=== PATIENT | female | born 1955 | race Caucasian/White ===

== ENCOUNTER 2016-05-25 13:49 | Emergency (ER) | payer MEDICARE, MEDICAID ==
[2016-05-25] MEDS ORDERED: Al Hydrox/Mg Hydrox/Simet LIQ* 30 ML UDC PO ONE (15:28)
[2016-05-25] MEDS ORDERED: Lidocaine 2% VISCOUS* 15 ML UDC PO ONE (15:28)
[2016-05-25] MEDS ORDERED: Ondansetron INJ* 2 MG/ML VIAL IV ONE (15:29)
[2016-05-25 15:39] LABS: Hematocrit 42 % (35-47); Hemoglobin 14.1 g/dl (12.0-16.0); Mean Corpuscular HGB Conc 34 g/dl (31-36); Mean Corpuscular Hemoglobin 31 pg (27-31); Mean Corpuscular Volume 91 fL (80-97); Mean Platelet Volume 7 um3 (7.4-10.4); Red Blood Count 4.58 10^6/ul (4.0-5.4); Red Cell Distribution Width 13 % (10.5-15); White Blood Count 10.7 10^3/ul (3.5-10.8)
[2016-05-25 15:56] LABS: Albumin 4.6 g/dL (3.2-5.2); BUN/Creatinine Ratio 13.9 (8-20); EGFR African American 105.6 (>60); EGFR Non-African American 82.1 (>60); Globulin 3.8 g/dL (2-4); Potassium 3.9 mmol/L (3.5-5.0); Total Bilirubin 0.6 mg/dL (0.2-1.0); Total Protein 8.4 g/dL (6.4-8.9)
[2016-05-25 17:51] VITALS: BP 154/95
[2016-05-25] MEDS ORDERED: Acetaminophen TAB* 325 MG ONE (18:31)
[2016-05-25] MEDS ORDERED: Acetaminophen TAB* 325 MG PO ONE (18:34)
--- NOTE | 2016-05-25 20:36 | ED ---
Abdominal Pain/Female - HPI Summary HPI Summary: Patient presents for delayed evaluation of periumbilical abdominal pain and nausea after drinking half a case of beer. She was upset with her son and daughter in law and subsequently drank the beer to cope. This is atypical, but what she felt may help. Denies any SI/HI, systemic symptoms, allev factors attempted. - History of Current Complaint Chief Complaint: EDNauseaVomitDiarrh Stated Complaint: NAUSEA/VOMITTING Time Seen by Provider: 05/25/16 15:12 Hx Obtained From: Patient Onset/Duration: Gradual Onset Timing: Days Pain Intensity: 6 Allergies/Adverse Reactions: Allergies Allergy/AdvReac Type Severity Reaction Status Date / Time Tramadol Allergy Severe Shortness Verified 05/25/16 13:52 of Breath Codeine Allergy Intermediate Rash Verified 05/25/16 13:52 Sulfa Drugs Allergy Mild Rash Verified 05/25/16 13:52 Atorvastatin [From Lipitor] AdvReac Severe Muscle Verified 05/25/16 13:52 weakness PMH/Surg Hx/FS Hx/Imm Hx Endocrine/Hematology History: Reports: Hx Diabetes - II Denies: Hx Thyroid Disease Cardiovascular History: Reports: Hx Hypertension Denies: Hx Pacemaker/ICD Respiratory History: Denies: Hx Asthma, Hx Chronic Obstructive Pulmonary Disease (COPD) GI History: Reports: Hx Hiatal Hernia Denies: Hx Ulcer History: Reports: Hx Renal Disease - HX OF FAILURE? Musculoskeletal History: Denies: Hx Osteoporosis Sensory History: Reports: Hx Contacts or Glasses, Hx Vision Problem Denies: Hx Hearing Aid Opthamlomology History: Reports: Hx Contacts or Glasses, Hx Vision Problem Psychiatric History: Reports: Hx Depression, Other Psychiatric Issues/Disorders - Psychosis, controlled with Geodon Denies: Hx Eating Disorder, Hx Panic Disorder, Hx of Violent Episodes Against Others - Cancer History Hx Chemotherapy: No Hx Radiation Therapy: No - Surgical History Surgery Procedure, Year, and Place: HYSTERECTOMY. Hernia repair. 06/19/14- [facility] HEART LOOP RECORDER -MRI CHARLES UP TO 3T 2500G/CM-FILED IN PT CHART Infectious Disease History: No Infectious Disease History: Reports: Hx Shingles Denies: Hx Clostridium Difficile, Hx Hepatitis, Hx Human Immunodeficiency Virus (HIV), Hx of Known/Suspected MRSA, Hx Tuberculosis, History Other Infectious Disease, Traveled Outside the [place] in Last 30 Days - Family History Known Family History: Positive: Hypertension - Social History Alcohol Use: Rare Alcohol Amount: Drank 10 beers Tuesday. Usually does not drink. Hx Substance Use: No Substance Use Type: Reports: None Hx Tobacco Use: Yes Smoking Status (MU): Former Smoker Type: Cigarettes Amount Used/How Often: 2 cigs day hx - quit 2011 Have You Smoked in the Last Year: No Review of Systems Negative: Fever, Chills Negative: Palpitations, Chest Pain Negative: Shortness Of Breath, Cough Positive: Abdominal Pain, Nausea. Negative: Vomiting, Diarrhea All Other Systems Reviewed And Are Negative: Yes Physical Exam Triage Information Reviewed: Yes Vital Signs On Initial Exam: Initial Vitals Temp Pulse Resp BP Pulse Ox 96.9 F 99 16 155/97 99 05/25/16 13:52 05/25/16 13:52 05/25/16 13:52 05/25/16 13:52 05/25/16 13:52 Vital Signs Reviewed: Yes Appearance: Positive: Well-Appearing, Well-Nourished, Pain Distress Skin: Positive: Warm, Skin Color Reflects Adequate Perfusion, Dry Respiratory/Lung Sounds: Positive: Clear to Auscultation, Breath Sounds Present Cardiovascular: Positive: Normal, RRR, Pulses are Symmetrical in both Upper and Lower Extremities Abdomen Description: Positive: No Organomegaly, Soft, Other: - Mild periumbilical to epigastric ttp.. Negative: CVA Tenderness (R), CVA Tenderness (L) Musculoskeletal: Positive: Normal, Strength/ROM Intact Neurological: Positive: Normal, Sensory/Motor Intact, Alert, Oriented to Person Place, Time, CN Intact II-III, Reflexes Intact, Normal Gait. Negative: Cerebellar Dysfunction Psychiatric: Positive: Other - Tearful Diagnostics - Vital Signs Vital Signs Temp Pulse Resp BP Pulse Ox 05/25/16 17:30 95 154/95 95 05/25/16 17:05 166/104 05/25/16 16:30 91 17 157/99 97 05/25/16 16:00 96 17 160/95 95 05/25/16 15:30 93 20 155/94 95 05/25/16 15:00 94 16 147/104 98 05/25/16 14:59 146/94 05/25/16 14:49 99 F 100 20 147/96 99 05/25/16 13:52 96.9 F 99 16 155/97 99 - Laboratory Lab Results: Lab Results 05/25/16 05/25/16 05/25/16 Range/Units 15:13 15:20 15:20 WBC 10.7 (3.5-10.8) 10^3/ul RBC 4.58 (4.0-5.4) 10^6/ul Hgb 14.1 (12.0-16.0) g/dl Hct 42 (35-47) % MCV 91 (80-97) fL MCH 31 (27-31) pg MCHC 34 (31-36) g/dl RDW 13 (10.5-15) % Plt Count 338 (150-450) 10^3/ul MPV 7 L (7.4-10.4) um3 Sodium 130 L (133-145) mmol/L Potassium 3.9 (3.5-5.0) mmol/L Chloride 94 L (101-111) mmol/L Carbon Dioxide 28 (22-32) mmol/L Anion Gap 8 (2-11) mmol/L BUN 10 (6-24) mg/dL Creatinine 0.72 (0.51-0.95) mg/dL Est GFR ( Amer) 105.6 (>60) Est GFR (Non-Af Amer) 82.1 (>60) BUN/Creatinine Ratio 13.9 (8-20) Glucose 160 H (70-100) mg/dL POC Glucose (mg/dL) 148 H (74-106) mg/dL Calcium 10.0 (8.6-10.3) mg/dL Total Bilirubin 0.60 (0.2-1.0) mg/dL AST 22 (13-39) U/L ALT 23 (7-52) U/L Alkaline Phosphatase 75 (34-104) U/L Total Protein 8.4 (6.4-8.9) g/dL Albumin 4.6 (3.2-5.2) g/dL Globulin 3.8 (2-4) g/dL Albumin/Globulin Ratio 1.2 (1-3) Lipase 31 (11.0-82.0) U/L Result Diagrams: 05/25/16 15:20 05/25/16 15:20 Lab Statement: Any lab studies that have been ordered have been reviewed, and results considered in the medical decision making process. Abdominal Pain Fem Course/Dx - Diagnoses Differential Diagnosis: Positive: Other - Primary concern for alcohol gastritis vs alcoholic pancreatitis. Nontoxic appearing and needing supportive care. She deferred imaging, but would accept mental health evaluation due to poor coping ability. Provider Diagnoses: Alcoholic gastritis Discharge - Discharge Plan Condition: Stable Disposition: OTHER Discharge Disposition Comment: ELOPED FROM EMERGENCY DEPT
== END 2016-05-26 03:16 ==
LOC: ED 13:49
DX: K29.20 Alcoholic gastritis without bleeding (principal); R11.2 Nausea with vomiting, unspecified; R10.84 Generalized abdominal pain; Z87.891 Personal history of nicotine dependence
CPT/HCPCS: 36415; 80053; 83690; 85027; 96374; 99284; A9270-GY; J2405

== ENCOUNTER 2016-08-06 05:45 | Emergency (ER) | payer MEDICARE, OTHER ==
[2016-08-06] MEDS ORDERED: NS 0.9% 1000 ML* 1,000 ML IV ONE (06:18)
[2016-08-06] MEDS ORDERED: Ondansetron INJ* 2 MG/ML VIAL IV ONE (06:18)
[2016-08-06] MEDS ORDERED: Morphine INJ* 4 MG/ML 1 ML SYRINGE IV ONE (06:18)
[2016-08-06 06:34] LABS: Hematocrit 42 % (35-47); Hemoglobin 13.9 g/dl (12.0-16.0); Mean Corpuscular HGB Conc 33 g/dl (31-36); Mean Corpuscular Hemoglobin 31 pg (27-31); Mean Corpuscular Volume 93 fL (80-97); Mean Platelet Volume 8 um3 (7.4-10.4); Red Blood Count 4.53 10^6/ul (4.0-5.4); Red Cell Distribution Width 14 % (10.5-15); White Blood Count 10.9 10^3/ul (3.5-10.8)
[2016-08-06 06:47] LABS: ALT 26 U/L (7-52); Albumin 3.9 g/dL (3.2-5.2); Alkaline Phosphatase 98 U/L (34-104); BUN/Creatinine Ratio 15.7 (8-20); Blood Urea Nitrogen 13 mg/dL (6-24); CO2 Carbon Dioxide 26 mmol/L (22-32); Chloride 97 mmol/L (101-111); EGFR African American 89.6 (>60); EGFR Non-African American 69.7 (>60); Globulin 4.5 g/dL (2-4); Glucose 211 mg/dL (70-100); Sodium 133 mmol/L (133-145); Total Protein 8.4 g/dL (6.4-8.9)
[2016-08-06 06:52] LABS: Troponin I 0.02 ng/mL (<0.04)
--- NOTE | 2016-08-06 06:55 | ED ---
Lamont Lim Michael, scribed for Aaliyah Styles MD on 08/06/16 at 0602 . Complex/Multi-Sys Presentation - HPI Summary HPI Summary: 61 y/o female was BIBA to the ED presenting with nausea and LLQ abd pain that started 5 days ago. The pt reports that the abd has not worsened, but the nausea has worsened. She also c/o coughing for one month, chills, and lightheadedness that has worsened to the point that the pt cannot ambulate normally. The pt denies back pain, vomiting, and diarrhea. - History Of Current Complaint Chief Complaint: EDGeneral Time Seen by Provider: 08/06/16 05:51 Hx Obtained From: Patient, EMS, Medical Records Onset/Duration: Gradual Onset, Lasting Days, Still Present Timing: Constant Severity Currently: Mild Severity Initially: Moderate Location: Pain At: - LLQ Associated Signs And Symptoms: Positive: Cough, Nausea, Abdominal Pain, Other - lightheadedness. chills.. Negative: Vomiting, Diarrhea, Back Pain - Allergies/Home Medications Allergies/Adverse Reactions: Allergies Allergy/AdvReac Type Severity Reaction Status Date / Time Tramadol Allergy Severe Shortness Verified 08/06/16 05:56 of Breath Codeine Allergy Intermediate Rash Verified 08/06/16 05:56 Sulfa Drugs Allergy Mild Rash Verified 08/06/16 05:56 Atorvastatin [From Lipitor] AdvReac Severe Muscle Verified 08/06/16 05:56 weakness PMH/Surg Hx/FS Hx/Imm Hx Endocrine/Hematology History: Reports: Hx Diabetes - II Denies: Hx Thyroid Disease Cardiovascular History: Reports: Hx Hypertension Denies: Hx Pacemaker/ICD Respiratory History: Denies: Hx Asthma, Hx Chronic Obstructive Pulmonary Disease (COPD) GI History: Reports: Hx Hiatal Hernia Denies: Hx Ulcer History: Reports: Hx Renal Disease - HX OF FAILURE? Musculoskeletal History: Denies: Hx Osteoporosis Sensory History: Reports: Hx Contacts or Glasses, Hx Vision Problem Denies: Hx Hearing Aid Opthamlomology History: Reports: Hx Contacts or Glasses, Hx Vision Problem Psychiatric History: Reports: Hx Depression, Other Psychiatric Issues/Disorders - Psychosis, controlled with Geodon Denies: Hx Eating Disorder, Hx Panic Disorder, Hx of Violent Episodes Against Others - Cancer History Hx Chemotherapy: No Hx Radiation Therapy: No - Surgical History Surgery Procedure, Year, and Place: HYSTERECTOMY. Hernia repair. 06/19/14- [facility] REVEAL HEART LOOP RECORDER -MRI CHARLES UP TO 3T 2500G/CM-FILED IN PT CHART Infectious Disease History: No Infectious Disease History: Reports: Hx Shingles Denies: Hx Clostridium Difficile, Hx Hepatitis, Hx Human Immunodeficiency Virus (HIV), Hx of Known/Suspected MRSA, Hx Tuberculosis, History Other Infectious Disease, Traveled Outside the [place] in Last 30 Days - Family History Known Family History: Positive: Hypertension - Social History Occupation: Retired Lives: Alone Alcohol Use: Rare Alcohol Amount: Drank 10 beers Tuesday. Usually does not drink. Hx Substance Use: No Substance Use Type: Reports: None Hx Tobacco Use: Yes Smoking Status (MU): Former Smoker Type: Cigarettes Amount Used/How Often: 2 cigs day hx - quit 2011 Have You Smoked in the Last Year: No Review of Systems Positive: Chills Positive: Cough Positive: Abdominal Pain, Nausea. Negative: Vomiting, Diarrhea Neurological: Other - lightheadedness All Other Systems Reviewed And Are Negative: Yes Physical Exam Triage Information Reviewed: Yes Vital Signs On Initial Exam: Initial Vitals Temp Pulse Resp BP Pulse Ox 97.9 F 79 16 142/82 99 08/06/16 05:45 08/06/16 05:45 08/06/16 05:45 08/06/16 05:45 08/06/16 05:45 Vital Signs Reviewed: Yes Appearance: Positive: No Pain Distress, Ill-Appearing - mild Skin: Positive: Warm, Skin Color Reflects Adequate Perfusion, Dry Eyes: Positive: EOMI, [place] ENT: Positive: Pharynx normal, TMs normal Neck: Positive: Supple, Nontender Respiratory/Lung Sounds: Positive: Clear to Auscultation, Breath Sounds Present. Negative: Rales, Rhonchi, Wheezes Cardiovascular: Positive: RRR, Other - no gallops. Negative: Murmur, Rub Abdomen Description: Positive: Nontender, Soft, Other: - no rebound. Negative: Distended, Guarding Bowel Sounds: Positive: Present Musculoskeletal: Positive: Strength/ROM Intact. Negative: Edema Left, Edema Right Neurological: Positive: Sensory/Motor Intact, Alert, Oriented to Person Place, Time, CN Intact II-III Psychiatric: Positive: Affect/Mood Appropriate Diagnostics - Vital Signs Vital Signs Temp Pulse Resp BP Pulse Ox 08/06/16 05:45 97.9 F 79 16 142/82 99 - Laboratory Lab Results: Lab Results 08/06/16 08/06/16 08/06/16 Range/Units 00:50 00:50 00:50 WBC 10.9 H (3.5-10.8) 10^3/ul RBC 4.53 (4.0-5.4) 10^6/ul Hgb 13.9 (12.0-16.0) g/dl Hct 42 (35-47) % MCV 93 (80-97) fL MCH 31 (27-31) pg MCHC 33 (31-36) g/dl RDW 14 (10.5-15) % Plt Count 410 (150-450) 10^3/ul MPV 8 (7.4-10.4) um3 Neut % (Auto) 70.4 (38-83) % Lymph % (Auto) 20.8 L (25-47) % [place] % (Auto) 6.0 (1-9) % Eos % (Auto) 2.1 (0-6) % Baso % (Auto) 0.7 (0-2) % Absolute Neuts (auto) 7.7 (1.5-7.7) 10^3/ul Absolute Lymphs (auto) 2.3 (1.0-4.8) 10^3/ul Absolute Monos (auto) 0.7 (0-0.8) 10^3/ul Absolute Eos (auto) 0.2 (0-0.6) 10^3/ul Absolute Basos (auto) 0.1 (0-0.2) 10^3/ul Absolute Nucleated RBC 0.01 10^3/ul Nucleated RBC % 0.1 D-Dimer, Quantitative (Less Than 230) ng/mL Sodium 133 (133-145) mmol/L Potassium TNP Chloride 97 L (101-111) mmol/L Carbon Dioxide 26 (22-32) mmol/L Anion Gap TNP BUN 13 (6-24) mg/dL Creatinine 0.83 (0.51-0.95) mg/dL Est GFR ( Amer) 89.6 (>60) Est GFR (Non-Af Amer) 69.7 (>60) BUN/Creatinine Ratio 15.7 (8-20) Glucose 211 H (70-100) mg/dL Lactic Acid 1.6 (0.5-2.0) mmol/L Calcium 10.0 (8.6-10.3) mg/dL Total Bilirubin 0.60 (0.2-1.0) mg/dL AST TNP ALT 26 (7-52) U/L Alkaline Phosphatase 98 (34-104) U/L Troponin I 0.02 (<0.04) ng/mL B-Natriuretic Peptide ( - 100) pg/mL Total Protein 8.4 (6.4-8.9) g/dL Albumin 3.9 (3.2-5.2) g/dL Globulin 4.5 H (2-4) g/dL Albumin/Globulin Ratio 0.9 L (1-3) 08/06/16 08/06/16 Range/Units 00:50 00:50 WBC (3.5-10.8) 10^3/ul RBC (4.0-5.4) 10^6/ul Hgb (12.0-16.0) g/dl Hct (35-47) % MCV (80-97) fL MCH (27-31) pg MCHC (31-36) g/dl RDW (10.5-15) % Plt Count (150-450) 10^3/ul MPV (7.4-10.4) um3 Neut % (Auto) (38-83) % Lymph % (Auto) (25-47) % [place] % (Auto) (1-9) % Eos % (Auto) (0-6) % Baso % (Auto) (0-2) % Absolute Neuts (auto) (1.5-7.7) 10^3/ul Absolute Lymphs (auto) (1.0-4.8) 10^3/ul Absolute Monos (auto) (0-0.8) 10^3/ul Absolute Eos (auto) (0-0.6) 10^3/ul Absolute Basos (auto) (0-0.2) 10^3/ul Absolute Nucleated RBC 10^3/ul Nucleated RBC % D-Dimer, Quantitative < 200 (Less Than 230) ng/mL Sodium (133-145) mmol/L Potassium Chloride (101-111) mmol/L Carbon Dioxide (22-32) mmol/L Anion Gap BUN (6-24) mg/dL Creatinine (0.51-0.95) mg/dL Est GFR ( Amer) (>60) Est GFR (Non-Af Amer) (>60) BUN/Creatinine Ratio (8-20) Glucose (70-100) mg/dL Lactic Acid (0.5-2.0) mmol/L Calcium (8.6-10.3) mg/dL Total Bilirubin (0.2-1.0) mg/dL AST ALT (7-52) U/L Alkaline Phosphatase (34-104) U/L Troponin I (<0.04) ng/mL B-Natriuretic Peptide 27 ( - 100) pg/mL Total Protein (6.4-8.9) g/dL Albumin (3.2-5.2) g/dL Globulin (2-4) g/dL Albumin/Globulin Ratio (1-3) Result Diagrams: 08/06/16 00:50 08/06/16 00:50 Lab Statement: Any lab studies that have been ordered have been reviewed, and results considered in the medical decision making process. Complex Multi-Symp Course/Dx Course Of Treatment: 61 yo female with cough for over a month and abd pain that started on Tuesday with nausea and light headed ness and sob. Her abd is not tender. Initial labs including a ddimer are pending and the case will be discussed with Dr. Pollard this am as she is likely to need imaging - Diagnoses Provider Diagnoses: Cough, Abdominal pain, Near syncope Discharge - Discharge Plan Condition: Guarded Disposition: OTHER Discharge Disposition Comment: disposition to be made by Dr. Pollard The documentation as recorded by the Lamont ram Michael accurately reflects the service I personally performed and the decisions made by me, Aaliyah Styles MD.
[2016-08-06] MEDS ORDERED: PROCHLORPERAZINE INJ 5 MG/ML 2 ML VIAL IV ONE (07:38)
[2016-08-06] MEDS ORDERED: Iodixanol* (CONTRAST) 320 MG/ML 100 ML SDV IV ONE (07:46)
--- NOTE | 2016-08-06 08:35 | RAD ---
INDICATION: Short of breath COMPARISON: May 09, 2014 TECHNIQUE: PA and lateral dual-energy views were obtained. FINDINGS: Bones/Soft Tissues: There are no acute bony findings. Cardiomediastinal: The cardiomediastinal silhouette is normal. Lungs: There are no infiltrates. Pleura: There are no pleural effusions. Other: None IMPRESSION: NO ACTIVE DISEASE.
--- NOTE | 2016-08-06 08:46 | RAD ---
Indication: Hypoxia. Contrast: Administered 76.0 ml of VISIPAQUE 320 mg/ml CTA of the chest was performed without IV contrast administration. Coronal and sagittal reconstructed images were obtained. The pulmonary arterial tree is well opacified. There are no filling defects present to suggest pulmonary embolus. Inferior thyroid lobes are unremarkable. Small pretracheal lymph nodes are noted measuring up to 7 mm. AP window lymph nodes measuring up to 5.5 cm. Right hilar nodes measure up to 7 mm. The heart demonstrates no pericardial effusion. The trachea and major bronchi appear patent. There is some peripheral airspace disease in the right lower lobe which appeared to have a tree-in-bud appearance. This suggests that there may be some obstructive bronchioles. Clinical correlation is suggested. Inflammatory, infectious or neoplastic process is not excluded. Possibility of early alveolitis should BE considered. No alveolar consolidation is noted. The visualized portions of the liver demonstrates lobular contour suspicious for cirrhosis. IMPRESSION: NO EVIDENCE OF PULMONARY EMBOLUS IS NOTED. THERE MAY BE SOME PERIPHERAL DENSITIES IN THE RIGHT LOWER LOBE LATERALLY WHICH HAVE A TREE-IN-BUD APPEARANCE AND THE POSSIBILITY OF A BRONCHIAL OBSTRUCTION SHOULD BE CONSIDERED. THIS COULD BE INFECTIOUS, INFLAMMATORY OR NEOPLASTIC. CLINICAL CORRELATION IS SUGGESTED. LOBULAR CONTOUR OF THE LIVER SUSPICIOUS FOR CIRRHOSIS.
[2016-08-06 09:17] LABS: Urine Bacteria Absent (Absent); Urine Bilirubin Negative (Negative); Urine Glucose 1+(50 mg/dL) (Negative); Urine Nitrite Negative (Negative)
[2016-08-06 09:24] LABS: Alcohol < 10 mg/dL (<10)
[2016-08-06 12:11] VITALS: BP 95/54
== END 2016-08-06 12:10 ==
LOC: ED 05:45
DX: R55 Syncope and collapse (principal); R10.32 Left lower quadrant pain; R05 Cough; R11.0 Nausea; Z87.891 Personal history of nicotine dependence; R68.83 Chills (without fever)
CPT/HCPCS: 36415; 71020; 71275; 80053; 80320; 81003; 81015; 83605; 83880; 84484; 85025; 85379; 87086; 93005; 99284; G0480; J0780; J2270; J2405; Q9967

== ENCOUNTER 2017-01-12 11:43 | Emergency (ER) | payer MEDICARE ==
[2017-01-12] MEDS ORDERED: Metoclopramide IV* 5 MG/ML 2 ML VIAL IV ONE (13:03)
[2017-01-12] MEDS ORDERED: diPHENhydraMINE IV* 50 MG/ML 1 ml VIAL (BENADRYL) IV ONE (13:03)
[2017-01-12] MEDS ORDERED: NS 0.9% 1000 ML* 1,000 ML IV ONE (13:03)
[2017-01-12] MEDS ORDERED: Ketorolac INJ* 30 MG/ML 1 ML VIAL IV ONE (13:03)
--- NOTE | 2017-01-12 13:15 | ED ---
Headache - HPI Summary HPI Summary: 61 female presents to ED with complaints of "migraine for 2 weeks" that has not gone away. Patient described the migraine to be diffuse and sharp. Admits to having blurred vision. Also has been unable to eat and drink due to nausea. Also admits to vomiting x3 episodes. States she feels weak from being unable to eat or drink due to nausea. Has tried taking 1000mg TID of tylenol without relief however stopped taking it due to not having relief from it. States she has not taken her daily medications due to fear of vomiting them up. Take metformin, insulin and cholesterol medication. PMHx significant for Type II DM, high cholesterol, asthma and having pneumonia for 2 months a few months ago. Patient states she never gets headaches or has had one like this in the past. Has not been bite by tick. Denies fevers/chills, neck stiffness/pain, no recent trauma or injury, chest pain or trouble breathing. Denies dizziness and feeling lightheaded. Admits to photosensitivity. Not on anticoagulants. Denies numbness/ tingling. - History Of Current Complaint Chief Complaint: EDHeadache Stated Complaint: MIAGRAINE/2WEEKS N/V Time Seen by Provider: 01/12/17 12:45 Hx Obtained From: Patient Last Known Well Date: 01/01/17 Onset/Duration: Sudden Onset, Started weeks ago, Still Present Initially Headache Was: "Worst Headache Ever", Initial Pain Scale(0-10)= - 10 Currently Pain Is: Moderate Timing: Constant Character: Sharp, Migraine Location of Headache: Diffuse Radiates to: none Aggravating Factor: Bright Lights Allevating Factors: Nothing - Risk Factors SAH Risk Factors: Negative Meningitis Risk Factors: Negative SDH Risk Factors: Negative Temporal Arteritis Risk Factors: Female, , Greater Than 60 Years Old - Allergies/Home Medications Allergies/Adverse Reactions: Allergies Allergy/AdvReac Type Severity Reaction Status Date / Time Tramadol Allergy Severe Shortness Verified 01/12/17 12:49 of Breath Codeine Allergy Intermediate Rash Verified 01/12/17 12:49 Sulfa Drugs Allergy Mild Rash Verified 01/12/17 12:49 Atorvastatin [From Lipitor] AdvReac Severe Muscle Verified 01/12/17 12:49 weakness PMH/Surg Hx/FS Hx/Imm Hx Endocrine/Hematology History: Reports: Hx Diabetes - II Denies: Hx Thyroid Disease Cardiovascular History: Reports: Hx Hypertension, Other Cardiovascular Problems/ Disorders - IDDM II Denies: Hx Pacemaker/ICD Respiratory History: Denies: Hx Asthma, Hx Chronic Obstructive Pulmonary Disease (COPD) GI History: Reports: Hx Hiatal Hernia Denies: Hx Ulcer History: Reports: Hx Renal Disease - HX OF FAILURE? Musculoskeletal History: Denies: Hx Osteoporosis Sensory History: Reports: Hx Contacts or Glasses, Hx Vision Problem Denies: Hx Hearing Aid Opthamlomology History: Reports: Hx Contacts or Glasses, Hx Vision Problem Psychiatric History: Reports: Hx Depression, Other Psychiatric Issues/Disorders - Psychosis, controlled with Geodon Denies: Hx Eating Disorder, Hx Panic Disorder, Hx of Violent Episodes Against Others - Cancer History Hx Chemotherapy: No Hx Radiation Therapy: No - Surgical History Surgery Procedure, Year, and Place: HYSTERECTOMY. Hernia repair. 06/19/14- [facility] LOOP RECORDER -MRI CHARLES UP TO 3T 2500G/CM-FILED IN PT CHART - Immunization History Immunizations Up to Date: Yes Infectious Disease History: No Infectious Disease History: Reports: Hx Shingles Denies: Hx Clostridium Difficile, Hx Hepatitis, Hx Human Immunodeficiency Virus (HIV), Hx of Known/Suspected MRSA, Hx Tuberculosis, History Other Infectious Disease, Traveled Outside the [place] in Last 30 Days - Family History Known Family History: Positive: Hypertension - Social History Alcohol Use: Rare Alcohol Amount: Drank 10 beers Tuesday. Usually does not drink. Hx Substance Use: No Substance Use Type: Reports: None Hx Tobacco Use: Yes Smoking Status (MU): Former Smoker Type: Cigarettes Amount Used/How Often: 2 cigs day hx - quit 2011 Have You Smoked in the Last Year: No Review of Systems Constitutional: Negative Positive: Photophobia, Blurred Vision ENT: Negative Cardiovascular: Negative Respiratory: Negative Positive: Vomiting, Diarrhea - resolved , Nausea Musculoskeletal: Negative Skin: Negative Positive: Headache All Other Systems Reviewed And Are Negative: Yes Physical Exam Triage Information Reviewed: Yes Vital Signs On Initial Exam: Initial Vitals Temp Pulse Resp BP Pulse Ox 96.9 F 85 20 151/83 99 01/12/17 11:55 01/12/17 11:55 01/12/17 11:55 01/12/17 11:55 01/12/17 11:55 115/73 BP improve on second eval Vital Signs Reviewed: Yes Appearance: Positive: Well-Appearing, No Pain Distress, Well-Nourished Skin: Positive: Warm, Skin Color Reflects Adequate Perfusion, Dry. Negative: Cold, Cyanosis @, Pale, Erythema @ Head/Face: Positive: Normal Head/Face Inspection. Negative: Temporal Artery Tenderness, TMJ Tenderness, Scalp Eyes: Positive: EOMI, SHUBHAM, Conjunctiva Clear, Other: - normal visual acuity, refrains from making eye contact. sees appropriate amount of fingers when asked how many holding up. does not appear to have blurred vision/seeing double. normal visual acuity. ENT: Positive: Normal ENT inspection, Hearing grossly normal, Pharynx normal, TMs normal. Negative: Pharyngeal erythema, Nasal congestion, Nasal drainage, Tonsillar exudate, Trismus, Muffled/hoarse voice Dental: Negative: Percussion Tenderness @, Cervical Lymphadenopathy Neck: Positive: Supple, Nontender, No Lymphadenopathy Respiratory/Lung Sounds: Positive: Clear to Auscultation, Breath Sounds Present. Negative: Rales, Rhonchi, Wheezes Cardiovascular: Positive: Normal, RRR, Pulses are Symmetrical in both Upper and Lower Extremities. Negative: Murmur, Rub Abdomen Description: Positive: Nontender, No Organomegaly, Soft. Negative: Bruit, CVA Tenderness (R), CVA Tenderness (L), Distended, Guarding, Peritoneal Signs, Pulsatile Mass Bowel Sounds: Positive: Present Musculoskeletal: Positive: Normal, Strength/ROM Intact. Negative: Pain @ Neurological: Positive: Normal - normal neuro, patient however could only recall 1/3 words during memory testing, Sensory/Motor Intact - sensation intact , Alert, Oriented to Person Place, Time, CN Intact II-III, Reflexes Intact, NV Bundle Intact Distally, Normal Gait, Finger to Nose - normal, Facial Symmetry, Speech Normal, Other - appears to have suffered a previous TBI. Negative: Receptive Aphasia, Expressive Aphasia, Disoriented, Focal Deficit @, Slurred Speech Psychiatric: Positive: Affect/Mood Appropriate - Ahmet Coma Scale Best Eye Response: 4 - Spontaneous Best Motor Response: 6 - Obeys Commands Best Verbal Response: 5 - Oriented Coma Scale Total: 15 Diagnostics - Vital Signs Vital Signs Temp Pulse Resp BP Pulse Ox 01/12/17 12:42 70 99 01/12/17 12:41 115/73 01/12/17 11:55 96.9 F 85 20 151/83 99 - Laboratory Result Diagrams: 01/12/17 14:25 01/12/17 14:25 Lab Statement: Any lab studies that have been ordered have been reviewed, and results considered in the medical decision making process. - CT brain CT Interpretation: No Acute Changes - NO ACUTE INTRACRANIAL FINDINGS CT Interpretation Completed By: Radiologist Re-Evaluation - Re-Evaluation First Eval Re-Evaluation Time: 14:30 Change: Improved - patient had significant relief after medications 3/10 pain. feels a little drowsy from benadryl Second Eval Re-Evaluation Time: 17:00 Change: Improved - feels much better, nausea, headache has significantly improved 0/10. drowsiness from benadryl has siginificantly improved as well. ready to be d/c updated on normal labs and Ct scan. patient agrees and understands plan. Headache Course/Dx - Course Course Of Treatment: CT brain obtained due to complaint of symptoms and length of symptoms. Labs obtained. No cardiorespiratory concern or complaint. No fevers. Normal vitals. Given fluids, antiemetic and pain medication. Had significant relief of all symptoms and asked to be d/c home. Labs unremarkable. no concern or risk factor for any other emergent etiology other than headache versus migraine. normal PE findings and vitals. Follow up with PCP/neuro. Aware of worsening signs and symptoms. ibuprofen for headache and reglan for nausea as needed. - Diagnoses Differential Diagnosis/HQI/PQRI: Migraine, Sinus Headache, Tension Headache, Viral Syndrome Provider Diagnoses: Headache - Physician Notifications Discussed Care Of Patient With: Dr Cheek Discharge - Discharge Plan Condition: Stable Disposition: HOME Prescriptions: Ibuprofen TAB* [Motrin TAB* 600 MG] 600 mg PO Q6H PRN #25 tab PRN Reason: Headache Metoclopramide TAB* [Reglan TAB*] 5 mg PO Q6H PRN #10 tab PRN Reason: Nausea Patient Education Materials: Acute Headache (ED) Referrals: Yoselyn Cintron MD [Primary Care Provider] - Additional Instructions: Take prescribed medication as needed for headache and nausea. Take ibuprofen with food. Drink plenty of fluids, rest and avoid strenuous activities. Please make an appointment with primary care doctor. Please make an appointment with neurologist if symptoms return or persist. IF new symptoms develop or symptoms worsen please seek medical attention immediately, as discussed.
--- NOTE | 2017-01-12 13:45 | RAD ---
INDICATION: Headaches COMPARISON: CT brain September 28, 2014 TECHNIQUE: Noncontrast axial source images were acquired from the skull base to the vertex. FINDINGS: Ventricles/sulci: The ventricles and cisterns are normal in size and configuration for age. Brain parenchyma: There is no focal parenchymal finding, evidence of intracranial mass, or intracranial mass effect. Intracranial hemorrhage:None. Extra-axial spaces: There are no abnormal extra axial fluid collections or evidence of extra-axial mass. Calvarium: There is no calvarial fracture or other calvarial abnormality. Scalp: There is no evidence of scalp or extracalvarial soft tissue abnormality. Paranasal sinuses/mastoid: The paranasal sinuses and mastoid air cells are clear. Other: None. IMPRESSION: NO ACUTE INTRACRANIAL FINDINGS
[2017-01-12 14:33] LABS: Hematocrit 40 % (35-47); Hemoglobin 13.3 g/dl (12.0-16.0); Mean Corpuscular HGB Conc 33 g/dl (31-36); Mean Corpuscular Hemoglobin 32 pg (27-31); Mean Corpuscular Volume 95 fL (80-97); Mean Platelet Volume 7 um3 (7.4-10.4); Red Blood Count 4.21 10^6/ul (4.0-5.4); Red Cell Distribution Width 14 % (10.5-15); White Blood Count 8.7 10^3/ul (3.5-10.8)
[2017-01-12 14:52] LABS: Albumin 4.2 g/dL (3.2-5.2); BUN/Creatinine Ratio 19.4 (8-20); Calcium 10.1 mg/dL (8.6-10.3); EGFR African American 105.6 (>60); EGFR Non-African American 82.1 (>60); Globulin 3.7 g/dL (2-4); Potassium 4.8 mmol/L (3.5-5.0); Total Bilirubin 0.4 mg/dL (0.2-1.0); Total Protein 7.9 g/dL (6.4-8.9)
[2017-01-12 15:37] LABS: Erythrocyte Sed Rate 27 mm/Hr (0-30)
[2017-01-12 16:03] LABS: Urine Bilirubin Negative (Negative); Urine Glucose Negative (Negative); Urine Nitrite Negative (Negative)
[2017-01-12 17:29] VITALS: BP 119/73
== END 2017-01-12 17:30 | disposition home or self-care (01) ==
LOC: ED 11:43
DX: R51 Headache (principal); Z87.891 Personal history of nicotine dependence; E11.9 Type 2 diabetes mellitus without complications; Z88.5 Allergy status to narcotic agent; Z88.2 Allergy status to sulfonamides; I10 Essential (primary) hypertension
CPT/HCPCS: 36415; 70450; 80053; 80329; 81003; 83605; 85025; 85652; 96360; 96374; 96375; 99284; G0480; J1200; J1885; J2765

== ENCOUNTER 2017-01-24 10:18 | Inpatient (IN) | payer MEDICARE ==
[2017-01-24 11:13] LABS: Hematocrit 41 % (35-47); Mean Corpuscular HGB Conc 34 g/dl (31-36); Mean Corpuscular Hemoglobin 32 pg (27-31); Mean Corpuscular Volume 94 fL (80-97); Mean Platelet Volume 7 um3 (7.4-10.4); Red Blood Count 4.41 10^6/ul (4.0-5.4); Red Cell Distribution Width 14 % (10.5-15); White Blood Count 9.1 10^3/ul (3.5-10.8)
[2017-01-24 11:24] LABS: ALT 51 U/L (7-52); AST 51 U/L (13-39); Albumin 4.3 g/dL (3.2-5.2); Alkaline Phosphatase 86 U/L (34-104); Anion Gap 7 mmol/L (2-11); BUN/Creatinine Ratio 10.5 (8-20); Blood Urea Nitrogen 8 mg/dL (6-24); CO2 Carbon Dioxide 28 mmol/L (22-32); Calcium 9.9 mg/dL (8.6-10.3); Chloride 103 mmol/L (101-111); EGFR African American 99.2 (>60); EGFR Non-African American 77.1 (>60); Globulin 3.8 g/dL (2-4); Glucose 77 mg/dL (70-100); Potassium 4.3 mmol/L (3.5-5.0); Sodium 138 mmol/L (133-145); Total Protein 8.1 g/dL (6.4-8.9)
[2017-01-24 11:49] LABS: Acetaminophen < 15 mcg/mL; Alcohol < 10 mg/dL (<10); Salicylate < 2.50 mg/dL (<30)
[2017-01-24 12:02] LABS: TSH (Thyroid Stimulating Horm) 2.58 mcIU/mL (0.34-5.60)
[2017-01-24] MEDS ORDERED: Ondansetron INJ* 2 MG/ML VIAL IV PRN (12:24)
[2017-01-24] MEDS ORDERED: Acetaminophen TAB* 325 MG PO PRN (12:24)
[2017-01-24] MEDS ORDERED: Dextrose 50% Syringe 50 ML* 25 GM/50 ML SYRINGE IV PUSH PRN (12:24)
[2017-01-24] MEDS ORDERED: Albuterol 2.5 MG/3 ML NEB.SOL* (0.083%) INH PRN (12:38)
[2017-01-24] MEDS ORDERED: D5W 1/2 NS 1000 ML BAG* 1,000 ML IV SCH (13:00)
[2017-01-24] MEDS: Heparin VIAL(*) 5000 UNITS/ML VIAL (FIVE THOUSAND) SUBCUT SCH ×2 (15:26→22:03)
--- NOTE | 2017-01-24 15:35 | HP ---
CC: Dr. Yoselyn Cintron * HISTORY AND PHYSICAL: DATE OF ADMISSION: 01/24/17 PRIMARY CARE PROVIDER: Dr. Yoselyn Cintron. ATTENDING PHYSICIAN WHILE IN THE HOSPITAL: Dr. Michael Esquivel * (report dictated by Shashi Sheets NP). CHIEF COMPLAINT: Overdose. HISTORY OF PRESENT ILLNESS: Ms. Alba is a 61-year-old female patient, she has a history of PTSD, hyperlipidemia, hypertension, anxiety, depression, diabetes, cholelithiasis, migraines, and asthma, who came in to our ED today stating that Tuesday at 1 o'clock in the morning, she took 600 units of her Lantus, as she was in attempt to take her life. She says over the last several months, she has been having a strained relationship with her son related to money, related to the son's , her [id number], and also estrangement with her friends that live in her building. She was feeling awfully depressed, feeling not willing to want to live. She took this Lantus on Tuesday about 24 hours ago in hopes to take her life, but then thereafter, she started checking her sugars every hour. She noticed there were in the 30s. She was taking honey , sugar water, eating, trying to keep her sugars up. She called the ER triage nurse here today, who recommended that she come in to the ER to be evaluated because of her sugars still persistently being low in the 30s and 60s throughout the night last night. She came in to the ED, her initial sugar was noted to be 62. It did respond to p.o. intake and we were asked to evaluate for admission because of the prolonged effects of Lantus and hypoglycemia. She denies having any headache now, she denies any chest pain, denies any shortness of breath. She denies having any abdominal pain. She denies having any nausea or vomiting and she says that her last sugar was noted to be at home in the 30s. She was evaluated in the ED and we were asked to evaluate for admission. PAST MEDICAL HISTORY: Significant for: 1. Anxiety. 2. Depression. 3. Diabetes. 4. PTSD. 5. Hypertension. 6. Hyperlipidemia. 7. Cholelithiasis. 8. Asthma. 9. Migraines. PAST SURGICAL HISTORY: She has had a loop recorder placed but this is no longer functioning, and she has a history of hernia repair. MEDICATIONS: The home meds according to the list that we were able to obtain include: 1. Effexor 225 mg daily. 2. Lantus 6 units subcu q.a.m. 3. Tylenol Extra Strength 1000 mg p.o. every 8 hours as needed. 4. Geodon 160 mg daily with meals. 5. Pravachol 40 mg daily. 6. Metformin 1000 mg p.o. b.i.d. ALLERGIES TO MEDICATIONS: Include TRAMADOL, CODEINE, SULFA, ATORVASTATIN. FAMILY HISTORY: Mother had end-stage renal disease. Father had prostate cancer. SOCIAL HISTORY: She is a former smoker. She smoked for about 9 years about a pack a day. She quit several years ago. She rarely drinks alcohol. Surrogate decision maker is her son, Vincent. REVIEW OF SYSTEMS: There is no documented fever. She denied having any significant weight change. There was no double vision. There was no ear discharge. She denied having any rhinorrhea. No sore throat. No thyroid enlargement. She denied having any chest pain. There was no orthopnea. There was no nocturnal dyspnea. There was no abdominal pain. There was no nausea, no vomiting. No dysuria, no frequency. No seizure, no loss of consciousness. No pruritus and no skin ulcerations. Review of 14 systems completed, all others negative. PHYSICAL EXAMINATION GENERAL: At this time, Ms. Alba is a 61-year-old female patient, she is sitting in the ER stretcher. She does not appear to be in any acute distress. VITAL SIGNS: Blood pressure 159/90 with a pulse of 85, respirations 18, O2 sat 97%, temperature 98.3. HEENT: Head atraumatic, normocephalic. Eyes: EOMs are intact. Sclerae anicteric and not pale. Throat: Oral mucosa appears to be moist. No oropharyngeal erythema. NECK: Supple. LUNGS: Clear to auscultation. No wheezes, rales, or rhonchi. HEART: Sounds S1, S2. Regular rate and rhythm. No murmurs, rubs, or gallops. ABDOMEN: Soft, flat, nontender. Bowel sounds present. EXTREMITIES: Pulses 2+ throughout. She is able to move all 4 extremities with 5 /5 strength. NEUROLOGIC: The patient is awake, she is alert, she is oriented x3. Tongue midline. Rug Washer equal. No gross focal deficits. SKIN: Intact. LABORATORY DATA: WBC of 9.1, RBC of 4.41, hemoglobin 14.0, hematocrit of 41, platelet count of 335. Sodium was 138; potassium of 4.3; chloride of 103; bicarb 28; BUN 8; creatinine 0.76; glucose 77, last glucose was 130 via fingerstick; calcium was 9.9. Total bili 0.3, AST 51, ALT 51, alk phos 86. Albumin 4.3. TSH of 2.58. Salicylates were negative. Tylenol was negative and alcohol was negative. Toxicology is negative. Old medical records reviewed. ASSESSMENT AND PLAN: Ms. Alba is a 61-year-old female patient coming into the ER today with complaints of overdose on Lantus. She took 600 units at 1 o' clock in the morning on Tuesday. We were asked to evaluate for admission. She will be admitted under observation status for: 1. Suicidal ideation with potential overdose. She denies being suicidal currently; however, I do think that one-to-one is needed until Psych evaluates the patient. In terms of her hypoglycemia and insulin overdose, the plan will be fingersticks every hour, p.r.n. D50, and I am going to put her on consistent carb diet. If her sugars do continue to trend in the 100s and 200s, I will start her on lispro scale and then tomorrow possibly start her on metformin and her long-acting insulin at that point. 2. Anxiety and depression. We will continue her meds as prescribed, again with psychiatric consult pending. 3. Posttraumatic stress disorder. Continue with meds as prescribed. 4. Hypertension. Blood pressure is in 140s here. She is currently no longer on medications for this. We will monitor. We may consider starting her on JONNY , but this could be deferred to the primary. 5. Hyperlipidemia. Continue her Pravachol. 6. Asthma. Continue meds as prescribed. 7. History of migraines. Tylenol has been ordered. 8. DVT prophylaxis. She is on heparin subcu. 9. Code status. She is full code. 10. Fluids, electrolytes, and nutrition. She can have a consistent carb diet. TIME SPENT: On admission was 60 minutes, greater than half the time was spent face- to-face with the patient obtaining my history and physical, other half the time spent going over the plan of care with the patient and implementing plan of care. I did discuss the plan of care with my attending, Dr. Esquivel; he is in agreement. SHASHI SHEETS NP [id number]/CPS #: [id number] ROXANNA
[2017-01-24] MEDS: CMCS Pravastatin (NF) 20 MG TAB PO SCH (21:24)
[2017-01-24 22:46] LABS: Urine Bilirubin Negative (Negative); Urine Glucose Negative (Negative); Urine Nitrite Negative (Negative)
[2017-01-24 22:59] LABS: Benzodiazepine Urine Screen None Detected (None Detect)
[2017-01-24] MEDS: diPHENhydraMINE IV* 50 MG/ML 1 ml VIAL (BENADRYL) IV PRN (23:19)
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
[2017-01-25] MEDS: Heparin VIAL(*) 5000 UNITS/ML VIAL (FIVE THOUSAND) SUBCUT SCH ×3 (06:10→22:35)
[2017-01-25 06:57] LABS: Hematocrit 40 % (35-47); Hemoglobin 13.4 g/dl (12.0-16.0); Mean Corpuscular HGB Conc 34 g/dl (31-36); Mean Corpuscular Hemoglobin 31 pg (27-31); Mean Corpuscular Volume 94 fL (80-97); Mean Platelet Volume 7 um3 (7.4-10.4); Red Blood Count 4.26 10^6/ul (4.0-5.4); Red Cell Distribution Width 13 % (10.5-15); White Blood Count 7.5 10^3/ul (3.5-10.8)
[2017-01-25 07:10] LABS: BUN/Creatinine Ratio 12.5 (8-20); Calcium 10.2 mg/dL (8.6-10.3); EGFR African American 105.6 (>60); EGFR Non-African American 82.1 (>60); Potassium 4.4 mmol/L (3.5-5.0)
[2017-01-25] MEDS: Ziprasidone CAP* 80 MG PO SCH (09:41)
[2017-01-25] MEDS: Venlafaxine EXT RELEASE CAP* 75 MG PO SCH (09:41)
[2017-01-25] MEDS ORDERED: Dextrose 50% Syringe 50 ML* 25 GM/50 ML SYRINGE IV PUSH PRN (12:02)
[2017-01-25] MEDS: Insulin LISPRO* 1 UNITS UNIT SUBCUT SCH ×3 (13:02→22:12)
--- NOTE | 2017-01-25 13:57 | PN ---
Subjective Date of Service: 01/25/17 Interval History: HOSPITALIST PROGRESS NOTE Patient seen and examined at bedside. She offers no complaints at this time, appetite is returning, denies N/V. Family History: Unchanged from Admission Social History: Unchanged from Admission Past Medical History: Unchanged from Admission Objective Active Medications: Acetaminophen (Tylenol Tab*) 650 mg PO Q4H PRN PRN Reason: FEVER/PAIN Albuterol (Ventolin 2.5 Mg/3 Ml Neb.Amina*) 2.5 mg INH Q2H PRN PRN Reason: SOB/WHEEZING Dextrose (D50w Syringe 50 Ml*) 25 gm IV PUSH .FOR FS < 60 - SS PRN PRN Reason: FS < 60 Diphenhydramine HCl (Benadryl Iv*) 25 mg IV BEDTIME PRN PRN Reason: INSOMNIA Last Admin: 01/24/17 23:19 Dose: 25 mg Heparin Sodium (Porcine) (Heparin Vial(*)) 5,000 units SUBCUT Q8HR [place] Last Admin: 01/25/17 06:10 Dose: 5,000 units Insulin Human Lispro (Humalog*) 0 units SUBCUT ACHS [place] PRN Reason: Protocol Last Admin: 01/25/17 13:02 Dose: Not Given Ondansetron HCl (Zofran Inj*) 4 mg IV Q6H PRN PRN Reason: NAUSEA Last Admin: 01/25/17 08:47 Dose: 4 mg Pravastatin Sodium (Pravachol (Nf)) 40 mg PO BEDTIME [place] PRN Reason: Protocol Last Admin: 01/24/17 21:24 Dose: 40 mg Venlafaxine HCl (Effexor Xr Cap*) 225 mg PO QAM [place] PRN Reason: Protocol Last Admin: 01/25/17 09:41 Dose: 225 mg Ziprasidone (Geodon Cap*) 160 mg PO DAILY WITH MEAL [place] Last Admin: 01/25/17 09:41 Dose: 160 mg Vital Signs 01/25/17 11:56 Temperature 97.6 F Pulse Rate 106 Respiratory 18 Rate Blood Pressure 145/90 (mmHg) O2 Sat by Pulse 98 Oximetry Oxygen Devices in Use Now: None Appearance: Pleasant obese lady lying in bed in NAD. Eyes: No Scleral Icterus Ears/Nose/Mouth/Throat: Mucous Membranes Moist Neck: Trachea Midline Respiratory: Symmetrical Chest Expansion and Respiratory Effort, Clear to Auscultation Cardiovascular: NL Sounds; No Murmurs; No JVD, RRR Neurological: Alert and Oriented x 3, NL Muscle Strength and Tone Lines/Tubes/Other Access: Clean, Dry and Intact Peripheral IV Nutrition: Taking PO's Result Diagrams: 01/25/17 06:50 01/25/17 06:49 Assess/Plan/Problems-Billing Assessment: Mrs. Alba is a 61yo F with PMH of type 2 DM, obesity, anxiety, depression, HTN, HLD, asthma, migraines, who presented to ED after Lantus overdose with suicide ideation. - Patient Problems (1) Insulin overdose Comment: - Patient took 600 units of Lantus insulin with suicidal ideation, but this was > 24h ago. - Glucose has remained stable - will check FS ACHS and cover with Lispro SS. Depending on her PO intake, will resume Lantus. - Psych input appreciated - Dr. Prescott feels patient is not at any imminent risk to herself and her suicidality has resolved. Recommended follow up with her Psychiatrist as outpatient. (2) Anxiety Comment: - Continue Effexor and Geodon. (3) DVT prophylaxis Comment: - SQ heparin. (4) Full code status Status and Disposition: Anticipate d/c in AM if PO intake is good and glucose is controlled.
[2017-01-25] MEDS: CMCS Pravastatin (NF) 20 MG TAB PO SCH (22:35)
[2017-01-25] MEDS: diPHENhydraMINE IV* 50 MG/ML 1 ml VIAL (BENADRYL) IV PRN (22:41)
[2017-01-26] MEDS: Heparin VIAL(*) 5000 UNITS/ML VIAL (FIVE THOUSAND) SUBCUT SCH (05:36)
[2017-01-26] MEDS ORDERED: metFORMIN* 1,000 MG TAB PO SCH (08:00)
[2017-01-26] MEDS: Insulin LISPRO* 1 UNITS UNIT SUBCUT SCH ×2 (08:48→12:32)
[2017-01-26] MEDS: Venlafaxine EXT RELEASE CAP* 75 MG PO SCH (10:17)
[2017-01-26] MEDS: Ziprasidone CAP* 80 MG PO SCH (10:18)
[2017-01-26 13:32] VITALS: BP 131/76
--- NOTE | 2017-01-26 18:01 | ED ---
Chilo Lim Benjamin, scribed for Moy Cheek MD on 01/24/17 at 1121 . Substance Abuse/Use - HPI Summary HPI Summary: 61yo diabetic female who is supposed to take 60 units of lantus at bed time states taking 600 unites last Tuesday morning after having a bad day. Pt states that her blood sugar has been in 30s and pt has been shaking since then. Pt has been eating honey and water trying to keep her blood sugar level up. - History Of Current Complaint Chief Complaint: EDOverdose Stated Complaint: DIABETIC ISSUES Time Seen by Provider: 01/24/17 10:32 Hx Obtained From: Patient ?: No Ingestion History: Type/Name Of Drug - lantus, Amount Ingested - 600 units, Approximate Time Of Ingestion - tuesday Overdose Characteristics: Oral Timing Of Abuse: Binge Use Severity Initially: Moderate Severity Currently: Moderate Character: Lethargic, Other - shaking Aggravating Factor(s): Recent Stress Alleviating Factor(s): Nothing Associated Signs And Symptoms: Other: - shaking - Allergies/Home Medications Allergies/Adverse Reactions: Allergies Allergy/AdvReac Type Severity Reaction Status Date / Time Tramadol Allergy Severe Shortness Verified 01/12/17 12:49 of Breath Codeine Allergy Intermediate Rash Verified 01/12/17 12:49 Sulfa Drugs Allergy Mild Rash Verified 01/12/17 12:49 Atorvastatin [From Lipitor] AdvReac Severe Muscle Verified 01/12/17 12:49 weakness PMH/Surg Hx/FS Hx/Imm Hx Endocrine/Hematology History: Reports: Hx Diabetes - II Denies: Hx Thyroid Disease Cardiovascular History: Reports: Hx Hypertension, Other Cardiovascular Problems/ Disorders - IDDM II Denies: Hx Pacemaker/ICD Respiratory History: Denies: Hx Asthma, Hx Chronic Obstructive Pulmonary Disease (COPD) GI History: Reports: Hx Hiatal Hernia Denies: Hx Ulcer History: Reports: Hx Renal Disease - HX OF FAILURE? Musculoskeletal History: Denies: Hx Osteoporosis Sensory History: Reports: Hx Contacts or Glasses, Hx Vision Problem Denies: Hx Hearing Aid Opthamlomology History: Reports: Hx Contacts or Glasses, Hx Vision Problem Psychiatric History: Reports: Hx Depression, Other Psychiatric Issues/Disorders - Psychosis, controlled with Geodon Denies: Hx Eating Disorder, Hx Panic Disorder, Hx of Violent Episodes Against Others - Cancer History Hx Chemotherapy: No Hx Radiation Therapy: No - Surgical History Surgery Procedure, Year, and Place: HYSTERECTOMY. Hernia repair. 06/19/14- [facility] HEART LOOP RECORDER -MRI [facility] UP TO 3T 2500G/CM-FILED IN PT CHART Infectious Disease History: Yes Infectious Disease History: Reports: Hx Shingles Denies: Hx Clostridium Difficile, Hx Hepatitis, Hx Human Immunodeficiency Virus (HIV), Hx of Known/Suspected MRSA, Hx Tuberculosis, History Other Infectious Disease, Traveled Outside the [place] in Last 30 Days - Family History Known Family History: Positive: Hypertension - Social History Alcohol Use: Rare Alcohol Amount: Drank 10 beers Tuesday. Usually does not drink. Hx Substance Use: No Substance Use Type: Reports: None Hx Tobacco Use: Yes Smoking Status (MU): Former Smoker Type: Cigarettes Amount Used/How Often: 2 cigs day hx - quit 2011 Have You Smoked in the Last Year: No Review of Systems Positive: Other - tremors Eyes: Negative ENT: Negative Cardiovascular: Negative Respiratory: Negative Gastrointestinal: Negative Genitourinary: Negative Musculoskeletal: Negative Skin: Negative Positive: Weakness Psychological: Normal All Other Systems Reviewed And Are Negative: Yes Physical Exam Triage Information Reviewed: Yes Vital Signs On Initial Exam: Initial Vitals Temp Pulse Resp BP Pulse Ox 98.3 F 97 18 175/99 100 01/24/17 10:21 01/24/17 10:21 01/24/17 10:21 01/24/17 10:21 01/24/17 10:21 Vital Signs Reviewed: Yes Appearance: Positive: Well-Appearing, No Pain Distress, Well-Nourished Skin: Positive: Warm, Skin Color Reflects Adequate Perfusion, Dry Head/Face: Positive: Normal Head/Face Inspection Eyes: Positive: Normal, EOMI, [place], Conjunctiva Clear ENT: Positive: Normal ENT inspection, Hearing grossly normal Neck: Positive: Supple, Nontender Respiratory/Lung Sounds: Positive: Clear to Auscultation, Breath Sounds Present Cardiovascular: Positive: RRR, Pulses are Symmetrical in both Upper and Lower Extremities Abdomen Description: Positive: Nontender, Soft Bowel Sounds: Positive: Present Musculoskeletal: Positive: Strength/ROM Intact Neurological: Positive: Sensory/Motor Intact, Alert, Oriented to Person Place, Time Psychiatric: Positive: Other - labile mood - [place] Coma Scale Coma Scale Total: 15 Diagnostics - Vital Signs Vital Signs Temp Pulse Resp BP Pulse Ox 01/24/17 10:40 85 13 98 01/24/17 10:21 98.3 F 97 18 175/99 100 - Laboratory Lab Results: Lab Results 01/24/17 01/24/17 Range/Units 10:31 10:48 WBC 9.1 (3.5-10.8) 10^3/ul RBC 4.41 (4.0-5.4) 10^6/ul Hgb 14.0 (12.0-16.0) g/dl Hct 41 (35-47) % MCV 94 (80-97) fL MCH 32 H (27-31) pg MCHC 34 (31-36) g/dl RDW 14 (10.5-15) % Plt Count 335 (150-450) 10^3/ul MPV 7 L (7.4-10.4) um3 Neut % (Auto) 77.3 (38-83) % Lymph % (Auto) 15.6 L (25-47) % [place] % (Auto) 5.6 (1-9) % Eos % (Auto) 1.0 (0-6) % Baso % (Auto) 0.5 (0-2) % Absolute Neuts (auto) 7.0 (1.5-7.7) 10^3/ul Absolute Lymphs (auto) 1.4 (1.0-4.8) 10^3/ul Absolute Monos (auto) 0.5 (0-0.8) 10^3/ul Absolute Eos (auto) 0.1 (0-0.6) 10^3/ul Absolute Basos (auto) 0 (0-0.2) 10^3/ul Absolute Nucleated RBC 0 10^3/ul Nucleated RBC % 0.1 POC Glucose (mg/dL) 78 (70-100) mg/dL Result Diagrams: 01/25/17 06:50 01/25/17 06:49 Lab Statement: Any lab studies that have been ordered have been reviewed, and results considered in the medical decision making process. Course/Dx - Course Course Of Treatment: Ms. Gutierrez blood sugar began to fall almost immediately here even though it has been over 30 hours since her OD. She will be admitted to the hospitalist service until she is medically clear for a MHE. - Diagnoses Provider Diagnoses: Overdose of antidiabetic agent Discharge - Discharge Plan Condition: Fair Disposition: HOME The documentation as recorded by the scribe Woo,Arcadio accurately reflects the service I personally performed and the decisions made by me, Moy Cheek MD.
--- NOTE | 2017-01-27 04:30 | DS ---
CC: Dr. Cintron; Dr. Humphrey DISCHARGE SUMMARY: DATE OF ADMISSION: 01/24/17 DATE OF DISCHARGE: 01/26/17 PRIMARY CARE PROVIDER: Dr. Cintron PSYCHIATRIST: Dr. Humphrey DISCHARGE DIAGNOSIS: Intentional suicide attempt with Lantus overdose. SECONDARY DIAGNOSES: 1. Anxiety. 2. Depression. 3. Type 2 diabetes. 4. Post-traumatic stress disorder. 5. Hypertension. 6. Hyperlipidemia. 7. Cholelithiasis. 8. Asthma. 9. Migraines. MEDICATION LIST: 1. Acetaminophen 1000 mg p.o. q.8 hours p.r.n. pain. 2. Metformin 1000 mg p.o. b.i.d. 3. Pravastatin 40 mg p.o. at bedtime. 4. Effexor 225 mg p.o. in the morning. 5. Geodon 160 mg p.o. daily with a meal. HOSPITAL COURSE: Ms. Alba is a 61-year-old lady with a past medical history as stated above who presented to the emergency room on January 24 after injecting 600 units of Lantus in a suicide attempt. The patient described multiple stressors in her personal life, including a strained relationship with her son and daughter- in-law and also estrangement from her friends. She was feeling depressed, did not want to live anymore, and she took the 600 units of Lantus 24 hours prior to admission, but after that she regretted it and started to check her sugars every hour. She was hypoglycemic with glucose in the 30s and she self-treated at home with honey, sugar water, juice, and other sugary drinks. The patient decided to come to the emergency room as her sugars were still between 40s and 60s, so she was admitted for further evaluation. While in the hospital, her glucose fluctuated between 61 and 167. The patient was seen in consultation by Psychiatry (Dr. Griffin) and his impression was that the patient was immediately regretful of her suicide attempt and has taken great lengths over the past day and a half to keep her blood glucoses in the normal range. She voluntarily sought medical treatment and came to the hospital. He did not think that the patient was at any imminent risk for herself, and he did not think she required one-to-one observation. Her suicidality had resolved. She had no prior history of suicide. She was immediately remorseful and sought treatment, and had a reasonable plan for psychiatric followup. He did not think admission to the [facility] was indicated at this point. The patient had no further episodes of hypoglycemia. She tolerated an oral diet and her metformin was resumed. I do not think she requires Lantus at this point. The patient states that her diabetes was usually well controlled, but 6 months ago she had an A1c of 12 and that is when Lantus was started and the last A1c checked with Dr. Cintron was 9 and they already had conversations about cutting down her Lantus dose. She was advised to continue to check her fingersticks twice a day; and, if her glucose goes above 200, she was advised to start Lantus 10 units subcutaneously daily. She already has a follow up scheduled with Dr. Cintron on February 01. She also has an appointment with her psychologist, Dr. Garcia, on January 28 and with her psychiatrist, Dr. Humphrey, on February 02. The patient is medically stable for discharge at this time. PHYSICAL EXAMINATION: Vital Signs: Temperature is 97.8, heart rate 84, respiratory rate 16, oxygen saturation 98% on room air, blood pressure 131/76. General: The patient is a pleasant lady, sitting up in bed, in no acute distress. CVS: Normal S1, S2. Regular rate and rhythm. Chest: Breath sounds present bilaterally with no added sounds. Abdomen: Obese, soft. Bowel sounds present. Neuro: She is alert and oriented x3. Able to move all 4 extremities. DIET: Consistent carb diet. ACTIVITY: As tolerated. DISPOSITION: To home. STATUS WHILE IN THE HOSPITAL: Inpatient. Please keep in mind that this is a summarized version of this patient's hospital stay. If you need more information, please feel free to call me at [phone] or please obtain the full medical records. TIME SPENT: Approximately 45 minutes were spent to complete the discharge. [id number]/[facility] #: [id number] ROXANNA
== END 2017-01-26 14:20 | disposition home or self-care (01) | DRG 918 ==
LOC: ED 10:18 → MED 11:45 → OBSVTOIN 01-25 12:06
PROVIDERS: ADMIT Hospitalist; ATTEND Internal Medicine
DX: T38.3X2A Poisoning by insulin and oral hypoglycemic [antidiabetic] drugs, intentional self-harm, initial encounter (principal); F33.2 Major depressive disorder, recurrent severe without psychotic features; E11.649 Type 2 diabetes mellitus with hypoglycemia without coma; F41.9 Anxiety disorder, unspecified; F43.10 Post-traumatic stress disorder, unspecified; I10 Essential (primary) hypertension; E78.5 Hyperlipidemia, unspecified; K80.20 Calculus of gallbladder without cholecystitis without obstruction; J45.909 Unspecified asthma, uncomplicated; R40.2412 Glasgow coma scale score 13-15, at arrival to emergency department; E66.9 Obesity, unspecified; F43.21 Adjustment disorder with depressed mood; G43.909 Migraine, unspecified, not intractable, without status migrainosus; Z79.84 Long term (current) use of oral hypoglycemic drugs; Z88.5 Allergy status to narcotic agent; Z88.6 Allergy status to analgesic agent; Y92.009 Unspecified place in unspecified non-institutional (private) residence as the place of occurrence of the external cause; Z88.8 Allergy status to other drugs, medicaments and biological substances; Z88.2 Allergy status to sulfonamides; Z80.42 Family history of malignant neoplasm of prostate; Z84.1 Family history of disorders of kidney and ureter; Z87.891 Personal history of nicotine dependence; Z90.710 Acquired absence of both cervix and uterus; Z82.49 Family history of ischemic heart disease and other diseases of the circulatory system; Z68.32 Body mass index [BMI] 32.0-32.9, adult
CPT/HCPCS: 36415; 80048; 80053; 80307; 80320; 80329; 81003; 84443; 85025; 85610; A9270-GY; G0378; G0480; J1200; J1644; J2405

== ENCOUNTER 2017-03-28 12:18 | Emergency (ER) | payer MEDICARE ==
[2017-03-28] MEDS ORDERED: NS 0.9% 1000 ML* 2,000 ML IV ONE (13:15)
[2017-03-28] MEDS ORDERED: Promethazine TAB* 25 MG PO ONE (13:16)
[2017-03-28] MEDS ORDERED: Promethazine INJ(RESTRICTED)* 25 MG/ML 1 ML VIAL IV ONE (13:31)
[2017-03-28 13:41] LABS: Hematocrit 42 % (35-47); Mean Corpuscular HGB Conc 33 g/dl (31-36); Mean Corpuscular Hemoglobin 32 pg (27-31); Mean Corpuscular Volume 95 fL (80-97); Mean Platelet Volume 7 um3 (7.4-10.4); Red Blood Count 4.43 10^6/ul (4.0-5.4); Red Cell Distribution Width 13 % (10.5-15); White Blood Count 9.9 10^3/ul (3.5-10.8)
[2017-03-28] MEDS ORDERED: Metoclopramide IV* 5 MG/ML 2 ML VIAL IV ONE (13:54)
[2017-03-28 13:56] LABS: Albumin 4.5 g/dL (3.2-5.2); BUN/Creatinine Ratio 23.9 (8-20); C Reactive Protein 13.32 mg/L (< 5.00); EGFR African American 83.7 (>60); EGFR Non-African American 65.1 (>60); Globulin 3.9 g/dL (2-4); Magnesium 1.9 mg/dL (1.9-2.7); Potassium 4.6 mmol/L (3.5-5.0); Total Bilirubin 0.6 mg/dL (0.2-1.0); Total Protein 8.4 g/dL (6.4-8.9)
[2017-03-28 15:31] LABS: Urine Bacteria Absent (Absent); Urine Bilirubin Negative (Negative); Urine Glucose Negative (Negative); Urine Nitrite Negative (Negative)
[2017-03-28 17:17] VITALS: BP 124/63
--- NOTE | 2017-03-28 18:03 | ED ---
Lan Lim Angela, scribed for Moy Cheek MD on 03/28/17 at 1322 . GI/ HPI - HPI Summary HPI Summary: This pt is a 61 y/o female presenting to [facility] c/o nausea and vomiting x5 days. Pt reports she was seen 5 days ago at [facility] and was prescribed phenergan. She states she was trying to take it at home but is unable to keep anything down. She reports she tried yogurt last night, but had diarrhea and vomiting. Pt went to Family Medicine today and was told to come to the ED today. She states zoloft nor compazine work for her. - History of Current Complaint Chief Complaint: EDNauseaVomitDiarrh Time Seen by Provider: 03/28/17 13:15 Stated Complaint: GENERAL ILLNESS Hx Obtained From: Patient Onset/Duration: Started Days Ago, Still Present Timing: Lasting Days Pain Intensity: 0 Associated Signs and Symptoms: Positive: Nausea, Vomiting, Diarrhea Aggravating Factor(s): Food - Additional Pertinent History Primary Care Physician: [id number] - Allergy/Home Medications Allergies/Adverse Reactions: Allergies Allergy/AdvReac Type Severity Reaction Status Date / Time Tramadol Allergy Severe Shortness Verified 03/23/17 15:59 of Breath Codeine Allergy Intermediate Rash Verified 03/23/17 15:59 Sulfa Drugs Allergy Mild Rash Verified 03/23/17 15:59 Atorvastatin [From Lipitor] AdvReac Severe Muscle Verified 03/23/17 15:59 weakness PMH/Surg Hx/FS Hx/Imm Hx Endocrine/Hematology History: Reports: Hx Diabetes - II - METFORMIN Denies: Hx Thyroid Disease Cardiovascular History: Reports: Hx Hypercholesterolemia, Other Cardiovascular Problems/Disorders - IDDM II Denies: Hx Hypertension, Hx Pacemaker/ICD Respiratory History: Reports: Hx Asthma, Hx Pneumonia, Hx Sleep Apnea Denies: Hx Chronic Obstructive Pulmonary Disease (COPD) GI History: Reports: Hx Gall Bladder Disease - gall stones, Other GI Disorders - abdominal and umbilical hernias Denies: Hx Hiatal Hernia, Hx Ulcer History: Reports: Hx Acute Renal Failure, Hx Renal Disease - HX OF FAILURE - THAT RESOLVED Musculoskeletal History: Reports: Hx Arthritis - knees bilateral Denies: Hx Osteoporosis Sensory History: Reports: Hx Cataracts - removed 2013, Hx Contacts or Glasses, Hx Vision Problem Denies: Hx Hearing Aid Opthamlomology History: Reports: Hx Cataracts - removed 2013, Hx Contacts or Glasses, Hx Vision Problem Neurological History: Reports: Hx Headaches, 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 Psychiatric History: Reports: Hx Anxiety, Hx Depression, Other Psychiatric Issues/Disorders - Psychosis, controlled with Geodon Denies: Hx Eating Disorder, Hx Panic Disorder, Hx of Violent Episodes Against Others - Cancer History Hx Chemotherapy: No Hx Radiation Therapy: No - Surgical History Surgery Procedure, Year, and Place: HYSTERECTOMY ; HERNIA REPAIR ; 06/19/14- [facility] [employer] REVEAL HEART LOOP RECORDER - CURRENTLY NOT ACTIVE ; Hx Anesthesia Reactions: No - Immunization History Date of Influenza Vaccine: 12/2016 Infectious Disease History: No Infectious Disease History: Reports: Hx Shingles Denies: Hx Clostridium Difficile, Hx Hepatitis, Hx Human Immunodeficiency Virus (HIV), Hx of Known/Suspected MRSA, Hx Tuberculosis, History Other Infectious Disease, Traveled Outside the [place] in Last 30 Days - Family History Known Family History: Positive: Hypertension - Social History Alcohol Use: Occasionally Alcohol Amount: Drank 10 beers Tuesday. Usually does not drink. Hx Substance Use: No Substance Use Type: Reports: None Hx Tobacco Use: Yes Smoking Status (MU): Former Smoker Type: Cigarettes Amount Used/How Often: 2 cigs day hx - quit 2011 Have You Smoked in the Last Year: No Review of Systems Negative: Fever, Chills Positive: Vomiting, Diarrhea, Nausea Musculoskeletal: Negative Skin: Negative Neurological: Negative All Other Systems Reviewed And Are Negative: Yes Physical Exam - Summary Physical Exam Summary: Appearance: The patient is well-nourished in no acute distress and in no acute pain. Skin: The skin is warm and dry and skin color reflects adequate perfusion. HEENT: The head is normocephalic and atraumatic. The pupils are equal and reactive. The conjunctivae are clear and without drainage. Nares are patent and without drainage. Mouth reveals dry mucous membranes and the throat is without erythema and exudate. The external ears are intact. The ear canals are patent and without drainage. The tympanic membranes are intact. Neck: the neck is supple with full range of motion and non-tender. There are no carotid bruits. There is no neck vein distension. Respiratory: Chest is non-tender. Lungs are clear to auscultation and breath sounds are symmetrical and equal. Cardiovascular: Heart is regular rate and rhythm. There is no murmur or rub auscultated. There is no peripheral edema and pulses are symmetrical and equal. Abdomen: The abdomen is soft and non-tender. There are normal bowel sounds heard in all four quadrants and there is no organomegaly palpated. Musculoskeletal: There is no back tenderness noted. Extremities are non-tender with full range of motion. There is good capillary refill. There is no peripheral edema or calf tenderness elicited. Neurological: Patient is alert and oriented to person, place and time. The patient has symmetrical motor strength in all four extremities. Cranial nerves are grossly intact. Deep tendon reflexes are symmetrical and equal in all four extremities. Psychiatric: The patient has an appropriate affect and does not exhibit any anxiety or depression. Triage Information Reviewed: Yes Vital Signs On Initial Exam: Initial Vitals Temp Pulse Resp BP Pulse Ox 96.9 F 74 16 131/74 96 03/28/17 12:25 03/28/17 12:25 03/28/17 12:25 03/28/17 12:25 03/28/17 12:25 Vital Signs Reviewed: Yes - [place] Coma Scale Coma Scale Total: 15 Diagnostics - Vital Signs Vital Signs Temp Pulse Resp BP Pulse Ox 03/28/17 12:26 75 96 03/28/17 12:25 96.9 F 74 16 131/74 96 - Laboratory Lab Results: Lab Results 03/28/17 03/28/17 03/28/17 Range/Units 13:31 13:31 13:31 WBC 9.9 (3.5-10.8) 10^3/ul RBC 4.43 (4.0-5.4) 10^6/ul Hgb 14.0 (12.0-16.0) g/dl Hct 42 (35-47) % MCV 95 (80-97) fL MCH 32 H (27-31) pg MCHC 33 (31-36) g/dl RDW 13 (10.5-15) % Plt Count 340 (150-450) 10^3/ul MPV 7 L (7.4-10.4) um3 Neut % (Auto) 64.8 (38-83) % Lymph % (Auto) 27.4 (25-47) % Leake % (Auto) 4.7 (1-9) % Eos % (Auto) 2.1 (0-6) % Baso % (Auto) 1.0 (0-2) % Absolute Neuts (auto) 6.4 (1.5-7.7) 10^3/ul Absolute Lymphs (auto) 2.7 (1.0-4.8) 10^3/ul Absolute Monos (auto) 0.5 (0-0.8) 10^3/ul Absolute Eos (auto) 0.2 (0-0.6) 10^3/ul Absolute Basos (auto) 0.1 (0-0.2) 10^3/ul Absolute Nucleated RBC 0.01 10^3/ul Nucleated RBC % 0.1 Sodium 137 (133-145) mmol/L Potassium 4.6 (3.5-5.0) mmol/L Chloride 100 L (101-111) mmol/L Carbon Dioxide 30 (22-32) mmol/L Anion Gap 7 (2-11) mmol/L BUN 21 (6-24) mg/dL Creatinine 0.88 (0.51-0.95) mg/dL Est GFR ( Amer) 83.7 (>60) Est GFR (Non-Af Amer) 65.1 (>60) BUN/Creatinine Ratio 23.9 H (8-20) Glucose 151 H (70-100) mg/dL Lactic Acid 1.4 (0.5-2.0) mmol/L Calcium 10.0 (8.6-10.3) mg/dL Magnesium 1.9 (1.9-2.7) mg/dL Total Bilirubin 0.60 (0.2-1.0) mg/dL AST 29 (13-39) U/L ALT 38 (7-52) U/L Alkaline Phosphatase 98 (34-104) U/L C-Reactive Protein 13.32 H (< 5.00) mg/L Total Protein 8.4 (6.4-8.9) g/dL Albumin 4.5 (3.2-5.2) g/dL Globulin 3.9 (2-4) g/dL Albumin/Globulin Ratio 1.2 (1-3) Lipase 25 (11.0-82.0) U/L Urine Color Urine Appearance Urine pH (5-9) Ur Specific [place] (1.010-1.030) Urine Protein (Negative) Urine Ketones (Negative) Urine Blood (Negative) Urine Nitrate (Negative) Urine Bilirubin (Negative) Urine Urobilinogen (Negative) Ur Leukocyte Esterase (Negative) Urine WBC (Auto) (Absent) Urine RBC (Auto) (Absent) Ur Squamous Epith Cells (Absent) Urine Bacteria (Absent) Urine Glucose (Negative) 03/28/17 Range/Units 15:20 WBC (3.5-10.8) 10^3/ul RBC (4.0-5.4) 10^6/ul Hgb (12.0-16.0) g/dl Hct (35-47) % MCV (80-97) fL MCH (27-31) pg MCHC (31-36) g/dl RDW (10.5-15) % Plt Count (150-450) 10^3/ul MPV (7.4-10.4) um3 Neut % (Auto) (38-83) % Lymph % (Auto) (25-47) % Leake % (Auto) (1-9) % Eos % (Auto) (0-6) % Baso % (Auto) (0-2) % Absolute Neuts (auto) (1.5-7.7) 10^3/ul Absolute Lymphs (auto) (1.0-4.8) 10^3/ul Absolute Monos (auto) (0-0.8) 10^3/ul Absolute Eos (auto) (0-0.6) 10^3/ul Absolute Basos (auto) (0-0.2) 10^3/ul Absolute Nucleated RBC 10^3/ul Nucleated RBC % Sodium (133-145) mmol/L Potassium (3.5-5.0) mmol/L Chloride (101-111) mmol/L Carbon Dioxide (22-32) mmol/L Anion Gap (2-11) mmol/L BUN (6-24) mg/dL Creatinine (0.51-0.95) mg/dL Est GFR ( Amer) (>60) Est GFR (Non-Af Amer) (>60) BUN/Creatinine Ratio (8-20) Glucose (70-100) mg/dL Lactic Acid (0.5-2.0) mmol/L Calcium (8.6-10.3) mg/dL Magnesium (1.9-2.7) mg/dL Total Bilirubin (0.2-1.0) mg/dL AST (13-39) U/L ALT (7-52) U/L Alkaline Phosphatase (34-104) U/L C-Reactive Protein (< 5.00) mg/L Total Protein (6.4-8.9) g/dL Albumin (3.2-5.2) g/dL Globulin (2-4) g/dL Albumin/Globulin Ratio (1-3) Lipase (11.0-82.0) U/L Urine Color Yellow Urine Appearance Cloudy Urine pH 5.0 (5-9) Ur Specific [place] 1.013 (1.010-1.030) Urine Protein Negative (Negative) Urine Ketones Negative (Negative) Urine Blood Negative (Negative) Urine Nitrate Negative (Negative) Urine Bilirubin Negative (Negative) Urine Urobilinogen Negative (Negative) Ur Leukocyte Esterase 1+ H (Negative) Urine WBC (Auto) 2+(11-20/hpf) H (Absent) Urine RBC (Auto) Absent (Absent) Ur Squamous Epith Cells Present H (Absent) Urine Bacteria Absent (Absent) Urine Glucose Negative (Negative) Result Diagrams: 03/28/17 13:31 03/28/17 13:31 Lab Statement: Any lab studies that have been ordered have been reviewed, and results considered in the medical decision making process. Re-Evaluation - Re-Evaluation First Eval Re-Evaluation Time: 16:57 Comment: I reviewed the lab results with the pt. GIGU Course/Dx - Course Course Of Treatment: Ms. Alba presented worried that she was getting dehydrated because she has been unable to keep anything down secondary to nausea. Her labs were OK here and she felt a lot better after compazine and rehydration. - Diagnoses Provider Diagnoses: Dehydration Discharge - Discharge Plan Condition: Stable Disposition: HOME Patient Education Materials: Dehydration (ED) Referrals: Yoselyn Cintron MD [Medical Doctor] - Additional Instructions: Please follow up with your primary care provider. RETURN TO THE ED FOR ANY WORSENING SYMPTOMS. The documentation as recorded by the Lan ram Angela accurately reflects the service I personally performed and the decisions made by me, Moy Cheek MD.
== END 2017-03-28 17:18 | disposition home or self-care (01) ==
LOC: ED 12:18
DX: E86.0 Dehydration (principal); E78.00 Pure hypercholesterolemia, unspecified; J44.9 Chronic obstructive pulmonary disease, unspecified; F41.9 Anxiety disorder, unspecified; F32.9 Major depressive disorder, single episode, unspecified; Z87.891 Personal history of nicotine dependence; Z88.5 Allergy status to narcotic agent; Z88.7 Allergy status to serum and vaccine; E11.9 Type 2 diabetes mellitus without complications; Z79.84 Long term (current) use of oral hypoglycemic drugs
CPT/HCPCS: 36415; 80053; 81003; 81015; 83605; 83690; 83735; 85025; 86140; 87086; 96360; 96374; 96375; 99283; J2550; J2765

== ENCOUNTER 2017-06-27 02:31 | Emergency (ER) | payer MEDICARE ==
[2017-06-27] MEDS ORDERED: NS 0.9% 1000 ML* 1,000 ML IV ONE (03:30)
[2017-06-27] MEDS ORDERED: LORazepam INJ* 2 MG/ML 1 ML VIAL IV PUSH ONE (03:32)
[2017-06-27] MEDS ORDERED: cloNIDine TAB* 0.1 MG PO ONE (03:33)
[2017-06-27 04:07] LABS: ABS Basophils 0.1 10^3/ul (0-0.2); ABS Eosinophils 0 10^3/ul (0-0.6); ABS Lymphocytes 1.4 10^3/ul (1.0-4.8); ABS Monocytes 0.5 10^3/ul (0-0.8); ABS Nucleated RBC 0 10^3/ul; Eosinophil % 0.2 % (0-6); Hematocrit 41 % (35-47); Hemoglobin 13.9 g/dl (12.0-16.0); Lymphocyte % 10.6 % (25-47); Mean Corpuscular HGB Conc 34 g/dl (31-36); Mean Corpuscular Hemoglobin 31 pg (27-31); Mean Corpuscular Volume 93 fL (80-97); Mean Platelet Volume 8 um3 (7.4-10.4); Nucleated Red Blood Cells % 0; Platelet Count 396 10^3/ul (150-450); Red Blood Count 4.43 10^6/ul (4.0-5.4); Red Cell Distribution Width 13 % (10.5-15)
[2017-06-27 04:16] LABS: EGFR Non-African American 69.4 (>60)
[2017-06-27] MEDS ORDERED: Insulin REGULAR(*) 1 UNITS UNIT IV PUSH ONE (04:41)
[2017-06-27 06:06] VITALS: BP 129/79
--- NOTE | 2017-06-27 06:35 | ED ---
Linda Lim Julia, scribed for Liana Ca MD on 06/27/17 at 0324 . Psychiatric Complaint - HPI Summary HPI Summary: This patient is a 62 year old F BIBA to [facility] with a chief complaint of withdrawal from Klonopin. She states she has been taking one dose of 2mg, daily for 30 years, but has not taken it in the past month. Patient reports tremors, cramping, nausea, insomnia, and diaphoresis. The patient rates pain 10/ 10 in severity. Patient reports hx of PTSD. Patient denies SI and HI. - History Of Current Complaint Chief Complaint: EDGeneral Time Seen by Provider: 06/27/17 03:18 Hx Obtained From: Patient Onset/Duration: Gradual Onset, Lasting Weeks Timing: Constant Aggravating Factor(s): Medication Non-compliance Associated Signs And Symptoms: Positive: Sleep Disturbance - tremors, cramping, nausea, and diaphoresis Related History: Positive For: Prior Psychiatric Issues Has Suicidal: Denies: Thoughts Has Homicidal: Denies: Thoughts - Allergies/Home Medications Allergies/Adverse Reactions: Allergies Allergy/AdvReac Type Severity Reaction Status Date / Time MS Tramadol [Tramadol] Allergy Severe Shortness Verified 03/23/17 15:59 of Breath MS Codeine [Codeine] Allergy Intermediate Rash Verified 03/23/17 15:59 MS Sulfa Drugs [Sulfa Drugs] Allergy Mild Rash Verified 03/23/17 15:59 MS Atorvastatin AdvReac Severe Muscle Verified 03/23/17 15:59 [From Lipitor] weakness PMH/Surg Hx/FS Hx/Imm Hx Endocrine/Hematology History: Reports: Hx Diabetes - II - METFORMIN Denies: Hx Thyroid Disease Cardiovascular History: Reports: Hx Hypercholesterolemia, Other Cardiovascular Problems/Disorders - IDDM II Denies: Hx Hypertension, Hx Pacemaker/ICD Respiratory History: Reports: Hx Asthma, Hx Pneumonia, Hx Sleep Apnea Denies: Hx Chronic Obstructive Pulmonary Disease (COPD) GI History: Reports: Hx Gall Bladder Disease - gall stones, Other GI Disorders - abdominal and umbilical hernias Denies: Hx Hiatal Hernia, Hx Ulcer History: Reports: Hx Acute Renal Failure, Hx Renal Disease - HX OF FAILURE - THAT RESOLVED Musculoskeletal History: Reports: Hx Arthritis - knees bilateral Denies: Hx Osteoporosis Sensory History: Reports: Hx Cataracts - removed 2013, Hx Contacts or Glasses, Hx Vision Problem Denies: Hx Hearing Aid Opthamlomology History: Reports: Hx Cataracts - removed 2013, Hx Contacts or Glasses, Hx Vision Problem Neurological History: Reports: Hx Headaches, 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 Psychiatric History: Reports: Hx Anxiety, Hx Depression, Hx Post Traumatic Stress Disorder, Other Psychiatric Issues/Disorders - Psychosis, controlled with Geodon Denies: Hx Eating Disorder, Hx Panic Disorder, Hx of Violent Episodes Against Others - Cancer History Hx Chemotherapy: No Hx Radiation Therapy: No - Surgical History Surgery Procedure, Year, and Place: HYSTERECTOMY ; HERNIA REPAIR ; 06/19/14- [employer] [facility] LOOP RECORDER - CURRENTLY NOT ACTIVE ; Hx Anesthesia Reactions: No - Immunization History Date of Influenza Vaccine: 12/2016 Infectious Disease History: Yes Infectious Disease History: Reports: Hx Shingles Denies: Hx Clostridium Difficile, Hx Hepatitis, Hx Human Immunodeficiency Virus (HIV), Hx of Known/Suspected MRSA, Hx Tuberculosis, History Other Infectious Disease, Traveled Outside the [place] in Last 30 Days - Family History Known Family History: Positive: Hypertension - Social History Alcohol Use: Occasionally Hx Substance Use: No Substance Use Type: Reports: None Hx Tobacco Use: Yes Smoking Status (MU): Former Smoker Type: Cigarettes Amount Used/How Often: 2 cigs day hx - quit 2011 Have You Smoked in the Last Year: No Review of Systems Positive: Skin Diaphoresis, Other - insomnia Positive: Myalgia - "cramping" Neurological: Other - tremors All Other Systems Reviewed And Are Negative: Yes Physical Exam - Summary Physical Exam Summary: VITAL SIGNS: Reviewed. GENERAL: Patient is a well-developed and nourished female who is lying comfortable in the stretcher. Patient is not in any acute respiratory distress. HEAD AND FACE: No signs of trauma. No ecchymosis, hematomas or skull depressions. No sinus tenderness. EYES: PERRLA, EOMI x 2, No injected conjunctiva, no nystagmus. EARS: Hearing grossly intact. Ear canals and tympanic membranes are within normal limits. MOUTH: Oropharynx within normal limits. NECK: Supple, trachea is midline, no adenopathy, no JVD, no carotid bruit, no c- spine tenderness, neck with full ROM. CHEST: Symmetric, no tenderness at palpation SKIN: Dry and warm LUNGS: Clear to auscultation bilaterally. No wheezing or crackles. CVS: Regular rate and rhythm, S1 and S2 present, no murmurs or gallops appreciated. ABDOMEN: Soft, non-tender. No signs of distention. No rebound no guarding, and no masses palpated. Bowel sounds are normal. EXTREMITIES: FROM in all major joints, no edema, no cyanosis or clubbing. NEURO: Alert and oriented x 3. No acute neurological deficits. Speech is normal and follows commands. PSYCHOLOGICAL: Anxious and impulsive Triage Information Reviewed: Yes Vital Signs On Initial Exam: Initial Vitals Temp Pulse Resp BP Pulse Ox 95.1 F 92 14 156/82 95 06/27/17 02:33 06/27/17 02:33 06/27/17 02:33 06/27/17 02:33 06/27/17 02:33 Vital Signs Reviewed: Yes Diagnostics - Vital Signs Vital Signs Temp Pulse Resp BP Pulse Ox 06/27/17 02:33 95.1 F 92 14 156/82 95 - Laboratory Result Diagrams: 06/27/17 03:50 06/27/17 03:50 Lab Statement: Any lab studies that have been ordered have been reviewed, and results considered in the medical decision making process. Re-Evaluation - Re-Evaluation 1 Comment: Results discussed with patient. Patient will be discharged. Course/Dx - Course Course Of Treatment: Patient presents c/o "withdrawal from Klonopin. She states she has been taking one dose of 2mg, daily for 30 years, but has not taken it in the past month. Patient's symptoms are most likely due to anxiety, as she has not taken Klonopin in 30 days and is past the point of withdrawal. Patient was hypertensive and hyperglycemic while in the ED. Patient is given Ativan, Clonidine, IV Fluids, and 8 units of insulin. Patient was offered to be seen by a mental health evaluation, but she declined. She states she would like to go home and has an appointment tomorrow with her pyschiatrist. Patient denies SI and HI. - Differential Dx/Clinical Impression Provider Diagnosis: Hyperglycemia, Anxiety Discharge - Discharge Plan Condition: Stable Disposition: HOME Patient Education Materials: Anxiety (ED), Diabetic Hyperglycemia (ED) Referrals: Abiodun Sood MD [Medical Doctor] - If Needed Additional Instructions: Follow up with your psychiatrist tomorrow as planned RETURN TO THE EMERGENCY DEPARTMENT FOR CHANGING OR WORSENING SYMPTOMS. The documentation as recorded by the Linda ram Julia accurately reflects the service I personally performed and the decisions made by me, Liana Ca MD.
== END 2017-06-27 06:44 | disposition home or self-care (01) ==
LOC: ED 02:31
DX: R73.9 Hyperglycemia, unspecified (principal); F41.9 Anxiety disorder, unspecified; G47.9 Sleep disorder, unspecified; Z87.891 Personal history of nicotine dependence
CPT/HCPCS: 36415; 80053; 80320; 80329; 82550; 84443; 85025; 99284; A9270-GY; G0480; J2060

== ENCOUNTER 2017-07-26 08:55 | Emergency (ER) | payer MEDICARE ==
[2017-07-26] MEDS ORDERED: Furosemide TAB* 40 MG PO ONE (10:09)
--- NOTE | 2017-07-26 10:21 | RAD ---
HISTORY: Right foot swelling COMPARISONS: May 03, 2017 TECHNIQUE: Multiple transverse and longitudinal ultrasound images were obtained of the right lower extremity from the level of the common femoral vein inferiorly through to the infrapopliteal veins using grayscale, color Doppler, and spectral Doppler imaging with and without compression and with augmentation. Comparison images were obtained of the contralateral common femoral vein. FINDINGS: VEINS: The venous system of the right lower extremity is compressible throughout its course, with normal flow on color Doppler imaging and normal response to augmentation on spectral Doppler imaging. SOFT TISSUES: Again noted is a large soft tissue collection of the medial calf corresponding to the fluid collection noted on the previous ultrasound examination. This measures 11.9 x 0.9 x 3 cm in size, decreased from 16 cm in greatest dimension on the previous examination. OTHER FINDINGS: None. IMPRESSION: NO RIGHT LOWER EXTREMITY DEEP VEIN THROMBOSIS. PERSISTENT BUT DECREASING RIGHT CALF FLUID COLLECTION SUGGESTIVE OF HEMATOMA
[2017-07-26 11:55] VITALS: BP 151/99
--- NOTE | 2017-07-26 12:14 | ED ---
Linda Lim Julia, scribed for Lv Vasquez MD on 07/26/17 at 0908 . Lower Extremity - HPI Summary HPI Summary: This patient is a 62 year old F presenting to [facility] with a chief complaint of erythema and edema of the right great toe for the past couple weeks that has worsened the past few days with swelling up to her knee. Pts symptoms originated with pain edema and erythema of the right great toe, however pain and erythema is resolved currently. She has been on a seven day course of Keflex. She just stopped taking Indomethacin this morning as her pain is currently resolved. Pt was sent to the ED by her software test manager Dr. Duron, who requested an US to rule out DVT prior to arrival. Pt has a history of DM and neuropathy. Her blood glucose was 150 this morning. - History of Current Complaint Chief Complaint: EDExtremityLower Stated Complaint: RASH RT LEG Time Seen by Provider: 07/26/17 08:56 Hx Obtained From: Patient Onset/Duration: Worse Since - past few days Severity Initially: Mild Severity Currently: Moderate Pain Intensity: 0 Pain Scale Used: 0-10 Numeric Timing: Constant Location: Other - distal of right knee Associated Signs And Symptoms: Positive: Swelling Able to Bear Weight: Yes - Allergies/Home Medications Allergies/Adverse Reactions: Allergies Allergy/AdvReac Type Severity Reaction Status Date / Time MS Tramadol [Tramadol] Allergy Severe Shortness Verified 03/23/17 15:59 of Breath MS Codeine [Codeine] Allergy Intermediate Rash Verified 03/23/17 15:59 MS Sulfa Drugs [Sulfa Drugs] Allergy Mild Rash Verified 03/23/17 15:59 MS Atorvastatin AdvReac Severe Muscle Verified 03/23/17 15:59 [From Lipitor] weakness Home Medications: Home Medications Insulin GLARGINE(*) [Lantus(*)] 30 units SUBCUT DAILY 07/26/17 [History Confirmed 07/26/17] PMH/Surg Hx/FS Hx/Imm Hx Endocrine/Hematology History: Reports: Hx Diabetes - II - METFORMIN Denies: Hx Thyroid Disease Cardiovascular History: Reports: Hx Hypercholesterolemia, Other Cardiovascular Problems/Disorders - IDDM II Denies: Hx Hypertension, Hx Pacemaker/ICD Respiratory History: Reports: Hx Asthma, Hx Pneumonia, Hx Sleep Apnea Denies: Hx Chronic Obstructive Pulmonary Disease (COPD) GI History: Reports: Hx Gall Bladder Disease - gall stones, Other GI Disorders - abdominal and umbilical hernias Denies: Hx Hiatal Hernia, Hx Ulcer History: Reports: Hx Acute Renal Failure, Hx Renal Disease - HX OF FAILURE - THAT RESOLVED Musculoskeletal History: Reports: Hx Arthritis - knees bilateral Denies: Hx Osteoporosis Sensory History: Reports: Hx Cataracts - removed 2013, Hx Contacts or Glasses, Hx Vision Problem Denies: Hx Hearing Aid Opthamlomology History: Reports: Hx Cataracts - removed 2013, Hx Contacts or Glasses, Hx Vision Problem Neurological History: Reports: Hx Headaches, 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 Psychiatric History: Reports: Hx Anxiety, Hx Depression, Hx Post Traumatic Stress Disorder, Other Psychiatric Issues/Disorders - Psychosis, controlled with Geodon Denies: Hx Eating Disorder, Hx Panic Disorder, Hx of Violent Episodes Against Others - Cancer History Hx Chemotherapy: No Hx Radiation Therapy: No - Surgical History Surgery Procedure, Year, and Place: HYSTERECTOMY ; HERNIA REPAIR ; 06/19/14- [place] REVEAL HEART LOOP RECORDER - CURRENTLY NOT ACTIVE ; Hx Anesthesia Reactions: No - Immunization History Date of Influenza Vaccine: 12/2016 Infectious Disease History: Yes Infectious Disease History: Reports: Hx Shingles Denies: Hx Clostridium Difficile, Hx Hepatitis, Hx Human Immunodeficiency Virus (HIV), Hx of Known/Suspected MRSA, Hx Tuberculosis, History Other Infectious Disease, Traveled Outside the [place] in Last 30 Days - Family History Known Family History: Positive: Hypertension - Social History Alcohol Use: Occasionally Hx Substance Use: No Substance Use Type: Reports: None Hx Tobacco Use: Yes Smoking Status (MU): Former Smoker Type: Cigarettes Amount Used/How Often: 2 cigs day hx - quit 2011 Have You Smoked in the Last Year: No Review of Systems Negative: Fever Positive: Edema. Negative: Myalgia Skin: Negative - erythema All Other Systems Reviewed And Are Negative: Yes Physical Exam - Summary Physical Exam Summary: Appearance: Well appearing, no pain distress Skin: warm, dry, reflects adequate perfusion, moist mucous membranes Head/face: normal Eyes: EOMI, [place] ENT: normal Neck: supple, non-tender Respiratory: CTA, breath sounds present Cardiovascular: RRR, pulses symmetrical, good pedal pulses Abdomen: non-tender, soft Bowel Sounds: present Musculoskeletal: strength/ROM intact, 1+ edema of the RLE Neuro: normal, sensory motor intact, A&Ox3 Triage Information Reviewed: Yes Vital Signs On Initial Exam: Initial Vitals Temp Pulse Resp BP Pulse Ox 97.9 F 92 16 171/81 98 07/26/17 08:56 07/26/17 08:56 07/26/17 08:56 07/26/17 08:56 07/26/17 08:56 Vital Signs Reviewed: Yes Diagnostics - Vital Signs Vital Signs Temp Pulse Resp BP Pulse Ox 07/26/17 08:56 97.9 F 92 16 171/81 98 - Laboratory Lab Statement: Any lab studies that have been ordered have been reviewed, and results considered in the medical decision making process. - Additional Comments Diagnostic Additional Comments: A Venous US of the RLE reveals, as per radiologist, NO RIGHT LOWER EXTREMITY DEEP VEIN THROMBOSIS. PERSISTENT BUT DECREASING RIGHT CALF FLUID COLLECTION SUGGESTIVE OF HEMATOMA. ED Physician has reviewed this report Re-Evaluation - Re-Evaluation 1 Re-Evaluation Time: 09:50 Comment: Pt is informed of results. Pt will be discharged. Lower Extremity Course/Dx - Course Course Of Treatment: Pt with no DVT but there is some evidence for hematoma. Toe is improving on abx, will add 5 more days to course. F/U with podiatry. CHEKO stocking applied. - Diagnoses Differential Diagnosis/HQI/PQRI: Positive: Cellulitis, Contusion, DVT Provider Diagnoses: Hematoma of right lower extremity, Cellulitis of toe of right foot Discharge - Sign-Out/Discharge Documenting (check all that apply): Discharge - Discharge Plan Condition: Good Disposition: HOME Prescriptions: Cephalexin CAP* [Keflex CAP*] 500 mg PO TID #15 cap Patient Education Materials: Cellulitis (ED), Leg Edema (ED) Referrals: Christiano Rosa MD [Primary Care Provider] - Additional Instructions: avoid salt in diet. Continue Keflex. JONNY wrap for swelling. Follow up with your software test manager. Return with fever, worse or other concerns. - Billing Disposition and Condition Condition: GOOD Disposition: HOME The documentation as recorded by the Linda ram Julia accurately reflects the service I personally performed and the decisions made by me, Lv Vasquez MD.
== END 2017-07-26 11:54 | disposition home or self-care (01) ==
LOC: ED 08:55
DX: S80.11XA Contusion of right lower leg, initial encounter (principal); L03.115 Cellulitis of right lower limb; R60.9 Edema, unspecified; X58.XXXA Exposure to other specified factors, initial encounter; Y92.9 Unspecified place or not applicable; Z87.891 Personal history of nicotine dependence
CPT/HCPCS: 99282

== ENCOUNTER 2017-08-31 09:45 | Inpatient (IN) | payer MEDICARE ==
--- NOTE | 2017-08-31 10:54 | RAD ---
HISTORY: Neurological deficit COMPARISONS: August 06, 2016 VIEWS: 4: Frontal dual-energy and lateral views of the chest. FINDINGS: CARDIOMEDIASTINAL SILHOUETTE: The cardiomediastinal silhouette is normal. CALIN: The calin are normal. PLEURA: The costophrenic angles are sharp. No pleural abnormalities are noted. LUNG PARENCHYMA: The lungs are clear. ABDOMEN: The upper abdomen is clear. There is no subphrenic gas. BONES AND SOFT TISSUES: No bone or soft tissue abnormalities are noted. OTHER: None. IMPRESSION: NO ACTIVE CARDIOPULMONARY DISEASE.
[2017-08-31 11:17] LABS: Hematocrit 39 % (35-47); Mean Corpuscular HGB Conc 33 g/dl (31-36); Mean Corpuscular Hemoglobin 31 pg (27-31); Mean Corpuscular Volume 94 fL (80-97); Mean Platelet Volume 7.1 um3 (7.4-10.4); Platelet Count 373 10^3/ul (150-450); Red Blood Count 4.16 10^6/ul (4.0-5.4); Red Cell Distribution Width 14 % (10.5-15); White Blood Count 24.3 10^3/ul (3.5-10.8)
--- NOTE | 2017-08-31 11:17 | RAD ---
HISTORY: Neurological deficit COMPARISONS: February 16, 2017 TECHNIQUE: Multiple contiguous axial CT scans were obtained of the head without intravenous contrast. FINDINGS: HEMORRHAGE/INFARCT: There is no hemorrhage or acute infarct. MASSES/SHIFT: There is no mass or shift. EXTRA-AXIAL SPACES: There are no extra-axial fluid collections. SULCI AND VENTRICLES: The sulci and ventricles are normal in size and position for the patient's stated age. CEREBRUM: There are no focal parenchymal abnormalities. BRAINSTEM: There are no focal parenchymal abnormalities. CEREBELLUM: There are no focal parenchymal abnormalities. VESSELS: There is calcification of the cavernous segments of the internal carotid arteries bilaterally. PARANASAL SINUSES: The paranasal sinuses are clear. ORBITS: The orbits are unremarkable. BONES AND SOFT TISSUE: No bone or soft tissue abnormalities are noted. OTHER: None IMPRESSION: NO ACUTE INTRACRANIAL PATHOLOGY.
--- NOTE | 2017-08-31 11:20 | RAD ---
HISTORY: Neck pain, right arm limited movement, numbness COMPARISONS: None TECHNIQUE: Multiple contiguous axial CT scans were obtained of the cervical spine without intravenous contrast, with coronal and sagittal multiplanar reformations. FINDINGS: BRAIN: The visualized brain is unremarkable CENTRAL CANAL: Evaluation of the central canal is limited on CT technique; however, there is no obvious canalicular mass or epidural hemorrhage. ALIGNMENT: There is straightening of the cervical lordosis. VERTEBRAL BODIES: There is anterolateral marginal osteophyte formation most mass at C4-C5, 6 C5-C6, and C6-C7. JOINTS: There is intervertebral facet osteoarthritis. MUSCULATURE: Unremarkable INTERVERTEBRAL DISCS: There is diffuse loss of intervertebral disc height. AXIAL IMAGES: C2-C3: There is facet osteoarthritic. There is no osseous neural foraminal narrowing or central canal stenosis. C3-C4: There is bilateral uncovertebral and facet osteoporosis. There is mild left neural foraminal narrowing. There is no osseous central canal stenosis. C4-C5: There is a broad-based disc osteophyte complex with bilateral uncovertebral hypertrophy. There is mild bilateral neural foraminal narrowing. There is mild narrowing of the central canal. C5-C6: There is a broad-based disc osteophyte complex with a central posterior osteophyte versus calcified disc protrusion. There is bilateral uncovertebral hypertrophy. There is moderate bilateral neural foraminal narrowing. There is moderate to severe narrowing of the central canal. C6-C7: There is bilateral uncovertebral hypertrophy. There is mild left neural foraminal narrowing. There is mild narrowing of the central canal. C7-T1: There is no osseous neural foraminal narrowing or central canal stenosis. SOFT TISSUES: The visualized soft tissues of the neck are unremarkable. The prevertebral fat stripe is preserved. OTHER: None. IMPRESSION: 1. DEGENERATIVE DISC DISEASE AND OSTEOARTHRITIS. 2. THERE IS MODERATE TO SEVERE NARROWING OF THE CENTRAL CANAL AT C5-C6 WITH MILD NARROWING AT C4-C5 AND C6-C7. 3. THERE IS MULTILEVEL NEURAL FORAMINAL NARROWING DESCRIBED ABOVE.
[2017-08-31 11:28] LABS: INR 0.98 (0.77-1.02)
[2017-08-31 11:33] LABS: EGFR Non-African American 18.8 (>60)
[2017-08-31 12:43] LABS: ABS Basophils 0.2 10^3/ul (0-0.2); ABS Eosinophils 0 10^3/ul (0-0.6); ABS Lymphocytes 2.3 10^3/ul (1.0-4.8); ABS Monocytes 0.8 10^3/ul (0-0.8); ABS Neutrophils 20.9 10^3/ul (1.5-7.7); ABS Nucleated RBC 0 10^3/ul; Eosinophil % 0.2 % (0-6); Lymphocyte % 9.5 % (25-47); Nucleated Red Blood Cells % 0.1
[2017-08-31] MEDS ORDERED: Vancomycin(*) 1,000 MG in NS 0.9% 250 ML* 250 ML IVPB ONE (12:44)
[2017-08-31] MEDS ORDERED: NS 0.9% 1000 ML* 1,000 ML IV ONE (12:44)
[2017-08-31] MEDS ORDERED: Acetaminophen TAB* 325 MG PO PRN (13:24)
[2017-08-31] MEDS ORDERED: Dextrose 50% Syringe 50 ML* 25 GM/50 ML SYRINGE IV PUSH PRN (13:25)
[2017-08-31 13:30] LABS: Urine Appearance Cloudy; Urine Blood 3+ (Negative); Urine Color Yellow; Urine Ketones Negative (Negative); Urine Protein Negative (Negative); Urine Specific Gravity 1.007 (1.010-1.030); Urine Urobilinogen Negative (Negative)
--- NOTE | 2017-08-31 13:41 | ED ---
Linda Lim Julia, scribed for James Starks MD on 08/31/17 at 1023 . Neurological HPI - HPI Summary HPI Summary: This is a 62 year old F BIBA to [facility] with a chief complaint of RUE numbness and weakness beginning two days ago. She additionally reports neck pain beginning yesterday. She denies headache and blurry vision. She denies headache and blurry vision. - History of Current Complaint Chief Complaint: EDNeurologicalDeficit Stated Complaint: RT ARM WEAKNIESS Time Seen by Provider: 08/31/17 10:12 Hx Obtained From: Patient Onset/Duration: Sudden Onset, Started days ago Timing: Constant Neurological Deficit Location: RUE Pain Intensity: 0 Character: Numbness/Tingling Aggravating: Nothing Alleviating: Nothing Associated Signs and Symptoms: Positive: Nothing - Additional Pertinent History Primary Care Physician: BE - Allergy/Home Medications Allergies/Adverse Reactions: Allergies Allergy/AdvReac Type Severity Reaction Status Date / Time atorvastatin Allergy Severe See Comment Verified 08/31/17 10:15 tramadol Allergy Severe Shortness Verified 08/31/17 10:15 of Breath codeine Allergy Intermediate Rash Verified 08/31/17 10:15 Sulfa (Sulfonamide Allergy Mild Rash Verified 08/31/17 10:15 Antibiotics) Home Medications: Home Medications Dapagliflozin Propanediol [Farxiga] 5 mg PO DAILY 08/31/17 [History Confirmed ] Venlafaxine ER (NF) [Effexor ER (NF)] 225 mg PO DAILY 08/31/17 [History Confirmed 08/31/17] PMH/Surg Hx/FS Hx/Imm Hx Endocrine/Hematology History: Reports: Hx Diabetes - II - METFORMIN Denies: Hx Thyroid Disease Cardiovascular History: Reports: Hx Hypercholesterolemia, Other Cardiovascular Problems/Disorders - IDDM II Denies: Hx Hypertension, Hx Pacemaker/ICD Respiratory History: Reports: Hx Asthma, Hx Pneumonia, Hx Sleep Apnea Denies: Hx Chronic Obstructive Pulmonary Disease (COPD) GI History: Reports: Hx Gall Bladder Disease - gall stones, Other GI Disorders - abdominal and umbilical hernias Denies: Hx Hiatal Hernia, Hx Ulcer History: Reports: Hx Acute Renal Failure, Hx Renal Disease - HX OF FAILURE - THAT RESOLVED Musculoskeletal History: Reports: Hx Arthritis - knees bilateral Denies: Hx Osteoporosis Sensory History: Reports: Hx Cataracts - removed 2013, Hx Contacts or Glasses, Hx Vision Problem Denies: Hx Hearing Aid Opthamlomology History: Reports: Hx Cataracts - removed 2013, Hx Contacts or Glasses, Hx Vision Problem Neurological History: Reports: Hx Headaches, 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 Psychiatric History: Reports: Hx Anxiety, Hx Depression, Hx Post Traumatic Stress Disorder, Other Psychiatric Issues/Disorders - Psychosis, controlled with Geodon Denies: Hx Eating Disorder, Hx Panic Disorder, Hx of Violent Episodes Against Others - Cancer History Hx Chemotherapy: No Hx Radiation Therapy: No - Surgical History Surgery Procedure, Year, and Place: HYSTERECTOMY ; HERNIA REPAIR ; 06/19/14- [place] REVEAL HEART LOOP RECORDER - CURRENTLY NOT ACTIVE ; Hx Anesthesia Reactions: No - Immunization History Date of Influenza Vaccine: 12/2016 Infectious Disease History: No Infectious Disease History: Reports: Hx Shingles Denies: Hx Clostridium Difficile, Hx Hepatitis, Hx Human Immunodeficiency Virus (HIV), Hx of Known/Suspected MRSA, Hx Tuberculosis, History Other Infectious Disease, Traveled Outside the [place] in Last 30 Days - Family History Known Family History: Positive: Hypertension - Social History Alcohol Use: Occasionally Alcohol Amount: 1-2 beers occassionally last drink 3 mo. ago Hx Substance Use: No Substance Use Type: Reports: None Hx Tobacco Use: Yes Smoking Status (MU): Former Smoker Type: Cigarettes Amount Used/How Often: 2 cigs day hx - quit 2011 Have You Smoked in the Last Year: No Review of Systems Negative: Blurred Vision Positive: Myalgia - neck pain Positive: Numbness - RUE. Negative: Headache All Other Systems Reviewed And Are Negative: Yes Physical Exam - Summary Physical Exam Summary: VITAL SIGNS: Reviewed. GENERAL: Patient is a well-developed and nourished female who is lying comfortable in the stretcher. Patient is not in any acute respiratory distress. HEAD AND FACE: No signs of trauma. No ecchymosis, hematomas or skull depressions. No sinus tenderness. EYES: PERRLA, EOMI x 2, No injected conjunctiva, no nystagmus. EARS: Hearing grossly intact. Ear canals and tympanic membranes are within normal limits. MOUTH: Oropharynx within normal limits. NECK: Supple, trachea is midline, no adenopathy, no JVD, no carotid bruit, no c- spine tenderness, neck with full ROM. CHEST: Symmetric, no tenderness at palpation LUNGS: Clear to auscultation bilaterally. No wheezing or crackles. CVS: Regular rate and rhythm, S1 and S2 present, no murmurs or gallops appreciated. ABDOMEN: Soft, non-tender. No signs of distention. No rebound no guarding, and no masses palpated. Bowel sounds are normal. EXTREMITIES: FROM in all major joints, no edema, no cyanosis or clubbing. NEURO: Alert and oriented x 3. Speech is normal and follows commands. RUE weakness with normal sensation SKIN: Dry and warm Triage Information Reviewed: Yes Vital Signs On Initial Exam: Initial Vitals Temp Pulse Resp BP Pulse Ox 97.7 F 96 19 131/87 94 08/31/17 09:47 08/31/17 09:47 08/31/17 09:47 08/31/17 09:47 08/31/17 09:47 Vital Signs Reviewed: Yes Diagnostics - Vital Signs Vital Signs Temp Pulse Resp BP Pulse Ox 08/31/17 09:47 97.7 F 96 19 131/87 94 - Laboratory Lab Results: Lab Results 08/31/17 08/31/17 08/31/17 Range/Units 11:05 11:05 11:05 WBC 24.3 H (3.5-10.8) 10^3/ul RBC 4.16 (4.0-5.4) 10^6/ul Hgb 13.0 (12.0-16.0) g/dl Hct 39 (35-47) % MCV 94 (80-97) fL MCH 31 (27-31) pg MCHC 33 (31-36) g/dl RDW 14 (10.5-15) % Plt Count 373 (150-450) 10^3/ul MPV 7.1 L (7.4-10.4) um3 Neut % (Auto) 86.1 H (38-83) % Lymph % (Auto) 9.5 L (25-47) % Bent % (Auto) 3.4 (0-7) % Eos % (Auto) 0.2 (0-6) % Baso % (Auto) 0.8 (0-2) % Absolute Neuts (auto) 20.9 H (1.5-7.7) 10^3/ul Absolute Lymphs (auto) 2.3 (1.0-4.8) 10^3/ul Absolute Monos (auto) 0.8 (0-0.8) 10^3/ul Absolute Eos (auto) 0 (0-0.6) 10^3/ul Absolute Basos (auto) 0.2 (0-0.2) 10^3/ul Absolute Nucleated RBC 0 10^3/ul Nucleated RBC % 0.1 INR (Anticoag Therapy) 0.98 (0.77-1.02) APTT 28.2 (26.0-36.3) seconds Sodium 130 L (139-145) mmol/L Potassium 4.2 (3.5-5.0) mmol/L Chloride 96 L (101-111) mmol/L Carbon Dioxide 23 (22-32) mmol/L Anion Gap 11 (2-11) mmol/L BUN 41 H (6-24) mg/dL Creatinine 2.58 H (0.51-0.95) mg/dL Est GFR ( Amer) 24.1 (>60) Est GFR (Non-Af Amer) 18.8 (>60) BUN/Creatinine Ratio 15.9 (8-20) Glucose 201 H (70-100) mg/dL Lactic Acid (0.5-2.0) mmol/L Calcium 9.7 (8.6-10.3) mg/dL Total Bilirubin 0.60 (0.2-1.0) mg/dL AST 182 H (13-39) U/L ALT 62 H (7-52) U/L Alkaline Phosphatase 107 H (34-104) U/L Troponin I 0.02 (<0.04) ng/mL Total Protein 7.9 (6.4-8.9) g/dL Albumin 4.0 (3.2-5.2) g/dL Globulin 3.9 (2-4) g/dL Albumin/Globulin Ratio 1.0 (1-3) Triglycerides 173 mg/dL Cholesterol 158 mg/dL LDL Cholesterol 84 mg/dL HDL Cholesterol 39.8 mg/dL / Range/Units 11:05 WBC (3.5-10.8) 10^3/ul RBC (4.0-5.4) 10^6/ul Hgb (12.0-16.0) g/dl Hct (35-47) % MCV (80-97) fL MCH (27-31) pg MCHC (31-36) g/dl RDW (10.5-15) % Plt Count (150-450) 10^3/ul MPV (7.4-10.4) um3 Neut % (Auto) (38-83) % Lymph % (Auto) (25-47) % Bent % (Auto) (0-7) % Eos % (Auto) (0-6) % Baso % (Auto) (0-2) % Absolute Neuts (auto) (1.5-7.7) 10^3/ul Absolute Lymphs (auto) (1.0-4.8) 10^3/ul Absolute Monos (auto) (0-0.8) 10^3/ul Absolute Eos (auto) (0-0.6) 10^3/ul Absolute Basos (auto) (0-0.2) 10^3/ul Absolute Nucleated RBC 10^3/ul Nucleated RBC % INR (Anticoag Therapy) (0.77-1.02) APTT (26.0-36.3) seconds Sodium (139-145) mmol/L Potassium (3.5-5.0) mmol/L Chloride (101-111) mmol/L Carbon Dioxide (22-32) mmol/L Anion Gap (2-11) mmol/L BUN (6-24) mg/dL Creatinine (0.51-0.95) mg/dL Est GFR ( Amer) (>60) Est GFR (Non-Af Amer) (>60) BUN/Creatinine Ratio (8-20) Glucose (70-100) mg/dL Lactic Acid 2.4 H* (0.5-2.0) mmol/L Calcium (8.6-10.3) mg/dL Total Bilirubin (0.2-1.0) mg/dL AST (13-39) U/L ALT (7-52) U/L Alkaline Phosphatase (34-104) U/L Troponin I (<0.04) ng/mL Total Protein (6.4-8.9) g/dL Albumin (3.2-5.2) g/dL Globulin (2-4) g/dL Albumin/Globulin Ratio (1-3) Triglycerides mg/dL Cholesterol mg/dL LDL Cholesterol mg/dL HDL Cholesterol mg/dL Result Diagrams: 08/31/17 11:05 08/31/17 11:05 Lab Statement: Any lab studies that have been ordered have been reviewed, and results considered in the medical decision making process. - Radiology CXR Radiology Interpretation Completed By: Radiologist - NO ACTIVE CARDIOPULMONARY DISEASE. Dr. Starks has reviewed this report. - CT Brain CT CT Interpretation Completed By: Radiologist - NO ACUTE INTRACRANIAL PATHOLOGY. Dr. Starks has reviewed this report C-Spine CT CT Interpretation Completed By: Radiologist - 1. DEGENERATIVE DISC DISEASE AND OSTEOARTHRITIS. 2. THERE IS MODERATE TO SEVERE NARROWING OF THE CENTRAL CANAL AT C5-C6 WITH MILD NARROWING AT C4-C5 AND C6-C7. 3. THERE IS MULTILEVEL NEURAL FORAMINAL NARROWING DESCRIBED ABOVE. Dr. Starks has reviewed this report. - EKG 1140 Cardiac Rate: NL EKG Rhythm: Sinus Rhythm - at 96 BPM EKG Interpretation: no ST elevation, diffuse T abnormalities NIH Scale - NIH Scale Level of Consciousness: Alert/Keenly Responsive Ask Patient the Month and His/Her Age: Both Correct Ask Pt to Open/Close Eyes and Sap Payroll Consultant/Release Non-Paretic Hand: Both Correctly Best Gaze (Only Horizontal Eye Movement): Normal Visual Field Testing: No Visual Loss Facial Paresis-Pt to Smile & Close Eyes or Grimace Symmetry: Normal/Symmetrical Motor Function - Right Arm: Drifts LT 10 seconds Motor Function - Left Arm: No Drift-Holds 10 Seconds Motor Function - Right Leg: No Drift-Holds 10 Seconds Motor Function - Left Leg: No Drift-Holds 10 Seconds Limb Ataxia-Must be out of Proportion to Weakness Present: Absent Sensory (Use Pinprick to Test Arms/Legs/Trunk/Face): Normal Best Language (Describe Picture, Name Items): No Aphasia Dysarthria (Read Several Words): Normal Extinction and Inattention: No Abnormality Total Score: 1 Re-Evaluation - Re-Evaluation 12:00 Re-Evaluation Time: 12:00 Change: Improved Comment: RUE weakness no longer present. Course/Dx - Course Assessment/Plan: This patient is a 62-year-old female presents to the emergency department with a chief complaint of having a right upper extremity weakness since Tuesday. She reports the use she develop neck pain and today the weakness in the right upper extremity does not improve therefore, She came to the emergency room. for further assessment. Initially the patient was placed in a tip length checker, IV access was obtained and the patient was sent to the to the radiology department for a head CT immediately. Head CT impression: No acute intracranial pathology. C-spine CT impression: Degenerative disc disease and also arthritis. There is moderate to severe narrowing of the central canal at C5 and C6 with mild narrowing at C4 and C5 and C6 and C7. Chest x-ray impression: No active cardiopulmonary disease. Blood test result shows a wbcs of 24.3, sodium 136. BUN 41 and creatinine is 2.58, glucose is 201 and lactic acid is 2.4. The patient also has increased LFTs. At this time I discussed my findings, test results with Dr. Pinzon from neurology and she will come and consult for this patient. Dr. Pinzon came and examined the patient. She thinks that the patient may be having an infection in the C-spine versus an abscess before he she recommended an MRI of the C-spine. I will start the patient on vancomycin just to protect her since the patient has increased WBCs increase lactic acid even though the patient is afebrile and she is not tachycardic. And she doesnt have any headache, she doesnt have any fever, she does not have any cough, abdominal pain, nausea vomiting diarrhea nor dysuria or urinary frequency. I discussed the case physical exam and findings with Dr. Wills who is the hospitalist and she recommends not to give antibiotics at this point since we dont have a good source of the infection. She also accepted the patient for admission. Dr. Wills with follow-up the MRI results. - Differential Dx Differential Diagnoses Neuro: Positive: Cerebrovascular Accident, Transient Ischemic Attack, Vasovagal Reaction, Other - C spine abscess, discitis, C-spine infection - Diagnoses Provider Diagnoses: Upper limb weakness, Leukocytosis, Acute renal failure - Physician Notifications Discussed Care Of Patient With: Malia Pinzon - neurology Time Discussed With Above Provider: 11:55 Instructed by Provider To: Will See In ED Discharge - Sign-Out/Discharge Documenting (check all that apply): Discharge/Admit/Transfer - Discharge Plan Condition: Stable Disposition: ADMITTED TO [facility] Referrals: Christiano Rosa MD [Primary Care Provider] - - Billing Disposition and Condition Condition: STABLE Disposition: [facility] [place] Consult Consult: At 12:51, Dr Wills, hospitalist, agrees to admit this patient. Dr. Wills requests to not give antibiotics. The documentation as recorded by the Linda ram Julia accurately reflects the service I personally performed and the decisions made by , James Starks MD.
[2017-08-31] MEDS ORDERED: Vancomycin per Pharmacy* NOTE FOLLOW UP PRN (14:44)
[2017-08-31] MEDS ORDERED: Vancomycin(*) 1,500 MG in NS 0.9% 250 ML* 250 ML IVPB ONE (15:00)
--- NOTE | 2017-08-31 15:37 | RAD ---
HISTORY: Neck pain, right upper extremity weakness, increased white blood cell count COMPARISONS: CT dated August 31, 2014 TECHNIQUE: The following sequences were obtained of the cervical spine: Sagittal T1- and T2-weighted images, sagittal STIR images, axial T2 and gradient echo images. FINDINGS: BRAIN AND SPINAL CORD: There is focal elevated cord signal opposite C5. There are no epidural fluid collections. ALIGNMENT: There is straightening of the normal cervical lordosis. The alignment is otherwise normal. VERTEBRAL BODIES: There is excellent marginal osteophyte formation at C4-C5, C5-C6 and C6-C7 JOINTS: There is uncovertebral and facet osteoarthritis. MUSCULATURE: Unremarkable INTERVERTEBRAL DISCS: There is diffuse loss of intervertebral disc height and T2 signal throughout the spine. AXIAL IMAGES: C2-C3: There is bilateral facet hypertrophy. There is mild left neural foraminal narrowing. There is no significant central canal stenosis. C3-C4: There is left greater on the right uncovertebral facet hypertrophy. There is moderate left neural foraminal narrowing. There is no significant central canal stenosis. C4-C5: There is a broad-based disc osteophyte complex that is eccentric to the left. There is bilateral uncovertebral and facet hypertrophy. There is moderate right and severe left neural foraminal narrowing. There is moderate narrowing of the central canal. C5-C6: There is a broad-based disc osteophyte, with bilateral uncovertebral and facet hypertrophy. There is a superimposed central disc protrusion versus posterior osteophyte measuring 0.3 cm in depth. There is severe left and moderate right neural foraminal narrowing. There is moderate narrowing of the central canal. C6-C7: There is a broad-based disc osteophyte complex. There is no significant neural foraminal narrowing or central canal stenosis. C7-T1: There is no disc herniation, spinal stenosis, or neuroforaminal narrowing. SOFT TISSUES: The visualized soft tissues of the neck are unremarkable. OTHER: None. IMPRESSION: 1. DEGENERATIVE DISC DISEASE AND OSTEOARTHRITIS. 2. THERE IS MODERATE NARROWING OF CENTRAL CANAL AT C4-C5 AND C5-C6. 3. THERE IS A CENTRAL DISC PROTRUSION VERSUS POSTERIOR OSTEOPHYTE AT C5-C6. 4. THERE IS MULTILEVEL NEURAL FORAMINAL NARROWING DESCRIBED ABOVE. 5. 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 6. THERE ARE NO EPIDURAL FLUID COLLECTIONS.
[2017-08-31] MEDS: NS 0.9% 1000 ML* 1,000 ML IV SCH (16:02)
[2017-08-31] MEDS: cefTRIAXone(*) 1 GM in NS 0.9% 50 ML* 50 ML IVPB SCH (16:02)
--- NOTE | 2017-08-31 16:42 | PN ---
Progress Note - Progress Note Date of Service: 08/31/17 Note: Spoke with Dr. Pinzon who recommended lumbar puncture. Spoke with Dr. Almeida from anesthesia who will be able to do the LP tonight. Labs for LP will be ordered by Dr. Pinzon.
[2017-08-31] MEDS: clonazePAM TAB(*) 1 MG PO SCH (17:17)
[2017-08-31] MEDS: Insulin LISPRO* 1 UNITS UNIT SUBCUT SCH (17:18)
--- NOTE | 2017-08-31 19:58 | RAD ---
Indication: Urinary tract infection. Hematuria. Comparison: March 20, 2016 CT. Technique: Ultrasound kidneys and urinary bladder. Report: 11.7 x 4.7 x 6.1 cm RIGHT kidney. 11.4 x 5.9 x 4.9 cm LEFT kidney. Normal bilateral renal cortical echogenicity. No conspicuous renal stones, hydronephrosis, or focal renal lesions. Grossly symmetric renal vascularity. Negative for perinephric fluid. 390 mL estimated prevoid urinary bladder volume. 2.7 mm lateral wall thickness. No focal bladder lesions evident. Symmetric ureteral jets documented. Post void residual volume estimated at 130 mL. IMPRESSION: 1. Normal bilateral renal ultrasound. Negative for hydronephrosis. 2. The urinary bladder is remarkable for significant post void residual volume estimated at 130 mL without additional abnormality.
--- NOTE | 2017-08-31 20:14 | HP ---
CC: Dr. Christiano Rosa * HISTORY AND PHYSICAL: DATE OF ADMISSION: 08/31/17 PRIMARY CARE PROVIDER: Dr. Christiano Rosa. ATTENDING PHYSICIAN: Dr. Randee Wills * (dictated by Melany Guevara NP) CHIEF COMPLAINT: Right upper extremity numbness and tingling and neck pain. HISTORY OF PRESENT ILLNESS: Ms. Alba is a 62-year-old female with past medical history significant for anxiety, depression, diabetes mellitus, PTSD, hypertension, hyperlipidemia, asthma, cholelithiasis, and headaches, who states that she had been in her usual state of health when she fell asleep on her couch at approximately 7 p.m. on Tuesday, waking up at noon yesterday (Tuesday). The patient states that when she woke up, she noticed she was incontinent of stool, but she was unable to get up until approximately 3 p.m. yesterday at which time she had herself cleaned up. She noted that she was unable to use her right arm at all. She states she has not been eating or drinking or taking her medications due to the inability to use her right arm. Last time she ate was Tuesday morning. The patient states since Tuesday morning, she has had 1 glass of water. She denies any fevers, chills, chest pain. She has shortness of breath at baseline due to her asthma. This has not increased above her baseline. She denies any nausea or vomiting. She had an episode of diarrhea that she was incontinent of overnight Tuesday. She denies any urinary symptoms such as urgency, dysuria, or urinary frequency. She also reports waking up yesterday with neck stiffness. The patient decided to come to the emergency room due to her right upper extremity weakness. While in the emergency room, she was noted to have posterior neck tenderness. She had a chest x-ray, no active disease. A head CT with no intracranial pathology. A C-spine CT showing degenerative disk disease and osteoarthritis with moderate-to- severe central canal narrowing at C5-6 and mild narrowing at C4-5 and C6-7. She had labs that were remarkable for leukocytosis with a WBC of 24.3. She was also noted to have acute renal failure with BUN of 41 and creatinine of 2.58; her baseline appears to be around 0.80. She was also found to have lactic acidosis with a lactic acid of 2.4. Had elevated AST and ALT. The patient was seen in consultation by Dr. Pinzon due to her weakness. It was felt that her symptoms did not represent a stroke, but more likely something going on with her neck. It was recommended she have an MRI to eval for possible abscess. She is unable to have contrast in the setting of acute renal failure. The patient had no signs of infection and hospitalists were asked to evaluate the patient for admission. PAST MEDICAL HISTORY: 1. Anxiety, depression. 2. Diabetes mellitus. 3. PTSD. 4. Hypertension. 5. Hyperlipidemia. 6. Asthma. 7. Cholelithiasis. 8. Migraines. PAST SURGICAL HISTORY: 1. Status post hysterectomy. 2. Status post hernia repair. HOME MEDICATIONS: Include: 1. Metformin 1000 mg oral twice daily. 2. Clonazepam 2 mg oral every evening. 3. Geodon 160 mg oral daily. 4. Effexor 225 mg oral daily. 5. Pravastatin 40 mg oral daily at bedtime. 6. Lantus 32 units subcutaneous daily. 7. Farxiga 5 mg oral daily. 8. Atrovent 1 to 2 puffs inhalation 3 times daily as needed for shortness of breath or wheeze. ALLERGIES: ATORVASTATIN, TRAMADOL, CODEINE, SULFA. FAMILY HISTORY: The patient's mother had a history of heart disease and end- stage renal disease, passing around age 85 from end-stage renal disease. She denies any family history of diabetes. Her father passed from prostate cancer. SOCIAL HISTORY: The patient quit smoking in 2011. She occasionally drinks alcohol. Denies recreational drug use. Her son, Justino Rangel, will be her surrogate decision maker in the event she is unable to make decisions for herself. REVIEW OF SYSTEMS: I performed an 11-point review of systems. All the pertinent positives and negatives are mentioned in the history of present illness. Remaining review of systems is negative. PHYSICAL EXAMINATION GENERAL APPEARANCE: The patient is alert, pleasant, appears to be in no acute distress. VITAL SIGNS: Temperature 97.7, heart rate 96, respiratory rate 19, O2 sat 94% on room air, blood pressure 131/87. HEENT: Normocephalic, atraumatic. Pupils are equal and reactive to light. Extraocular movements are intact. NECK: The patient is able to do chin to nose, turn her head to the left and to bit back, she has limited range of motion towards the right. She has tenderness to her posterior neck. No nuchal rigidity. RESPIRATORY: There is no accessory muscle use. The lungs are clear to auscultation bilaterally. CARDIOVASCULAR: Regular rate and rhythm, S1 and S2 present. There are no murmurs, rubs, or gallops heard. ABDOMEN: Soft, nontender, nondistended. Bowel sounds present x4. EXTREMITIES: There is no lower extremity edema. DP/PT pulses are 2+ and symmetric. MUSCULOSKELETAL: There is no clubbing or cyanosis noted. The patient exhibits good strength in her left extremities and her right lower extremity. She has weakness in her right upper extremity. NEUROLOGIC: The patient is alert and oriented x4. She has a good hand grasp on the left. She is unable to grasp on the right or open her fingers on the right. She has good biceps strength on the right. She is able to perform ankle from heel to knee bilaterally without difficulty. She is able to lift both legs off the bed. She does have mild right foot weakness secondary to an old injury. PSYCHOLOGICAL: The patient is calm and cooperative. SKIN: There are no rashes or abnormalities seen. DIAGNOSTIC STUDIES/LAB DATA: Sodium 130, potassium 4.2, chloride 96, CO2 23, BUN 41, creatinine 2.58, glucose 201. White blood cell count 24.3, hemoglobin 13.0, hematocrit 39, platelet count 373. Lactic acid 2.4. Urinalysis pending at this time. EKG shows sinus rhythm at a rate of 96. There are no acute signs of ischemia. This EKG is similar to previous from 02/16/17. Chest x-ray from today. Radiologist's impression: No active cardiopulmonary disease. Brain CT from today. Radiologist's impression: No intracranial pathology. Cervical spine CT from today. Radiologist's impression: Degenerative disk disease and osteoarthritis. There is [id number] narrowing of the central canal at C5-6 with mild narrowing at C4-5 and C6-C7. There is multilevel neural foraminal narrowing as described above. IMPRESSION: Ms. Alba is a 62-year-old female with past medical history significant for anxiety, depression, diabetes mellitus, posttraumatic stress disorder, hypertension, hyperlipidemia, asthma, cholelithiasis, and migraines, who presents to the emergency room with complaints of right upper extremity weakness and neck discomfort. She will be admitted as an observation for right upper extremity weakness and acute renal failure. ASSESSMENT/PLAN: 1. Right upper extremity weakness. Unclear etiology at this time, suspect this is related to her neck. The patient has been seen by Neurology in the emergency room who felt that this did not represent a stroke as she does not have lower extremity weakness or facial drooping. Recommendation is to get an MRI of her neck to eval for diskitis or an abscess. The patient will have neuro checks to ensure that her weakness does not progress. The patient is nontoxic appearing. I do not feel that she has meningitis, as she has no nuchal rigidity, fever or headache. I am going to hold off on lumbar puncture at this time. Based on the MRI results, we will consider consulting neurosurgery. 2. Acute renal failure. I suspect this is secondary to dehydration. We will give the patient IV hydration. Recheck her labs in the morning. Also, check urine for infection and FENa. 3. Lactic acidosis. I suspect this is secondary to dehydration. We will give the patient IV hydration. We will recheck lactic acid. The patient currently has no signs of infection other then an elevated WBC. 4. Leukocytosis. We will hold off on antibiotics since we cannot identify the source of her possible infection. Again, her urinalysis is pending at this time. If she does in fact have a urinary tract infection, we will start her on antibiotics accordingly. 5. Transaminitis. Suspect this is secondary to dehydration, we will give her IV hydration overnight and recheck labs in the morning. 6. Anxiety and depression. The patient will be continued on her home Geodon, Effexor, and clonazepam. 7. Hyperlipidemia. The patient will be continued on her home pravastatin. 8. Diabetes mellitus. She will be continued on her home Lantus. She will have glucose checks a.c. and h.s. with lispro sliding scale coverage. 9. Hypertension. The patient is not currently on any medications. We will continue to follow her blood pressures. 10. Fluids, electrolytes, and nutrition. The patient will be on a heart- healthy diet after she has her MRI. 11. Code status. Full code. 12. DVT prophylaxis. She is at high risk and will have subcu heparin. 13. Disposition. Observation for right upper extremity weakness and acute renal failure. TIME SPENT: Time for this admission was approximately 60 minutes, greater than half of that was spent with the patient discussing medications, past medical history, the events leading up to her arrival today, performing a physical examination. The case has been reviewed with the attending, Dr. Wills, who agrees with the plan of care. Reviewed by MIRNA BA 09/01/17 1005 [id number]/[facility] #: [id number] ROXANNA
--- NOTE | 2017-08-31 21:52 | CONS ---
NEUROLOGY CONSULTATION REPORT: DATE OF CONSULT: 08/31/17 REQUESTING PHYSICIAN: Dr. Starks. REASON FOR CONSULT: Right upper extremity weakness. HISTORY OF PRESENT ILLNESS: Ally Alba is a 62-year-old woman with a history of diabetes, anxiety/depression as well as a reported history of hypertension, though not currently treated, who presented to the emergency department this morning with subacute right arm weakness. Patient reports that she was in her usual state of health on 08/29/17 when she fell asleep on her sofa on her back around 7 p.m. on 08/29/17 and did not wake up until noon on . She reports being in her clothes and that this is highly unusual for her. When she woke up on Tuesday, she realized she had been incontinent of stool which again is highly unusual for her. She also noted that she was not able to use her right arm, but was preoccupied with cleaning herself up from her stool incontinence and so did not seek help at that time. She did the best that she could to clean herself up without being able to use her right arm. She was not able to take her medications yesterday because she is right handed and so she was not able to open the bottles. This includes her insulin. She contacted a friend around midnight last night who advised that she contact her primary care physician first thing this morning and when she did so, they advised that she present to the emergency department for further evaluation. On my evaluation, the patient reports some numbness and tingling in her right arm as well. She reports global weakness from her deltoid down to her fingers. The fingers had been tingling earlier, but are not doing so at the time of my evaluation. She indicates all fingers are involved. She denies any weakness or numbness in her face or her leg. Her balance has been okay. There are no vision changes. No speech changes. In terms of infectious symptoms, she denies any fever or chills. Denies cough, nausea, vomiting, diarrhea, urinary frequency or dysuria. She notes that she ate only one packet of oatmeal all day yesterday and has not really had anything to drink in the last 24 to 48 hours. She reports stiffness in her neck on the right side, but denies any deneen pain. She denies any shoulder pain or pain in the arms. She denies any neck trauma or recent chiropractic manipulation. She has never had neurologic symptoms like this in the past and denies any history of stroke. She has no headache currently, but recalls a period of time where she had daily headaches for several weeks and she estimates this was 3 years ago. A Neurology consultation was requested because of the right arm weakness. PAST MEDICAL HISTORY: Diabetes, hyperlipidemia, anxiety/depression, past history of hypertension for which the patient was previously on lisinopril, but she no longer takes this, asthma, sleep apnea, history of renal disease in the past, diabetic retinopathy, arthritis, cataracts, diabetic neuropathy, posttraumatic disorder. PAST SURGICAL HISTORY: Hysterectomy, hernia repair, [employer] loop recorder placed in 2014, reportedly not currently active. FAMILY HISTORY: Hypertension. SOCIAL HISTORY: She lives alone in an apartment. She is a former smoker. She was a trauma nurse. REVIEW OF SYSTEMS: All 14 systems review was completed and pertinent positives are listed in the HPI. Otherwise, negative. PHYSICAL EXAM: Vital Signs: Temperature 97.7, blood pressure 131/87, heart rate 96, oxygen saturation 94% on room air. On general exam, she is a pleasant woman, in no acute distress. She is nontoxic appearing. Her heart is tachycardic, but there are no obvious murmurs. There are no carotid bruits. Her lungs are clear to auscultation bilaterally. There are no obvious skin rashes or other concerning lesions. There is no lower extremity edema. Her neck range of motion was limited in lateral flexion to the right as well as limited in lateral rotation to the right and to the left secondary to stiffness, but most notable in lateral flexion to the right. There is no deneen meningismus. On neurologic exam, she is fully awake, alert and oriented. Her speech is fluent without dysarthria or aphasia. On cranial nerve testing, pupils are equal, round and reactive from 3 to 2 mm bilaterally. Versions are full without nystagmus. Fitzgerald are full. Facial sensation and musculature are full and symmetric including to pinprick. Hearing is intact to voice. The palate elevates symmetrically and tongue is midline. On motor examination, she has normal bulk in the upper and lower extremities. Strength is full in her left upper extremity as well as the bilateral lower extremities. She has antigravity strength in the right upper extremity, but has some inconsistent effort on confrontational testing which makes it difficult to completely assess the degree of weakness. She gives essentially no resistance in forward shoulder flexion, right elbow extension and flexion, hand cable swager and finger extension. On sensory testing, she endorses inability to distinguish sharp/ dull in a nondermatomal distribution in the right upper extremity encompassing the upper arm as well as the dorsal aspect of the lower forearm, dorsal aspect of the hand as well as the ventral aspect of the forearm. She can detect sharp sensation in the fingertips and in the palm on the right. She is also able to detect sharp sensation in the axillary distribution on the right arm. She has stocking distribution, diminished pinprick sensation in the lower extremities as well bilaterally. Reflexes were 2+ in the left upper extremity, 2+ at the knees, absent at the ankles, 1+ in the right biceps and brachioradialis, 0 in the right triceps. Toes were downgoing bilaterally. Oozqsv-[id number] on the left was without ataxia and she could not complete this secondary to weakness on the right. Bbsp-vj-fvxo was without ataxia bilaterally. I did not ambulate her. DIAGNOSTIC STUDIES/LAB DATA: Her laboratory data is notable for a white blood cell count of 24.3 with 86.1% neutrophils and 20.9 absolute neutrophils, hematocrit 39, hemoglobin 13, platelet count of 373. Her chemistry panel shows a sodium of 130, chloride of 96, BUN of 41, creatinine of 2.58 with a creatinine measured on 06/27/17 of 0.83. Glucose of 201, lactate of 2.4. AST 182, ALT 62, alkaline phosphatase 107. Her calcium and protein levels are normal. Coagulation studies are unremarkable. I reviewed her noncontrasted brain CT, which shows no evidence of any acute process. She also had a cervical spine CT, which was personally reviewed and shows moderate- to-severe narrowing of the central canal at the C5-6 level with a broad based disk osteophyte complex with a central posterior osteophyte versus calcified disk protrusion. At the C6-7 level, there is mild neuroforaminal narrowing on the left and mild narrowing of the central canal. The soft tissues of the neck were unremarkable. Elsewhere, there were some arthritic changes, which can be found in the report. IMPRESSION: Ally Alba is a 62-year-old woman with a history of diabetes and anxiety and depression who presents with the onset of relatively global weakness isolated to her right arm as well as sensory changes in the right arm. There is no involvement of her face or her leg or other neurologic symptoms. There is no pain in the arm to suggest [place]. She has neck stiffness with reduced range of motion and her blood work is concerning for an infectious process. She also has evidence of acute renal failure likely related to her dehydrated status since she has had essentially no p.o. intake over the last 36 hours or so. I discussed with Dr. Starks that I think she needs further imaging of her neck at this point to evaluate for any infectious process such as an abscess. We will obtain MRI scan of the neck without contrast given her current renal function. This is less likely to be a stroke given involvement solely of her arm as well as her other associated lab values. We should also add a sedimentation rate as well as a CRP and obtain urinalysis on her though she does not endorse any symptoms of urinary tract infection. Thank you for this consultation. I will follow the patient along with you. [id number]/[facility] #: [id number] ROXANNA
[2017-08-31] MEDS: CMCS Pravastatin (NF) 20 MG TAB PO SCH (21:59)
[2017-08-31] MEDS ORDERED: Heparin VIAL(*) 5000 UNITS/ML VIAL (FIVE THOUSAND) SUBCUT SCH (22:00)
[2017-08-31] MEDS: Ziprasidone CAP* 80 MG PO SCH (22:41)
[2017-09-01] MEDS ORDERED: Senna TAB PO PRN (04:12)
[2017-09-01] MEDS: NS 0.9% 1000 ML* 1,000 ML IV SCH ×2 (05:03→20:20)
[2017-09-01] MEDS ORDERED: Vancomycin Random Level* NOTE FOLLOW UP ONE (06:00)
[2017-09-01 06:41] LABS: ABS Basophils 0.1 10^3/ul (0-0.2); ABS Eosinophils 0.2 10^3/ul (0-0.6); ABS Lymphocytes 1.3 10^3/ul (1.0-4.8); ABS Monocytes 0.5 10^3/ul (0-0.8); ABS Neutrophils 10.8 10^3/ul (1.5-7.7); ABS Nucleated RBC 0 10^3/ul; Eosinophil % 1.9 % (0-6); Hematocrit 33 % (35-47); Hemoglobin 11.2 g/dl (12.0-16.0); Lymphocyte % 10.1 % (25-47); Mean Corpuscular HGB Conc 35 g/dl (31-36); Mean Corpuscular Hemoglobin 32 pg (27-31); Mean Corpuscular Volume 93 fL (80-97); Mean Platelet Volume 7.1 um3 (7.4-10.4); Nucleated Red Blood Cells % 0.1; Platelet Count 264 10^3/ul (150-450); Red Blood Count 3.51 10^6/ul (4.0-5.4); Red Cell Distribution Width 14 % (10.5-15)
[2017-09-01 06:56] LABS: EGFR Non-African American 30.2 (>60)
[2017-09-01] MEDS: Tiotropium CAP.INH* CAP.INH/18 MCG (USE ORDER SET !) INH SCH (08:07)
--- NOTE | 2017-09-01 08:10 | CONS ---
CONSULTATION REPORT: DATE OF CONSULT: 08/31/17 HISTORY OF PRESENT ILLNESS: Patient is a very pleasant 62-year-old female with history of diabetes, anxiety, depression, history of hypertension, who reportedly presented to the emergency room with neck pain and right upper extremity weakness. I was requested to see the patient by Dr. Pinzon regarding MRI finding consistent with multi-level cervical stenosis, as well as cord compression with myelomalacia. Patient reports that few days ago she slept early in her couch and woke up late in the morning, having stool incontinence. She also had neck pain radiating to the right upper extremity with loss of use of the right upper extremity and loss of sensation. She reports that this has gradually improved spontaneously, now she can lift her right upper extremity and extend her fingers, which she was not able to do yesterday. Patient reports that she has no weakness, numbness, or tingling of the other extremities, except for decreased strength and decreased sensation in the right upper extremity. Patient denies any history of trauma. Denies any vision or speech problems. Denies any difficulty with swallowing, nausea, or vomiting. Patient is , lives alone, and has 2 grown-up sons. PAST MEDICAL HISTORY: Diabetes, hyperlipidemia, anxiety, depression, history of hypertension, asthma, sleep apnea, renal disease, diabetic retinopathy, arthritis, cataracts, diabetic neuropathy, posttraumatic disorder. PAST SURGICAL HISTORY: Hysterectomy, hernia repair, loop recorder. FAMILY HISTORY: Hypertension. SOCIAL HISTORY: Tobacco: Negative. Alcohol: Occasionally. Recreational drug use: Negative. PHYSICAL EXAM: The patient is not in acute distress. She has no tenderness to palpation of the cervical, thoracic, or lumbar spine. Decreased range of motion of the LS spine. She is awake, alert, and oriented x3. Her pupils are equal and reactive. Cranial nerves II through XII are grossly intact. Motor 4/ 5 to 5/5 in all extremities, except the right upper extremity reduced at 3- 4-/ 5. Sensory is grossly intact to light touch, except decreased in bilateral feet due to history of diabetic neuropathy. Deep tendon reflexes +1 bilaterally in the lower extremities, +1 in the left upper extremity, trace in the right upper extremity. No clonus. No Babinski. Beverly's negative. Straight leg test negative. Patient has no pain to rotation of the hips. DIAGNOSTIC STUDIES/LAB DATA: Patient had CT scan of the brain that did not reveal any abnormal findings. She had CT scan of her cervical spine that revealed degenerative disk disease with, what seems to be, a calcified disk herniation at C5-6. She also had MRI of her cervical spine that revealed multi-level stenosis between C3 and C6, with cord compression and myelomalacia, especially at the level of C5-6. ASSESSMENT: Patient is a very pleasant 62-year-old female with multiple medical history, with onset of neck pain radiating to the right upper extremity with weakness and loss of sensation. PLAN: Patient at this point is clinically improving. Based on her MRI, I think that at some point she will need posterior cervical decompression and fusion between C3 and C6 once all her present issues have resolved and she has proper diagnosis. We may consider MRI of the brain as well as MRI of the cervical spine with contrast in the interim. She is currently undergoing further evaluation as she presented with a WBC of 24,000. We will be happy to reevaluate the patient once the Medicine and Neurology workup is finished. The patient may be given a [place] J collar for comfort. I discussed risks and benefits of the procedure, as well as possible complications of the procedure. Complications include, but not limited to, bleeding, infection, risk of injury to adjacent structure, coma, paralysis, , need for additional procedure, anesthesia risks, stroke, blindness, cancer, instability, hardware failure. Thank you for allowing us to participate in the care of this patient. Please do not hesitate to contact our office in case you have any further questions or concerns regarding the care of this patient. [id number]/CPS #: [id number] MTDD
[2017-09-01] MEDS ORDERED: Spiriva Inhaler DEVICE* 1 EACH DEVICE INH ONE (09:00)
[2017-09-01] MEDS ORDERED: Vancomycin(*) 750 MG in NS 0.9% 250 ML* 250 ML IVPB SCH (09:30)
[2017-09-01] MEDS: Insulin LISPRO* 1 UNITS UNIT SUBCUT SCH ×3 (09:34→21:39)
[2017-09-01] MEDS: Insulin GLARGINE(*) 1 UNITS UNIT SUBCUT SCH (09:35)
[2017-09-01] MEDS: Venlafaxine EXT RELEASE CAP* 75 MG PO SCH (09:36)
[2017-09-01] MEDS: Docusate CAP* 100 MG PO SCH ×2 (09:36→20:24)
--- NOTE | 2017-09-01 15:33 | RAD ---
HISTORY: Right arm weakness COMPARISONS: CT dated August 31, 2017 TECHNIQUE: The following sequences were obtained of the head: Sagittal T1-weighted images, axial T2-weighted images, axial FLAIR images, axial susceptibility weighted images, axial T1-weighted images. Additionally, axial diffusion-weighted images were obtained with calculated apparent diffusion coefficients. FINDINGS: HEMORRHAGE/INFARCT: There is a small focus of elevated diffusion signal within the left posterior frontal richter radiata without restricted diffusion on the ADC map suggestive of pseudonormalization. Elsewhere, there is no hemorrhage or acute infarct. MASSES/SHIFT: There is no mass or shift. EXTRA-AXIAL SPACES/MENINGES: There are no extra-axial fluid collections. SULCI AND VENTRICLES: The sulci and ventricles are normal in size and position for the patient's stated age. CEREBRUM: There are few scattered small foci of elevated T2/STIR signal in the periventricular and subcortical white matter. BRAINSTEM: There are no focal parenchymal abnormalities. CEREBELLUM: There are no focal parenchymal abnormalities. The cerebellar tonsils are normal in size and position. SELLA: The sella is normal. PINEAL: The pineal region is clear. CP ANGLE/TEMPORAL BONES: The labyrinthine structures are grossly normal. VESSELS: Normal flow-voids are noted within the visualized vertebral vasculature. DIFFUSION ABNORMALITIES: As noted above, there is a punctate focus of elevated diffusion signal on axial image 19 measuring 0.2 cm in size within the left posterior frontal periventricular richter radiata. There is no restricted diffusion on the ADC map. PARANASAL SINUSES/MASTOIDS: The paranasal sinuses are clear. There is a small right mastoid effusion. ORBITS: The orbits are unremarkable. BONES AND SOFT TISSUE: No bone or soft tissue abnormalities are noted. OTHER: None IMPRESSION: THERE IS A PUNCTATE FOCUS OF ELEVATED DIFFUSION SIGNAL WITHIN THE LEFT POSTERIOR FRONTAL RICHTER RADIATA WITH NORMAL ADC VALUES SUGGESTIVE OF PSEUDONORMALIZATION IN THE SETTING OF SUBACUTE TO CHRONIC NONHEMORRHAGIC INFARCT.
[2017-09-01] MEDS: cefTRIAXone(*) 1 GM in NS 0.9% 50 ML* 50 ML IVPB SCH (15:40)
[2017-09-01] MEDS ORDERED: Insulin LISPRO* 1 UNITS UNIT SUBCUT SCH (16:19)
--- NOTE | 2017-09-01 16:33 | PN ---
Subjective Date of Service: 09/01/17 Interval History: Patient was seen and examined earlier today. Reports feeling better. RUE still numb, but weakness has improved with time. She is able to hold a spoon and eat her cereal for the first time in almost a week. Her labs were reviewed, LP was cancelled since there was very low suspicion for meningitis. Seen by Dr. Pinzon who ordered a brain MRI. Results showed possible subacute to chronic non- hemorrhagic infarct. Despite findings, patient symptoms continue to improve as day progress. Has been ambulatory OOB with no other symptoms. Family History: Unchanged from Admission Social History: Unchanged from Admission Past Medical History: Unchanged from Admission Objective Active Medications: Acetaminophen (Tylenol Tab*) 650 mg PO Q4H PRN PRN Reason: FEVER/PAIN Aspirin (Aspirin Ec Tab*) 81 mg PO DAILY [facility] Clonazepam (Klonopin Tab(*)) 2 mg PO QPM [facility] Last Admin: 08/31/17 17:17 Dose: 2 mg Dextrose (D50w Syringe 50 Ml*) 12.5 gm IV PUSH .FOR FS < 60 - SS PRN PRN Reason: FS < 60 Docusate Sodium (Colace Cap*) 100 mg PO BID [facility] Last Admin: 09/01/17 09:36 Dose: 100 mg Sodium Chloride (Ns 0.9% 1000 Ml*) 1,000 mls @ 125 mls/hr IV PER RATE [facility] Last Admin: 09/01/17 05:03 Dose: 125 mls/hr Ceftriaxone Sodium 1 gm/ (Sodium Chloride) 50 mls @ 200 mls/hr IVPB Q24H [facility] Last Admin: 09/01/17 15:40 Dose: 200 mls/hr Vancomycin HCl 750 mg/ Sodium (Chloride) 250 mls @ 166.667 mls/hr IVPB Q12H [facility] Last Admin: 09/01/17 10:12 Dose: 166.667 mls/hr Insulin Glargine (Lantus(*)) 30 units SUBCUT DAILY [facility] Last Admin: 09/01/17 09:35 Dose: 30 units Insulin Human Lispro (Humalog*) 0 - 10 units SUBCUT AC [place] PRN Reason: Protocol Pharmacy Consult (Vancomycin Per Pharmacy*) 1 note FOLLOW UP . PRN PRN Reason: PER PROTOCOL Pharmacy Profile Note (Vancomycin Trough Check) 1 note FOLLOW UP ONCE ONE Stop: 09/03/17 09:01 Pravastatin Sodium (Pravachol (Nf)) 40 mg PO BEDTIME [place] PRN Reason: Protocol Last Admin: 08/31/17 21:59 Dose: 40 mg Senna (Senokot Tab*) 2 tab PO BEDTIME PRN PRN Reason: CONSTIPATION Tiotropium [place] (Spiriva Cap.Inh*) 1 cap INH DAILY [facility] Last Admin: 09/01/17 08:07 Dose: 1 cap Venlafaxine HCl (Effexor Xr Cap*) 225 mg PO DAILY [facility] Last Admin: 09/01/17 09:36 Dose: 225 mg Ziprasidone (Geodon Cap*) 160 mg PO QPM [facility] Last Admin: 08/31/17 22:41 Dose: 160 mg Vital Signs - 8 hr 09/01/17 11:12 Temperature 98.0 F Pulse Rate 83 Respiratory 20 Rate Blood Pressure 121/63 (mmHg) O2 Sat by Pulse 99 Oximetry Oxygen Devices in Use Now: None Appearance: Appears comfortable and in NAD Eyes: No Scleral Icterus, PERRLA Ears/Nose/Mouth/Throat: Clear Oropharnyx, Mucous Membranes Moist Neck: NL Appearance and Movements; NL JVP, Trachea Midline Respiratory: Symmetrical Chest Expansion and Respiratory Effort, Clear to Auscultation Cardiovascular: NL Sounds; No Murmurs; No JVD, RRR Abdominal: NL Sounds; No Tenderness; No Distention Extremities: No Edema, - - RUE with mild limitation to flex forearm. Sensation impaired to dorsal aspect of forearm. Pulses intact. Skin: No Rash or Ulcers Neurological: Alert and Oriented x 3 Nutrition: Taking PO's Result Diagrams: 09/01/17 06:31 09/01/17 06:31 Additional Lab and Data: Lab Results 08/31/17 08/31/17 08/31/17 Range/Units 11:05 11:05 11:05 WBC 24.3 H (3.5-10.8) 10^3/ul RBC 4.16 (4.0-5.4) 10^6/ul Hgb 13.0 (12.0-16.0) g/dl Hct 39 (35-47) % MCV 94 (80-97) fL MCH 31 (27-31) pg MCHC 33 (31-36) g/dl RDW 14 (10.5-15) % Plt Count 373 (150-450) 10^3/ul MPV 7.1 L (7.4-10.4) um3 Neut % (Auto) 86.1 H (38-83) % Lymph % (Auto) 9.5 L (25-47) % Carver % (Auto) 3.4 (0-7) % Eos % (Auto) 0.2 (0-6) % Baso % (Auto) 0.8 (0-2) % Absolute Neuts (auto) 20.9 H (1.5-7.7) 10^3/ul Absolute Lymphs (auto) 2.3 (1.0-4.8) 10^3/ul Absolute Monos (auto) 0.8 (0-0.8) 10^3/ul Absolute Eos (auto) 0 (0-0.6) 10^3/ul Absolute Basos (auto) 0.2 (0-0.2) 10^3/ul Absolute Nucleated RBC 0 10^3/ul Nucleated RBC % 0.1 INR (Anticoag Therapy) 0.98 (0.77-1.02) APTT 28.2 (26.0-36.3) seconds Sodium 130 L (139-145) mmol/L Potassium 4.2 (3.5-5.0) mmol/L Chloride 96 L (101-111) mmol/L Carbon Dioxide 23 (22-32) mmol/L Anion Gap 11 (2-11) mmol/L BUN 41 H (6-24) mg/dL Creatinine 2.58 H (0.51-0.95) mg/dL Est GFR ( Amer) 24.1 (>60) Est GFR (Non-Af Amer) 18.8 (>60) BUN/Creatinine Ratio 15.9 (8-20) Glucose 201 H (70-100) mg/dL Lactic Acid (0.5-2.0) mmol/L Calcium 9.7 (8.6-10.3) mg/dL Total Bilirubin 0.60 (0.2-1.0) mg/dL AST 182 H (13-39) U/L ALT 62 H (7-52) U/L Alkaline Phosphatase 107 H (34-104) U/L Troponin I 0.02 (<0.04) ng/mL Total Protein 7.9 (6.4-8.9) g/dL Albumin 4.0 (3.2-5.2) g/dL Globulin 3.9 (2-4) g/dL Albumin/Globulin Ratio 1.0 (1-3) Triglycerides 173 mg/dL Cholesterol 158 mg/dL LDL Cholesterol 84 mg/dL HDL Cholesterol 39.8 mg/dL 08/31/17 Range/Units 11:05 WBC (3.5-10.8) 10^3/ul RBC (4.0-5.4) 10^6/ul Hgb (12.0-16.0) g/dl Hct (35-47) % MCV (80-97) fL MCH (27-31) pg MCHC (31-36) g/dl RDW (10.5-15) % Plt Count (150-450) 10^3/ul MPV (7.4-10.4) um3 Neut % (Auto) (38-83) % Lymph % (Auto) (25-47) % Carver % (Auto) (0-7) % Eos % (Auto) (0-6) % Baso % (Auto) (0-2) % Absolute Neuts (auto) (1.5-7.7) 10^3/ul Absolute Lymphs (auto) (1.0-4.8) 10^3/ul Absolute Monos (auto) (0-0.8) 10^3/ul Absolute Eos (auto) (0-0.6) 10^3/ul Absolute Basos (auto) (0-0.2) 10^3/ul Absolute Nucleated RBC 10^3/ul Nucleated RBC % INR (Anticoag Therapy) (0.77-1.02) APTT (26.0-36.3) seconds Sodium (139-145) mmol/L Potassium (3.5-5.0) mmol/L Chloride (101-111) mmol/L Carbon Dioxide (22-32) mmol/L Anion Gap (2-11) mmol/L BUN (6-24) mg/dL Creatinine (0.51-0.95) mg/dL Est GFR ( Amer) (>60) Est GFR (Non-Af Amer) (>60) BUN/Creatinine Ratio (8-20) Glucose (70-100) mg/dL Lactic Acid 2.4 H* (0.5-2.0) mmol/L Calcium (8.6-10.3) mg/dL Total Bilirubin (0.2-1.0) mg/dL AST (13-39) U/L ALT (7-52) U/L Alkaline Phosphatase (34-104) U/L Troponin I (<0.04) ng/mL Total Protein (6.4-8.9) g/dL Albumin (3.2-5.2) g/dL Globulin (2-4) g/dL Albumin/Globulin Ratio (1-3) Triglycerides mg/dL Cholesterol mg/dL LDL Cholesterol mg/dL HDL Cholesterol mg/dL Microbiology and Other Data: Microbiology 08/31/17 15:46 Aerobic Blood Culture - Preliminary Blood Venous No Growth Day 1 Anaerobic Blood Culture - Preliminary No Growth Day 1 08/31/17 14:04 Aerobic Blood Culture - Preliminary Blood Venous No Growth Day 1 Anaerobic Blood Culture - Preliminary No Growth Day 1 Diagnostic Imaging: Patient Name: SERGO GONZALES I Medical Record#: [id number] Ordering Physician: James Starks MD Acct.#: [id number] : 1955 Age: 62 Sex: F Location: [address] [place] [address] - MEDICAL Exam Date: 08/31/17 1242 ADM Status: ADM Gareth Order Information: MRI CERVICAL SPINE WO Accession Number: [id number] CPT: 77666 HISTORY: Neck pain, right upper extremity weakness, increased white blood cell count COMPARISONS: CT dated August 31, 2014 IMPRESSION: 1. DEGENERATIVE DISC DISEASE AND OSTEOARTHRITIS. 2. THERE IS MODERATE NARROWING OF CENTRAL CANAL AT C4-C5 AND C5-C6. 3. THERE IS A CENTRAL DISC PROTRUSION VERSUS POSTERIOR OSTEOPHYTE AT C5-C6. 4. THERE IS MULTILEVEL NEURAL FORAMINAL NARROWING DESCRIBED ABOVE. 5. 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 6. THERE ARE NO EPIDURAL FLUID COLLECTIONS. _ <Electronically signed by Alvin Wilson MD in OV> 08/31/17 1533 Dictated By: Alvin Wilson MD Dictated Date/Time: 08/31/171532 Patient Name: SERGO GONZALES I Medical Record#: [id number] Ordering Physician: Malia Pinzon MD Acct.#: [id number] : 1955 Age: 62 Sex: F Location: [address] [place] [address] MEDICAL Exam Date: 09/01/171436 ADM Status: ADM Gareth Order Information: MRI BRAIN W/O Accession Number: [id number] CPT: 58964 HISTORY: Right arm weakness COMPARISONS: CT dated August 31, 2017 IMPRESSION: THERE IS A PUNCTATE FOCUS OF ELEVATED DIFFUSION SIGNAL WITHIN THE LEFT POSTERIOR FRONTAL BENDER RADIATA WITH NORMAL ADC VALUES SUGGESTIVE OF PSEUDONORMALIZATION IN THE SETTING OF SUBACUTE TO CHRONIC NONHEMORRHAGIC INFARCT. <Electronically signed by Alvin Wilson MD in OV> 09/01/171529 Dictated By: Alvin Wilson MD Dictated Date/Time: 09/01/17 153 Transcribed Date/Time: 09/01/[address] scan head: HISTORY: Neurological deficit COMPARISONS: February 16, 2017 IMPRESSION: NO ACUTE INTRACRANIAL PATHOLOGY. <Electronically signed by Alvin Wilson MD in OV> 08/31/17 1114 Dictated By: Alvin Wilson MD Dictated Date/Time: 08/31/17 111 Transcribed Date/Time: 08/31/17 111 Copy to: Patient Name: SERGO GONZALES I Medical Record#: [id number] Ordering Physician: James Starks MD Acct.#: [id number] : 1955 Age: 62 Sex: F Location: EMERGENCY DEPARTMENT Exam Date: 08/31/17 1030 ADM Status: REG ER Order Information: CT SPINE CERVICAL W/O Accession Number: [id number] CPT: 11930 HISTORY: Neck pain, right arm limited movement, numbness IMPRESSION: 1. DEGENERATIVE DISC DISEASE AND OSTEOARTHRITIS. 2. THERE IS MODERATE TO SEVERE NARROWING OF THE CENTRAL CANAL AT C5-C6 WITH MILD NARROWING AT C4-C5 AND C6-C7. 3. THERE IS MULTILEVEL NEURAL FORAMINAL NARROWING DESCRIBED ABOVE. EKG Data: EKG INTERPRETATION ECG Report Patient Name SERGO GONZALES I Birthdate 1955 Sex F Order Number [id number] Date of ECG 08/31/2017 11:40:35 Interpretation Sinus rhythm.normal P axis, V-rate 60- 99 Prolonged OR interval.OR >215, V-rate 91-120 Borderline low voltage, extremity leads.all extremity leads <0.6mV Borderline prolonged QT interval.QTc >485mS - ABNORMAL ECG - ECG NEEDS E-SIGNING Assess/Plan/Problems-Billing Assessment: A 62 y/o female with multiple medical problems, including HTN, HLD, insulin- dependent DM, PTSD, anxiety and asthma, who presented to the ED with complaints of right upper extremity weakness, numbness and neck discomfort, admitted for observation and to rule out possible stroke. - Patient Problems (1) Weakness of right upper extremity Current Visit: Yes Status: Acute Priority: High Comment: - Initially thought to be secondary to cervical myelopathy, but MRI done this afternoon suggested possible subacute or chronic non-hemorrhagic infarct. - Dr. Pinzon consulted, appreciate neuro assistance. - Recommendation for patient: transfer to telemetry, ASA 81mg daily, bilateral carotid dupplex in AM, transthoracic echo in AM. - At this point, patient is out of therapeutic window for tPA - Continue neuro checks q4 hrs - Clinically, patient's symptoms have improved overnight. (2) Cervical myelopathy Current Visit: Yes Status: Acute Comment: - Dr. Olvera consulted - Mariella peña advised prn for comfort - Possible elective posterior C-spine decompression and fusion once stable, could be done as outpatient as well (3) HTN (hypertension) Current Visit: No Status: Acute Comment: - stable (4) Acute renal failure Current Visit: Yes Status: Acute Comment: - Likely in the setting of dehydration - Creatinine improved with IVF hydration - Continue to check labs daily (5) Lactic acidosis Current Visit: Yes Status: Acute Comment: - Again, likely secondary to dehdration - Normalized with adequate IVF hydration (6) Leukocytosis Current Visit: Yes Status: Acute Comment: - Unclear etiology - No associated fever, tachycardia, or other signs or symptoms suggesting sepsis - Resolving with Vanco and Ceftriaxone given last night - No nuchal rigidity - LP intially ordered, then cancelled secondary to findings of cervical myelopathy (7) Diabetes mellitus Current Visit: Yes Status: Chronic Comment: - Continue Lantus and Humolog per sliding scale (8) Anxiety Current Visit: Yes Status: Chronic Comment: - Continue home Effexor and Geodon and Clonazepam. (9) DVT prophylaxis Current Visit: No Status: Acute Comment: - SQ heparin. (10) Full code status Current Visit: No Status: Acute Status and Disposition: Inpatient. Anticipate discharge once medically stable
[2017-09-01] MEDS: Aspirin EC TAB* 81 MG TAB.EC PO SCH (17:30)
[2017-09-01] MEDS: Ziprasidone CAP* 80 MG PO SCH (17:30)
[2017-09-01] MEDS: clonazePAM TAB(*) 1 MG PO SCH (17:30)
[2017-09-01] MEDS: CMCS Pravastatin (NF) 20 MG TAB PO SCH (20:21)
--- NOTE | 2017-09-01 23:17 | PN ---
Progress Note - Progress Note Date of Service: 09/01/17 SOAP: Subjective: []Patient seen earlier today. 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 Patient will need surgical intervention for a posterior cervical decompression and fusion. Discussed with patient. Given the results of MRI of brain, suggestive subacute infarct, we will discuss with primary team and neurology regarding timing of intervention. Fabio Thomas MD
[2017-09-02 05:33] LABS: ABS Basophils 0 10^3/ul (0-0.2); ABS Eosinophils 0.4 10^3/ul (0-0.6); ABS Lymphocytes 0.6 10^3/ul (1.0-4.8); ABS Monocytes 0.5 10^3/ul (0-0.8); ABS Neutrophils 6.4 10^3/ul (1.5-7.7); ABS Nucleated RBC 0 10^3/ul; Eosinophil % 5.6 % (0-6); Hematocrit 31 % (35-47); Hemoglobin 10.4 g/dl (12.0-16.0); Lymphocyte % 7.2 % (25-47); Mean Corpuscular HGB Conc 34 g/dl (31-36); Mean Corpuscular Hemoglobin 32 pg (27-31); Mean Corpuscular Volume 94 fL (80-97); Nucleated Red Blood Cells % 0; Platelet Count 245 10^3/ul (150-450); Red Blood Count 3.29 10^6/ul (4.0-5.4); Red Cell Distribution Width 14 % (10.5-15)
[2017-09-02 06:03] LABS: EGFR Non-African American 39.6 (>60)
[2017-09-02] MEDS: Insulin LISPRO* 1 UNITS UNIT SUBCUT SCH ×4 (07:40→21:37)
--- NOTE | 2017-09-02 07:52 | RAD ---
HISTORY: Right arm weakness, drowsy COMPARISONS: August 31, 2017 TECHNIQUE: Multiple contiguous axial CT scans were obtained of the head without intravenous contrast. FINDINGS: HEMORRHAGE/INFARCT: There is no hemorrhage or acute infarct. MASSES/SHIFT: There is no mass or shift. EXTRA-AXIAL SPACES: There are no extra-axial fluid collections. SULCI AND VENTRICLES: The sulci and ventricles are normal in size and position for the patient's stated age. CEREBRUM: There are no focal parenchymal abnormalities. BRAINSTEM: There are no focal parenchymal abnormalities. CEREBELLUM: There are no focal parenchymal abnormalities. VESSELS: There is calcification of the cavernous segments of the internal carotid arteries bilaterally. PARANASAL SINUSES: The paranasal sinuses are clear. ORBITS: The orbits are unremarkable. BONES AND SOFT TISSUE: No bone or soft tissue abnormalities are noted. OTHER: None IMPRESSION: NO ACUTE INTRACRANIAL PATHOLOGY.
[2017-09-02] MEDS: Tiotropium CAP.INH* CAP.INH/18 MCG (USE ORDER SET !) INH SCH (08:20)
[2017-09-02] MEDS: NS 0.9% 1000 ML* 1,000 ML IV SCH ×2 (09:08→18:28)
[2017-09-02] MEDS: Docusate CAP* 100 MG PO SCH ×2 (10:29→21:37)
[2017-09-02] MEDS: Venlafaxine EXT RELEASE CAP* 75 MG PO SCH (10:29)
[2017-09-02] MEDS: Aspirin EC TAB* 81 MG TAB.EC PO SCH (10:29)
[2017-09-02] MEDS: Insulin GLARGINE(*) 1 UNITS UNIT SUBCUT SCH (10:32)
--- NOTE | 2017-09-02 10:45 | RAD ---
INDICATION: Right-sided numbness and weakness COMPARISON: None TECHNIQUE: Transverse and longitudinal scans of the carotid and vertebral arteries were performed with allison scale, color Doppler, and spectral Doppler imaging. Stenosis criteria is based on flow velocities that correlate with visual internal carotid artery diameter (NASCET criteria). This is considered mildly limited due to high bifurcation on the left. FINDINGS: Right carotid: There is moderate calcific plaque involving the bifurcation. There is no spectral broadening. The peak systolic velocity of the internal carotid artery is 85 cm/s and the peak diastolic velocity 25 cm/s. The ICA/CCA ratio is calculated at 0.9. This corresponds to a less than 50% diameter stenosis. Left carotid: There is mild to moderate plaque involving the bifurcation. There is no spectral broadening. The peak systolic velocity of the internal carotid artery is 101 cm/s and the peak diastolic velocity 36 cm/s. The ICA/CCA ratio is calculated at 0.9. This corresponds to a less than 50% diameter stenosis. Right vertebral: Right vertebral waveforms are normal and the flow is antegrade. Left vertebral: Left vertebral waveforms are normal and the flow is antegrade. IMPRESSION: NO EVIDENCE OF A HEMODYNAMICALLY STENOSIS. LESS THAN 50% DIAMETER STENOSES BILATERALLY CPT II Codes: 3100F RS
--- NOTE | 2017-09-02 10:59 | ECHO ---
Patient: SERGO GONZALES Rec#: [id number] : 1955 Date: 09/02/2017 Age: 62y Height: 157 cm / 61.8 in Weight: 77 kg / 169.7 lbs Sex: F BSA: 1.8 Room#: [facility] Admit Date#: 08/31/2017 Type: Inpatient Referring: Sharon Davidson Reading: Amilcar Garcia MD Geomorphologist: Johnna Coon RN RDCS CC: Christiano Rosa MD Transthoracic Echocardiogram Indication: CVA BP: 113/62 HR: 71 Rhythm: NSR Findings History: HTN, HLD, DM, YONIS, renal disease, former smoker Technical Comments: The study quality is fair. The study is technically limited due to patient body habitus. The study is technically limited due to the patient's smoking history. Completed at 0915. Left Ventricle: The left ventricular chamber size is normal. Mild concentric left ventricular hypertrophy is observed. Global left ventricular wall motion and contractility are within normal limits. There is normal left ventricular systolic function. The estimated ejection fraction is 55-60%. The assessment of diastolic function is non-diagnostic. Left Atrium: The left atrial chamber size is normal. Right Ventricle: The right ventricle wall thickness is mildly increased. The right ventricular cavity size is normal. The right ventricular global systolic function is normal. Right Atrium: The right atrial cavity size is normal. The interatrial septum appears lipomatous. A patent foramen ovale is not demonstrated by color Doppler. Aortic Valve: The aortic valve is trileaflet. The aortic valve leaflets are mildly thickened. There is aortic annular calcification. There is no evidence of aortic regurgitation. There is no evidence of aortic stenosis. Mitral Valve: Mild mitral annular calcification present. The mitral valve leaflets are mildly thickened. There is mild mitral regurgitation. There is no evidence of mitral stenosis. Tricuspid Valve: The tricuspid valve leaflets are normal. There is trace tricuspid regurgitation. Unable to estimate the right ventricular systolic pressure. There is no tricuspid stenosis. Pulmonic Valve: The pulmonic valve structure is not well visualized. There is no evidence of pulmonic regurgitation. There is no pulmonic stenosis. Pericardium: There is no significant pericardial effusion. A pericardial fat pad is visualized. Aorta: There is mild dilatation of the ascending aorta. There is no dilatation of the aortic arch. There is no dilation of the aortic root. Pulmonary Artery: The main pulmonary artery is not well visualized. Venous: The inferior vena cava appears normal in size. There is an approximate 50% respiratory change in the inferior vena cava dimension. Summary: There are changes noted when compared to the previous study done on 02/17/2017, dilated ascending aorta is new. Conclusions The left ventricular chamber size is normal. Mild concentric left ventricular hypertrophy is observed. The estimated ejection fraction is 55-60%. The assessment of diastolic function is non-diagnostic. A patent foramen ovale is not demonstrated by color Doppler. There is mild mitral regurgitation. There is trace tricuspid regurgitation. Unable to estimate the right ventricular systolic pressure. There is mild dilatation of the ascending aorta. Measurements Name Value Normal Range RVDdMajor (2D) 2.8 cm (2.2 - 4.4) RVAW (2D) 0.7 cm (0.2 - 0.5) RAd ISD 4CH 4.9 cm (3.4 - 4.9) RA (A4C)W 3.8 cm (2.9 - 4.6) IVSd (2D) 1.2 cm (0.6 - 1) LVPWd (2D) 1.1 cm (0.6 - 1) LVIDd (2D) 4.5 cm (3.6 - 5.4) LVIDs (2D) 3.1 cm - LV FS (2D) 31 % (25 - 45) Aortic Annulus 2.2 cm (1.4 - 2.6) Ao root diameter (2D) 3.4 cm (2.1 - 3.5) Ascending Ao 3.5 cm (2.1 - 3.4) Aortic arch 2.2 cm (1.8 - 3.4) LA dimension (AP) 2D 3.1 cm (2.3 - 3.8) LAd ISD 4CH 5.3 cm (2.9 - 5.3) LA ISD 4CH W 3.9 cm (2.5 - 4.5) Name Value Normal Range LA ESV SP 4CH (A/L) 53 ml - LA ESV SP 2CH (A/L) 50 ml - LA ESV BP (A/L) 54 ml - LA ESV BP (A/L) index 30.3 ml/m2 - LA ESV SP 4CH (MOD) 48 ml - LA ESV SP 2CH (MOD) 48 ml - Name Value Normal Range MV E-wave Vmax 0.91 m/sec - MV deceleration time 232 msec - MV A-wave Vmax 1.1 m/sec - MV E:A ratio 0.86 ratio - LV septal e' Vmax 0.09 m/sec - LV lateral e' Vmax 0.09 m/sec - LV E:e' septal ratio 10.1 ratio - LV E:e' lateral ratio 10.1 ratio - Name Value Normal Range AV Vmax 1.4 m/sec - AV VTI 30.2 cm - AV peak gradient 7.8 mmHg - AV mean gradient 4.3 mmHg - LVOT Vmax 0.94 m/sec - LVOT VTI 22.1 cm - LVOT peak gradient 3.5 mmHg - LVOT mean gradient 1.9 mmHg - CHIKIS Vmax 0.83 m/sec - Name Value Normal Range IVC diameter 1.8 cm - Name Value Normal Range PV Vmax 1.1 m/sec -
--- NOTE | 2017-09-02 11:34 | PN ---
Subjective Date of Service: 09/02/17 Interval History: Events noted from last night. Apparently patient became drowsy last night, had a head CT showing no acute process. She thinks it could be her Klonopin causing it, has been on it for years, but never had similar symptoms. Feels her normal self today. Denies any headaches, weakness, numbness, dizziness, chest pain or SOB. Clonazepam stopped since last night. Reports improvement of right arm weakness and numbness. She is able to left objects and use her arm to the best she has done in days. Had her TTE and carotid Doppler this AM. She has no complaints today. Family History: Unchanged from Admission Social History: Unchanged from Admission Past Medical History: Unchanged from Admission Objective Active Medications: Acetaminophen (Tylenol Tab*) 650 mg PO Q4H PRN PRN Reason: FEVER/PAIN Aspirin (Aspirin Ec Tab*) 81 mg PO DAILY [facility] Last Admin: 09/02/17 10:29 Dose: 81 mg Dextrose (D50w Syringe 50 Ml*) 12.5 gm IV PUSH .FOR FS < 60 - SS PRN PRN Reason: FS < 60 Docusate Sodium (Colace Cap*) 100 mg PO BID [facility] Last Admin: 09/02/17 10:29 Dose: 100 mg Sodium Chloride (Ns 0.9% 1000 Ml*) 1,000 mls @ 125 mls/hr IV PER RATE [facility] Last Admin: 09/02/17 09:08 Dose: 125 mls/hr Ceftriaxone Sodium 1 gm/ (Sodium Chloride) 50 mls @ 200 mls/hr IVPB Q24H [facility] Last Admin: 09/01/17 15:40 Dose: 200 mls/hr Insulin Glargine (Lantus(*)) 30 units SUBCUT DAILY [facility] Last Admin: 09/02/17 10:32 Dose: 30 units Insulin Human Lispro (Humalog*) 0 - 10 units SUBCUT ACHS [facility] PRN Reason: Protocol Last Admin: 09/02/17 07:40 Dose: Not Given Pravastatin Sodium (Pravachol (Nf)) 40 mg PO BEDTIME [place] PRN Reason: Protocol Last Admin: 09/01/17 20:21 Dose: 40 mg Senna (Senokot Tab*) 2 tab PO BEDTIME PRN PRN Reason: CONSTIPATION Tiotropium [place] (Spiriva Cap.Inh*) 1 cap INH DAILY [facility] Last Admin: 09/02/17 08:20 Dose: 1 cap Venlafaxine HCl (Effexor Xr Cap*) 225 mg PO DAILY [facility] Last Admin: 09/02/17 10:29 Dose: 225 mg Ziprasidone (Geodon Cap*) 160 mg PO QPM [facility] Last Admin: 09/01/17 17:30 Dose: 160 mg Vital Signs - 8 hr 09/02/17 08:23 Temperature 97.8 F Pulse Rate 73 Respiratory 20 Rate Blood Pressure 119/59 (mmHg) O2 Sat by Pulse 100 Oximetry Oxygen Devices in Use Now: None Appearance: Appears a little anxious at times, speech is fast, but comfortable and in NAD Eyes: No Scleral Icterus, PERRLA Ears/Nose/Mouth/Throat: Clear Oropharnyx, Mucous Membranes Moist Neck: - - Exam limited due to [place] J collar in place Respiratory: Symmetrical Chest Expansion and Respiratory Effort, Clear to Auscultation Cardiovascular: NL Sounds; No Murmurs; No JVD, RRR Abdominal: NL Sounds; No Tenderness; No Distention Extremities: No Edema, No Clubbing, Cyanosis Skin: No Rash or Ulcers Neurological: Alert and Oriented x 3, - - RUE with improving internal sales engineer strength and overall mobility. Sensation intact to light touch. Nutrition: Taking PO's Result Diagrams: 09/02/17 05:20 09/02/17 05:20 Additional Lab and Data: Lab Results 08/31/17 08/31/17 08/31/17 Range/Units 11:05 11:05 11:05 WBC 24.3 H (3.5-10.8) 10^3/ul RBC 4.16 (4.0-5.4) 10^6/ul Hgb 13.0 (12.0-16.0) g/dl Hct 39 (35-47) % MCV 94 (80-97) fL MCH 31 (27-31) pg MCHC 33 (31-36) g/dl RDW 14 (10.5-15) % Plt Count 373 (150-450) 10^3/ul MPV 7.1 L (7.4-10.4) um3 Neut % (Auto) 86.1 H (38-83) % Lymph % (Auto) 9.5 L (25-47) % [place] % (Auto) 3.4 (0-7) % Eos % (Auto) 0.2 (0-6) % Baso % (Auto) 0.8 (0-2) % Absolute Neuts (auto) 20.9 H (1.5-7.7) 10^3/ul Absolute Lymphs (auto) 2.3 (1.0-4.8) 10^3/ul Absolute Monos (auto) 0.8 (0-0.8) 10^3/ul Absolute Eos (auto) 0 (0-0.6) 10^3/ul Absolute Basos (auto) 0.2 (0-0.2) 10^3/ul Absolute Nucleated RBC 0 10^3/ul Nucleated RBC % 0.1 INR (Anticoag Therapy) 0.98 (0.77-1.02) APTT 28.2 (26.0-36.3) seconds Sodium 130 L (139-145) mmol/L Potassium 4.2 (3.5-5.0) mmol/L Chloride 96 L (101-111) mmol/L Carbon Dioxide 23 (22-32) mmol/L Anion Gap 11 (2-11) mmol/L BUN 41 H (6-24) mg/dL Creatinine 2.58 H (0.51-0.95) mg/dL Est GFR ( Amer) 24.1 (>60) Est GFR (Non-Af Amer) 18.8 (>60) BUN/Creatinine Ratio 15.9 (8-20) Glucose 201 H (70-100) mg/dL Lactic Acid (0.5-2.0) mmol/L Calcium 9.7 (8.6-10.3) mg/dL Total Bilirubin 0.60 (0.2-1.0) mg/dL AST 182 H (13-39) U/L ALT 62 H (7-52) U/L Alkaline Phosphatase 107 H (34-104) U/L Troponin I 0.02 (<0.04) ng/mL Total Protein 7.9 (6.4-8.9) g/dL Albumin 4.0 (3.2-5.2) g/dL Globulin 3.9 (2-4) g/dL Albumin/Globulin Ratio 1.0 (1-3) Triglycerides 173 mg/dL Cholesterol 158 mg/dL LDL Cholesterol 84 mg/dL HDL Cholesterol 39.8 mg/dL 08/31/17 Range/Units 11:05 WBC (3.5-10.8) 10^3/ul RBC (4.0-5.4) 10^6/ul Hgb (12.0-16.0) g/dl Hct (35-47) % MCV (80-97) fL MCH (27-31) pg MCHC (31-36) g/dl RDW (10.5-15) % Plt Count (150-450) 10^3/ul MPV (7.4-10.4) um3 Neut % (Auto) (38-83) % Lymph % (Auto) (25-47) % [place] % (Auto) (0-7) % Eos % (Auto) (0-6) % Baso % (Auto) (0-2) % Absolute Neuts (auto) (1.5-7.7) 10^3/ul Absolute Lymphs (auto) (1.0-4.8) 10^3/ul Absolute Monos (auto) (0-0.8) 10^3/ul Absolute Eos (auto) (0-0.6) 10^3/ul Absolute Basos (auto) (0-0.2) 10^3/ul Absolute Nucleated RBC 10^3/ul Nucleated RBC % INR (Anticoag Therapy) (0.77-1.02) APTT (26.0-36.3) seconds Sodium (139-145) mmol/L Potassium (3.5-5.0) mmol/L Chloride (101-111) mmol/L Carbon Dioxide (22-32) mmol/L Anion Gap (2-11) mmol/L BUN (6-24) mg/dL Creatinine (0.51-0.95) mg/dL Est GFR ( Amer) (>60) Est GFR (Non-Af Amer) (>60) BUN/Creatinine Ratio (8-20) Glucose (70-100) mg/dL Lactic Acid 2.4 H* (0.5-2.0) mmol/L Calcium (8.6-10.3) mg/dL Total Bilirubin (0.2-1.0) mg/dL AST (13-39) U/L ALT (7-52) U/L Alkaline Phosphatase (34-104) U/L Troponin I (<0.04) ng/mL Total Protein (6.4-8.9) g/dL Albumin (3.2-5.2) g/dL Globulin (2-4) g/dL Albumin/Globulin Ratio (1-3) Triglycerides mg/dL Cholesterol mg/dL LDL Cholesterol mg/dL HDL Cholesterol mg/dL Microbiology and Other Data: Microbiology 08/31/17 15:46 Aerobic Blood Culture - Preliminary Blood Venous No Growth Day 1 Anaerobic Blood Culture - Preliminary No Growth Day 1 08/31/17 14:04 Aerobic Blood Culture - Preliminary Blood Venous No Growth Day 1 Anaerobic Blood Culture - Preliminary No Growth Day 1 Diagnostic Imaging: Patient Name: SERGO GONZALES I Medical Record#: [id number] Ordering Physician: Shashi Sheets DIRECTOR PROJECT MANAGEMENT Acct.#: [id number] : 1955 Age: 62 Sex: F Location: [address] [place] [address] MEDICAL/TELEMETRY Exam Date: 09/01/172216 ADM Status: ADM Gareth Order Information: CT BRAIN WO Accession Number: [id number] CPT: 28586 HISTORY: Right arm weakness, drowsy COMPARISONS: August 31, 2017 IMPRESSION: NO ACUTE INTRACRANIAL PATHOLOGY. <Electronically signed by Alvin Wilson MD in OV> 09/02/1749 Dictated By: Alvin Wilson MD Dictated Date/Time: 09/02/17748 Transcribed Date/Time: 09/02/1748 Copy to: EKG Data: . Assess/Plan/Problems-Billing Assessment: A 62 y/o female with multiple medical problems, including HTN, HLD, insulin- dependent DM, PTSD, anxiety and asthma, who presented to the ED with complaints of right upper extremity weakness, numbness and neck discomfort, admitted for observation and to rule out possible stroke. - Patient Problems (1) Weakness of right upper extremity Current Visit: Yes Status: Acute Priority: High Comment: - Initially thought to be secondary to cervical myelopathy, but MRI done this afternoon suggested possible subacute or chronic non-hemorrhagic infarct. - Dr. Pinzon consulted, appreciate neuro assistance. - Recommendation for patient: transfer to telemetry, ASA 81mg daily, bilateral carotid dupplex in AM, transthoracic echo in AM. - At this point, patient is out of therapeutic window for tPA - Continue neuro checks q4 hrs - TTE and carotid doppler reviewed, no acute findings or significant stenosis - Patient continues to improve clinically with better RUE movement and decreased numbness - Await more input from neurology (2) Cervical myelopathy Current Visit: Yes Status: Acute Comment: - Dr. Olvera consulted - Mariella Thayer collar advised prn for comfort - Possible elective posterior C-spine decompression and fusion once stable, could be done as outpatient as well (3) HTN (hypertension) Current Visit: No Status: Acute Comment: - stable (4) Acute renal failure Current Visit: Yes Status: Acute Comment: - Likely in the setting of dehydration - Creatinine improved with IVF hydration - Continue to check labs daily (5) Lactic acidosis Current Visit: Yes Status: Acute Comment: - Again, likely secondary to dehdration - Normalized with adequate IVF hydration (6) Leukocytosis Current Visit: Yes Status: Acute Comment: - Unclear etiology - No associated fever, tachycardia, or other signs or symptoms suggesting sepsis - Resolving with Vanco and Ceftriaxone given last night - No nuchal rigidity - LP intially ordered, then cancelled secondary to findings of cervical myelopathy (7) Diabetes mellitus Current Visit: Yes Status: Chronic Comment: - Continue Lantus and Humolog per sliding scale (8) Anxiety Current Visit: Yes Status: Chronic Comment: - Continue home Effexor and Geodon - Clonazepam on hold after an episode of altered mental status and drowsiness last evening - Will use Ativan on prn basis for increased anxiety (9) DVT prophylaxis Current Visit: No Status: Acute Comment: - SQ heparin. (10) Full code status Current Visit: No Status: Acute Status and Disposition: Inpatient. Anticipate discharge once medically stable
--- NOTE | 2017-09-02 13:58 | PN ---
NEUROLOGY PROGRESS NOTE: DATE OF FOLLOWUP: 09/01/17 LOCATION: The patient is in 415. HISTORY: Overnight, the patient reports that she has had improved sensation and function in her right arm, though it is not quite back to baseline. She is able to use utensils with that arm again and on my returning back to the room to speak with the patient again, I noticed that she was holding a bucket full of water with both hands and was manipulating a small can of shave cream with the right hand. Dr. Thomas saw her yesterday and felt that she could potentially benefit from a cervical decompression and fusion once her acute medical issues are sorted out. MEDICATIONS: 1. Tylenol 650 q. 4 p.r.n. 2. Ceftriaxone 1 g daily. 3. Clonazepam 2 mg q. p.m. 4. Colace. 5. Lantus 30 units daily. 6. Humalog sliding scale. 7. Vancomycin per protocol. 8. Pravachol 40 mg at bedtime. 9. Senna as needed. 10. Normal saline at 125 mL/hour. 11. Spiriva 1 capsule daily. 12. Effexor 225 mg daily. 13. Geodon 160 mg q. p.m. PHYSICAL EXAM: Vital Signs: Temperature 98 degrees, blood pressure 121/63, heart rate 83, oxygen saturation 99% on room air. On general exam, she is a pleasant woman in no acute distress. She was sitting upright in her bed. She is fully awake, alert, and oriented. Her speech is full without dysarthria or aphasia. Her versions are full without nystagmus. [place] are full to confrontation. Facial sensation and musculature is full and symmetric. Hearing is intact to voice. Palate elevates symmetrically and the tongue is midline. Shoulder shrug is symmetric. On motor examination, she has no pronator drift. There is mild drift of the right arm but without pronation. Her right arm is about a grade 4 in the right deltoid and right biceps today, 4 + in the right triceps. 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 However, on observation of daily activities, she seems to have better strength than this. Her sensory exam today is improved where she is able to sense the pinprick in her dorsal upper arm as well as lower forearm. In the ventral forearm, she still indicates there is some diminished sensation to pinprick and today the fingertips also have decreased sensation to pinprick. Reflexes are 2+ in the brachioradialis bilaterally, 2+ biceps, and today both triceps are difficult to elicit. Knees are 2+ bilaterally. Absent ankle jerks with downgoing toes. Sensory exam is also notable for diminished pinprick sensation in a stocking fashion to just above the knees bilaterally. Fstoof-ca-iwkm is without ataxia. REVIEW OF SYSTEMS: She reports having noticed blood on the tissue after urinating several times today. DATA: Her CBC shows an improved white count up to 13 today from 24.3 yesterday , still with a predominance of neutrophils. Her sed rate was 57 yesterday. Lactate has improved to 1.8. Sodium is 136 today, chloride is normal. BUN is 36 and creatinine 1.71, improved from 2.58 yesterday. GFR is 30.2. Her liver functions are improved with AST of 129, ALT of 53, alkaline phosphatase now normal at 86. Her CRP yesterday was elevated to 184.47. Her urine culture thus far has grown out Enterobacter cloacae. MRI of the C-spine was personally reviewed yesterday and I discussed this with Dr. Wilson today. It showed a probable compressive myelopathy with myelomalacia of the cervical spine at the C5-6 level. Elevated cord signal opposite of C5, suggestive of myelomalacia in the setting of a compressive myelopathy. No epidural fluid collections were noted. 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 This occurred after she had slept on her couch for approximately 15 hours. She denies being in any unusual positions such as with her neck flexed forward. She had unexplained stool incontinence as well, but today says that she had been experiencing diarrhea and took several doses of Imodium prior to falling asleep. There was concern yesterday for possible infectious process given her elevated inflammatory markers as well as markedly elevated white blood cell count, but some of this may have been related to dehydration and possibly the presence of a UTI. Her MRI has been suggestive of a compressive myelopathy and it is a little bit difficult to explain why she would have sudden and global weakness of her right arm related to this more chronic issue, but Dr. Thomas has evaluated her and felt that she could benefit from a decompressive surgery. I think it is unlikely that this is a stroke given that all of her symptoms are isolated to her right arm and she had associated neck stiffness, but for completeness sake, we will check MRI scan of the brain without contrast to evaluate for any presence of stroke. Hopefully, her renal function will be improved tomorrow so that we can obtain MRI scan of the cervical spine with contrast to make sure we are not missing anything infectious or inflammatory as we would not expect the chronic compressive myelomalacia to enhance. [id number]/[facility] #: [id number] ROXANNA
[2017-09-02] MEDS: cefTRIAXone(*) 1 GM in NS 0.9% 50 ML* 50 ML IVPB SCH (15:36)
[2017-09-02] MEDS: Ziprasidone CAP* 80 MG PO SCH (17:23)
[2017-09-02] MEDS ORDERED: clonazePAM TAB(*) 1 MG PO SCH ×2 (21:00→21:29)
[2017-09-02] MEDS ORDERED: Ziprasidone CAP* 80 MG PO SCH (21:29)
[2017-09-02] MEDS: CMCS Pravastatin (NF) 20 MG TAB PO SCH (21:37)
[2017-09-03] MEDS: NS 0.9% 1000 ML* 1,000 ML IV SCH (02:38)
[2017-09-03] MEDS: Tiotropium CAP.INH* CAP.INH/18 MCG (USE ORDER SET !) INH SCH (07:45)
[2017-09-03] MEDS: Docusate CAP* 100 MG PO SCH (08:17)
[2017-09-03] MEDS: Aspirin EC TAB* 81 MG TAB.EC PO SCH (08:17)
[2017-09-03] MEDS: Insulin LISPRO* 1 UNITS UNIT SUBCUT SCH ×2 (08:17→12:03)
[2017-09-03] MEDS: Venlafaxine EXT RELEASE CAP* 75 MG PO SCH (08:17)
[2017-09-03] MEDS: Insulin GLARGINE(*) 1 UNITS UNIT SUBCUT SCH (08:20)
[2017-09-03] MEDS ORDERED: Vancomycin Trough Check NOTE FOLLOW UP ONE (09:00)
--- NOTE | 2017-09-03 10:23 | PN ---
Subjective Date of Service: 09/03/17 Interval History: Ms. Alba reports her RUE weakness has greatly improved overnight stating "its amazing how much it has improved", she continues to have some weakness in her RUE and is not completely back to baseline. She denies any other weakness, numbness, tingling, CARDOZO, vision or speech changes. She denies any pain. No fever/ chills. Reports good appetite. Large formed BM this am. She reports she has been urinating " a few times a day". She feels that she could go home and be successful and would like to do outpatient PT. Family History: Unchanged from Admission Social History: Unchanged from Admission Past Medical History: Unchanged from Admission Objective Active Medications: Acetaminophen (Tylenol Tab*) 650 mg PO Q4H PRN PRN Reason: FEVER/PAIN Aspirin (Aspirin Ec Tab*) 81 mg PO DAILY [facility] Last Admin: 09/03/17 08:17 Dose: 81 mg Clonazepam (Klonopin Tab(*)) 1 mg PO BEDTIME [facility] Dextrose (D50w Syringe 50 Ml*) 12.5 gm IV PUSH .FOR FS < 60 - SS PRN PRN Reason: FS < 60 Docusate Sodium (Colace Cap*) 100 mg PO BID [facility] Last Admin: 09/03/17 08:17 Dose: 100 mg Sodium Chloride (Ns 0.9% 1000 Ml*) 1,000 mls @ 125 mls/hr IV PER RATE [facility] Last Admin: 09/03/17 02:38 Dose: 125 mls/hr Ceftriaxone Sodium 1 gm/ (Sodium Chloride) 50 mls @ 200 mls/hr IVPB Q24H [facility] Last Admin: 09/02/17 15:36 Dose: 200 mls/hr Insulin Glargine (Lantus(*)) 30 units SUBCUT DAILY [facility] Last Admin: 09/03/17 08:20 Dose: 30 units Insulin Human Lispro (Humalog*) 0 - 10 units SUBCUT ACHS [facility] PRN Reason: Protocol Last Admin: 09/03/17 08:17 Dose: 3 units Pravastatin Sodium (Pravachol (Nf)) 40 mg PO BEDTIME [place] PRN Reason: Protocol Last Admin: 09/02/17 21:37 Dose: 40 mg Senna (Senokot Tab*) 2 tab PO BEDTIME PRN PRN Reason: CONSTIPATION Tiotropium Nord[place] (Spiriva Cap.Inh*) 1 cap INH DAILY [facility] Last Admin: 09/03/17 07:45 Dose: 1 cap Venlafaxine HCl (Effexor Xr Cap*) 225 mg PO DAILY [facility] Last Admin: 09/03/17 08:17 Dose: 225 mg Ziprasidone (Geodon Cap*) 160 mg PO QPM [facility] Vital Signs - 8 hr 09/03/17 09/03/17 09/03/17 03:46 07:25 08:00 Temperature 97.1 F 98.2 F Pulse Rate 85 80 Respiratory 16 20 18 Rate Blood Pressure 136/81 131/71 (mmHg) O2 Sat by Pulse 99 99 Oximetry Oxygen Devices in Use Now: None Appearance: 62 yo female sitting up in bed in a [place] J collar in NAD, A+O x3 Eyes: No Scleral Icterus, PERRLA Ears/Nose/Mouth/Throat: NL Teeth, Lips, Gums, Mucous Membranes Moist Neck: - - [place] J collar in place Respiratory: Symmetrical Chest Expansion and Respiratory Effort, Clear to Auscultation Cardiovascular: NL Sounds; No Murmurs; No JVD, RRR, No Edema Abdominal: NL Sounds; No Tenderness; No Distention Extremities: No Edema, No Clubbing, Cyanosis Skin: No Rash or Ulcers, No Nodules or Sclerosis Neurological: Alert and Oriented x 3, NL Sensation, NL Gait, - - RUE strength is 3/5, other extremities 5/5. Lines/Tubes/Other Access: Clean, Dry and Intact Peripheral IV Nutrition: Taking PO's Result Diagrams: 09/02/17 05:20 09/02/17 05:20 Additional Lab and Data: Lab Results Microbiology and Other Data: Microbiology 08/31/17 15:46 Aerobic Blood Culture - Preliminary Blood Venous No Growth Day 1 Anaerobic Blood Culture - Preliminary No Growth Day 1 08/31/17 14:04 Aerobic Blood Culture - Preliminary Blood Venous No Growth Day 1 Anaerobic Blood Culture - Preliminary No Growth Day 1 EKG Data: . Assess/Plan/Problems-Billing Assessment: A 62 y/o female with multiple medical problems, including HTN, HLD, insulin- dependent DM, PTSD, anxiety and asthma, who presented to the ED with complaints of right upper extremity weakness, numbness and neck discomfort, admitted for observation and to rule out possible stroke. - Patient Problems (1) CVA (cerebral vascular accident) Comment: - MRI 09/02 suggested possible subacute or chronic non-hemorrhagic infarct. - Dr. Pinzon consulted, appreciate neuro assistance. stable from neurology standpoint for discharge - continue telemetry - no noted afib on monitor. - ASA 81mg daily, statin - TTE and carotid doppler reviewed, no acute findings or significant stenosis - Patient continues to improve clinically with RUE movement/weakness (2) Cervical myelopathy Comment: - Dr. Olvera consulted - [place] J collar advised prn for comfort - Possible elective posterior C-spine decompression and fusion once stable, he recommended f/u in 3 months. (3) Acute renal failure Comment: - Creatinine improving, continues to be higher than baseline, initial FENA Intrinsic - renal u/s normal. Plan to recheck creatinine now, and send urine to recalculate FENA. She reports she recnetly started a SGLT2 diabetes medication ( Farxiga) which could cause ATN. Will discuss with PCP prior to discharge - Monitor I&Os - unclear what urine output has been (4) Transaminitis Comment: - unclear etiology, trending down. Plan to recheck now. -She reports she recently started a SGLT2 diabetes medication (Farxiga), there is no report of elevated LFTS per [employer]. She also take Geodon which has <1% of increasing LFTs. Will discuss with PCP prior to discharge. (5) UTI (urinary tract infection) Comment: - growing enterobacter colony count 75-100K. - Continue Ceftriaxone. (6) Lactic acidosis Comment: - likely secondary to dehdration - Normalized with adequate IVF hydration (7) Leukocytosis Comment: - Possible UTI? Now resolved - No associated fever, tachycardia, or other signs or symptoms suggesting sepsis (8) HTN (hypertension) Comment: - stable (9) Diabetes mellitus Comment: - Stable. - Continue Lantus and Humolog per sliding scale - HgbA1C much improved since last year. (10) Full code status (11) DVT prophylaxis Comment: - SQ heparin. Status and Disposition: Inpatient. Possible discharge today or tomorrow depending on result of labs for evaluation of ARF and Transaminitis.
--- NOTE | 2017-09-03 11:16 | PN ---
Progress Note - Progress Note Date of Service: 09/03/17 SOAP: Subjective: [] No events ON, RUE strength, sensation continues to improve. Objective: []VSS AAOx3 SHUBHAM, Salome 4-5/5, except RUE 4-/5, Rt lead technologist in cytogenetics 3-4-/5 Sensory grossly intact to light touch Assessment: []62 yof Cervical spondylotic myelopathy, CVA Plan: [] Patient will need surgical intervention for a posterior cervical decompression and fusion. Given the results of MRI of brain, suggestive of subacute infarct surgical intervention will be postponed. Discussed with Dr Pinzon. Will wait approximately 3 months prior to posterior cervical surgery. Patient may follow up in my office in 3 months. Can maintain MJ collar for comfort. Discussed with patient who is agreeable with the plan. Thank you for allowing me to participate in the care of this patient. Will be always available as needed. Fabio Thomas MD
[2017-09-03 11:42] VITALS: BP 151/86
--- NOTE | 2017-09-03 15:07 | PN ---
PROGRESS NOTE: DATE OF FOLLOWUP: 09/02/17 HISTORY: The patient's MRI scan yesterday showed a tiny focus of subacute restricted diffusion in the left frontal white matter. As such, she was transferred to the telemetry unit and stroke workup was ordered including transthoracic echocardiogram and carotid Dopplers. Apparently, she was given her Klonopin 2 mg earlier than she normally takes it yesterday at around 05:30 p.m. and then became very difficult to arouse out of sleep to the point where a brain CT was ordered for her. This was unremarkable and nursing note around 3 a.m. notes that she was back to her baseline, awake, laughing and joking with the staff. The patient indicates she normally takes this medication around 7 p.m. and uses it for rumination of her thoughts. MEDICATIONS: 1. Aspirin 81 mg daily, started yesterday after the MRI scan. 2. Ceftriaxone 1 g daily. 3. Colace 100 mg b.i.d. 4. Lantus 30 units daily. 5. Humalog sliding scale. 6. Pravachol 40 mg at bedtime. 7. Senna 2 tablets at bedtime as needed. 8. Spiriva. 9. Effexor 225 mg daily. 10. Geodon 160 mg q.p.m. PHYSICAL EXAMINATION: Vital Signs: Temperature 99, blood pressure 126/67, heart rate 77, oxygen saturation 100% on room air. On focused neurologic exam today, the patient is fully awake, alert, and oriented. Speech is fluent without dysarthria or aphasia. She gazes around the room in all directions spontaneously. Her right upper extremity strength is much improved today with grade 5 deltoid and biceps, grade 4 triceps, but she still has hand weakness, so her launch steward is now about 3+. The remainder of her neurologic exam is unchanged. LABORATORY DATA: Her cholesterol study showed triglycerides of 173, total cholesterol 158, LDL 84, HDL 39.8. As mentioned, her brain MRI showed a subacute area of infarction, which is very small in the left posterior frontal richter radiata. In addition, there are a few scattered foci of elevated T2/ FLAIR signal in the periventricular and subcortical white matter. Carotid Doppler study showed no hemodynamically significant stenosis. Transthoracic echocardiogram showed LVH that was mild, and EF of 55% to 60% and no PFO. There is also mild dilation of the ascending aorta, which is new compared to February of 2017. Her telemetry has shown no abnormalities. IMPRESSION: Ally Alba is a 62-year-old woman with a history of diabetes and hyperlipidemia, who came in with isolated right arm weakness as well as neck stiffness and initially had elevated inflammatory markers as well as elevated white count. She has now been found to have a very small subacute infarct in her left frontal richter radiata, which is likely the etiology for her arm weakness. This has been improving each day. She should have physical therapy evaluation. 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 Dr. Thomas was consulted as it was initially thought that her arm symptoms could be related to this neck issue, but now I think it is better understood that this was actually a very focal stroke. Her stroke workup thus far has been unremarkable. She has been started on aspirin 81 mg daily and should continue this. She should continue her statin. Her blood pressures are at goal. Her diabetes needs continued attention. We will update a hemoglobin A1c as the last one we have on record is from October of last year when it was 11.8%. In terms of her Klonopin, she has been on this chronically and so we should probably not discontinue it abruptly, but clearly she is taking too much and tonight perhaps could be given 1 mg rather than 2. [id number]/[facility] #: [id number] [facility]ISCH HOSPITALDiana
--- NOTE | 2017-09-03 21:38 | DS ---
DISCHARGE SUMMARY: DATE OF ADMISSION: 08/31/17 DATE OF DISCHARGE: 09/03/17 ATTENDING PHYSICIAN: Christiano Rosa MD * (report dictated by Myranda Nunez NP). PRIMARY CARE PROVIDER: Christiano Rosa MD DISCHARGE DIAGNOSES: 1. Right lower extremity weakness thought to be secondary to cerebrovascular accident. 2. Cerebrovascular accident, left posterior frontal richter with residual right upper extremity weakness. 3. Cervical stenosis. 4. Transaminitis. 5. Acute kidney failure thought to be intrinsic in nature. 6. Type 2 diabetes, insulin dependent. 7. Urinary tract infection. SECONDARY DIAGNOSES: 1. Depression. 2. Anxiety. 3. Posttraumatic stress disorder. 4. Hypertension. 5. Hyperlipidemia. 6. Asthma. 7. History of cholelithiasis. 8. Migraines. DISCHARGE MEDICATIONS: 1. Metformin 1000 mg p.o. b.i.d. 2. Clozapine 2 mg p.o. q.a.m. 3. Geodon 160 mg p.o. daily. 4. Effexor 225 mg p.o. daily. 5. Pravastatin 40 mg p.o. daily. 6. Atrovent 1 to 2 puffs INH q.8 hours p.r.n. 7. Lantus 32 units subcu daily. 8. Ciprofloxacin 250 mg p.o. q.12 hours x3 days. 9. Aspirin 81 mg p.o. daily. HISTORY OF PRESENT ILLNESS AND HOSPITAL COURSE: Please see history and physical by Melany Le NP, for full admission details but in summary, this is a 62-year-old female with past medical history as stated above , who the day prior to arriving to the emergency department, she awoke that morning and had been incontinent of stool and had right upper arm weakness that was significant, in which she was unable to use her right arm at all. She reports the next day she called her primary care provider's office, spoke to the nurse over the phone who recommended she come to the emergency department for further evaluation for concern for CVA. Initially, on evaluation in the emergency department, she was noted to have post cervical neck tenderness, leukocytosis of 24.3, and there was concern for diskitis or an abscess and she was started on vancomycin and ceftriaxone. It was not felt that she had meningitis and she had no nuchal rigidity, fever or headache. She did not undergo a lumbar puncture. In regards to her right upper arm weakness, she was seen by Neurology in the emergency department, who did not feel that this represented a stroke, and the patient underwent an MRI of the brain, which did show "focus of elevated diffusion signal within the left posterior frontal richter radiata with normal ADC values suggestive of pseudonormalization in the setting of subacute to chronic nonhemorrhagic infarct." She also underwent a cervical spine MRI, which did show moderate narrowing of the central canal at C4 -C5 and C5-C6 with the central disk protrusion versus posterior at C5-C6. She was seen in consultation by neurologist, Dr. Pinzon. She underwent a stroke workup with carotid Doppler study and transthoracic echocardiogram, which were both unremarkable. She was monitored on telemetry where she was not noted to have any arrhythmias or atrial fibrillation/atrial flutter. The patient's lipid profile was within normal limits except it is noted that her triglycerides are mildly elevated at 173. She will be continued on her statin and aspirin 81 mg p.o. daily. She is to follow up with Neurology in approximately 1 month. In regards to her cerebral stenosis, she was seen in consultation by neurosurgeon, Dr. Thomas, who recommends the patient should undergo surgery ; however, she will need to recover from her subacute ischemic stroke and he would like to see her in the office in 3 months. He has ordered for her to have a [place] J Collar p.r.n. for comfort. On further workup, the patient was noted to have an Enterobacter urinary tract infection with a colony count of 75,000 to 100,000, which was sensitive to ceftriaxone, which she received 3 days of. It is possible that her initial leukocytosis on admission and her elevated CRP of 184 were secondary to her urinary tract infection. As well, she presented to the emergency department with a creatinine of 2.58, which her last creatinine was on 06/27/17, which was normal at 0.83. This initially thought it was secondary to dehydration. The patient was given fluids overnight and it did improve to 1.71 and now down to 1.31. Upon calculating the FENa, it does show that her renal dysfunction is intrinsic. As well, she presented with a mild transaminitis. In discussing with the patient, she was recently started on a new diabetic medication Farxiga. It is unclear if this is the cause of her transaminitis and acute renal failure, but it is possible and this medication will be discontinued on discharge. Discussed this with her PCP, Dr. Rosa, who states he recently prescribed the patient Starlix due to her insurance not covering the Farxiga; however, the patient reports that she did not start the Starlix and was finishing out her prescription of the Farxiga. At this point, discussed with the patient to hold both of these medications and we will follow up with her labs as an outpatient. It is possible that she could start the Starlix with close monitoring; however, her liver enzymes and creatinine should return to normal prior to starting this medication. The patient has done well throughout her hospitalization. She has remained hemodynamically stable. She has had no fevers throughout the hospitalization. In regards to her right upper extremity weakness, this has greatly improved since her admission. She now has almost full function back of her right upper extremity; however, it is noted still to be weaker than the left. She has been prescribed outpatient physical therapy and occupational therapy. DISCHARGE PLAN: 1. The patient is to follow up at [facility] on 09/06/17 at 2:30 p.m. She has been ordered blood work prior to her appointment for a CBC, CMP, and CRP. She is then to follow up with Dr. Rosa, her PCP, on 10/06/17 at 2:10 p.m. 2. The patient was instructed to call Dr. Pinzon, neurologist's office, to be seen within 1 month. 3. The patient was instructed to call Dr. Thomas, neurosurgeon, for a followup appointment in 3 months to discuss surgical options. TIME SPENT: Approximately 60 minutes were spent on this discharge. MYRANDA NUNEZ NP [id number]/[facility] #: [id number] [place]OX[place]
== END 2017-09-03 15:41 | disposition home or self-care (01) | DRG 65 ==
LOC: ED 09:45 → MED 13:22 → OBSVTOIN 09-01 15:45 → MEDTELE 09-01 17:15
PROVIDERS: ADMIT Internal Medicine; ATTEND Internal Medicine
DX: I63.9 Cerebral infarction, unspecified (principal); N39.0 Urinary tract infection, site not specified; G95.20 Unspecified cord compression; M47.12 Other spondylosis with myelopathy, cervical region; N17.9 Acute kidney failure, unspecified; E87.2 Acidosis; G81.91 Hemiplegia, unspecified affecting right dominant side; M48.02 Spinal stenosis, cervical region; F32.9 Major depressive disorder, single episode, unspecified; F41.9 Anxiety disorder, unspecified; I10 Essential (primary) hypertension; E78.5 Hyperlipidemia, unspecified; J45.909 Unspecified asthma, uncomplicated; G47.30 Sleep apnea, unspecified; G43.909 Migraine, unspecified, not intractable, without status migrainosus; M17.0 Bilateral primary osteoarthritis of knee; I77.819 Aortic ectasia, unspecified site; E11.40 Type 2 diabetes mellitus with diabetic neuropathy, unspecified; E11.319 Type 2 diabetes mellitus with unspecified diabetic retinopathy without macular edema; B95.2 Enterococcus as the cause of diseases classified elsewhere; R15.9 Full incontinence of feces; R29.701 NIHSS score 1; R74.0 Nonspecific elevation of levels of transaminase and lactic acid dehydrogenase [LDH]; R00.0 Tachycardia, unspecified; Z90.710 Acquired absence of both cervix and uterus; Z79.4 Long term (current) use of insulin; Z79.82 Long term (current) use of aspirin; Z84.1 Family history of disorders of kidney and ureter; Z84.2 Family history of other diseases of the genitourinary system; Z88.5 Allergy status to narcotic agent; Z88.2 Allergy status to sulfonamides; Z88.8 Allergy status to other drugs, medicaments and biological substances; Z87.01 Personal history of pneumonia (recurrent); Z98.42 Cataract extraction status, left eye; Z98.41 Cataract extraction status, right eye; Z72.89 Other problems related to lifestyle; Z87.891 Personal history of nicotine dependence; Z86.19 Personal history of other infectious and parasitic diseases
CPT/HCPCS: 36415; 70450; 70551; 71046; 72125; 72141; 76770; 80048; 80053; 80061; 80202; 81003; 81015; 82570; 83036; 83605; 84300; 84484; 85025; 85610; 85652; 85730; 86140; 87040; 87077; 87086; 87186; 93005; 93306; 93880; 94640; 99284; A9270-GY; G8978-GP-CI; G8979-GP-CI; J0696; J3370

== ENCOUNTER 2017-09-13 09:47 | Inpatient (IN) | payer MEDICARE ==
[2017-09-13 10:51] LABS: ABS Basophils 0.1 10^3/ul (0-0.2); ABS Eosinophils 0.2 10^3/ul (0-0.6); ABS Lymphocytes 1.6 10^3/ul (1.0-4.8); ABS Monocytes 0.5 10^3/ul (0-0.8); ABS Neutrophils 5.2 10^3/ul (1.5-7.7); ABS Nucleated RBC 0 10^3/ul; Eosinophil % 2.6 % (0-6); Hematocrit 36 % (35-47); Hemoglobin 12.1 g/dl (12.0-16.0); Lymphocyte % 21.3 % (25-47); Mean Corpuscular HGB Conc 34 g/dl (31-36); Mean Corpuscular Hemoglobin 32 pg (27-31); Mean Corpuscular Volume 94 fL (80-97); Mean Platelet Volume 6.9 um3 (7.4-10.4); Nucleated Red Blood Cells % 0.1; Platelet Count 384 10^3/ul (150-450); Red Blood Count 3.82 10^6/ul (4.0-5.4); Red Cell Distribution Width 13 % (10.5-15); White Blood Count 7.6 10^3/ul (3.5-10.8)
[2017-09-13 10:52] LABS: Urine Appearance Clear; Urine Blood Negative (Negative); Urine Color Yellow; Urine Ketones Negative (Negative); Urine Protein Negative (Negative); Urine Specific Gravity 1.016 (1.010-1.030); Urine Urobilinogen Negative (Negative)
[2017-09-13 11:13] LABS: EGFR Non-African American 60.1 (>60)
--- NOTE | 2017-09-13 11:27 | RAD ---
Indication: Syncope. Asthma. Comparison: August 31, 2017 Technique: Upright AP and lateral chest views. Report: Elevated lung volumes. LEFT epicardial fat pad and mild LEFT basilar pleural parenchymal scarring unchanged from a CT from August 06, 2016. No focal pulmonary lesion, compelling alveolar consolidation, pleural effusion, pneumothorax. Cardiac event monitor noted. The heart, pulmonary vasculature, and mediastinal contours are unremarkable. IMPRESSION: Elevated lung volumes suggest potential obstructive lung disease. No acute cardiopulmonary process evident.
--- NOTE | 2017-09-13 11:32 | RAD ---
INDICATION: Syncopal episode last night. Post syncopal blurred vision. Comparison: September 01, 2017 Technique: Noncontrast CT vertex of skull through foramen magnum. Report: Unremarkable cerebral sulci, ventricles, and basal cisterns. Negative for allison matter white matter obscuration, intra or extra-axial hemorrhage, or mass effect. Very mild density in the periventricular and subcortical white matter while non-specific is most likely due to chronic microangiopathy. Unremarkable orbital contents. Atherosclerotic calcification at the bilateral intracranial internal carotid arteries. Indolent thickening of the inner table of the frontal bone. No suspicious calvarial or skull base lesion or fracture. Negative for scalp hematoma. IMPRESSION: No CT evidence for traumatic brain injury or acute intracranial process.
[2017-09-13] MEDS ORDERED: Zolpidem TAB* 5 MG PO PRN (13:05)
[2017-09-13] MEDS ORDERED: Acetaminophen TAB* 325 MG PO PRN (13:05)
[2017-09-13] MEDS ORDERED: Magnesium Hydroxide LIQ* 30 ML UDC PO PRN (13:05)
[2017-09-13] MEDS ORDERED: Al Hydrox/Mg Hydrox/Simet LIQ* 30 ML UDC PO PRN (13:05)
[2017-09-13] MEDS ORDERED: Albuterol 2.5 MG/3 ML NEB.SOL* (0.083%) INH PRN (13:05)
[2017-09-13] MEDS ORDERED: Ondansetron 40 MG VIAL* 2 MG/ML 20 ML VIAL IV PRN (13:05)
[2017-09-13] MEDS ORDERED: Dextrose 50% Syringe 50 ML* 25 GM/50 ML SYRINGE IV PUSH PRN (13:15)
--- NOTE | 2017-09-13 13:49 | ED ---
Lan Lim Angela, scribed for James Starks MD on 09/13/17 at 1033 . Syncope/Near Syncope - HPI Summary HPI Summary: This pt is a 62 y/o female presenting to [facility] c/o a syncopal episode last night. Pt reports she was sitting down on her couch when she "blacked out" sitting up. She states she had strange sensation over her head and syncopized. The amount of time of syncopal episode is unknown. When she woke up from the syncope she had blurry vision. Denies neck pain, chest pain, SOB. Pt reports she has not slept in 4 days because she has insomnia. Pt was admitted on 08/31/17 for right arm weakness. On 09/03/17 pt had a subacute non-hemorrhagic infarct. - History Of Current Complaint Chief Complaint: EDGeneral Time Seen by Provider: 09/13/17 10:18 Hx Obtained From: Patient Onset/Duration: Sudden Onset, Resolved Context: Unwitnessed, Loss Of Consciousness Activity At Onset: At Rest Associated Head Trauma: No Aggravating Factor(s): Nothing Alleviating Factor(s): Spontaneous Resolution Associated Signs And Symptoms: Other - POS: blurry vision, - Allergies/Home Medications Allergies/Adverse Reactions: Allergies Allergy/AdvReac Type Severity Reaction Status Date / Time atorvastatin Allergy Severe See Comment Verified 09/13/17 10:00 tramadol Allergy Severe Shortness Verified 09/13/17 10:00 of Breath codeine Allergy Intermediate Rash Verified 09/13/17 10:00 Sulfa (Sulfonamide Allergy Mild Rash Verified 09/13/17 10:00 Antibiotics) PMH/Surg Hx/FS Hx/Imm Hx Endocrine/Hematology History: Reports: Hx Diabetes - II - METFORMIN Denies: Hx Thyroid Disease Cardiovascular History: Reports: Hx Hypercholesterolemia, Other Cardiovascular Problems/Disorders - IDDM II Denies: Hx Hypertension, Hx Pacemaker/ICD Respiratory History: Reports: Hx Asthma, Hx Pneumonia, Hx Sleep Apnea Denies: Hx Chronic Obstructive Pulmonary Disease (COPD) GI History: Reports: Hx Gall Bladder Disease - gall stones, Other GI Disorders - abdominal and umbilical hernias Denies: Hx Hiatal Hernia, Hx Ulcer History: Reports: Hx Acute Renal Failure, Hx Renal Disease - HX OF FAILURE - THAT RESOLVED Musculoskeletal History: Reports: Hx Arthritis - knees bilateral Denies: Hx Osteoporosis Sensory History: Reports: Hx Cataracts - removed 2013, Hx Contacts or Glasses, Hx Vision Problem Denies: Hx Hearing Aid Opthamlomology History: Reports: Hx Cataracts - removed 2013, Hx Contacts or Glasses, Hx Vision Problem Neurological History: Reports: Hx Headaches, 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 Psychiatric History: Reports: Hx Anxiety, Hx Depression, Hx Post Traumatic Stress Disorder, Other Psychiatric Issues/Disorders - Psychosis, controlled with Geodon Denies: Hx Eating Disorder, Hx Panic Disorder, Hx of Violent Episodes Against Others - Cancer History Hx Chemotherapy: No Hx Radiation Therapy: No - Surgical History Surgery Procedure, Year, and Place: HYSTERECTOMY ; HERNIA REPAIR ; 06/19/14- [facility] REVEAL HEART LOOP RECORDER - CURRENTLY NOT ACTIVE ; bilateral cataracts Hx Anesthesia Reactions: No - Immunization History Date of Influenza Vaccine: 12/2016 Infectious Disease History: No Infectious Disease History: Reports: Hx Shingles Denies: Hx Clostridium Difficile, Hx Hepatitis, Hx Human Immunodeficiency Virus (HIV), Hx of Known/Suspected MRSA, Hx Tuberculosis, History Other Infectious Disease, Traveled Outside the [place] in Last 30 Days - Family History Known Family History: Positive: Hypertension - Social History Alcohol Use: Rare Alcohol Amount: 1-2 beers occassionally last drink 3 mo. ago Hx Substance Use: No Substance Use Type: Reports: None Hx Tobacco Use: Yes Smoking Status (MU): Former Smoker Type: Cigarettes Amount Used/How Often: 2 cigs day hx - quit 2011 Have You Smoked in the Last Year: No Review of Systems Negative: Fever Positive: Blurred Vision Negative: Chest Pain Negative: Shortness Of Breath Negative: Abdominal Pain, Vomiting, Nausea Genitourinary: Negative Negative: Other - neck pain Positive: Syncope All Other Systems Reviewed And Are Negative: Yes Physical Exam - Summary Physical Exam Summary: VITAL SIGNS: Reviewed. GENERAL: Patient is a well-developed and nourished female who is lying comfortable in the stretcher. Patient is not in any acute respiratory distress. HEAD AND FACE: No signs of trauma. No ecchymosis, hematomas or skull depressions. No sinus tenderness. EYES: PERRLA, EOMI x 2, No injected conjunctiva, no nystagmus. No photophobia. EARS: Hearing grossly intact. Ear canals and tympanic membranes are within normal limits. MOUTH: Oropharynx within normal limits. NECK: Supple, trachea is midline, no adenopathy, no JVD, no carotid bruit, no c- spine tenderness, neck with full ROM. No meningeal signs, no Kernig's or brudzinskis signs. Pt has Martin J collar in place. CHEST: Symmetric, no tenderness at palpation LUNGS: Clear to auscultation bilaterally. No wheezing or crackles. CVS: Regular rate and rhythm, S1 and S2 present, no murmurs or gallops appreciated. ABDOMEN: Soft, non-tender. No signs of distention. No rebound no guarding, and no masses palpated. Bowel sounds are normal. EXTREMITIES: FROM in all major joints, no edema, no cyanosis or clubbing. NEURO: Alert and oriented x 3. No acute neurological deficits. Speech is normal and follows commands. SKIN: Dry and warm GCS: 15 Triage Information Reviewed: Yes Vital Signs On Initial Exam: Initial Vitals Temp Pulse Resp BP Pulse Ox 97.0 F 75 16 148/97 98 09/13/17 09:51 09/13/17 09:51 09/13/17 09:51 09/13/17 09:51 09/13/17 09:51 Vital Signs Reviewed: Yes Diagnostics - Vital Signs Vital Signs Temp Pulse Resp BP Pulse Ox 09/13/17 10:23 78 22 149/98 97 09/13/17 10:05 78 17 97 09/13/17 09:51 97.0 F 75 16 148/97 98 - Laboratory Lab Results: Lab Results 09/13/17 09/13/17 09/13/17 Range/Units 10:35 10:36 10:36 WBC 7.6 (3.5-10.8) 10^3/ul RBC 3.82 L (4.0-5.4) 10^6/ul Hgb 12.1 (12.0-16.0) g/dl Hct 36 (35-47) % MCV 94 (80-97) fL MCH 32 H (27-31) pg MCHC 34 (31-36) g/dl RDW 13 (10.5-15) % Plt Count 384 (150-450) 10^3/ul MPV 6.9 L (7.4-10.4) um3 Neut % (Auto) 68.7 (38-83) % Lymph % (Auto) 21.3 L (25-47) % [place] % (Auto) 6.4 (0-7) % Eos % (Auto) 2.6 (0-6) % Baso % (Auto) 1.0 (0-2) % Absolute Neuts (auto) 5.2 (1.5-7.7) 10^3/ul Absolute Lymphs (auto) 1.6 (1.0-4.8) 10^3/ul Absolute Monos (auto) 0.5 (0-0.8) 10^3/ul Absolute Eos (auto) 0.2 (0-0.6) 10^3/ul Absolute Basos (auto) 0.1 (0-0.2) 10^3/ul Absolute Nucleated RBC 0 10^3/ul Nucleated RBC % 0.1 APTT (26.0-36.3) seconds Sodium 138 L (139-145) mmol/L Potassium 4.7 (3.5-5.0) mmol/L Chloride 102 (101-111) mmol/L Carbon Dioxide 29 (22-32) mmol/L Anion Gap 7 (2-11) mmol/L BUN 12 (6-24) mg/dL Creatinine 0.94 (0.51-0.95) mg/dL Est GFR ( Amer) 77.3 (>60) Est GFR (Non-Af Amer) 60.1 (>60) BUN/Creatinine Ratio 12.8 (8-20) Glucose 194 H (70-100) mg/dL Lactic Acid (0.5-2.0) mmol/L Calcium 9.7 (8.6-10.3) mg/dL Magnesium 1.7 L (1.9-2.7) mg/dL Total Bilirubin 0.40 (0.2-1.0) mg/dL AST 29 (13-39) U/L ALT 29 (7-52) U/L Alkaline Phosphatase 99 (34-104) U/L Ammonia (16-53) mcmol/L Troponin I 0.00 (<0.04) ng/mL B-Natriuretic Peptide ( - 100) pg/mL Total Protein 8.2 (6.4-8.9) g/dL Albumin 3.9 (3.2-5.2) g/dL Globulin 4.3 H (2-4) g/dL Albumin/Globulin Ratio 0.9 L (1-3) TSH 3.33 (0.34-5.60) mcIU/mL Urine Color Yellow Urine Appearance Clear Urine pH 5.0 (5-9) Ur Specific [place] 1.016 (1.010-1.030) Urine Protein Negative (Negative) Urine Ketones Negative (Negative) Urine Blood Negative (Negative) Urine Nitrate Negative (Negative) Urine Bilirubin Negative (Negative) Urine Urobilinogen Negative (Negative) Ur Leukocyte Esterase Negative (Negative) Urine Glucose 1+(50 mg/dl) A (Negative) Serum Alcohol < 10 (<10) mg/dL 09/13/17 09/13/17 09/13/17 Range/Units 10:36 10:36 10:36 WBC (3.5-10.8) 10^3/ul RBC (4.0-5.4) 10^6/ul Hgb (12.0-16.0) g/dl Hct (35-47) % MCV (80-97) fL MCH (27-31) pg MCHC (31-36) g/dl RDW (10.5-15) % Plt Count (150-450) 10^3/ul MPV (7.4-10.4) um3 Neut % (Auto) (38-83) % Lymph % (Auto) (25-47) % [place] % (Auto) (0-7) % Eos % (Auto) (0-6) % Baso % (Auto) (0-2) % Absolute Neuts (auto) (1.5-7.7) 10^3/ul Absolute Lymphs (auto) (1.0-4.8) 10^3/ul Absolute Monos (auto) (0-0.8) 10^3/ul Absolute Eos (auto) (0-0.6) 10^3/ul Absolute Basos (auto) (0-0.2) 10^3/ul Absolute Nucleated RBC 10^3/ul Nucleated RBC % APTT 33.7 (26.0-36.3) seconds Sodium (139-145) mmol/L Potassium (3.5-5.0) mmol/L Chloride (101-111) mmol/L Carbon Dioxide (22-32) mmol/L Anion Gap (2-11) mmol/L BUN (6-24) mg/dL Creatinine (0.51-0.95) mg/dL Est GFR ( Amer) (>60) Est GFR (Non-Af Amer) (>60) BUN/Creatinine Ratio (8-20) Glucose (70-100) mg/dL Lactic Acid 1.2 (0.5-2.0) mmol/L Calcium (8.6-10.3) mg/dL Magnesium (1.9-2.7) mg/dL Total Bilirubin (0.2-1.0) mg/dL AST (13-39) U/L ALT (7-52) U/L Alkaline Phosphatase (34-104) U/L Ammonia 32 (16-53) mcmol/L Troponin I (<0.04) ng/mL B-Natriuretic Peptide 13 ( - 100) pg/mL Total Protein (6.4-8.9) g/dL Albumin (3.2-5.2) g/dL Globulin (2-4) g/dL Albumin/Globulin Ratio (1-3) TSH (0.34-5.60) mcIU/mL Urine Color Urine Appearance Urine pH (5-9) Ur Specific [place] (1.010-1.030) Urine Protein (Negative) Urine Ketones (Negative) Urine Blood (Negative) Urine Nitrate (Negative) Urine Bilirubin (Negative) Urine Urobilinogen (Negative) Ur Leukocyte Esterase (Negative) Urine Glucose (Negative) Serum Alcohol (<10) mg/dL Result Diagrams: 09/13/17 10:36 09/13/17 10:36 Lab Statement: Any lab studies that have been ordered have been reviewed, and results considered in the medical decision making process. - Radiology Chest XR Xray Interpretation: No Acute Changes - IMPRESSION: Elevated lung volumes suggest potential obstructive lung disease. No acute cardiopulmonary process evident. Dr. Starks has reviewed this radiology report. Radiology Interpretation Completed By: Radiologist - CT Brain CT CT Interpretation: No Acute Changes - IMPRESSION: No CT evidence for traumatic brain injury or acute intracranial process. Dr. Starks has reviewed this radiology report. CT Interpretation Completed By: Radiologist - EKG 10:50 Cardiac Rate: NL - at 73 bpm EKG Rhythm: Sinus Rhythm EKG Interpretation: Poor quality EKG. No ST elevations. Course/Dx Assessment/Plan: This patient is a 62-year-old female who presents to the emergency room with a chief complaint of having a syncopal episode. Patient past medical history significant for anxiety, hypertension, renal failure, diabetes mellitus, CVA, UTIs. Blood test results without any significant abnormality except for hypomagnesemia for which the patient was given penicillin by mouth. Urinalysis is negative for UTI. Head CT impression: No CT evidence for traumatic brain injury or acute intracranial process. Chest x- ray impression: Elevated low-volume suggest potential obstructive lung disease. No acute cardiopulmonary process. In the ED course the patient was given IV fluids, the patient continued to be hemodynamically stable. Because of the syncopal episode and discussed the case with Dr. Wills from hospitalist services who accepted the patient for admission. - Diagnoses Differential Diagnosis/HQI/PQRI: Positive: Cerebral Vascular Accident, Transient Ischemic Attack, Vasovagal Episode Provider Diagnoses: Syncope - Physician Notifications Discussed Care of Patient With: Randee Wills Time Discussed With Above Provider: 12:18 Instructed by Provider To: Other - I discussed pt care with Dr. Wills, hospitalist, who has accepted the pt for admission. Discharge - Sign-Out/Discharge Documenting (check all that apply): Discharge/Admit/Transfer - Admit - Discharge Plan Condition: Stable Disposition: ADMITTED TO [facility] Referrals: Christiano Rosa MD [Primary Care Provider] - - Billing Disposition and Condition Condition: STABLE Disposition: Admitted to [facility] The documentation as recorded by the Lan ram Angela accurately reflects the service I personally performed and the decisions made by , James Starks MD.
[2017-09-13] MEDS ORDERED: Ipratropium HFA INHALER(NF) (ALTERNATIVE = NEBS) INH SCH (14:00)
[2017-09-13] MEDS ORDERED: Spiriva Inhaler DEVICE* 1 EACH DEVICE INH ONE (14:00)
[2017-09-13] MEDS: Tiotropium CAP.INH* CAP.INH/18 MCG (USE ORDER SET !) INH SCH (14:25)
[2017-09-13] MEDS: NS 0.9% 1000 ML* 1,000 ML IV SCH (14:32)
[2017-09-13] MEDS: Heparin VIAL(*) 5000 UNITS/ML VIAL (FIVE THOUSAND) SUBCUT SCH ×2 (14:32→21:28)
--- NOTE | 2017-09-13 16:08 | HP ---
AMENDED REPORT NOW INCLUDES COSIGNER DESIGNATION - ESIGNED BEFORE ADJUSTMENTS CC: Dr. Rosa * ADMISSION HISTORY AND PHYSICAL: DATE OF ADMISSION: 09/13/17 PATIENT OF: Randee Wills MD.* (DICTATED BY SHAI NETTLES) PRIMARY CARE PHYSICIAN: Christiano Rosa MD. CHIEF COMPLAINT: Syncope. HISTORY OF PRESENT ILLNESS: Ms. Alba is a pleasant 62-year-old female who is well known to us from prior admission just about 2 weeks ago. She was admitted through the emergency room in late August after she had some right upper extremity numbness and tingling as well as neck pain. She had an extensive workup back then that revealed evidence of C-spine narrowing, as well as MRI of the brain that was consistent with subacute infarct. The patient has done relatively well since her discharge. She has regained full function of her right upper extremity and denied any further complaints of weakness or numbness. She has been wearing her Collier J Collar most of the time and is scheduled to see Dr. Thomas in the end of November to discuss possible surgical intervention. She reports not feeling very well in the past few days. She has been stressed out about different things in her life including home health nursing visits. She feels like her needs has not been met by the nursing staff. She has also been stressed out about her health and has not been able to sleep for the past 4 nights or so. She notes that last night she felt a little dizzy when she changed position from lying down to sitting on the couch, and then after that, she reports passing out for a period of time and unsure if it was minutes or seconds; however, she regained her consciousness and denied any headache or chest pain during this episode. She was able to get up and walk; however, she continued to have insomnia and did not sleep at all last night worrying about any possible recurrent strokes. She presented to the emergency room today. She is very exhausted, as she say, very anxious and stressed out about her health condition. She had a head CT that revealed no evidence of intracranial hemorrhage. It is also to be noted that patient had a significant history of anxiety, depression , and posttraumatic stress disorder. She denied any chest pain or shortness of breath today. She had laboratory workup today that revealed a normal white count of 7000, normal hemoglobin and hematocrit with values of 12.1 and 36 respectively. Her chemistry panel was essentially within normal limits with the exception of slightly low magnesium of 1.7 and a glucose of 194. She also reports poor p.o. intake for the past few days due to her high level of stress as well as her insomnia. She denied any other associated symptoms. Given her recent history of ischemic stroke as well as her possible syncopal episode at home last night, we were asked to see the patient for further evaluation and to discuss possible admission. PAST MEDICAL HISTORY: As mentioned above, significant for: 1. Anxiety and depression. 2. Diabetes mellitus, insulin dependent. 3. Posttraumatic stress disorder. 4. Hypertension. 5. Hyperlipidemia. 6. Asthma. 7. Cholelithiasis. 8. Migraine headaches. 9. Recent subacute ischemic infarct with minor neurologic deficit that eventually resolved back on 08/31/17. 10. C-spine narrowing with occasional symptomatic myalgia. PAST SURGICAL HISTORY: 1. She is status post hysterectomy. 2. She also had a hernia repair in the past. CURRENT MEDICATIONS: Her medications at home include: 1. Aspirin 81 mg p.o. daily. 2. Klonopin 2 mg p.o. q.p.m. 3. Lantus insulin 30 units subcu q.p.m. 4. Atrovent inhaler 1 puff MDI q.6 hours as needed for shortness of breath. 5. Metformin 1000 mg p.o. b.i.d. 6. Pravastatin 40 mg p.o. q.h.s. 7. Effexor 225 mg p.o. daily. 8. Geodon 160 mg p.o. daily. ALLERGIES: Multiple allergies including ATORVASTATIN, TRAMADOL, CODEINE, and SULFA ANTIBIOTICS. FAMILY HISTORY: The patient's mother with history of heart disease and end- stage kidney disease. She also has a family history of diabetes and father has a history of prostate cancer. SOCIAL HISTORY: The patient lives alone. She is a former smoker who quit back in 2011. She occasionally drinks alcohol. She denies illicit drug use. Her son, Justino Rangel, is her surrogate decision maker and she would like to be a full code. REVIEW OF SYSTEMS: A 14-point review of systems was performed and all the pertinent positives and negatives are included in the history of present illness and the remainder of the review of systems is essentially negative. PHYSICAL EXAMINATION GENERAL: She is a pleasant, anxious, upper middle age female, appears a little upset; however, in no acute distress or discomfort. VITAL SIGNS: Revealed blood pressure of 144/86, pulse of 77, respirations of 18 , temperature of 97.0, and O2 sat of 98% on room air. HEENT: Head is normocephalic, atraumatic. Sclerae anicteric, PERRLA. EOMs intact. Oropharynx is pink and moist with no exudate. NECK: Supple. Exam is limited due to her known history of C-spine narrowing. There is no thyromegaly noted and trachea was midline. LUNGS: Clear to auscultation bilaterally. HEART: Regular rate and rhythm. Normal S1 and S2 without rubs, murmurs, or gallops. BACK: Normal curvature, no CVA tenderness. BREASTS: Deferred at this time. ABDOMEN: Soft, nontender, and nondistended. There are no hernias, masses, or hepatosplenomegaly. EXTREMITIES: Without cyanosis, clubbing, or edema. RECTAL: Deferred at this time. NEUROLOGIC: Grossly intact. She is awake, alert, and oriented x3. Tongue is midline. Hand electronics supervisor is equal bilaterally. Sensation is intact. There is no motor neurologic deficit noted. LABORATORY WORKUP: CBC done today with white count of 7000, hemoglobin 12, hematocrit 36, and platelets of 348. Her chemical panel is essentially within normal limits with the exception of elevated glucose of 194 and slight hypomagnesemia with a value of 1.7. Her urinalysis was normal, and serum alcohol was less than 10. ACCESSORY DIAGNOSTIC DATA: Chest x-ray with no acute findings noted. There is elevated lung volume consistent with chronic obstructive lung disease. Her EKG showed no significant ST changes. Her brain CT showed no evidence of intracranial hemorrhage. IMPRESSION: A 62-year-old female with a known history of anxiety, depression, and posttraumatic stress disorder, who was admitted to the hospital a couple of weeks ago with neurological symptoms and found to have subacute ischemic stroke as well as C-spine narrowing, for which she is scheduled electively for possible C-spin fusion, who presented to the emergency room today after she sustained a possible syncopal episode at home last night. ASSESSMENT AND PLAN: 1. Syncope. The patient had no neurologic deficits upon presentation. She has experienced actually quite an improvement of her right upper extremity weakness and numbness that she presented with 2 weeks ago. At this point, it is unclear if she actually had a truly syncopal episode versus orthostatic hypotension. She has not had much to eat or drink in 4 days due to her high level of stress at home. Orthostatic blood pressure was measured with the patient dropping more than 20 mmHg systolic blood pressure upon standing with pulse increasing by 20. I think there is a big element of dehydration involved, for which we will continue to give her gentle hydration with normal saline as well as encourage p.o. intake. I also suspect a good deal of anxiety , depression, and psychiatric background are responsible for her symptoms; however, given her recent stroke, we will admit her for observation to the telemetry unit, get neurologic checks every 2 hours, possibly repeat her brain MRI at some point but I will hold off on that for the time being until I discuss it with Dr. Wills. Again, the patient appears to be stable and shows absolutely no signs of any neurological deficit at this point. 2. Hypertension. The patient has been on Effexor and her blood pressure has been fluctuating between high reads and normal reads and we will maintain her on her home medication for the time being and keep monitoring. 3. Hyperlipidemia. We will continue the patient on her home pravastatin. 4. Anxiety and depression. We will continue her home Geodon, Effexor, and clonazepam. I also suspect her insomnia to be related to a high level of stress. I will offer Ambien to be used as needed for insomnia at night. 5. History of subacute ischemic stroke, appears to be stable. Her symptoms of right upper extremity weakness and numbness, for which she presented 2 weeks ago have eventually resolved. Repeat MRI of the brain is a thought; however, we will not commit to it for the time being given no neurological deficit on presentation today. 6. Diabetes mellitus. We will continue the patient on her home Lantus as well as coverage with Lispro per sliding scale. 7. Poor p.o. intake. We will replenish the patient's fluid and electrolytes as needed. I will also keep her on heart healthy diet with no caffeine during her admission. 8. DVT prophylaxis: The patient is a high risk and will be covered with subcu heparin. 9. Code status: She is a full code. 10. Disposition: Observation for a possible syncopal episode at home, at the telemetry unit with neurologic check. TIME SPENT: I have spent approximately 60 minutes admitting this patient with greater than 50% of this time spent taking history, performing physical exam and discussing plans of care with the patient. I have discussed the case and the plan of care with Dr. Wills who agreed to the above mentioned plans. SHAI NETTLES [id number]/[facility] #: [id number] ROXANNA
[2017-09-13] MEDS: clonazePAM TAB(*) 1 MG PO SCH (17:08)
[2017-09-13] MEDS: Insulin LISPRO* 1 UNITS UNIT SUBCUT SCH ×2 (17:08→21:28)
[2017-09-13] MEDS: CMCS Pravastatin (NF) 20 MG TAB PO SCH (21:28)
[2017-09-14] MEDS: NS 0.9% 1000 ML* 1,000 ML IV SCH ×3 (02:10→18:27)
[2017-09-14] MEDS: Heparin VIAL(*) 5000 UNITS/ML VIAL (FIVE THOUSAND) SUBCUT SCH ×3 (05:26→20:20)
[2017-09-14 05:46] LABS: ABS Basophils 0.1 10^3/ul (0-0.2); ABS Eosinophils 0.4 10^3/ul (0-0.6); ABS Lymphocytes 2.7 10^3/ul (1.0-4.8); ABS Monocytes 0.4 10^3/ul (0-0.8); ABS Neutrophils 3.7 10^3/ul (1.5-7.7); ABS Nucleated RBC 0 10^3/ul; Eosinophil % 5.8 % (0-6); Hematocrit 33 % (35-47); Hemoglobin 11.2 g/dl (12.0-16.0); Lymphocyte % 36.8 % (25-47); Mean Corpuscular HGB Conc 34 g/dl (31-36); Mean Corpuscular Hemoglobin 32 pg (27-31); Mean Corpuscular Volume 94 fL (80-97); Nucleated Red Blood Cells % 0; Platelet Count 360 10^3/ul (150-450); Red Blood Count 3.55 10^6/ul (4.0-5.4); Red Cell Distribution Width 13 % (10.5-15); White Blood Count 7.4 10^3/ul (3.5-10.8)
[2017-09-14 06:03] LABS: EGFR Non-African American 64.1 (>60)
[2017-09-14] MEDS: Ziprasidone CAP* 80 MG PO SCH (08:02)
[2017-09-14] MEDS: Venlafaxine EXT RELEASE CAP* 75 MG PO SCH (08:02)
[2017-09-14] MEDS: Aspirin 81 mg CHEW TAB* 81 MG TAB.CHEW PO SCH (08:02)
[2017-09-14] MEDS: Insulin LISPRO* 1 UNITS UNIT SUBCUT SCH ×4 (08:03→20:20)
[2017-09-14] MEDS: Insulin GLARGINE(*) 1 UNITS UNIT SUBCUT SCH (08:03)
[2017-09-14] MEDS: Tiotropium CAP.INH* CAP.INH/18 MCG (USE ORDER SET !) INH SCH (10:48)
[2017-09-14] MEDS ORDERED: Magnesium Sulfate IV* 3 GM in NS 0.9% 100 ML* 100 ML IVPB ONE (11:53)
[2017-09-14] MEDS: clonazePAM TAB(*) 1 MG PO SCH ×2 (17:09→20:20)
--- NOTE | 2017-09-14 18:09 | PN ---
Subjective Date of Service: 09/14/17 Interval History: Patient reports she slept all day and now feels "much much better". She is very bright and friendly during exam. She states she is not sure why she couldnt sleep for 4 days but states"I must have had something on my mind'. Currently she reports she feels fatigued still and has generalized weakness. She complains that the Visiting Nurse "didnt know what she was doing". She feels that she may benefit from subacute rehab. Objective Active Medications: Acetaminophen (Tylenol Tab*) 650 mg PO Q4H PRN PRN Reason: FEVER/PAIN Last Admin: 09/14/17 02:10 Dose: 650 mg Al Hydrox/Mg Hydrox/Simethicone (Maalox Plus*) 30 ml PO Q6H PRN PRN Reason: INDIGESTION Albuterol (Ventolin 2.5 Mg/3 Ml Neb.Amina*) 2.5 mg INH RT.[id number] AWAKE PRN PRN Reason: sob/wheezing Aspirin (Aspirin 81 Mg Chew Tab*) 81 mg PO DAILY [facility] Last Admin: 09/14/17 08:02 Dose: 81 mg Clonazepam (Klonopin Tab(*)) 2 mg PO QPM [facility] Last Admin: 09/13/17 17:08 Dose: 2 mg Dextrose (D50w Syringe 50 Ml*) 12.5 gm IV PUSH .FOR FS < 60 - SS PRN PRN Reason: FS < 60 Heparin Sodium (Porcine) (Heparin Vial(*)) 5,000 units SUBCUT Q8HR [facility] Last Admin: 09/14/17 13:14 Dose: 5,000 units Sodium Chloride (Ns 0.9% 1000 Ml*) 1,000 mls @ 100 mls/hr IV PER RATE [facility] Last Admin: 09/14/17 12:30 Dose: 100 mls/hr Insulin Glargine (Lantus(*)) 30 units SUBCUT DAILY [facility] Last Admin: 09/14/17 08:03 Dose: 30 units Insulin Human Lispro (Humalog*) 0 units SUBCUT ACHS [facility] PRN Reason: Protocol Last Admin: 09/14/17 17:09 Dose: 3 units Magnesium Hydroxide (Milk Of Magnesia Liq*) 30 ml PO Q4H PRN PRN Reason: CONSTIPATION Ondansetron HCl (Zofran 40 Mg Vial*) 4 mg IV Q4H PRN PRN Reason: NAUSEA/VOMITING Last Admin: 09/14/17 03:48 Dose: 4 mg Pravastatin Sodium (Pravachol (Nf)) 40 mg PO BEDTIME [place] PRN Reason: Protocol Last Admin: 09/13/17 21:28 Dose: 40 mg Tiotropium [place] (Spiriva Cap.Inh*) 1 cap INH DAILY [place] Last Admin: 09/14/17 10:48 Dose: 1 cap Venlafaxine HCl (Effexor Xr Cap*) 225 mg PO DAILY [place] Last Admin: 09/14/17 08:02 Dose: 225 mg Ziprasidone (Geodon Cap*) 160 mg PO DAILY WITH MEAL [place] Last Admin: 09/14/17 08:02 Dose: 160 mg Oxygen Devices in Use Now: None Appearance: 62 yo female sitting up in bed in NAD. A+O x3 Neck: - - [place] J collar in place Respiratory: Symmetrical Chest Expansion and Respiratory Effort, Clear to Auscultation Cardiovascular: NL Sounds; No Murmurs; No JVD, RRR, No Edema Abdominal: NL Sounds; No Tenderness; No Distention Extremities: No Edema, No Clubbing, Cyanosis Skin: No Rash or Ulcers, No Nodules or Sclerosis Neurological: Alert and Oriented x 3, NL Sensation, NL Muscle Strength and Tone Lines/Tubes/Other Access: Clean, Dry and Intact Peripheral IV Nutrition: Taking PO's Result Diagrams: 09/14/17 05:21 09/14/17 05:20 Additional Lab and Data: Lab Results 09/13/17 09/13/17 09/13/17 Range/Units 10:35 10:36 10:36 WBC 7.6 (3.5-10.8) 10^3/ul RBC 3.82 L (4.0-5.4) 10^6/ul Hgb 12.1 (12.0-16.0) g/dl Hct 36 (35-47) % MCV 94 (80-97) fL MCH 32 H (27-31) pg MCHC 34 (31-36) g/dl RDW 13 (10.5-15) % Plt Count 384 (150-450) 10^3/ul MPV 6.9 L (7.4-10.4) um3 Neut % (Auto) 68.7 (38-83) % Lymph % (Auto) 21.3 L (25-47) % [place] % (Auto) 6.4 (0-7) % Eos % (Auto) 2.6 (0-6) % Baso % (Auto) 1.0 (0-2) % Absolute Neuts (auto) 5.2 (1.5-7.7) 10^3/ul Absolute Lymphs (auto) 1.6 (1.0-4.8) 10^3/ul Absolute Monos (auto) 0.5 (0-0.8) 10^3/ul Absolute Eos (auto) 0.2 (0-0.6) 10^3/ul Absolute Basos (auto) 0.1 (0-0.2) 10^3/ul Absolute Nucleated RBC 0 10^3/ul Nucleated RBC % 0.1 APTT (26.0-36.3) seconds Sodium 138 L (139-145) mmol/L Potassium 4.7 (3.5-5.0) mmol/L Chloride 102 (101-111) mmol/L Carbon Dioxide 29 (22-32) mmol/L Anion Gap 7 (2-11) mmol/L BUN 12 (6-24) mg/dL Creatinine 0.94 (0.51-0.95) mg/dL Est GFR ( Amer) 77.3 (>60) Est GFR (Non-Af Amer) 60.1 (>60) BUN/Creatinine Ratio 12.8 (8-20) Glucose 194 H (70-100) mg/dL Lactic Acid (0.5-2.0) mmol/L Calcium 9.7 (8.6-10.3) mg/dL Magnesium 1.7 L (1.9-2.7) mg/dL Total Bilirubin 0.40 (0.2-1.0) mg/dL AST 29 (13-39) U/L ALT 29 (7-52) U/L Alkaline Phosphatase 99 (34-104) U/L Ammonia (16-53) mcmol/L Troponin I 0.00 (<0.04) ng/mL B-Natriuretic Peptide ( - 100) pg/mL Total Protein 8.2 (6.4-8.9) g/dL Albumin 3.9 (3.2-5.2) g/dL Globulin 4.3 H (2-4) g/dL Albumin/Globulin Ratio 0.9 L (1-3) TSH 3.33 (0.34-5.60) mcIU/mL Urine Color Yellow Urine Appearance Clear Urine pH 5.0 (5-9) Ur Specific [place] 1.016 (1.010-1.030) Urine Protein Negative (Negative) Urine Ketones Negative (Negative) Urine Blood Negative (Negative) Urine Nitrate Negative (Negative) Urine Bilirubin Negative (Negative) Urine Urobilinogen Negative (Negative) Ur Leukocyte Esterase Negative (Negative) Urine Glucose 1+(50 mg/dl) A (Negative) Serum Alcohol < 10 (<10) mg/dL 09/13/17 09/13/17 09/13/17 Range/Units 10:36 10:36 10:36 WBC (3.5-10.8) 10^3/ul RBC (4.0-5.4) 10^6/ul Hgb (12.0-16.0) g/dl Hct (35-47) % MCV (80-97) fL MCH (27-31) pg MCHC (31-36) g/dl RDW (10.5-15) % Plt Count (150-450) 10^3/ul MPV (7.4-10.4) um3 Neut % (Auto) (38-83) % Lymph % (Auto) (25-47) % [place] % (Auto) (0-7) % Eos % (Auto) (0-6) % Baso % (Auto) (0-2) % Absolute Neuts (auto) (1.5-7.7) 10^3/ul Absolute Lymphs (auto) (1.0-4.8) 10^3/ul Absolute Monos (auto) (0-0.8) 10^3/ul Absolute Eos (auto) (0-0.6) 10^3/ul Absolute Basos (auto) (0-0.2) 10^3/ul Absolute Nucleated RBC 10^3/ul Nucleated RBC % APTT 33.7 (26.0-36.3) seconds Sodium (139-145) mmol/L Potassium (3.5-5.0) mmol/L Chloride (101-111) mmol/L Carbon Dioxide (22-32) mmol/L Anion Gap (2-11) mmol/L BUN (6-24) mg/dL Creatinine (0.51-0.95) mg/dL Est GFR ( Amer) (>60) Est GFR (Non-Af Amer) (>60) BUN/Creatinine Ratio (8-20) Glucose (70-100) mg/dL Lactic Acid 1.2 (0.5-2.0) mmol/L Calcium (8.6-10.3) mg/dL Magnesium (1.9-2.7) mg/dL Total Bilirubin (0.2-1.0) mg/dL AST (13-39) U/L ALT (7-52) U/L Alkaline Phosphatase (34-104) U/L Ammonia 32 (16-53) mcmol/L Troponin I (<0.04) ng/mL B-Natriuretic Peptide 13 ( - 100) pg/mL Total Protein (6.4-8.9) g/dL Albumin (3.2-5.2) g/dL Globulin (2-4) g/dL Albumin/Globulin Ratio (1-3) TSH (0.34-5.60) mcIU/mL Urine Color Urine Appearance Urine pH (5-9) Ur Specific Geraldine (1.010-1.030) Urine Protein (Negative) Urine Ketones (Negative) Urine Blood (Negative) Urine Nitrate (Negative) Urine Bilirubin (Negative) Urine Urobilinogen (Negative) Ur Leukocyte Esterase (Negative) Urine Glucose (Negative) Serum Alcohol (<10) mg/dL Assess/Plan/Problems-Billing Assessment: - Patient Problems (1) Syncope Comment: - suspect secondary to hypovolemia/dehydration - per pt she didnt eat/drink very much for 4 days. Orthostatics positive. Suspect this was anxiety driven. Now feeling much better but has continued weakness. Continue gentle IVFs - No neuro deficits noted, do not think this is a new CVA and am concerned for psychosis. Will ask Psych to see her tomorrow. (2) Anxiety Status: Chronic Comment: - Hx of anxiety, PTSD and major depression disorder - hx of suicide attempt - Continue home Effexor, Geodon, Clonazepam (3) Diabetes mellitus Comment: - Stable. - Continue Lantus and Humolog per sliding scale - HgbA1C much improved since last year. (4) Recent cerebrovascular accident (CVA) Comment: - Right sided residual symptoms have improved - continue ASA, Statin (5) HTN (hypertension) Comment: - stable (6) DVT prophylaxis Comment: - SQ heparin. (7) Full code status Status and Disposition: inpatient. Possible need for subacute rehab
[2017-09-14] MEDS: CMCS Pravastatin (NF) 20 MG TAB PO SCH (20:20)
[2017-09-15] MEDS: NS 0.9% 1000 ML* 1,000 ML IV SCH (03:24)
[2017-09-15] MEDS: Heparin VIAL(*) 5000 UNITS/ML VIAL (FIVE THOUSAND) SUBCUT SCH ×2 (05:19→12:36)
[2017-09-15] MEDS: Insulin GLARGINE(*) 1 UNITS UNIT SUBCUT SCH (08:58)
[2017-09-15] MEDS: Insulin LISPRO* 1 UNITS UNIT SUBCUT SCH ×2 (08:58→12:37)
[2017-09-15] MEDS: Ziprasidone CAP* 80 MG PO SCH (08:59)
[2017-09-15] MEDS: Venlafaxine EXT RELEASE CAP* 75 MG PO SCH (08:59)
[2017-09-15] MEDS: Aspirin 81 mg CHEW TAB* 81 MG TAB.CHEW PO SCH (08:59)
[2017-09-15 11:52] VITALS: BP 129/73
[2017-09-15] MEDS: Tiotropium CAP.INH* CAP.INH/18 MCG (USE ORDER SET !) INH SCH (12:37)
--- NOTE | 2017-09-16 09:59 | DS ---
CC: Dr. Fab Humphrey DISCHARGE SUMMARY: DATE OF ADMISSION: 09/13/17 DATE OF DISCHARGE: 09/15/17 PRIMARY PROVIDER: Myranda Nunez NP ATTENDING PHYSICIAN: Dr. Wills (report dictated by Myranda Nunez NP) PRIMARY CARE PROVIDER: Christiano Rosa MD PSYCHIATRIST: Fab Humphrey MD DISCHARGE DIAGNOSIS: Syncope, thought to be secondary to vasovagal episode secondary to dehydration. SECONDARY DIAGNOSES: 1. Anxiety and depression. 2. Insulin-dependent type 2 diabetes. 3. Posttraumatic stress disorder. 4. Hypertension. 5. Hyperlipidemia. 6. Asthma. 7. Cholelithiasis. 8. History of migraine headaches. 9. History of suicidal attempt. 10. Recent hospitalization for subacute ischemic infarct on 08/31/17. 11. Recent diagnosis of C-spine narrowing with occasional symptomatic myalgia, currently being follo wed by the neurosurgeon, Dr. Thomas and is currently in a [place] J collar. Plan for possible surg jose f in the end of summer. HISTORY OF PRESENT ILLNESS AND HOSPITAL COURSE: Please see history and physical by SHAI Sykes, for full admission details, but in summary this is a 62-year- old female who is known to us from prior admission approximately 2 weeks ago when she developed some right upper extremity weakness, nu mbness, and tingling as well as neck pain and underwent an extensive workup, which revealed a C-spine narrowing as well as MRI of the brain, which was consistent with subacute infarct. Her right upper weakness, numbness, and tingling resolved on hospitalization. She was seen by Dr. Thomas, neuros urgeon, and started wearing a [place] J collar and with a plan to follow up at the end of the summer fo r possible surgical intervention. In regards to why she presented to the emergency department today, she had a syncopal episode at home reporting she felt a little dizzy when changing positions from ly ing down to sitting on the couch and had had an episode where she blacked out. She came to the emerge ncy department for further evaluation. She reported that she had insomnia, for 3 to 4 nights unable to sleep. She is not sure if she had a night where she had insomnia, which caused anxiety or vice ve rsa and had anxiety, which caused the insomnia. She reports in the past she has been on medication f or insomnia, but has been taken off that. When she was admitted, she was given one time dose of Ambi en and the patient did finally sleep for many hours awaking reporting she felt "much better." The pa roselyn also reported she was mistrusting of her home physical therapist and home visiting nurse and di d not like them being in her house, which made her feel very anxious. She denies any hallucinations, suicidal ideations, or psychosis. In the emergency department, she had positive orthostatic vital signs. She was given IV fluid resusc itation and the patient is back to her baseline. She was evaluated by physical therapy who does not think she needs subacute rehab at this time and is doing well independently; however, they do recomme nd outpatient physical therapy for post stroke residual symptoms, which at this point are very mild w ith some right upper extremity mild weakness. The patient did not have any neurological deficits on her exam on admission and did not think this wa s a secondary CVA. She did have a brain CT on admission, which showed "no evidence for traumatic bra in injury or acute intracranial process." The patient has been ambulating in her room with a steady gait. She reports that she feels back to h er baseline. I did discuss with the patient at length about her insomnia, trying to figure out this is due to anxiety versus true insomnia, which possibly caused her to feel more anxious. She is uncle ar at this time, but does report last night she was able to sleep without any sleeping agents and wou ld like to be discharged home today. She reports in the past she was on insomnia medications, but wo uld like to follow up with Dr. Rosa regarding this. As well, we discussed following up with her psyc hiatrist, which she states she sees Dr. Sanon Member approximately every 5 months and I recommended she follow up with him within the next week or two if possible. She appears to be appropriate throu ghout her hospitalization. She does not appear to have any psychosis. She is appropriate and stable for discharge to home. I do think that it was very stressful for her to have visiting nurse service and physical therapy in her home, which made her very uncomfortable and will do better with outpatie nt physical therapy, which the patient also agrees and is looking forward to. It was discussed with the patient if she has any further concerning symptoms to return to emergency d epartment. The patient had no suspicion for infectious process with unremarkable labs. Chest x-ray showed no ca rdiopulmonary process. DISCHARGE MEDICATIONS: 1. Metformin 1000 mg p.o. b.i.d. 2. Klonopin 2 mg p.o. q.p.m. 3. Geodon 160 mg p.o. daily with meal. 4. Effexor 225 mg p.o. daily. 5. Pravastatin 40 mg p.o. at bedtime. 6. Atrovent HFA inhaler 1 puff INH q.6 hours p.r.n. 7. Lantus 30 units subcu daily. 8. Aspirin 81 mg p.o. daily. DISCHARGE PLAN: 1. The patient is stable for discharge to home with followup with Dr. Rosa within 1 week. 2. Follow up with Dr. Humphrey, mental health provider within 1 to 2 weeks. 3. Outpatient physical therapy for residual CVA symptoms of mild right upper extremity weakness. The patient is stable for discharge to home. TIME SPENT: Approximately 60 minutes was spent on this discharge. MYRANDA NUNEZ, HAYDE [id number]/CPS #: [id number]
== END 2017-09-15 13:51 | disposition home or self-care (01) | DRG 641 ==
LOC: ED 09:47 → MEDTELE 12:27 → OBSVTOIN 09-14 16:12
PROVIDERS: ADMIT Internal Medicine; ATTEND Internal Medicine
DX: E86.0 Dehydration (principal); I69.351 Hemiplegia and hemiparesis following cerebral infarction affecting right dominant side; R55 Syncope and collapse; E86.1 Hypovolemia; E11.9 Type 2 diabetes mellitus without complications; F43.10 Post-traumatic stress disorder, unspecified; I10 Essential (primary) hypertension; J44.9 Chronic obstructive pulmonary disease, unspecified; E78.5 Hyperlipidemia, unspecified; G43.909 Migraine, unspecified, not intractable, without status migrainosus; M48.02 Spinal stenosis, cervical region; G47.00 Insomnia, unspecified; F41.8 Other specified anxiety disorders; Z79.4 Long term (current) use of insulin; Z79.84 Long term (current) use of oral hypoglycemic drugs; Z79.82 Long term (current) use of aspirin; Z79.899 Other long term (current) drug therapy; Z88.5 Allergy status to narcotic agent; Z88.2 Allergy status to sulfonamides; Z88.8 Allergy status to other drugs, medicaments and biological substances; Z82.49 Family history of ischemic heart disease and other diseases of the circulatory system; Z84.1 Family history of disorders of kidney and ureter; Z83.3 Family history of diabetes mellitus; Z80.42 Family history of malignant neoplasm of prostate; Z87.891 Personal history of nicotine dependence
CPT/HCPCS: 36415; 70450; 71046; 80048; 80053; 80320; 81003; 82140; 83605; 83735; 83880; 84443; 84484; 85025; 85730; 93005; 94640; 99284; A9270-GY; G0378; G0480; G8978-GP-CL; G8979-GP-CI; G8987-GO-CL; G8988-GO-CI; J1644; J3475

== ENCOUNTER 2017-10-19 15:00 | Emergency (ER) | payer MEDICARE ==
[2017-10-19] MEDS ORDERED: NS 0.9% 1000 ML* 1,000 ML IV ONE (15:28)
--- NOTE | 2017-10-19 15:32 | ED ---
Abdominal Pain/Female - HPI Summary HPI Summary: This pt is a 62 y/o female presenting to [facility] via EMS c/o abd pain, nausea and vomiting for the last 3 days. Pt reports nausea and vomiting began first suddenly 3 days ago. Pt describes her abd pain is located in the mid abdomen area. She additionally reports decreased PO intake, headache. Denies diarrhea, urinary symptoms. Pt reports she has had these symptoms in the past but has not seen GI specialists. She used to take promethazine in the past, last time was 1 month ago. Pt states zofran and reglan don't work for her. She has seen her PCP (Dr. Rosa) who wants her "abdomen checked out" and states he might have mentioned something about gastroparesis. She states EMS did not give her any medications [employer]. PMHx significant for CVA, diabetes, total hysterectomy, umbilical hernia repair. Denies hx of pancreatitis or bowel obstructions. She takes metformin and insulin for diabetes. - History of Current Complaint Chief Complaint: EDAbdPain Stated Complaint: GENERAL ILLNESS Time Seen by Provider: 10/19/17 15:28 Hx Obtained From: Patient Onset/Duration: Lasting Days, Still Present Timing: Days Severity Currently: Moderate Pain Intensity: 5 Pain Scale Used: 0-10 Numeric Location: Other - mid abdomen Radiates: No Aggravating Factor(s): Nothing Alleviating Factor(s): Nothing Associated Signs and Symptoms: Positive: Nausea, Vomiting, Other: - headache, decreased PO intake. Negative: Fever, Diarrhea Allergies/Adverse Reactions: Allergies Allergy/AdvReac Type Severity Reaction Status Date / Time atorvastatin Allergy Severe See Comment Verified 09/13/17 10:00 tramadol Allergy Severe Shortness Verified 09/13/17 10:00 of Breath codeine Allergy Intermediate Rash Verified 09/13/17 10:00 Sulfa (Sulfonamide Allergy Mild Rash Verified 09/13/17 10:00 Antibiotics) Home Medications: Home Medications Pravastatin (NF) [Pravachol (NF)] 20 mg PO BEDTIME 10/19/17 [History Confirmed 10/19/17] Venlafaxine EXT RELEASE CAP* [Effexor Xr CAP*] 225 mg PO DAILY 10/19/17 [ History Confirmed 10/19/17] Ziprasidone CAP* [Geodon CAP*] 160 mg PO QPM 10/19/17 [History Confirmed ] clonazePAM TAB(*) [KlonoPIN TAB(*)] 2 mg PO QPM 10/19/17 [History Confirmed 02/26] metFORMIN* [Glucophage 500 MG TAB *] 1,000 mg PO BID 10/19/17 [History Confirmed 10/19/17] PMH/Surg Hx/FS Hx/Imm Hx Endocrine/Hematology History: Reports: Hx Diabetes - NIDDM Denies: Hx Thyroid Disease Cardiovascular History: Reports: Hx Hypercholesterolemia, Hx Hypertension, Other Cardiovascular Problems/Disorders - IDDM II Denies: Hx Pacemaker/ICD Respiratory History: Reports: Hx Asthma, Hx Pneumonia, Hx Sleep Apnea Denies: Hx Chronic Obstructive Pulmonary Disease (COPD) GI History: Reports: Hx Gall Bladder Disease - gall stones, Other GI Disorders - abdominal and umbilical hernias Denies: Hx Hiatal Hernia, Hx Ulcer History: Reports: Hx Acute Renal Failure, Hx Renal Disease - HX OF FAILURE - THAT RESOLVED Musculoskeletal History: Reports: Hx Arthritis - knees bilateral Denies: Hx Osteoporosis Sensory History: Reports: Hx Cataracts - removed 2013, Hx Contacts or Glasses, Hx Vision Problem Denies: Hx Hearing Aid Opthamlomology History: Reports: Hx Cataracts - removed 2013, Hx Contacts or Glasses, Hx Vision Problem Neurological History: Reports: Hx Headaches, 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 Psychiatric History: Reports: Hx Anxiety, Hx Depression, Hx Post Traumatic Stress Disorder, Other Psychiatric Issues/Disorders - Psychosis, controlled with Geodon Denies: Hx Eating Disorder, Hx Panic Disorder, Hx of Violent Episodes Against Others - Cancer History Hx Chemotherapy: No Hx Radiation Therapy: No - Surgical History Surgery Procedure, Year, and Place: HYSTERECTOMY ; HERNIA REPAIR ; 06/19/14- Storwize REVEAL HEART LOOP RECORDER - CURRENTLY NOT ACTIVE ; bilateral cataracts Hx Anesthesia Reactions: No - Immunization History Date of Influenza Vaccine: 12/2016 Infectious Disease History: No Infectious Disease History: Reports: Hx Shingles Denies: Hx Clostridium Difficile, Hx Hepatitis, Hx Human Immunodeficiency Virus (HIV), Hx of Known/Suspected MRSA, Hx Tuberculosis, History Other Infectious Disease, Traveled Outside the [place] in Last 30 Days - Family History Known Family History: Positive: Hypertension - Social History Alcohol Use: Rare Alcohol Amount: 1-2 beers occassionally last drink 3 mo. ago Hx Substance Use: No Substance Use Type: Reports: None Hx Tobacco Use: Yes Smoking Status (MU): Former Smoker Type: Cigarettes Amount Used/How Often: 2 cigs day hx - quit 2011 Have You Smoked in the Last Year: No Review of Systems Constitutional: Other - decreased PO intake Negative: Fever, Chills ENT: Negative Cardiovascular: Negative Positive: Abdominal Pain, Vomiting, Nausea. Negative: Diarrhea Positive: Headache All Other Systems Reviewed And Are Negative: Yes Physical Exam - Summary Physical Exam Summary: Appearance: Well appearing, no pain distress Skin: warm, dry, reflects adequate perfusion Head/face: normal Eyes: EOMI, [place] ENT: normal Neck: supple, non-tender Respiratory: CTA, breath sounds present Cardiovascular: RRR, pulses symmetrical Abdomen: non-tender, soft Bowel: present Musculoskeletal: normal, strength/ROM intact Neuro: normal, sensory motor intact, A&Ox3 Psych: flat detached affect Triage Information Reviewed: Yes Vital Signs On Initial Exam: Initial Vitals Temp Pulse Resp BP Pulse Ox 97.1 F 67 21 136/78 97 10/19/17 15:27 10/19/17 15:27 10/19/17 15:27 10/19/17 15:27 10/19/17 15:27 Vital Signs Reviewed: Yes Diagnostics - Vital Signs Vital Signs Temp Pulse Resp BP Pulse Ox 10/19/17 15:27 97.1 F 67 21 136/78 97 - Laboratory Result Diagrams: 10/19/17 16:02 10/19/17 16:02 Lab Statement: Any lab studies that have been ordered have been reviewed, and results considered in the medical decision making process. - EKG 16:23 Cardiac Rate: NL - at 67 bpm EKG Rhythm: Sinus Rhythm ST Segment: Normal EKG Interpretation: First degree AV block. Normal axis. Re-Evaluation - Re-Evaluation First Eval Re-Evaluation Time: 16:42 Change: Improved Comment: Pt feels better but is sedated. Second Eval Re-Evaluation Time: 17:21 Change: Improved Comment: Pt will be discharged home. Abdominal Pain Fem Course/Dx - Course Course Of Treatment: Patient with history of cyclic vomiting/diabetic gastroparesis who presents with similar symptoms today. She states her oral medications no longer work. She also states that most IV medications do not work for her. She was given IV hydration, IV Haldol and Benadryl with resolution of all symptoms. She felt much better and was able to be discharged home. There is no gross electrolyte abnormality. She had no significant tenderness. - Diagnoses Differential Diagnosis: Positive: Other - Gastroparesis, cyclic vomiting, bowel obstruction, dehydration Provider Diagnoses: Diabetic gastroparesis, Cyclical vomiting Discharge - Sign-Out/Discharge Documenting (check all that apply): Patient Departure - Discharge - Discharge Plan Condition: Improved Disposition: HOME Patient Education Materials: Diabetic Gastroparesis (DC) Referrals: Nemesio Hathaway MD [Medical Doctor] - Christiano Rosa MD [Primary Care Provider] - Additional Instructions: [place] diet. Drink plenty of fluids. Avoid foods that exacerbate this condition. Return if worse, new symptoms or other concerns. Call first thing in the morning to follow-up with her family doctor and also the GI provider number given above. It may take some time to get in with GI. - Billing Disposition and Condition Condition: IMPROVED Disposition: Home
[2017-10-19] MEDS ORDERED: diPHENhydraMINE IV* 50 MG/ML 1 ml VIAL (BENADRYL) IV ONE (15:35)
[2017-10-19] MEDS ORDERED: Haloperidol INJ IV/IM* 5 MG/ML AMP IV SLOW PU ONE (15:35)
[2017-10-19 16:09] LABS: ABS Basophils 0.1 10^3/ul (0-0.2); ABS Eosinophils 0.1 10^3/ul (0-0.6); ABS Lymphocytes 2.1 10^3/ul (1.0-4.8); ABS Monocytes 0.5 10^3/ul (0-0.8); ABS Neutrophils 8.3 10^3/ul (1.5-7.7); ABS Nucleated RBC 0 10^3/ul; Eosinophil % 1.1 % (0-6); Hematocrit 34 % (35-47); Hemoglobin 11.4 g/dl (12.0-16.0); Lymphocyte % 18.6 % (25-47); Mean Corpuscular HGB Conc 34 g/dl (31-36); Mean Corpuscular Hemoglobin 32 pg (27-31); Mean Corpuscular Volume 94 fL (80-97); Mean Platelet Volume 7.2 um3 (7.4-10.4); Nucleated Red Blood Cells % 0; Platelet Count 375 10^3/ul (150-450); Red Blood Count 3.61 10^6/ul (4.00-5.40); Red Cell Distribution Width 14 % (10.5-15); White Blood Count 11.1 10^3/ul (3.5-10.8)
[2017-10-19 16:17] LABS: INR 0.98 (0.77-1.02)
[2017-10-19 16:31] LABS: EGFR Non-African American 68.5 (>60)
[2017-10-19 18:05] LABS: Urine Appearance Cloudy; Urine Blood Negative (Negative); Urine Color Yellow; Urine Ketones Negative (Negative); Urine Protein Negative (Negative); Urine Red Blood Cell Absent (Absent); Urine Specific Gravity 1.003 (1.010-1.030); Urine Urobilinogen Negative (Negative); Urine White Blood Cell 3+(>20/hpf) (Absent)
[2017-10-19 18:22] VITALS: BP 124/80
== END 2017-10-19 18:21 | disposition home or self-care (01) ==
LOC: ED 15:00
DX: E11.43 Type 2 diabetes mellitus with diabetic autonomic (poly)neuropathy (principal); K31.84 Gastroparesis; G43.A0 Cyclical vomiting, in migraine, not intractable; I44.0 Atrioventricular block, first degree; I10 Essential (primary) hypertension; F29 Unspecified psychosis not due to a substance or known physiological condition; Z79.899 Other long term (current) drug therapy; Z87.891 Personal history of nicotine dependence; Z79.4 Long term (current) use of insulin; Z79.84 Long term (current) use of oral hypoglycemic drugs; Z86.73 Personal history of transient ischemic attack (TIA), and cerebral infarction without residual deficits; Z90.710 Acquired absence of both cervix and uterus; Z88.8 Allergy status to other drugs, medicaments and biological substances; Z88.5 Allergy status to narcotic agent; Z88.2 Allergy status to sulfonamides
CPT/HCPCS: 36415; 80053; 81003; 81015; 82550; 83605; 83690; 84484; 85025; 85610; 86140; 87086; 93005; 96361; 96374; 96375; 99283; J1200; J1630

== ENCOUNTER 2017-11-21 09:18 | Emergency (ER) | payer MEDICARE ==
[2017-11-21] MEDS ORDERED: diPHENhydraMINE IV* 50 MG in NS 0.9% 50 ML* 50 ML IVPB ONE (10:35)
[2017-11-21] MEDS ORDERED: NS 0.9% 1000 ML* 1,000 ML IV ONE ×2 (10:35→12:25)
[2017-11-21] MEDS ORDERED: Metoclopramide IV* 5 MG/ML 2 ML VIAL IV ONE (10:35)
--- NOTE | 2017-11-21 10:35 | ED ---
Abdominal Pain/Female - HPI Summary HPI Summary: This is scribe Madi Brock documenting for attending James Starks MD, . This patient is a 62 year old F with a PMHx of cholecystitis presenting to [facility] with a chief complaint of abdominal pain. Patient reports nausea, dehydration, insomnia, and decreased frequency in urination. She was scheduled to have a cholecystectomy on 11/17/2017, but it was delayed because she had a stroke. Clarence Morales MD is her PCP. I, Dr. Starks, personally performed the services described in this documentation as scribed in my presence, and it is both accurate and complete. - History of Current Complaint Chief Complaint: EDAbdPain Stated Complaint: DEHYDRATION,GENERAL ILLNESS Time Seen by Provider: 11/21/17 10:18 Hx Obtained From: Patient Onset/Duration: Sudden Onset, Lasting Days Timing: Constant Pain Intensity: 0 Aggravating Factor(s): Nothing Alleviating Factor(s): Nothing Associated Signs and Symptoms: Positive: Urinary Symptoms - Decreased frequency in urination, Nausea, Other: - Dehydration, insomnia Allergies/Adverse Reactions: Allergies Allergy/AdvReac Type Severity Reaction Status Date / Time atorvastatin Allergy Severe See Comment Verified 11/21/17 09:27 tramadol Allergy Severe Shortness Verified 11/21/17 09:27 of Breath codeine Allergy Intermediate Rash Verified 11/21/17 09:27 Sulfa (Sulfonamide Allergy Mild Rash Verified 11/21/17 09:27 Antibiotics) Home Medications: Home Medications Aspirin EC TAB* [Ecotrin EC Low Dose 81 MG*] 81 mg PO DAILY 11/21/17 [History Confirmed 11/21/17] Ziprasidone CAP* [Geodon CAP*] 160 mg PO QPM 11/21/17 [History Confirmed ] PMH/Surg Hx/FS Hx/Imm Hx Endocrine/Hematology History: Reports: Hx Diabetes Denies: Hx Thyroid Disease Cardiovascular History: Reports: Hx Hypercholesterolemia, Hx Hypertension, Other Cardiovascular Problems/Disorders - hypercholesterolemia Denies: Hx Pacemaker/ICD Respiratory History: Reports: Hx Asthma, Hx Pneumonia, Hx Sleep Apnea - doesn't use her CPAP, Other Respiratory Problems/Disorders - reports pneumonia x5 in 9 years - has seen dr combs Denies: Hx Chronic Obstructive Pulmonary Disease (COPD) GI History: Reports: Hx Gall Bladder Disease - gall stones, Other GI Disorders - current gallbladder issue Denies: Hx Hiatal Hernia, Hx Ulcer History: Reports: Hx Acute Renal Failure, Hx Renal Disease - HX OF FAILURE - THAT RESOLVED, Other Problems/Disorders - hx UTI's Musculoskeletal History: Reports: Hx Arthritis - bilateral knees, Other Musculoskeletal History - reports spinal stenosis - followed by dr timmons Denies: Hx Osteoporosis Sensory History: Reports: Hx Cataracts - bilateral, Hx Contacts or Glasses - glasses, Hx Vision Problem Denies: Hx Hearing Aid Opthamlomology History: Reports: Hx Cataracts - bilateral, Hx Contacts or Glasses - glasses, Hx Vision Problem Neurological History: Reports: Hx Headaches - none in 3 yrs, 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, Other Neuro Impairments/Disorders - reports hx psychosis Psychiatric History: Reports: Hx Anxiety, Hx Depression, Hx Post Traumatic Stress Disorder, Other Psychiatric Issues/Disorders - Psychosis, controlled with Geodon Denies: Hx Eating Disorder, Hx Panic Disorder, Hx of Violent Episodes Against Others - Cancer History Hx Chemotherapy: No Hx Radiation Therapy: No - Surgical History Surgery Procedure, Year, and Place[place] 06/19/14-[employer] REVEAL HEART LOOP RECORDER - CURRENTLY NOT ACTIVE. [place] with [place]OL[place] [facility] [place] Anesthesia Reactions: No - Immunization History Date of Influenza Vaccine: 12/2016 Infectious Disease History: No Infectious Disease History: Reports: Hx Shingles Denies: Hx Clostridium Difficile, Hx Hepatitis, Hx Human Immunodeficiency Virus (HIV), Hx of Known/Suspected MRSA, Hx Tuberculosis, History Other Infectious Disease, Traveled Outside the [place] in Last 30 Days - Family History Known Family History: Positive: Hypertension - Social History Occupation: Disabled Alcohol Use: Rare Alcohol Amount: 1-2 beers occassionally last drink 3 mo. ago Hx Substance Use: No Substance Use Type: Reports: None Hx Tobacco Use: Yes Smoking Status (MU): Former Smoker Type: Cigarettes Amount Used/How Often: reports had 3 cigs per day for 5 years Have You Smoked in the Last Year: No Review of Systems Positive: Other - Dehydration, insomnia Positive: Abdominal Pain, Nausea Positive: frequency - Decreased frequency All Other Systems Reviewed And Are Negative: Yes Physical Exam - Summary Physical Exam Summary: VITAL SIGNS: Reviewed. GENERAL: Patient is a well-developed and nourished female who is lying comfortable in the stretcher. Patient is not in any acute respiratory distress. HEAD AND FACE: Normocephalic and atraumatic. EYES: PERRLA, EOMI x 2, No injected conjunctiva. EARS: Hearing grossly intact. Ear canals and tympanic membranes are WNL. MOUTH: Oropharynx within normal limits. Mouth is dry. NECK: Supple, trachea is midline, no adenopathy, no JVD. CHEST: Symmetric, no tenderness at palpation LUNGS: Clear to auscultation bilaterally. No wheezing or crackles. CVS: RRR, S1 and S2 present, no murmurs or gallops appreciated. ABDOMEN: RUQ and epigastric tenderness. No signs of distention. Positive bowel sounds. No rebound no guarding, and no masses palpated. No abdominal bruit or pulsations. EXTREMITIES: FROM in all major joints, no edema, no cyanosis or clubbing. NEURO: Alert and oriented x 3. No acute neurological deficits. Speech is normal. SKIN: Dry and warm Triage Information Reviewed: Yes Vital Signs On Initial Exam: Initial Vitals Temp Pulse Resp BP Pulse Ox 96.9 F 90 18 136/85 98 11/21/17 09:23 11/21/17 09:23 11/21/17 09:23 11/21/17 09:23 11/21/17 09:23 Vital Signs Reviewed: Yes Diagnostics - Vital Signs Vital Signs Temp Pulse Resp BP Pulse Ox 11/21/17 09:23 96.9 F 90 18 136/85 98 - Laboratory Result Diagrams: 11/21/17 10:29 11/21/17 10:29 Lab Statement: Any lab studies that have been ordered have been reviewed, and results considered in the medical decision making process. - Ultrasound No standard instances Ultrasound Interpretation Completed By: Radiologist - Abdomen US taken at 11:52 reveal: CHOLELITHIASIS WITH THICKENED GALLBLADDER WALL AND MILDLY PROMINENT COMMON DUCT. THE FINDINGS SUGGEST ACUTE CHOLECYSTITIS. ED Physician has reviewed this report. - EKG No standard instances Cardiac Rate: NL - 80 BPM EKG Rhythm: Sinus Rhythm EKG Interpretation: Taken at 10:45. No STEMI. No ST elevations. Q waves in aVF. Re-Evaluation - Re-Evaluation 1 Re-Evaluation Time: 12:18 Comment: Informed patient of bloodwork results. She is comfortable with going home today and seeing Dr. Morales on 11/23/2017. Abdominal Pain Fem Course/Dx - Course Course Of Treatment: This patient is a 62-year-old female who presents to the emergency room with a chief complaint of having nausea, vomiting, and epigastric and right upper quadrant pain. The patient reports that she has history Cholecystitis however she has not been able to have surgery since the stroke recently. Therefore, they had to postpone the surgery. Blood test results without any significant abnormality except for White Blood Count of 11.7 , sodium level of 134, glucose of 209, CRP of 8.03. Right upper quadrant ultrasound impression: In the ED course the patient was placed in a dictating machine transcriber, IV access was obtained, patient was given fluids, Benadryl and Reglan for the nausea and vomiting. She usually responds better to Benadryl and Haldol however she was agreeable to to Reglan and Benadryl. The patient seems to be stable and feeling better. After medications the patient is feeling better. The nausea has improved. Caity Phillips NP working with Dr. Morales recommended for the patient to be discharged home on follow-up their office on Tuesday. The patient is agreeable with the plan therefore the patient was discharged home with follow-up with Dr. Morales. I discussed all the findings and test results with the patient. Patient was instructed to return to the emergency room immediately if any of the symptoms return or worsens. Plan of care was discussed with the patient and understands and agrees. All questions were answered at patient satisfaction. There were no further complaints or concerns. - Diagnoses Differential Diagnosis: Positive: Constipation, Gall Bladder Disease, Urinary Tract Infection Provider Diagnoses: Cholelithiasis, Abdominal pain - Provider Notifications Discussed Care Of Patient With: Cortney Phillips - Surgery Time Discussed With Above Provider: 12:13 Instructed by Provider To: Other - Discharge patient home and have her follow up with Dr. Morales on 11/23/2017. Discharge - Sign-Out/Discharge Documenting (check all that apply): Patient Departure - D/C - Discharge Plan Condition: Stable Disposition: HOME Patient Education Materials: Cholecystitis (ED), Abdominal Pain (ED) Referrals: Christiano Rosa MD [Primary Care Provider] - 3 Days Clarence Morales MD [Medical Doctor] - (Follow up with Dr. Morales on Tuesday, .) Additional Instructions: FOLLOW UP WITH DR. MORALES ON Tuesday11/23/2017. FOLLOW UP WITH YOUR PRIMARY CARE PROVIDER WITHIN ONE WEEK FOR HIGH BLOOD PRESSURE NOTED TODAY. RETURN TO tHE ED FOR ANY WORSENING OR NEW SYMPTOMS.
[2017-11-21 10:50] LABS: ABS Basophils 0.1 10^3/ul (0-0.2); ABS Eosinophils 0.1 10^3/ul (0-0.6); ABS Lymphocytes 1.6 10^3/ul (1.0-4.8); ABS Monocytes 0.5 10^3/ul (0-0.8); ABS Neutrophils 9.4 10^3/ul (1.5-7.7); ABS Nucleated RBC 0 10^3/ul; Hematocrit 39 % (35-47); Hemoglobin 13.2 g/dl (12.0-16.0); Lymphocyte % 13.7 % (25-47); Mean Corpuscular HGB Conc 34 g/dl (31-36); Mean Corpuscular Hemoglobin 31 pg (27-31); Mean Corpuscular Volume 93 fL (80-97); Mean Platelet Volume 7.3 um3 (7.4-10.4); Nucleated Red Blood Cells % 0; Platelet Count 393 10^3/ul (150-450); Red Blood Count 4.22 10^6/ul (4.00-5.40); Red Cell Distribution Width 13 % (10.5-15); White Blood Count 11.7 10^3/ul (3.5-10.8)
[2017-11-21 11:02] LABS: EGFR Non-African American 73.5 (>60)
--- NOTE | 2017-11-21 11:55 | RAD ---
INDICATION: Right upper quadrant pain COMPARISON: Gallbladder sonogram October 26, 2017 TECHNIQUE: Longitudinal and transverse scans of the right upper quadrant were obtained. Doppler interrogation of the hepatic and portal venous system was performed. FINDINGS: Liver: The liver is normal in size. There is mild increased echogenicity with coarsening of echotexture suggesting mild hepatic parenchymal disease. There are no focal masses. The liver measures 17.6 cm in cephalocaudal dimension. Vessels: There is normal hepatic and portal venous flow. Bile ducts: There is no evidence of intrahepatic ductal dilatation. The common duct is mildly prominent measuring 0.9 cm. Gallbladder: There are multiple gallstones. Gallbladder wall appears thickened measuring 0.4 cm. Pancreas: The visualized pancreas appears normal Right kidney: The right kidney is normal in size and echogenicity. There are no masses or calculi. There is no evidence of hydronephrosis. The right kidney measures 12.0 x 4.5 x 5.4 cm. IVC and aorta: The aorta and superior vena cava appear normal. Fluid: There is no ascites. Other: None. IMPRESSION: CHOLELITHIASIS WITH THICKENED GALLBLADDER WALL AND MILDLY PROMINENT COMMON DUCT. THE FINDINGS SUGGEST ACUTE CHOLECYSTITIS.
[2017-11-21] MEDS ORDERED: NS 0.9% 500 ML* 500 ML IV ONE (12:28)
[2017-11-21 13:17] VITALS: BP 155/92
--- NOTE | 2017-11-21 14:37 | CONS ---
CC: Dr. Grover; Dr. Christiano Rosa; Dr. Simeon Turcios SURGICAL CONSULTATION NOTE: DATE OF CONSULT: This patient is seen at [facility] in the emergency department on Tuesday , 11/21/17. ATTENDING PHYSICIAN: Ashish Reilly MD CHIEF COMPLAINT: Nausea. HISTORY OF PRESENT ILLNESS: The patient is a 62-year-old female with symptomatic cholelithiasis, kno wn to Dr. Grover. She was scheduled for a laparoscopic cholecystectomy on 11/17/17. She suffered a subacute ischemic stroke on 08/31/17, and has been followed by Dr. Turcios. At the time of her preop erative history and physical examination, SHAI Conroy from our office spoke to Dr. Turcios who rec ommended postponing the elective laparoscopic cholecystectomy until the patient had a full 3-month re covery from her stroke. The patient came to the emergency room this morning complaining of persisten t nausea since last . She stated that she was unable to eat or drink fluids sufficiently. S he denied any abdominal pain. She denied any tea-colored urine and states that her last bowel moveme nt was on last and it was of normal color and formed. Her white blood cell count was slight ly elevated at 11.7 and there was no left shift; total bilirubin 0.5, alk phos 91, AST 21, ALT 25, an d lipase 36. Her GGT was elevated at 109. She was afebrile. I examined her abdomen. She had activ e bowel sounds. Her abdomen is obese and soft and she had very mild epigastric and right upper quadr ant tenderness with deep palpation and a negative Durant sign. Gallbladder ultrasound was repeated, which revealed cholelithiasis with thickened gallbladder wall of 0.4 mm and mildly prominent common d uct. She was afebrile at 97.2 and her vital signs were stable. I called Dr. Turcios to discuss the fact that she had returned to the emergency room with persistent nausea and he stated that if the milena geon felt that this was no longer an elective surgery, we could proceed with a laparoscopic cholecyst ectomy, but that if it is still elective, he would recommend waiting until the end of November for the full 3-month recovery. I discussed the findings with both the patient and Dr. Starks. The patient wi shes to wait for the full 3-month recovery. She was given 2 L of normal saline in the emergency room and she felt that she was able to go home. We did schedule a followup visit with Dr. Grover in our office on 11/23/17, at 10 a.m. The patient knows to return to the emergency room with any new concerns or to call our office for advise. TIME SPENT: 60 minutes with 50% in [id number] history taking and patient counseling and discharge planning. AGNES EL, HAYDE [id number]/CPS #: [id number]
== END 2017-11-21 13:16 | disposition home or self-care (01) ==
LOC: ED 09:18
DX: K80.20 Calculus of gallbladder without cholecystitis without obstruction (principal); Z87.891 Personal history of nicotine dependence; Z86.73 Personal history of transient ischemic attack (TIA), and cerebral infarction without residual deficits; Z88.5 Allergy status to narcotic agent; Z88.2 Allergy status to sulfonamides; Z88.8 Allergy status to other drugs, medicaments and biological substances
CPT/HCPCS: 36415; 76705; 80053; 82550; 82977; 83690; 84484; 85025; 86140; 93005; 96361; 96374; 96375; 99282; J1200; J2765

== ENCOUNTER 2018-01-03 09:43 | Emergency (ER) | payer MEDICARE ==
--- NOTE | 2018-01-03 10:19 | ED ---
Complex/Multi-Sys Presentation - HPI Summary HPI Summary: A 62 y/o F presents to ED for MHE referred from her PCP's office onset AREA OPERATIONS DIRECTOR. Pt states she has not been eating for two weeks. Associated sx: lightheadedness, syncopal episode without LOC. Denies fever. Aggravating factors: walking. Pt recently received news from Dr. Duron, podiatry, that she would need her L great toe amputated due to infection. She states she is supposed to get an MRI but has not scheduled it yet. She is on Doxy. Sees Dr. Rosa, PCP, contacted their office AREA OPERATIONS DIRECTOR. At bedside, she states "she can't take it anymore" but also denies making SI statements to Dr. Rosa's nurse earlier in the day. She states her SOB is per baseline, PMHx: asthma. Pert PMHx: depression, SI with attempts. - History Of Current Complaint Chief Complaint: EDGeneral Time Seen by Provider: 01/03/18 10:02 Hx Obtained From: Patient, Other: - Dr. Rosa's nurseLeni Onset/Duration: Still Present Timing: Constant Aggravating Factor(s): Walking has aggravated her dizziness. The bad news re: L foot great toe amputation has aggravated her depression. Associated Signs And Symptoms: Positive: Other - pos: lightheadedness, near syncope without LOC last night,. Negative: Fever - Allergies/Home Medications Allergies/Adverse Reactions: Allergies Allergy/AdvReac Type Severity Reaction Status Date / Time atorvastatin Allergy Severe See Comment Verified 01/03/18 11:05 tramadol Allergy Severe Shortness Verified 01/03/18 11:05 of Breath codeine Allergy Intermediate Rash Verified 01/03/18 11:05 Sulfa (Sulfonamide Allergy Mild Rash Verified 01/03/18 11:05 Antibiotics) Home Medications: Home Medications DOXYcycline CAP(*) [DOXYcycline 100MG CAP(*)] 100 mg PO BID 01/03/18 [History Confirmed 01/03/18] PMH/Surg Hx/FS Hx/Imm Hx Previously Healthy: No Endocrine/Hematology History: Reports: Hx Diabetes Denies: Hx Thyroid Disease Cardiovascular History: Reports: Hx Hypercholesterolemia, Hx Hypertension, Other Cardiovascular Problems/Disorders - hypercholesterolemia Denies: Hx Pacemaker/ICD Respiratory History: Reports: Hx Asthma, Hx Pneumonia, Hx Sleep Apnea - doesn't use her CPAP, Other Respiratory Problems/Disorders - reports pneumonia x5 in 9 years - has seen dr combs Denies: Hx Chronic Obstructive Pulmonary Disease (COPD) GI History: Reports: Hx Gall Bladder Disease - gall stones, Other GI Disorders - current gallbladder issue Denies: Hx Hiatal Hernia, Hx Ulcer History: Reports: Hx Acute Renal Failure, Hx Renal Disease - HX OF FAILURE - THAT RESOLVED, Other Problems/Disorders - hx UTI's Musculoskeletal History: Reports: Hx Arthritis - bilateral knees, Other Musculoskeletal History - reports spinal stenosis - followed by dr timmons Denies: Hx Osteoporosis Sensory History: Reports: Hx Cataracts - bilateral, Hx Contacts or Glasses - glasses, Hx Vision Problem Denies: Hx Hearing Aid Opthamlomology History: Reports: Hx Cataracts - bilateral, Hx Contacts or Glasses - glasses, Hx Vision Problem Neurological History: Reports: Hx Headaches - none in 3 yrs, 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, Other Neuro Impairments/Disorders - reports hx psychosis Psychiatric History: Reports: Hx Anxiety, Hx Depression, Hx Post Traumatic Stress Disorder, Other Psychiatric Issues/Disorders - Psychosis, controlled with Geodon Denies: Hx Eating Disorder, Hx Panic Disorder, Hx of Violent Episodes Against Others - Cancer History Hx Chemotherapy: No Hx Radiation Therapy: No - Surgical History Surgery Procedure, Year, and Place[email or web address] REVEAL HEART LOOP RECORDER - CURRENTLY NOT ACTIVE. bilateral cataract extraction with IOL's [address] [facility] [place] Hx Anesthesia Reactions: No - Immunization History Date of Influenza Vaccine: 12/2016 Infectious Disease History: No Infectious Disease History: Reports: Hx Shingles Denies: Hx Clostridium Difficile, Hx Hepatitis, Hx Human Immunodeficiency Virus (HIV), Hx of Known/Suspected MRSA, Hx Tuberculosis, History Other Infectious Disease, Traveled Outside the [place] in Last 30 Days - Family History Known Family History: Positive: Hypertension - Social History Occupation: Disabled Lives: Alone Alcohol Use: Rare Alcohol Amount: 1-2 beers occassionally last drink 3 mo. ago Hx Substance Use: No Substance Use Type: Reports: None Hx Tobacco Use: Yes Smoking Status (MU): Former Smoker Type: Cigarettes Amount Used/How Often: reports had 3 cigs per day for 5 years Have You Smoked in the Last Year: No Review of Systems Negative: Fever, Chills Negative: Erythema Negative: Sore Throat Negative: Chest Pain Negative: Shortness Of Breath, Cough Negative: Abdominal Pain, Vomiting, Nausea Negative: dysuria, hematuria Positive: Other - pos: L great toe pain. Negative: Myalgia, Edema Negative: Rash Neurological: Other - pos: lightheadedness; neg: dizziness Positive: Depressed - and not eating All Other Systems Reviewed And Are Negative: Yes Physical Exam - Summary Physical Exam Summary: Limited exam because pt will no longer allow me to participate in her care. General: Well appearing Cardiovascular: Skin is well perfused Pulmonary: No respiratory distress, no tachypnea Abdomen: Non-distended Skin: Warm, pink, dry Neuro: A&Ox3 Triage Information Reviewed: Yes Vital Signs On Initial Exam: Initial Vitals Temp Pulse Resp BP Pulse Ox 97.5 F 70 16 161/89 98 01/03/18 09:46 01/03/18 09:46 01/03/18 09:46 01/03/18 09:46 01/03/18 09:46 Vital Signs Reviewed: Yes Diagnostics - Vital Signs Vital Signs Temp Pulse Resp BP Pulse Ox 01/03/18 09:46 97.5 F 70 16 161/89 98 - Laboratory Result Diagrams: 01/03/18 10:14 01/03/18 10:14 Lab Statement: Any lab studies that have been ordered have been reviewed, and results considered in the medical decision making process. - Radiology CXR Xray Interpretation: No Acute Changes - IMPRESSION: No acute cardiopulmonary dz. ED provider has reviewed this report. Radiology Interpretation Completed By: Radiologist - EKG 1236 Cardiac Rate: NL - 80bpm EKG Rhythm: Sinus Rhythm Re-Evaluation - Re-Evaluation 1 Re-Evaluation Time: 11:40 Change: Worse Comment: Pt is yelling and pacing in ED, calling Dr. Latrice harrington, yelling profanities, demanding to leave, stating she has no SI. Complex Multi-Symp Course/Dx Course Of Treatment: Pt is a 62 y/o F presents to ED for MHE referred from her PCP's office. She has not been eating for two weeks. Pt recently received news from Dr. Duron, podiatry, that she would need her L great toe amputated due to infection. At bedside, she states "she can't take it anymore" but also denies making SI statements to Dr. Rosa's nurse earlier in the day. Pert PMHx: depression, SI with attempts. EMS chart reviewed from yesterday: No LOC from fall. Feeling weak from not eating. Only drinking juice for past few days. Her blood sugar 87. Requested lift assist only. She did not want to go to hospital. She stated she had food available to her in her home. Pt is medically cleared for MHE at 1144. Pt will be signed out to SHAI Gusman as pt refuses to allow me to care for her. - Diagnoses Provider Diagnoses: Suicidal ideation - Physician Notifications Discussed Care Of Patient With: Christiano Rosa Time Discussed With Above Provider: 12:05 Instructed by Provider To: Other - Spoke with Dr. Rosa's nurse, Leni, regarding pt: Leni spoke with pt earlier today. Pt c/o L toe pain, she had a syncopal episode last night and refused transport from EMS. Pt made a statement to her, if I dont make it to my psych appt this afternoon, I will probably commit suicide. Leni stated pt needed her foot and mental heatlh evaluated, pt replied I dont want to go to hospital and get a psych work up, I dont want to be admitted to psych. Discharge - Sign-Out/Discharge Documenting (check all that apply): Sign-Out Patient Signing out patient TO: Onel Pulido - work-up and dispo - Discharge Plan Condition: Good Disposition: HOME Patient Education Materials: Weakness (ED), Fatigue (ED) Referrals: Christiano Rosa MD [Primary Care Provider] - Additional Instructions: Follow up with your PCP and mica inspector as scheduled Increase fluids Eat small, frequent meals Return to ER if symptoms change or worsen - Attestation Statements Document Initiated by Scribe: Yes Documenting Scribe: Melchor Wadsworth Provider For Whom Scribe is Documenting (Include Credential): Dr. Vaughn Pollard MD Scribe Attestation: I, Melchor Wadsworth, scribed for Dr. Vaughn Pollard MD on 01/03/18 at 1746.
[2018-01-03 10:46] LABS: ABS Basophils 0.1 10^3/ul (0-0.2); ABS Eosinophils 0.2 10^3/ul (0-0.6); ABS Lymphocytes 2.5 10^3/ul (1.0-4.8); ABS Monocytes 0.5 10^3/ul (0-0.8); ABS Neutrophils 6.7 10^3/ul (1.5-7.7); ABS Nucleated RBC 0 10^3/ul; Eosinophil % 2.2 % (0-6); Hematocrit 31 % (35-47); Hemoglobin 10.6 g/dl (12.0-16.0); Lymphocyte % 25.3 % (25-47); Mean Corpuscular HGB Conc 34 g/dl (31-36); Mean Corpuscular Hemoglobin 31 pg (27-31); Mean Corpuscular Volume 92 fL (80-97); Mean Platelet Volume 7.3 um3 (7.4-10.4); Nucleated Red Blood Cells % 0; Platelet Count 409 10^3/ul (150-450); Red Blood Count 3.36 10^6/ul (4.00-5.40); Red Cell Distribution Width 13 % (10.5-15)
[2018-01-03 10:47] LABS: EGFR Non-African American 57.3 (>60)
[2018-01-03] MEDS ORDERED: LORazepam TAB(*) 1 MG PO ONE (11:42)
[2018-01-03] MEDS ORDERED: Bacitracin OINTMENT* 0.5% 0.5 oz TUBE ONE (15:17)
--- NOTE | 2018-01-03 15:44 | RAD ---
Indication: Weakness. 2 views the chest including dual energy PA view demonstrates no mediastinal shift. Heart is of normal size and configuration. Lung monteiro appear clear. No changes noted since September 13, 2017. IMPRESSION: No active cardiopulmonary disease is noted.
[2018-01-03 15:59] VITALS: BP 0/0
[2018-01-03 16:05] LABS: Urine Appearance Clear; Urine Blood Negative (Negative); Urine Color Colorless; Urine Ketones Negative (Negative); Urine Protein Negative (Negative); Urine Urobilinogen Negative (Negative)
--- NOTE | 2018-01-03 17:41 | ED ---
Complex/Multi-Sys Presentation - HPI Summary HPI Summary: Pt. initially examined by Dr. Paulino. Pt. reportedly was referred to the ER today by PCP office for numerous complaints. Pt. with hx of DM. She has been having an ongoing infection to her left great toe for several weeks. Pt. currently on doxycycline. She follows with podiatry. Pt. states she is being scheduled for an outpt. MRI to evaluate for osteomyelitis. Pt. states her broiler chef or cook plans to amputate toe. Pt. also c/o ongoing weakness, abd. pain and decreased PO intake. Pt. states that over the last few weeks dvery time she eats she gets abd. pain. She states she has not been eating and it is making her feel dizzy and lightheaded. Pt. apparently called her PCP office today and made a suicidal comment about needing her toe amputated. In the ER she denies SI or HI. Symptoms are moderate in severity. - History Of Current Complaint Chief Complaint: EDMentalHealth Time Seen by Provider: 01/03/18 10:02 Hx Obtained From: Patient, Other: - Dr. Rosa's nurse, Leni Timing: Constant Aggravating Factor(s): Walking has aggravated her dizziness. The bad news re: L foot great toe amputation has aggravated her depression. Associated Signs And Symptoms: Positive: Other - pos: lightheadedness, near syncope without LOC last night,. Negative: Fever - Allergies/Home Medications Allergies/Adverse Reactions: Allergies Allergy/AdvReac Type Severity Reaction Status Date / Time atorvastatin Allergy Severe See Comment Verified 01/03/18 11:05 tramadol Allergy Severe Shortness Verified 01/03/18 11:05 of Breath codeine Allergy Intermediate Rash Verified 01/03/18 11:05 Sulfa (Sulfonamide Allergy Mild Rash Verified 01/03/18 11:05 Antibiotics) Home Medications: Home Medications DOXYcycline CAP(*) [DOXYcycline 100MG CAP(*)] 100 mg PO BID 01/03/18 [History Confirmed 01/03/18] PMH/Surg Hx/FS Hx/Imm Hx Previously Healthy: Yes Endocrine/Hematology History: Reports: Hx Diabetes Denies: Hx Thyroid Disease Cardiovascular History: Reports: Hx Hypercholesterolemia, Hx Hypertension, Other Cardiovascular Problems/Disorders - hypercholesterolemia Denies: Hx Pacemaker/ICD Respiratory History: Reports: Hx Asthma, Hx Pneumonia, Hx Sleep Apnea - doesn't use her CPAP, Other Respiratory Problems/Disorders - reports pneumonia x5 in 9 years - has seen dr combs Denies: Hx Chronic Obstructive Pulmonary Disease (COPD) GI History: Reports: Hx Gall Bladder Disease - gall stones, Other GI Disorders - current gallbladder issue Denies: Hx Hiatal Hernia, Hx Ulcer History: Reports: Hx Acute Renal Failure, Hx Renal Disease - HX OF FAILURE - THAT RESOLVED, Other Problems/Disorders - hx UTI's Musculoskeletal History: Reports: Hx Arthritis - bilateral knees, Other Musculoskeletal History - reports spinal stenosis - followed by dr timmons Denies: Hx Osteoporosis Sensory History: Reports: Hx Cataracts - bilateral, Hx Contacts or Glasses - glasses, Hx Vision Problem Denies: Hx Hearing Aid Opthamlomology History: Reports: Hx Cataracts - bilateral, Hx Contacts or Glasses - glasses, Hx Vision Problem Neurological History: Reports: Hx Headaches - none in 3 yrs, 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, Other Neuro Impairments/Disorders - reports hx psychosis Psychiatric History: Reports: Hx Anxiety, Hx Depression, Hx Post Traumatic Stress Disorder, Other Psychiatric Issues/Disorders - Psychosis, controlled with [place] Denies: Hx Eating Disorder, Hx Panic Disorder, Hx of Violent Episodes Against Others - Cancer History Hx Chemotherapy: No Hx Radiation Therapy: No - Surgical History Surgery Procedure, Year, and Place[place]-[employer] REVEAL HEART LOOP RECORDER - CURRENTLY NOT ACTIVE. bilateral cataract extraction with IOL's 2013 - Hx Anesthesia Reactions: No - Immunization History Date of Influenza Vaccine: 12/2016 Infectious Disease History: No Infectious Disease History: Reports: Hx Shingles Denies: Hx Clostridium Difficile, Hx Hepatitis, Hx Human Immunodeficiency Virus (HIV), Hx of Known/Suspected MRSA, Hx Tuberculosis, History Other Infectious Disease, Traveled Outside the [place] in Last 30 Days - Family History Known Family History: Positive: Hypertension - Social History Occupation: Disabled Lives: Alone Alcohol Use: Rare Alcohol Amount: 1-2 beers occassionally last drink 3 mo. ago Hx Substance Use: No Substance Use Type: Reports: None Hx Tobacco Use: Yes Smoking Status (MU): Former Smoker Type: Cigarettes Amount Used/How Often: reports had 3 cigs per day for 5 years Have You Smoked in the Last Year: No Review of Systems Negative: Fever, Chills Negative: Erythema Negative: Sore Throat Negative: Chest Pain Negative: Shortness Of Breath, Cough Negative: Abdominal Pain, Vomiting, Nausea Negative: dysuria, hematuria Positive: Other - pos: L great toe pain. Negative: Myalgia, Edema Negative: Rash Neurological: Other - pos: lightheadedness; neg: dizziness Positive: Depressed - and not eating All Other Systems Reviewed And Are Negative: Yes Physical Exam - Summary Physical Exam Summary: Limited exam because pt will no longer allow me to participate in her care. General: Well appearing Cardiovascular: Skin is well perfused Pulmonary: No respiratory distress, no tachypnea Abdomen: Non-distended Skin: Warm, pink, dry Neuro: A&Ox3 Triage Information Reviewed: Yes Vital Signs On Initial Exam: Initial Vitals Temp Pulse Resp BP Pulse Ox 97.5 F 70 16 161/89 98 01/03/18 09:46 01/03/18 09:46 01/03/18 09:46 01/03/18 09:46 01/03/18 09:46 Vital Signs Reviewed: Yes Head/Face: Positive: Normal Head/Face Inspection Eyes: Positive: Normal, EOMI Neck: Positive: Supple Respiratory/Lung Sounds: Positive: Clear to Auscultation, Breath Sounds Present Cardiovascular: Positive: Normal, RRR Abdomen Description: Positive: Nontender, Soft Musculoskeletal: Positive: Other - Moderate diffuse edema to left lower extremity. Good palpable pedal pulse. Mild erythema and edema localized to left great toe. Neurological: Positive: Normal, CN Intact II-III Psychiatric: Positive: Affect/Mood Appropriate Diagnostics - Vital Signs Vital Signs Temp Pulse Resp BP Pulse Ox 01/03/18 15:58 0 F 0 0 0/0 0 01/03/18 15:36 80 18 118/79 98 01/03/18 11:15 82 16 98 01/03/18 09:46 97.5 F 70 16 161/89 98 - Laboratory Lab Results: Lab Results 01/03/18 01/03/18 01/03/18 Range/Units 10:14 10:14 15:19 WBC 10.0 (3.5-10.8) 10^3/ul RBC 3.36 L (4.00-5.40) 10^6/ul Hgb 10.6 L (12.0-16.0) g/dl Hct 31 L (35-47) % MCV 92 (80-97) fL MCH 31 (27-31) pg MCHC 34 (31-36) g/dl RDW 13 (10.5-15) % Plt Count 409 (150-450) 10^3/ul MPV 7.3 L (7.4-10.4) um3 Neut % (Auto) 66.8 (38-83) % Lymph % (Auto) 25.3 (25-47) % [place] % (Auto) 4.9 (0-7) % Eos % (Auto) 2.2 (0-6) % Baso % (Auto) 0.8 (0-2) % Absolute Neuts (auto) 6.7 (1.5-7.7) 10^3/ul Absolute Lymphs (auto) 2.5 (1.0-4.8) 10^3/ul Absolute Monos (auto) 0.5 (0-0.8) 10^3/ul Absolute Eos (auto) 0.2 (0-0.6) 10^3/ul Absolute Basos (auto) 0.1 (0-0.2) 10^3/ul Absolute Nucleated RBC 0 10^3/ul Nucleated RBC % 0 Sodium 132 L (135-145) mmol/L Potassium 5.2 H (3.5-5.0) mmol/L Chloride 97 L (101-111) mmol/L Carbon Dioxide 29 (22-32) mmol/L Anion Gap 6 (2-11) mmol/L BUN 18 (6-24) mg/dL Creatinine 0.98 H (0.51-0.95) mg/dL Est GFR ( Amer) 69.4 (>60) Est GFR (Non-Af Amer) 57.3 (>60) BUN/Creatinine Ratio 18.4 (8-20) Glucose 113 H (70-100) mg/dL Calcium 9.7 (8.6-10.3) mg/dL Total Bilirubin 0.30 (0.2-1.0) mg/dL AST 22 (13-39) U/L ALT 17 (7-52) U/L Alkaline Phosphatase 90 (34-104) U/L Troponin I 0.00 (<0.04) ng/mL C-Reactive Protein 9.72 H (<8.01) mg/L Total Protein 7.9 (6.4-8.9) g/dL Albumin 4.0 (3.2-5.2) g/dL Globulin 3.9 (2-4) g/dL Albumin/Globulin Ratio 1.0 (1-3) TSH 4.99 (0.34-5.60) mcIU/mL Urine Color Colorless Urine Appearance Clear Urine pH 6 (5-9) Ur Specific [place] 1.010 (1.010-1.030) Urine Protein Negative (Negative) Urine Ketones Negative (Negative) Urine Blood Negative (Negative) Urine Nitrate Negative (Negative) Urine Bilirubin Negative (Negative) Urine Urobilinogen Negative (Negative) Ur Leukocyte Esterase Negative (Negative) Urine Glucose Negative (Negative) Salicylates < 2.50 (<30) mg/dL Urine Opiates Screen (None Detect) Acetaminophen < 15 mcg/mL Ur Barbiturates Screen (None Detect) Ur Phencyclidine Scrn (None Detect) Ur Amphetamines Screen (None Detect) U Benzodiazepines Scrn (None Detect) Urine Cocaine Screen (None Detect) U Cannabinoids Screen (None Detect) Serum Alcohol < 10 (<10) mg/dL 01/03/18 Range/Units 15:19 WBC (3.5-10.8) 10^3/ul RBC (4.00-5.40) 10^6/ul Hgb (12.0-16.0) g/dl Hct (35-47) % MCV (80-97) fL MCH (27-31) pg MCHC (31-36) g/dl RDW (10.5-15) % Plt Count (150-450) 10^3/ul MPV (7.4-10.4) um3 Neut % (Auto) (38-83) % Lymph % (Auto) (25-47) % [place] % (Auto) (0-7) % Eos % (Auto) (0-6) % Baso % (Auto) (0-2) % Absolute Neuts (auto) (1.5-7.7) 10^3/ul Absolute Lymphs (auto) (1.0-4.8) 10^3/ul Absolute Monos (auto) (0-0.8) 10^3/ul Absolute Eos (auto) (0-0.6) 10^3/ul Absolute Basos (auto) (0-0.2) 10^3/ul Absolute Nucleated RBC 10^3/ul Nucleated RBC % Sodium (135-145) mmol/L Potassium (3.5-5.0) mmol/L Chloride (101-111) mmol/L Carbon Dioxide (22-32) mmol/L Anion Gap (2-11) mmol/L BUN (6-24) mg/dL Creatinine (0.51-0.95) mg/dL Est GFR ( Amer) (>60) Est GFR (Non-Af Amer) (>60) BUN/Creatinine Ratio (8-20) Glucose (70-100) mg/dL Calcium (8.6-10.3) mg/dL Total Bilirubin (0.2-1.0) mg/dL AST (13-39) U/L ALT (7-52) U/L Alkaline Phosphatase (34-104) U/L Troponin I (<0.04) ng/mL C-Reactive Protein (<8.01) mg/L Total Protein (6.4-8.9) g/dL Albumin (3.2-5.2) g/dL Globulin (2-4) g/dL Albumin/Globulin Ratio (1-3) TSH (0.34-5.60) mcIU/mL Urine Color Urine Appearance Urine pH (5-9) Ur Specific [place] (1.010-1.030) Urine Protein (Negative) Urine Ketones (Negative) Urine Blood (Negative) Urine Nitrate (Negative) Urine Bilirubin (Negative) Urine Urobilinogen (Negative) Ur Leukocyte Esterase (Negative) Urine Glucose (Negative) Salicylates (<30) mg/dL Urine Opiates Screen None detected (None Detect) Acetaminophen mcg/mL Ur Barbiturates Screen None detected (None Detect) Ur Phencyclidine Scrn None detected (None Detect) Ur Amphetamines Screen None detected (None Detect) U Benzodiazepines Scrn None detected (None Detect) Urine Cocaine Screen None detected (None Detect) U Cannabinoids Screen None detected (None Detect) Serum Alcohol (<10) mg/dL Result Diagrams: 01/03/18 10:14 01/03/18 10:14 Lab Statement: Any lab studies that have been ordered have been reviewed, and results considered in the medical decision making process. - Radiology CXR Xray Interpretation: No Acute Changes - IMPRESSION: No acute cardiopulmonary dz. ED provider has reviewed this report. Radiology Interpretation Completed By: Radiologist - EKG 1236 Cardiac Rate: NL - 80bpm EKG Rhythm: Sinus Rhythm Re-Evaluation - Re-Evaluation 1 Re-Evaluation Time: 11:40 Change: Worse Comment: Pt is yelling and pacing in ED, calling Dr. Latrice harrington, yelling profanities, demanding to leave, stating she has no SI. Complex Multi-Symp Course/Dx Course Of Treatment: "Pt is a 62 y/o F presents to ED for MHE referred from her PCP's office. She has not been eating for two weeks. Pt recently received news from Dr. Duron, podiatry, that she would need her L great toe amputated due to infection. At bedside, she states "she can't take it anymore" but also denies making SI statements to Dr. Rosa's nurse earlier in the day. Pert PMHx: depression, SI with attempts. EMS chart reviewed from yesterday: No LOC from fall. Feeling weak from not eating. Only drinking juice for past few days. Her blood sugar 87. Requested lift assist only. She did not want to go to hospital. She stated she had food available to her in her home. Pt is medically cleared for MHE at 1144.". Pt. initially being by Dr. Pollard in the ER. Pt. became upset with Dr. Pollard when she was ordered a psychiatric evaluation based on statements made earlier today. Pt. refused to see Dr. Pollard any further. Pt. cleared by psych. I was requested to see pt. She is afebrile with stable vital signs. She has no reproducible abd. pain on exam. Basic labs ordered. CBC shows mild anemia 10.8. CMP shows mildly high K of 5.2, na 132, cl 97, cr .98, crp 9.7. CXR negative for acute findings. UA negative for infection. Pt. mainly c/o weakness and dizziness because she is not eating. Pt. was able to eat and drink in the ER. Pt. also concerned she needs stat MRI of foot to look for bone infection. Case discussed with Dr. Pollard who does not feel MRI of foot is neccessary today since pt. is afebrile with normal wbc and minimally elevate crp and feels she can f.u as an outpt. as it is already being schedule. Pt. is very upset MRI is not being performed today. She refuses any further medical tx and is demanding to be dc home. She will f.u with PCP and podiatry as scheduled. To return to ER if sxs change or worsen. - Diagnoses Provider Diagnoses: Weakness, Fatigue - Physician Notifications Time Discussed With Above Provider: 12:05 Instructed by Provider To: Other - Spoke with Dr. Rosa's nurse, Leni, regarding pt: Leni spoke with pt earlier today. Pt c/o L toe pain, she had a syncopal episode last night and refused transport from EMS. Pt made a statement to her, if I dont make it to my psych appt this afternoon, I will probably commit suicide. Leni stated pt needed her foot and mental heatlh evaluated, pt replied I dont want to go to hospital and get a psych work up, I dont want to be admitted to psych. Discharge - Sign-Out/Discharge Documenting (check all that apply): Patient Departure - Discharge Plan Condition: Good Disposition: HOME Patient Education Materials: Weakness (ED), Fatigue (ED) Referrals: Christiano Rosa MD [Primary Care Provider] - Additional Instructions: Follow up with your PCP and broiler chef or cook as scheduled Increase fluids Eat small, frequent meals Return to ER if symptoms change or worsen - Billing Disposition and Condition Condition: GOOD Disposition: Home
== END 2018-01-03 15:58 | disposition home or self-care (01) ==
LOC: ED 09:43
DX: R53.1 Weakness (principal); R53.83 Other fatigue; F32.9 Major depressive disorder, single episode, unspecified; R45.851 Suicidal ideations; Z91.5 Personal history of self-harm; M79.675 Pain in left toe(s); D64.9 Anemia, unspecified; R42 Dizziness and giddiness; Z87.891 Personal history of nicotine dependence; Z88.5 Allergy status to narcotic agent; Z88.2 Allergy status to sulfonamides
CPT/HCPCS: 36415; 71046; 80053; 80307; 80320; 80329; 81003; 84443; 84484; 85025; 86140; 93005; 99284; A9270-GY; G0480

== ENCOUNTER 2018-01-11 07:10 | Inpatient (IN) | payer MEDICARE ==
[2018-01-11] MEDS ORDERED: NS 0.9% 1000 ML*IV.FLUID IV ONE (07:59)
[2018-01-11] MEDS ORDERED: Vancomycin(*) 1,000 MG in NS 0.9% 250 ML* 250 ML IVPB ONE ×2 (08:01→12:00)
--- NOTE | 2018-01-11 08:05 | ED ---
Sepsis HPI - HPI Summary HPI Summary: Patient is a 62 y/o female who presents to the ED c/o slurred speech s/p fall. She states she fell at 22:00 last night but was unable to reach a phone to call for help until 2:30 this morning. EMS arrived on the scene and helped her off the floor. She now c/o slurred speech and fatigue. Patient was also scheduled for an MRI of her left ankle at 7:00 this morning to rule out osteomyelitis, and was brought to the ED by a nurse for evaluation. She is currently on doxycycline for this, and she has an open wound on her left toe. Patient had a LE US and DVT was ruled out. PMHx DM, HTN, HLD, EtOH abuse. - History of Current Complaint Chief Complaint: EDGeneral Time Seen by Provider: 01/11/18 07:25 Stated Complaint: DIZZINESS Hx Obtained From: Patient Onset/Duration: Started Hours Ago - Last night at 22:00, Still Present Timing: Constant Current Severity: None Pain Intensity: 0 Pain Scale Used: 0-10 Numeric Character: Lethargic, slurred speech Aggravating Symptom(s): Unknown Alleviating Factor(s): Unknown Associated Signs & Symptoms: Negative - Additional Pertinent History Primary Care Physician: [id number] - Allergy/Home Medications Allergies/Adverse Reactions: Allergies Allergy/AdvReac Type Severity Reaction Status Date / Time atorvastatin Allergy Severe See Comment Verified 01/11/18 10:39 tramadol Allergy Severe Shortness Verified 01/11/18 10:39 of Breath codeine Allergy Intermediate Rash Verified 01/11/18 10:39 Sulfa (Sulfonamide Allergy Mild Rash Verified 01/11/18 10:39 Antibiotics) PMH/Surg Hx/FS Hx/Imm Hx Endocrine/Hematology History: Reports: Hx Diabetes Denies: Hx Thyroid Disease Cardiovascular History: Reports: Hx Hypercholesterolemia, Hx Hypertension - HYPOTENSION, Other Cardiovascular Problems/Disorders - hypercholesterolemia Denies: Hx Pacemaker/ICD Respiratory History: Reports: Hx Asthma, Hx Pneumonia, Hx Sleep Apnea - doesn't use her CPAP, Other Respiratory Problems/Disorders - reports pneumonia x5 in 9 years - has seen dr combs Denies: Hx Chronic Obstructive Pulmonary Disease (COPD) GI History: Reports: Hx Gall Bladder Disease - gall stones, Other GI Disorders - current gallbladder issue Denies: Hx Hiatal Hernia, Hx Ulcer History: Reports: Hx Acute Renal Failure, Hx Renal Disease - HX OF FAILURE - THAT RESOLVED, Other Problems/Disorders - hx UTI's Musculoskeletal History: Reports: Hx Arthritis - bilateral knees, Other Musculoskeletal History - reports spinal stenosis - followed by dr timmons Denies: Hx Osteoporosis Sensory History: Reports: Hx Cataracts - bilateral, Hx Contacts or Glasses - glasses, Hx Vision Problem Denies: Hx Hearing Aid Opthamlomology History: Reports: Hx Cataracts - bilateral, Hx Contacts or Glasses - glasses, Hx Vision Problem Neurological History: Reports: Hx Headaches - none in 3 yrs, 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, Other Neuro Impairments/Disorders - reports hx psychosis Psychiatric History: Reports: Hx Anxiety, Hx Depression, Hx Panic Disorder - ANXIETY UNDER CONTROL, Hx Post Traumatic Stress Disorder, Hx Schizophrenia, Hx Substance Abuse - EtOH, Other Psychiatric Issues/Disorders - Psychosis, controlled with [place] Denies: Hx Eating Disorder, Hx of Violent Episodes Against Others - Cancer History Hx Chemotherapy: No Hx Radiation Therapy: No - Surgical History Surgery Procedure, Year, and Place[place]-[employer] REVEAL HEART LOOP RECORDER - CURRENTLY NOT ACTIVE. bilateral cataract extraction with IOL's 2013 - [facility] [place]. GALLBLADDER Hx Anesthesia Reactions: No - Immunization History Date of Influenza Vaccine: 12/2016 Infectious Disease History: No Infectious Disease History: Reports: Hx Shingles Denies: Hx Clostridium Difficile, Hx Hepatitis, Hx Human Immunodeficiency Virus (HIV), Hx of Known/Suspected MRSA, Hx Tuberculosis, History Other Infectious Disease, Traveled Outside the [place] in Last 30 Days - Family History Known Family History: Positive: Hypertension - Social History Alcohol Use: Rare Alcohol Amount: 1-2 beers occassionally last drink 3 mo. ago Hx Substance Use: No Substance Use Type: Reports: None Hx Tobacco Use: Yes Smoking Status (MU): Former Smoker Type: Cigarettes Amount Used/How Often: reports had 3 cigs per day for 5 years Have You Smoked in the Last Year: No Review of Systems Positive: Fatigue Positive: Slurred Speech All Other Systems Reviewed And Are Negative: Yes Physical Exam - Summary Physical Exam Summary: VITAL SIGNS: Reviewed. GENERAL: Patient is a well-developed and nourished FEMALE who is lying comfortable in the stretcher. Patient is not in any acute respiratory distress. HEAD AND FACE: No signs of trauma. No ecchymosis, hematomas or skull depressions. No sinus tenderness. EYES: PERRLA, EOMI x 2, No injected conjunctiva, no nystagmus. EARS: Hearing grossly intact. Ear canals and tympanic membranes are within normal limits. MOUTH: Oral mucosa dry. NECK: Supple, trachea is midline, no adenopathy, no JVD, no carotid bruit, no c- spine tenderness, neck with full ROM. CHEST: Symmetric, no tenderness at palpation LUNGS: Clear to auscultation bilaterally. No wheezing or crackles. CVS: Regular rate and rhythm, S1 and S2 present, no murmurs or gallops appreciated. ABDOMEN: Soft, non-tender. No signs of distention. No rebound no guarding, and no masses palpated. Bowel sounds are normal. EXTREMITIES: FROM in all major joints, no edema, no cyanosis or clubbing. Left toe is erythematous and has a small wound. NEURO: Lethargic and somnolent. Alert and oriented x 3. No acute neurological deficits. Speech is normal and follows commands. Answered questions appropriately. SKIN: Dry and warm GCS: 15 Triage Information Reviewed: Yes Vital Signs On Initial Exam: Initial Vitals Temp Pulse Resp BP Pulse Ox 97.4 F 80 16 97/70 97 01/11/18 07:13 01/11/18 07:13 01/11/18 07:13 01/11/18 07:13 01/11/18 07:13 Vital Signs Reviewed: Yes Diagnostics - Vital Signs Vital Signs Temp Pulse Resp BP Pulse Ox 01/11/18 07:29 75 13 113/73 98 01/11/18 07:26 13 01/11/18 07:13 97.4 F 80 16 97/70 97 - Laboratory Result Diagrams: 01/12/18 06:33 01/12/18 06:33 Lab Statement: Any lab studies that have been ordered have been reviewed, and results considered in the medical decision making process. - Radiology CXR Xray Interpretation: No Acute Changes - NO EVIDENCE FOR ACTIVE CARDIOPULMONARY DISEASE. ED physician reviewed radiology report. Radiology Interpretation Completed By: Radiologist - CT Brain CT CT Interpretation: No Acute Changes - There is trace dependent mastoid air cell effusion on the right unchanged since the September 13, [address] in this otherwise nonacute examination. ED physician reviewed radiology report. CT Interpretation Completed By: Radiologist - EKG 8:04 Cardiac Rate: NL - 72 bpm EKG Rhythm: Sinus Rhythm EKG Interpretation: No ST elevations, diffuse T wave abnormalities Course/Dx - Course Assessment/Plan: Patient is a 62 y/o female who presents to the ED c/o slurred speech s/p fall. She states she fell at 22:00 last night but was unable to reach a phone to call for help until 2:30 this morning. EMS arrived on the scene and helped her off the floor. She now c/o slurred speech and fatigue. Patient was also scheduled for an MRI of her left ankle at 7:00 this morning to rule out osteomyelitis, and was brought to the ED by a nurse for evaluation. She is currently on doxycycline for this, and she has an open wound on her left toe. Patient had a LE US and DVT was ruled out. PMHx DM, HTN, HLD, EtOH abuse. Blood work without any significant abnormality except for sodium 133, anion gap of 12, BUN of 45, creatinine 1.15, lactic acid is 2.4, and CRP of 10.3. Influenza A and B is negative. Head CT impression: There is trace dependent right mastoid air cells unchanged from previous. Chest x-ray impression: No evidence for active cardiopulmonary disease. The patient missed the MRI of the left ankle this morning because she couldn't get up from the floor when she fell last night. I called MRI and they will try to do it sometime today. However because of the lethargy and the low blood pressure I believe that the patient may be becoming septic therefore she was given vancomycin, IV fluids. The patient is more stable. At this point I discussed the case with Dr. Deshpande from the hospitalist services who accepted the patient for admission. - Differential Dx/Clinical Impression Differential Diagnosis/HQI/PQRI: CVA, Hypoglycemia, Medication Reaction, Sepsis , Seizure, TIA Provider Diagnosis: Weakness, Lethargy, Cellulitis - Provider Notifications Discussed Care Of Patient With: Mahendra Deshpande Time Discussed With Above Provider: 09:25 Instructed by Provider To: Admit As Inpatient Discharge - Sign-Out/Discharge Documenting (check all that apply): Patient Departure - Admit - Discharge Plan Condition: Stable Disposition: ADMITTED TO [facility] - Billing Disposition and Condition Condition: STABLE Disposition: Admitted to [facility] - Attestation Statements Document Initiated by Scribe: Yes Documenting Scribe: Mercy Peters Provider For Whom Scribe is Documenting (Include Credential): James Starks MD Scribe Attestation: I, Mercy Peters, scribed for James Starks MD on 01/12/18 at 0938. Scribe Documentation Reviewed: Yes Provider Attestation: The documentation as recorded by the [email or web address] accurately reflects the service I personally performed and the decisions made by me, James Starks MD
[2018-01-11] MEDS ORDERED: NS 0.9% 250 ML* 0 ML ONE (08:24)
[2018-01-11 08:33] LABS: ABS Basophils 0.1 10^3/ul (0-0.2); ABS Eosinophils 0.1 10^3/ul (0-0.6); ABS Lymphocytes 2.4 10^3/ul (1.0-4.8); ABS Monocytes 0.4 10^3/ul (0-0.8); ABS Neutrophils 5.7 10^3/ul (1.5-7.7); ABS Nucleated RBC 0 10^3/ul; Eosinophil % 1.5 % (0-6); Hematocrit 36 % (35-47); Hemoglobin 11.9 g/dl (12.0-16.0); Lymphocyte % 27.8 % (25-47); Mean Corpuscular HGB Conc 33 g/dl (31-36); Mean Corpuscular Hemoglobin 31 pg (27-31); Mean Corpuscular Volume 94 fL (80-97); Mean Platelet Volume 7.7 um3 (7.4-10.4); Nucleated Red Blood Cells % 0.1; Platelet Count 311 10^3/ul (150-450); Red Blood Count 3.82 10^6/ul (4.00-5.40); Red Cell Distribution Width 13 % (10.5-15); White Blood Count 8.6 10^3/ul (3.5-10.8)
--- NOTE | 2018-01-11 08:37 | RAD ---
INDICATION: Dizziness after a recent fall COMPARISON: Most recent comparison CT of the brain is dated September 13, 2017 TECHNIQUE: Contiguous axial sections of the brain were obtained from the skull base to the vertex without contrast. FINDINGS: The ventricles, cisterns and sulci are within normal limits. The allison-white matter differentiation is adequately maintained and there is no sulcal effacement. No significant focal abnormality or mass effect is present. There is no evidence for intracranial hemorrhage. No significant focal osseous abnormality is present. Incidentally noted is hyperostosis frontalis interna. The visualized portion of the paranasal sinuses appear clear. There is trace fluid in the dependent right mastoid air cells unchanged from the previous CT of the brain. IMPRESSION: There is trace dependent mastoid air cell effusion on the right unchanged since the September 13, [address] in this otherwise nonacute examination.
[2018-01-11 08:46] LABS: INR 0.96 (0.77-1.02)
[2018-01-11 08:51] LABS: EGFR Non-African American 47.7 (>60)
--- NOTE | 2018-01-11 09:07 | RAD ---
INDICATION: Lethargy. COMPARISON: Comparison is made with a prior study from January 03, 2018. TECHNIQUE: AP and lateral views of the chest were obtained. FINDINGS: The heart is within normal limits in size. Mediastinal and hilar contours appear within normal limits. The lungs are underinflated. There is minimal atelectasis at the left lung base. The lungs are otherwise clear. No pleural effusion is seen. IMPRESSION: NO EVIDENCE FOR ACTIVE CARDIOPULMONARY DISEASE.
[2018-01-11 09:42] LABS: Urine Appearance Clear; Urine Blood Negative (Negative); Urine Color Straw; Urine Ketones Negative (Negative); Urine Protein Negative (Negative); Urine Specific Gravity 1.004 (1.010-1.030); Urine Urobilinogen Negative (Negative)
[2018-01-11] MEDS ORDERED: Ondansetron INJ* 2 MG/ML VIAL IV PRN (11:25)
[2018-01-11] MEDS ORDERED: Acetaminophen TAB* 325 MG PO PRN (11:25)
[2018-01-11] MEDS ORDERED: Dextrose 50% Syringe 50 ML* 25 GM/50 ML SYRINGE IV PUSH PRN (11:27)
[2018-01-11] MEDS ORDERED: Insulin LISPRO* 1 UNITS UNIT SUBCUT SCH (11:30)
--- NOTE | 2018-01-11 11:55 | RAD ---
Indication: Sepsis. Concern for osteomyelitis at the LEFT forefoot. Comparison: No relevant prior exams available on the [facility] PACS for comparison. Technique: IPPLEX [place] 1.5 Rosalie [id number] with GEM suite. Noncontrast MRI LEFT forefoot. Report: Negative for fracture or malalignment. There is diffuse T2 hyperintense bone marrow edema at the first distal phalanx with corresponding loss of normal T1 marrow hyperintensity. Bone marrow signal is otherwise within normal range throughout the [id number]. There is soft tissue edema about the great toe involving the subcutaneous tissue plane as well as extending along the flexor tendons at the level of the metatarsal. No loculated soft tissue plane abscess collection evident. IMPRESSION: #. Osteomyelitis at the first distal phalanx. #. Soft tissue edema at the great toe and medial forefoot most consistent with cellulitis without evidence for loculated soft tissue plane abscess collection.
[2018-01-11] MEDS ORDERED: Vancomycin(*) 0 MG in NS 0.9% 250 ML* 250 ML IVPB SCH (12:00)
[2018-01-11] MEDS ORDERED: Iodixanol* (CONTRAST) 320 MG/ML 100 ML SDV IV ONE (12:25)
[2018-01-11] MEDS ORDERED: Vancomycin per Pharmacy* NOTE FOLLOW UP PRN (12:31)
[2018-01-11] MEDS ORDERED: Dexamethasone IV* 4 MG in NS 0.9% 50 ML* 50 ML IVPB ONE (13:18)
[2018-01-11] MEDS: NS 0.9% 1000 ML* 1,000 ML IV SCH (13:47)
[2018-01-11] MEDS: Insulin LISPRO* 1 UNITS UNIT SUBCUT SCH ×2 (13:49→19:41)
[2018-01-11] MEDS ORDERED: Dexamethasone IV* 4 MG/ML 1 ML (4 MG) IV SLOW PU ONE (14:00)
[2018-01-11] MEDS: Heparin VIAL(*) 5000 UNITS/ML VIAL (FIVE THOUSAND) SUBCUT SCH ×2 (14:16→21:39)
--- NOTE | 2018-01-11 16:26 | HP ---
CC: Dr. Christiano Rosa; Dr. Gallagher; Dr. Turcios * HISTORY AND PHYSICAL: DATE OF ADMISSION: 01/11/18 PRIMARY CARE PROVIDER: Dr. Christiano Rosa. CONSULTING NEUROLOGIST: Dr. Gallagher. PRIMARY NEUROLOGIST: Dr. Turcios. ATTENDING PHYSICIAN WHILE IN THE HOSPITAL: Dr. Vincenzo Deshpande * (report dictated by Shashi Sheets NP). CHIEF COMPLAINT: 1. Weakness. 2. Fall. HISTORY OF PRESENT ILLNESS: Ms. Alba is a 62-year-old female patient, she has a known history of CVA, hypertension, hyperlipidemia, diabetes, PTSD, anxiety, depression, history of asthma, cervical stenosis, history of insomnia, obesity, and YONIS but she is noncompliant with her CPAP, she comes in today. She says last night at 10 o'clock, she was feeling well. She got up to go to the bathroom and the next thing she knew, she was on the floor. She woke up at 2: 30 in the morning. She knew where she was. She was able to get to the phone and she had summoned EMS. They came and they did a lift support, but she did not want to come into the hospital. At that point, she was told that she was okay, so she did not come into the ER. She says that in that episode, she does not know how if she fainted. She did say that she was incontinent of urine and bowel. She denied having any chest pressure or shortness of breath. She says that she has been taking antibiotics for possible cellulitis, osteomyelitis of her right great toe. She states that she has not been having any vomiting. She does state that over the last week, she has noted that she has been having diarrhea after eating. She says that she has been taking Imodium to help her with this. She denied any fevers or chills to her knowledge. When she woke up , she knew where she was, but she felt profoundly weak. She did not come in. She had an outpatient scheduled MRI. She said she went to the MRI this morning. They saw her at MRI and they were concerned because of how weak she was and MRI team transferred her over to the ER to be further evaluated. She is denying any neck or back pain to me currently. She says that she is not having any chest pain, but she does admit that when she came to last night, she has noted that her speech has been slurred. She calls it thick and at times she has trouble with word finding capability. She denied any worsening weakness to her right arm that was the residual from her stroke that she had previously. She denies having any weakness to her one side, but she is saying both her legs are very weak and she initially was having trouble lifting both her arms. She came into the emergency room, was evaluated. There was concern for osteomyelitis, concern for the weakness, we were asked to evaluate for admission. PAST MEDICAL HISTORY: Significant for: 1. CVA. 2. Hypertension. 3. Hyperlipidemia. 4. Diabetes. 5. PTSD. 6. Anxiety. 7. Depression. 8. Asthma. 9. Cervical stenosis. 10. Insomnia. 11. Obesity. 12. YONIS. PAST SURGICAL HISTORY: She has had: 1. Loop recorder placed, but it is no longer functioning. 2. Hernia repair. 3. Hysterectomy. 4. Laparoscopic cholecystectomy, which was just done several months ago. MEDICATIONS: Home medications according to the list provided include: 1. Doxycycline 100 mg p.o. b.i.d. 2. Aspirin 81 mg daily. 3. Metformin 1000 mg p.o. b.i.d. 4. Klonopin 2 mg p.o. daily. 5. Geodon 160 mg p.o. daily. 6. Pravachol 40 mg p.o. at bedtime. 7. Atrovent 1 puff inhaled b.i.d. 8. Effexor 225 mg p.o. q.a.m. ALLERGIES TO MEDICATIONS: Include LIPITOR, TRAMADOL, CODEINE, SULFA, and AMBIEN. FAMILY HISTORY: Mother had heart disease. Father had prostate cancer. SOCIAL HISTORY: She is a former smoker. She quit in 2011. She occasionally drinks alcohol. Surrogate decision maker is in her 2 sons. REVIEW OF SYSTEMS: There is no documented fever. She denied any significant weight change or double vision. There is no ear discharge. She denies having any rhinorrhea. There was no sore throat. There was no thyroid enlargement. She denied having any chest pain. There was no orthopnea. There is no nocturnal dyspnea. She denies having any abdominal pain. She did admit to having diarrhea. She did not vomit last night. There was no dysuria, no frequency. There was a question of seizure, question of loss of consciousness. Review of 14 systems completed, all others negative. PHYSICAL EXAMINATION GENERAL: At this time, Ms. Alba is a 62-year-old female patient. She is sitting in the hospital bed. She does not appear to be in any acute distress. VITAL SIGNS: Blood pressure 153/78 with a pulse of 76, respirations 16, O2 sat 100%, temperature 96.8. HEENT: Head: Atraumatic and normocephalic. Eyes: EOMs are intact. Sclerae were anicteric and not pale. Throat: Oral mucosa appears to be dry. No oropharyngeal erythema. NECK: Supple. LUNGS: Clear to auscultation bilaterally. There were no wheezes, rales, or rhonchi. HEART: Sounds S1, S2. She had a regular rate and rhythm. There were no murmurs, rubs, or gallops. ABDOMEN: Soft. It was flat, nontender. Bowel sounds present. EXTREMITIES: She has limited range of motion to her lower extremities. She can barely lift them off the bed. She has probably a 2/5 strength to the lower extremities; upper extremities, she has 3/5 strength bilaterally. NEUROLOGIC: She is awake, she is alert. Her speech was somewhat slurred. Her head still operator were weak bilaterally. She has no obvious aphasia. She is unable to do heel- to-mahan or [id number] due to weakness. She had no facial drooping. EOMs were intact. No other gross focal deficits were seen. SKIN: Intact exception to the right great toe, she has an area of erythema and redness. DIAGNOSTIC STUDIES/LAB DATA: Her labs today reveal a WBC of 8.6, RBC 3.82, hemoglobin 11.9, hematocrit 36, platelet count of 311. INR of 0.96, PTT of 38.7. Sodium was 133, potassium of 3.7, chloride of 99, bicarb was 22, BUN 45, creatinine 1.15, glucose of 138, lactate 2.4, calcium 9.6. Total bili 0.3, AST 24, ALT 23, alk phos 89. CK was 315. Troponin 0.01. Albumin 4.3. Procalcitonin was negative. Urine was obtained that was negative. Flu swab obtained negative. She did have a chest x-ray obtained today, which showed no evidence of active cardiopulmonary disease. There was a brain CT obtained today as well, which showed trace dependent mastoid air cell effusion on the right unchanged from 09/13/[address] is otherwise non-acute examination. She had a lower extremity MRI which showed osteomyelitis of the first distal phalanx. Soft tissue edema at the great toe and medial forefoot most consistent with cellulitis without evidence of loculated soft tissue plane abscess collection. She did have an EKG obtained today as well which showed a normal sinus rhythm, rate of 72. She had flat T waves in V4, V5, and V6, which is now new compared to the EKG previously. Old medical records were reviewed. ASSESSMENT AND PLAN: Mrs. Caldera is a 62-year-old male patient coming into the ED today with complaints of a fall, now found to be profoundly weak on exam. In addition to this, found to have osteomyelitis. She will be admitted under inpatient status for: 1. Weakness, etiology is multifactorial. I am concerned that she is not really moving the lower extremities that well and in addition to this, the upper extremities. I did have Dr. Gallagher evaluate the patient. She has had a history an MRI in the past with moderate central canal stenosis at C4-5, C5-6. I am going to get a CT of cervical spine and also possibly an MRI of the cervical spine, but I am going to get Dr. Gallagher to evaluate. To be safe, I am keeping her n.p.o. in case there is any surgical need. In addition to this, I am going to go ahead and keep on her bedrest and place her in a collar. Again, the weakness may be being exacerbated by the fact that she has an active infection. I am placing her on vanco. She may have had a seizure as well last night. So, I am checking an EEG. She may have had a syncope as well, so I am getting an echo, placing her on telemetry, cycling her troponins, and again I am continuing to treat her. We will get frequent neuro checks and again we are getting consults with our specialists. 2. Slurred speech. Again, there is a concern that she may have had a secondary stroke here, although it would be an odd stroke to have weakness to both lower extremities and both upper extremities. I am going to get an MRI of her brain and a CTA of the head and neck given the fact that she is still in the window; she was last known well around 10 o'clock last night according to the patient. 3. Syncope versus seizure. Again, tele, troponins, echo. We cannot do orthostatics just yet because I want to make sure the cervical spine is okay. I will get an EEG as well per the recommendations of Dr. Gallagher. He will continue to follow. 4. History of cerebrovascular accident. Continue with secondary prevention. 5. Hypertension. I will allow for permissive hypertension for the time being. 6. Hyperlipidemia. Continue statin therapy. 7. Diabetes. I have put her on a lispro sliding scale. 8. History of posttraumatic stress disorder, anxiety, depression. Continue supportive care and meds as prescribed. 9. History of asthma. Continue meds as prescribed. 10. Cervical stenosis. Again, we are going to reevaluate. We are starting out with the CT of cervical spine. We may also do an MRI of the cervical spine. 11. Obstructive sleep apnea. She is not compliant with the CPAP. 12. DVT prophylaxis. We will order heparin subcu. 13. Code status. Full code. 14. Osteomyelitis. I did place a word with Dr. Mancia. I am going to go ahead and try to get her started on vanco. I checked an ESR, CRP. Blood cultures were sent and we will await further recommendations from Dr. Mancia. The MRI did show osteomyelitis. TIME SPENT: On admission 90 minutes, greater than half the time was spent face- to- face with the patient obtaining my history and physical, other half the time was spent going over the plan of care with the patient and implementing the plan of care. I did discuss the plan of care with my attending, Dr. Deshpande; he is in agreement. SHASHI SHEETS, HAYDE [id number]/[facility] #: [id number] ROXANNA
--- NOTE | 2018-01-11 17:03 | RAD ---
INDICATION: Weakness. COMPARISON: Comparison is made with a prior MRI of the cervical spine from August 31, 2017. TECHNIQUE: Axial T2 and sagittal T1 and T2 and coronal T2-weighted images of the cervical and dorsal spine through the T11 level were obtained. FINDINGS: VERTEBRA: The vertebra are in normal alignment. No significant focal bony abnormality seen. 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 At the C4-C5 level there appears to be uncinate process spurring and a broad-based disc bulge which causes mild spinal canal narrowing. At the C5-C6 level there is posterior uncinate process spurring associated with a right paracentral disc protrusion causing spinal cord compression and moderate spinal canal narrowing. This is not well-defined on this large field of view screening study. At the C6-C7 level there is posterior uncinate process spurring associated with a broad-based disc bulge causing mild spinal canal narrowing. There is mild to moderate diffuse degenerative disc disease throughout the dorsal spine without significant spinal canal or neural foraminal narrowing. IMPRESSION: DEGENERATIVE DISC DISEASE MOST PROMINENT AT THE C5-C6 LEVEL CAUSING MODERATE SPINAL CANAL NARROWING AND MILD SPINAL CORD COMPRESSION. 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
--- NOTE | 2018-01-11 17:08 | RAD ---
INDICATION: Weakness. COMPARISON: Correlation is made with a prior CT of the lumbar spine from February 16, 2017. TECHNIQUE: Axial and sagittal T1 and T2 and coronal T2-weighted images of the lumbar spine were obtained. T8 through the S1 level are included. FINDINGS: VERTEBRA: There is a chronic moderate compression fracture of the superior endplate of the L1 vertebra with minimal retropulsion of the posterior aspect of the vertebral body into the anterior spinal canal. No other focal osseous abnormalities are seen. L1-L2: There is mild spinal canal narrowing at the L1 level secondary to the chronic compression fracture. There is no evidence for significant disc bulge or herniation. Neural foramen appear patent bilaterally. L2-L3: There is a mild broad-based disc bulge. No significant spinal canal narrowing is present. There is mild bilateral neural foraminal narrowing. L3-L4: There is a mild broad-based disc bulge and mild hypertrophic changes within the facet joints. No significant spinal canal narrowing is present. There is mild bilateral neural foraminal narrowing. L4-L5: There is a mild broad-based disc bulge and moderate hypertrophic changes within the facet joints. There is mild to moderate spinal canal narrowing and mild bilateral neural foraminal narrowing. L5-S1: There is a mild broad-based disc bulge and hypertrophic changes within the facet joints. No significant spinal canal or neural foraminal narrowing is seen. IMPRESSION: 1. MODERATE CHRONIC COMPRESSION FRACTURE OF THE L1 VERTEBRAL BODY. 2. MILD TO MODERATE DIFFUSE LUMBAR SPONDYLOSIS.
--- NOTE | 2018-01-11 17:24 | CONS ---
NEUROLOGY CONSULTATION NOTE: DATE OF CONSULT: 01/11/18 CONSULTING PROVIDER: Shashi Sheets NP REASON FOR CONSULT: Generalized weakness. CHIEF COMPLAINT: "I had a fall and had trouble standing up." HISTORY OF PRESENT ILLNESS: Ms. Ally Alba is a 62-year-old right-handed female who resides alone, who has history of diabetes mellitus type 2 for 30 years, anxiety, hypertension, who presented to the emergency department on 01/11 after a fall. The patient stated that she got up at 10 o'clock to use the bathroom and she was unable to make it because she fell. She did not lose consciousness. She did have urinary incontinence only because she couldn't make it to the restroom. She did not hit her head. She may have fell asleep and woke up 2 hours later where she was able to crawl to the phone and contact EMS. She has never had any similar fall. She had trouble moving her legs after the fall. Today, her main concern is generalized fatigue and weakness in the lower extremities. She had reported history of slurred speech, which I was unable to appreciate on examination today. She denied any headaches, dizziness , double vision, or swallowing dysfunction. The patient does use a walker at baseline. She did inform me that she had incontinent of stool in the past in August 2017 where she was hospitalized for a questionable subacute left frontal stroke that was manifesting as sudden onset right arm weakness. Since the fall now, she has difficulty moving both lower extremities. She is also having mild weakness in the upper extremities bilaterally. She complains of increasing neck pain. The neck pain is dull in sensation with some radiating features to the shoulders bilaterally. 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 Thomas in the past. The patient also reported a history 1 week ago where she felt like she was paralyzed from neck down and was unable to move for 1 hour, also suggests a possible cervical cord pathology. PAST MEDICAL HISTORY: Diabetes; hyperlipidemia; anxiety/depression; hypertension; remote history of subacute/chronic left frontal stroke, on aspirin ; sleep apnea; history renal disease; diabetic retinopathy; arthritis; cataracts ; and posttraumatic stress disorder. PAST SURGICAL HISTORY: Hysterectomy, hernia repair, Medtronic loop recorder placed in 2014. HOME MEDICATIONS: 1. Venlafaxine. 2. Clonazepam. 3. Pravastatin. 4. Metformin. 5. Ipratropium. 6. Ziprasidone. 7. Aspirin. 8. Doxycycline. ALLERGIES: ATORVASTATIN, TRAMADOL, CODEINE, SULFA. FAMILY HISTORY: No family history of stroke or seizures. Her father suffered from hypertension. SOCIAL HISTORY: She lives alone. She is a former smoker. She was a trauma nurse. REVIEW OF SYSTEMS: A 14-point review of systems was completed and negative except for what was mentioned in the HPI. PHYSICAL EXAM: Vitals: Temperature 96.8, heart rate 75, respiratory rate of 15 , oxygen saturation of 100, blood pressure of 153/78. General: She is a well- nourished, well-developed female, in no acute distress. Head is normocephalic without obvious abnormality. Eyes: Conjunctivae/corneas are clear. Neck is supple and symmetrical with no carotid bruits. Lungs are clear to auscultation bilaterally. Cardiovascular: Regular rate and rhythm. Extremities: Hammertoes and high arches with no cyanosis. Skin: No skin lesions or laceration, but she does have a small laceration in the left knee region. Psych : Affect is flat and seems like low depressed mood. Neurological Examination: Awake, alert, and oriented to person, place, time, and general circumstances. Her speech and language including expression, naming, repetition, and comprehension were assessed and found to be normal. I was unable to appreciate any slurred speech on examination. Cranial Nerves: Normal confrontation testing bilaterally. Pupils are mid range and reactive measuring 4 mm bilaterally, constricting to 3 mm bilaterally. Sensation is intact on the forehead, cheeks, and jaw region bilaterally. No facial droop. Able to hear throughout the history process. Symmetrical palatal elevation. Normal strength against resistance, and tongue is symmetrical and midline with no atrophy or fasciculation. Motor Examination: She has increase in tone in the lower extremities bilaterally. Neck extension and flexion is 5/5. Shoulder abduction is 4/4, elbow flexion 5/5, extension 4/4+. Wrist flexion and extension 5-. Finger flexion and extension 5- bilaterally. Hip flexion 4/5, abduction 4/5. Knee flexion 4/5, extension 5-/5. Ankle dorsiflexion 5-/5, plantarflexion 5-. Great toe extension 4/5. Reflexes, right/left: Brachioradialis 1/2, biceps 1/2, triceps trace/1, patella 2/2, ankle 0/0, plantar mute bilaterally. Sensation: She has a distal to proximal sensory gradient to light touch, pinprick and temperature sensation demarcated slightly above the knee region bilaterally. She has a 3-second vibration on the right and 5-second vibratory response on the left. She has intact proprioception. She has no sensory level to pinprick. Coordination: Normal [id number] bilaterally. Gait was not assessed as the patient is walker dependent and she is having trouble with lower extremity weakness. DIAGNOSTIC STUDIES/LAB DATA: Brain CT obtained, 01/11/18, showed no acute intracranial disease. Chest x-ray completed on 01/11/18 was personally reviewed, showed no evidence of acute cardiopulmonary process. I also reviewed the images from August 2017 hospitalization. Brain MRI completed on 09/01/17 showed a tiny diffusion signal within the left posterior frontal richter radiata with normal ADC value, suggestive really of a pseudonormalization or T2 shine-through. I do not suspect this was a stroke, but her clinical history at that time suggested that she may have had a stroke. An MRI of the C-spine completed on 08/30/17 was also reviewed. There is moderate narrowing of the central canal at C4-5 and C5-6. There is also evidence of elevated cord signal opposite of C5 suggestive of mild myelomalacia in the setting of compressive myelopathy. I reviewed the carotid ultrasound completed on 09/02/17. It shows no evidence of hemodynamically significant carotid stenosis. IMPRESSION AND PLAN: Ms. Ally Alba is a 62-year-old female with a history of type 2 diabetes mellitus complicated with retinopathy and peripheral neuropathy, a questionable small lacunar stroke involving the left frontal region in August 2017 that caused weakness and paresthesias in the right upper extremity, hypertension, cervical spondylosis with myelopathy, who presented after a fall. There was a reported history of slurred speech after the fall. The patient did not hit her head, so I do not suspect this was a postconcussive-related dysarthria. I cannot appreciate any dysarthria on examination today. We cannot entirely exclude a small cortical infarction, but it is unlikely given that her symptoms have resolved. Dysarthria is a non-localizing neurological deficit and can present in the setting of hypoglycemia or hypotension as the patient was hypotensive on presentation. She may have had an orthostatic related fall. She is at risk for falls given her spasticity in the lower extremity in addition to the underlying neuropathy. What is concerning here is that the patient has weakness in bilateral lower extremities and slight weakness in a pyramidal-like distribution involving the upper extremities. I suspect this is related to the cervical spondylosis with myelopathy that may have been exacerbated with this recent fall. The patient also reported a history 1 week ago where she felt like she was paralyzed from neck down and was unable to move for 1 hour, also suggests a possible cervical cord pathology. I recommend ordering an MRI of the cervical and lumbar spine to evaluate for spine disease that is currently contributing to her nonlateralizing neurological deficits. She does not have a sensory level on examination. She does not have lateralizing deficits to suggest a stroke and therefore we will hold off on ordering an MRI of the brain unless necessary. Please continue the cervical collar. I have ordered vitamin B12 level to evaluate other secondary causes of neuropathy, but I suspect her neuropathy is mostly due to the manager long term care diabetes mellitus. I discussed these recommendations with Shashi. We discussed fall precautions at bedside. Neurosurgery has been contacted. TIME SPENT: I spent a total of 75 minutes, greater than 50% was spent directly reviewing the medical chart, obtaining history, examining the patient, education and counseling, and discussing the treatment plan and prognosis. [id number]/[facility] #: [id number] ROXANNA
[2018-01-11] MEDS: clonazePAM TAB(*) 1 MG PO SCH (17:45)
[2018-01-11] MEDS: Ziprasidone CAP* 80 MG PO SCH (17:45)
[2018-01-11] MEDS: Vancomycin(*) 1,000 MG in NS 0.9% 250 ML* 250 ML IVPB SCH (19:54)
[2018-01-11] MEDS ORDERED: CMC:Pravastatin (NF) 20 MG TAB PO SCH (21:00)
[2018-01-12] MEDS: Ipratropium HFA INHALER(NF) (ALTERNATIVE = NEBS) INH SCH ×3 (00:50→19:53)
[2018-01-12] MEDS: Insulin LISPRO* 1 UNITS UNIT SUBCUT SCH ×4 (01:04→20:20)
--- NOTE | 2018-01-12 02:19 | CONS ---
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 At that time, the patient was diagnosed with subacute CVA and was considered to be a possible candidate for posterior cervical decompression and fusion. The patient was brought to the emergency room this morning after a reported fall yesterday at her house. The patient reports that she fell and was down for several hours and then was able to call EMS who helped her back to her bed. The patient denied to to come to the emergency room and came this morning for an MRI of her lower extremity to rule out osteomyelitis. The patient was able to go to the taxi with the assistance of the local intermodal truck driver, but could barely walk to the MRI. The patient was brought to the emergency room as she was noted to have difficulty with generalized weakness and slurred speech, the patient was evaluated in the emergency room and was admitted by the internal medicine service and had Neurology evaluation. I was requested to see the patient by the internal medicine service because of her history of profound weakness and MRI findings consistent with cervical stenosis and myelomalacia. The patient was seen by Dr. Gallagher who found the patient to have improvement in terms of her speech, he did not feel that the patient has an acute stroke, but felt that her dysarthria was related to other medical etiology such as hypoglycemia or hypotension while her weakness was thought to be due to cervical spondylosis with myelopathy exacerbated by the recent fall. The patient reports that she did not lose consciousness, denies any neck or back pain at this point. She reports that she does have significant weakness in the upper and lower extremities and she could barely move her arms and her legs as she reports, but now she started to have some increased strength in her upper extremities and slightly moving her lower extremities. She denies any numbness or tingling of her extremities. She did have urinary and GI incontinence during her fall as she reports. The patient was examined by internal medicine team and she was found to have good rectal tone and no loss of perianal sensation. The patient reports there has been difficulty with walking and has been having several falls. The patient is single, lives alone and has 2 sons, one is a vacation planner and the other is a robotic teacher in [place]. PAST MEDICAL HISTORY: Diabetes; hyperlipidemia; anxiety; hypertension; history of CVA, on aspirin; sleep apnea; history of renal disease; diabetic retinopathy ; arthritis; cataracts; posttraumatic stress disorder. PAST SURGICAL HISTORY: Hysterectomy, hernia repair, Medtronic loop recorder. HOME MEDICATIONS: 1. Venlafaxine. 2. Clonazepam. 3. Pravastatin. 4. Metformin. 5. Ipratropium. 6. Ziprasidone. 7. Aspirin. 8. Doxycycline. ALLERGIES: ATORVASTATIN, TRAMADOL, CODEINE and SULFA. FAMILY HISTORY: Hypertension. SOCIAL HISTORY: Tobacco negative, alcohol negative, recreational drug use negative. 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 PHYSICAL EXAM: The patient is not in acute distress. She has a [place] J collar on. She has no tenderness to palpation of the cervical, thoracic, or lumbar spine with some exception in the lower cervical spine in the paraspinal area. She has free range of motion in the cervical spine. She is awake, alert, and oriented x3. Her pupils are equal and reactive. Cranial nerves II through XII are grossly intact. Motor 4-/5 in the upper extremities. Lower extremities 4-/ 5 with the exception of her feet in dorsiflexion and plantarflexion and toe EHL , which is 0 to 1/5, unclear if it is related to pain or poor effort as the patient has osteomyelitis on her left big toe. Sensory grossly intact to light touch. Deep tendon reflexes +1 bilaterally. No clonus. No Babinski. Beverly' s plus/minus. DIAGNOSTIC STUDIES/LAB DATA: The patient had a CT scan of the brain that did not reveal any acute findings. The patient had an MRI of her cervical and thoracic spine that revealed significant stenosis between C4 and C7 with anterior osteophytes, especially at C5-6 with myelomalacia at C5-6 level and significant stenosis. The findings are very similar to previous study from August 2017. The patient also had an MRI of the lumbar spine revealing chronic fracture of L1 without evidence of canal or neural foraminal significant stenosis. The patient also had an MRI of her lower extremities revealing osteomyelitis. IMPRESSION: The patient is a very pleasant 62-year-old female with multiple medical problems who has cervical spondylotic myelopathy with worsening of her weakness after a recent fall. PLAN: The patient at this point has some mild improvement in her strength, especially in the upper extremities, but has quite significant weakness. Her MRI findings are very similar with a previous studies, but because of her worsening of her neurological symptoms, the patient may benefit from surgical decompression in the form posterior cervical decompression and fusion with understanding that she may need to have an anterior approach procedure in the future in the form of multilevel diskectomy or corpectomy. I discussed her MRI findings as well as her clinical examination as well as possible surgical intervention plans and options. The patient understands that her condition may not improve, in fact may get worse after surgery and that she may need to have additional procedure in the future. Also, we discussed in extent possible expectations, limitations, possible complications of the procedure with complications including, but not limited to, bleeding, infection, risk of injury to the adjacent structures, coma, paralysis, , and need for additional procedures, stroke, blindness, cancer, instability, hardware failure , adjacent level disease, pseudoarthrosis, spinal fluid leak, and anesthesia risk. The patient understands and would like to proceed with surgical intervention. At this point, the patient will be n.p.o. and will discuss with medical team as well as Dr. Mancia regarding the safety of an early approach versus and an approach in the more delayed fashion. Given the fact of her recent diagnosis of osteomyelitis, the patient has been started on vancomycin. The patient understood that she may need to have additional procedure in the future and that operative planning will be modified according to intraoperative finding and conditions. Thank you very much for allowing us to participate in the care of this patient. Please do not hesitate to contact our office in case you have any further questions or concerns regarding the care of this patient. [id number]/[facility] #: [id number] ROXANNA
[2018-01-12] MEDS: NS 0.9% 1000 ML* 1,000 ML IV SCH ×2 (02:42→20:49)
[2018-01-12] MEDS: Heparin VIAL(*) 5000 UNITS/ML VIAL (FIVE THOUSAND) SUBCUT SCH (06:21)
[2018-01-12 06:40] LABS: ABS Basophils 0.1 10^3/ul (0-0.2); ABS Eosinophils 0 10^3/ul (0-0.6); ABS Lymphocytes 1.5 10^3/ul (1.0-4.8); ABS Monocytes 0.3 10^3/ul (0-0.8); ABS Neutrophils 4.9 10^3/ul (1.5-7.7); ABS Nucleated RBC 0 10^3/ul; Eosinophil % 0.4 % (0-6); Hematocrit 33 % (35-47); Lymphocyte % 22.5 % (25-47); Mean Corpuscular HGB Conc 33 g/dl (31-36); Mean Corpuscular Hemoglobin 31 pg (27-31); Mean Corpuscular Volume 94 fL (80-97); Mean Platelet Volume 7.4 um3 (7.4-10.4); Nucleated Red Blood Cells % 0; Platelet Count 353 10^3/ul (150-450); Red Blood Count 3.51 10^6/ul (4.00-5.40); Red Cell Distribution Width 13 % (10.5-15); White Blood Count 6.8 10^3/ul (3.5-10.8)
[2018-01-12 07:52] LABS: EGFR Non-African American 85.9 (>60)
[2018-01-12] MEDS: Aspirin EC TAB* 81 MG TAB.EC PO SCH (07:56)
[2018-01-12] MEDS: Venlafaxine EXT RELEASE CAP* 75 MG PO SCH (07:56)
[2018-01-12] MEDS: Vancomycin(*) 1,000 MG in NS 0.9% 250 ML* 250 ML IVPB SCH ×2 (08:09→21:06)
--- NOTE | 2018-01-12 10:23 | PN ---
Subjective Date of Service: 01/12/18 Interval History: Patient was seen and examined at bedside. Reports feeling better, still with difficulties moving lower extremities. Denies headaches, blurred vision, chest pain or SOB. Has been NPO since last night in anticipation for surgery. I spoke with Dr. Olvera earlier today regarding surgical plans. Also discussed with Dr. Mancia who saw the patient in consultation. From infectious disease standpoint, we can proceed with surgery keeping her on Vancomycin per pharmacy protocol for treatment of L great toe osteomylitis. Patient denies fever or chills. She wishes to procced with surgery as soon as possible. Family History: Unchanged from Admission Social History: Unchanged from Admission Past Medical History: Unchanged from Admission Objective Active Medications: Acetaminophen (Tylenol Tab*) 650 mg PO Q4H PRN PRN Reason: FEVER/PAIN Aspirin (Aspirin Ec Tab*) 81 mg PO DAILY [facility] Last Admin: 01/12/18 07:56 Dose: Not Given Clonazepam (Klonopin Tab(*)) 2 mg PO QPM [facility] Last Admin: 01/11/18 17:45 Dose: Not Given Dextrose (D50w Syringe 50 Ml*) 12.5 gm IV PUSH .FOR FS < 60 - SS PRN PRN Reason: FS < 60 Heparin Sodium (Porcine) (Heparin Vial(*)) 5,000 units SUBCUT Q8HR [facility] Last Admin: 01/12/18 06:21 Dose: 5,000 units Sodium Chloride (Ns 0.9% 1000 Ml*) 1,000 mls @ 100 mls/hr IV PER RATE [facility] Last Admin: 01/12/18 02:42 Dose: 100 mls/hr Vancomycin HCl 1,000 mg/ (Sodium Chloride) 250 mls @ 166.667 mls/hr IVPB Q12H [facility] Last Admin: 01/12/18 08:09 Dose: 166.667 mls/hr Insulin Human Lispro (Humalog*) 0 units SUBCUT Q6H [facility]; Protocol Last Admin: 01/12/18 06:41 Dose: Not Given Ipratropium [place] (Atrovent Hfa Inhaler(Nf)) 1 puff INH BID [facility] Last Admin: 01/12/18 07:56 Dose: Not Given Ondansetron HCl (Zofran Inj*) 4 mg IV Q6H PRN PRN Reason: NAUSEA Pharmacy Consult (Vancomycin Per Pharmacy*) 1 note FOLLOW UP . PRN PRN Reason: PER PROTOCOL Pharmacy Profile Note (Vancomycin Trough Check) 1 note FOLLOW UP 0830 ONE Stop: 01/13/18 08:31 Venlafaxine HCl (Effexor Xr Cap*) 225 mg PO QAM [facility] Last Admin: 01/12/18 07:56 Dose: Not Given Ziprasidone (Geodon Cap*) 160 mg PO QPM [facility] Last Admin: 01/11/18 17:45 Dose: Not Given Vital Signs - 8 hr 01/12/18 01/12/18 03:59 07:36 Temperature 97.6 F 97.9 F Pulse Rate 73 71 Respiratory 20 20 Rate Blood Pressure 142/78 143/76 (mmHg) O2 Sat by Pulse 100 100 Oximetry Oxygen Devices in Use Now: None Appearance: Laying flat in bed with [place] J-collar secured, appears comfortable and in NAD. Eyes: No Scleral Icterus, PERRLA Ears/Nose/Mouth/Throat: Clear Oropharnyx, Mucous Membranes Moist Neck: - - Unable to peform exam due to collar Respiratory: Symmetrical Chest Expansion and Respiratory Effort, Clear to Auscultation Cardiovascular: NL Sounds; No Murmurs; No JVD, RRR Abdominal: NL Sounds; No Tenderness; No Distention Extremities: No Edema Neurological: Alert and Oriented x 3 Result Diagrams: 01/12/18 06:33 01/12/18 06:33 Additional Lab and Data: . Microbiology and Other Data: Microbiology 01/11/18 08:45 Aerobic Blood Culture - Preliminary Blood Venous No Growth Day 1 Anaerobic Blood Culture - Preliminary No Growth Day 1 01/11/18 08:20 Aerobic Blood Culture - Preliminary Blood Venous No Growth Day 1 Anaerobic Blood Culture - Preliminary No Growth Day 1 01/11/18 08:45 Influenza Types A,B Antigen - Final Nasal Specimen received for Influenza A/B Molecular testing Diagnostic Imaging: Patient Name: SERGO GONZALES I Medical Record#: [id number] Ordering Physician: Shashi Sheets LOCOMOTIVE MECHANIC Acct.#: [id number] : 1955 Age: 62 Sex: F Location: [address] [place] [address]/TELEMETRY Exam Date: 01/11/18 1238 ADM Status: ADM IN Order Information: MRI CERVICAL SPINE WO Accession Number: [id number] CPT: 64174 INDICATION: Weakness. COMPARISON: Comparison is made with a prior MRI of the cervical spine from August 31, 2017. IMPRESSION: DEGENERATIVE DISC DISEASE MOST PROMINENT AT THE C5-C6 LEVEL CAUSING MODERATE SPINAL CANAL NARROWING AND MILD SPINAL CORD COMPRESSION. 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 <Electronically signed by Sumit Cortés MD in OV> 01/11/18 7106 EKG Data: EKG INTERPRETATION ECG Report Patient Name SERGO GONZALES I Birthdate 1955 Sex F Order Number [id number] Date of ECG 01/11/2018 08:04:09 Interpretation Sinus rhythm.normal P axis, V-rate 60- 99 Borderline prolonged OH interval.OH >212, V-rate 50- 90 Nonspecific T abnormalities, anterior leads.T <-0.10mV, V2-V4 Borderline prolonged QT interval.QTc >485mS - ABNORMAL ECG - ECG NEEDS E-SIGNING Assess/Plan/Problems-Billing Assessment: A 62 y/o female with PMH CVA, DM, HLD and cervical stenosis, who sustained a fall at home, found to have profound lower extremities weakness and L great toe osteomylitis on MRI - Patient Problems (1) Weakness Current Visit: Yes Status: Acute Comment: - Could be multifactorial - Patient with episodes of orthostatic hypotension at home, has been off all her BP meds per her testimony - Neurology consult appreciated, no evidence of acute CVA - Also new findings of L great toe osteomylitis could be a factor, however, no fever or leukocytosis. (2) Episode of syncope Current Visit: Yes Status: Acute Comment: - Again likely related to a hypotensive episode. - Troponins normal, no EKG changes - No chest pain - Echo pending (3) Cervical spinal stenosis Current Visit: Yes Status: Acute Comment: - MRI showing no progression of disease - Neurosurgical consult appreciated, plans to proceed with cervical decompression today. - ID consult appreciated, no contraindications to proceed with surgery in setting on osteomyelitis, recommedned to continue Vancomycin post-operatively. - Her revised cardiac index = 2 , giving her a class III for perioperative cardiac events with a risk percentage of 6.6% - Recommend post-op ICU monitoring in immediate post-op period - Check labs daily (4) History of CVA (cerebrovascular accident) Current Visit: Yes Status: Acute Comment: - No acute issues (5) HLD (hyperlipidemia) Current Visit: Yes Status: Acute Comment: - Continue statin therapy. (6) Osteomyelitis Current Visit: Yes Status: Acute Comment: - ID consult appreciated, continue Vancomycin post-operatively. (7) Diabetes mellitus Current Visit: No Status: Chronic Comment: - Stable, has been on Metformin only as outpatient - Continue Humolog per sliding scale - HgbA1C much improved since last year. (8) HTN (hypertension) Current Visit: No Status: Chronic Comment: - stable (9) DVT prophylaxis Current Visit: Yes Status: Acute Comment: - SubQ Heparin, on hold for OR (10) Full code status Current Visit: Yes Status: Acute Status and Disposition: Inpatient. Anticipate discharge when medically stable.
[2018-01-12] MEDS ORDERED: LORazepam INJ* 2 MG/ML 1 ML VIAL IV PUSH PRN (11:19)
[2018-01-12] MEDS ORDERED: Famotidine IV* 10 MG/ML 2 ML (20 mg) IV SLOW PU ONE (11:20)
[2018-01-12] MEDS ORDERED: Lidocaine 1% MPF wEPI 200,000* 30 ML SDV ONE (14:11)
[2018-01-12] MEDS ORDERED: Thrombin 5,000 UNITS* 1 APPLIC KIT - topical use - TOPICAL ONE (14:12)
[2018-01-12] MEDS ORDERED: Bacitracin IV* 50,000 UNITS INJ ONE (14:12)
[2018-01-12] MEDS ORDERED: Propofol* 10 MG/ML 20 ML BTL IV PUSH ONE (14:48)
[2018-01-12] MEDS ORDERED: Lidocaine 2% PF * 5 ML VIAL ONE (14:48)
[2018-01-12] MEDS ORDERED: Rocuronium* 10 MG/ML VIAL ONE (14:49)
[2018-01-12] MEDS ORDERED: Albuterol 2.5 MG/3 ML NEB.SOL* (0.083%) INH ONE (15:10)
--- NOTE | 2018-01-12 15:15 | ECHO ---
Patient: SERGO GONZALES I [facility] Rec#: [id number] : 1955 Date: 01/12/2018 Age: 62y Height: 157.5 cm / 62.0 in Weight: 69.55 kg / 153.3 lbs Sex: F BSA: 1.71 Room#: [facility] Admit Date#: 01/11/2018 Type: Inpatient Referring: Shashi Sheets NP Reading: John Soto DO Tv Production Assistant: Melany Orozco RDCS CC: Christiano Rosa MD Transthoracic Echocardiogram Indication: Syncope BP: 143/78 HR: 77 Rhythm: NSR Findings History: CVA, HTN, HLD, obesity, YONIS. Technical Comments: The study was technically limited due to the patient's inability to lay in the left lateral decubitus position. Unable to obtain suprasternal notch imaging due to the presence of a c-spine brace. Completed at 1430. Left Ventricle: The left ventricular chamber size is normal. Mild concentric left ventricular hypertrophy is observed. Global left ventricular wall motion and contractility are within normal limits. There is normal left ventricular systolic function. The estimated ejection fraction is 55-60%. Abnormal left ventricular diastolic function is observed. Left Atrium: The left atrial chamber size is normal. Right Ventricle: The right ventricular chamber size and systolic function are within normal limits. Right Atrium: The right atrium is mildly dilated. Aortic Valve: The aortic valve is trileaflet. The aortic valve leaflets are mildly thickened. There is no evidence of aortic regurgitation. There is no evidence of aortic stenosis. Mitral Valve: Mild mitral annular calcification present. The mitral valve leaflets are mildly thickened. There is trace to mild mitral regurgitation. There is no evidence of mitral stenosis. Tricuspid Valve: The tricuspid valve leaflets are normal. There is trace tricuspid regurgitation. Unable to estimate the right ventricular systolic pressure. There is no tricuspid stenosis. Pulmonic Valve: The pulmonic valve appears normal. There is no evidence of pulmonic regurgitation. There is no pulmonic stenosis. Pericardium: There is no significant pericardial effusion. Aorta: There is mild dilatation of the ascending aorta. The aortic arch is not well visualized. The aortic root is normal in size. Pulmonary Artery: The main pulmonary artery is not well visualized. Venous: The inferior vena cava appears normal in size. There is a greater than 50% respiratory change in the inferior vena cava dimension. Conclusions The left ventricular chamber size is normal. Mild concentric left ventricular hypertrophy is observed. There is normal left ventricular systolic function. The estimated ejection fraction is 55-60%. The left atrial chamber size is normal. The right ventricular chamber size and systolic function are within normal limits. No significant valvular abnormalities noted. Compared to prior study from 08/2017, no significant changes noted Measurements Name Value Normal Range RVIDd (AP) 2D 3 cm (0.9 - 2.6) RVDdMajor (2D) 4.1 cm (2.2 - 4.4) RAd ISD 4CH 5.2 cm (3.4 - 4.9) RA (A4C)W 5.1 cm (2.9 - 4.6) IVSd (2D) 1.1 cm (0.6 - 1) LVPWd (2D) 1.1 cm (0.6 - 1) LVIDd (2D) 4.2 cm (3.6 - 5.4) LVIDs (2D) 3.8 cm - LV FS (2D) 11 % (25 - 45) Aortic Annulus 1.8 cm (1.4 - 2.6) Ao root diameter (2D) 3.4 cm (2.1 - 3.5) Ascending Ao 3.7 cm (2.1 - 3.4) LA dimension (AP) 2D 2.7 cm (2.3 - 3.8) LAd ISD 4CH 4.8 cm (2.9 - 5.3) LA ISD 4CH W 4.3 cm (2.5 - 4.5) Name Value Normal Range LA ESV BP (A/L) index 29 ml/m2 - Name Value Normal Range MV E-wave Vmax 0.6 m/sec - MV deceleration time 187 msec - MV A-wave Vmax 0.7 m/sec - MV E:A ratio 0.8 ratio - LV septal e' Vmax 0.08 m/sec - LV lateral e' Vmax 0.09 m/sec - LV E:e' septal ratio 7.5 ratio - LV E:e' lateral ratio 6.67 ratio - Name Value Normal Range AV Vmax 1.2 m/sec - AV VTI 25.5 cm - AV peak gradient 6 mmHg - AV mean gradient 3 mmHg - LVOT Vmax 0.7 m/sec - LVOT VTI 15.6 cm - LVOT peak gradient 2 mmHg - LVOT mean gradient 1 mmHg - Name Value Normal Range IVC diameter 1.1 cm - Name Value Normal Range PV Vmax 0.8 m/sec - PV peak gradient 3 mmHg -
--- NOTE | 2018-01-12 15:18 | CONS ---
CONSULTATION REPORT: DATE OF CONSULT: 01/12/18 REQUESTING PHYSICIAN: Dr. Thomas. CONSULTING SERVICE: Infectious Disease. REASON FOR CONSULT: Toe infection. IMPRESSION: 1. Left great toe acute non-hematogenous osteomyelitis, probably gram-positive infection. There is associated cellulitis. She is hemodynamically stable and does not have signs or symptoms of systemic infection. 2. Cervical spine myelopathy with plans for cervical decompression. 3. Type 2 diabetes. RECOMMENDATION: 1. Given that she does not have signs or symptoms of systemic infection, her soft tissue infection is mild, osteomyelitis is fairly benign. I would not recommend delaying her surgical decompression procedure today for further antibiotic treatment. She can be treated in parallel. 2. We will continue vancomycin goal trough 15 to 20, though previous wound has healed up, so there is nothing to culture. We will plan on 6 to 8 weeks of antibiotics to be determined once her neurosurgical issues have resolved. HISTORY OF PRESENT ILLNESS: This is a 62-year-old diabetic woman admitted with weakness and left great toe infection. About a month ago, she developed wound on the plantar surface of her distal first toe, was following with Dr. Rosa, had been treated with doxycycline with soaking the wound. The wound did close up but it has become fairly red over the last 2 to 3 weeks, so that is when she started the doxycycline which she has tolerated well. Her toe does have a lateral deviation which she is unsure if that developed recently or if it has been way exterminator termite. She has no pain in the toe, no current wound. She also came to the hospital because of weakness in her arms and legs and she has history of cervical myelopathy which in conjunction with her neurological deficits, between Neurosurgery and Neurology, they decided she should proceed with decompression. She had a dose of corticosteroids yesterday. She has no fevers, chills, or sweats. Her blood cultures are negative at 24 hours. She has been on vancomycin here tolerating it well and she has had no fevers. She has not had infection requiring hospitalization in the past. PAST MEDICAL HISTORY: 1. Type 2 diabetes, non-insulin dependent. 2. Cervical myelopathy. 3. History of stroke. 4. Hypertension. 5. Hyperlipidemia. 6. Posttraumatic stress disorder. 7. Anxiety. 8. Depression. 9. Asthma. 10. Status post loop recorder placement. 11. Status post hernia repair. 12. Status post hysterectomy. 13. Status post laparoscopic cholecystectomy. MEDICATIONS: 1. Tylenol. 2. Aspirin. 3. Klonopin. 4. Heparin subcutaneous injection. 5. Insulin lispro. 6. Vancomycin 1 g every 12 hours. 7. Effexor. 8. Ziprasidone. ALLERGIES: SULFA cause rash, LIPITOR, TRAMADOL, CODEINE and AMBIEN. FAMILY HISTORY: No recurrent infections. Mother had coronary disease and father had prostate cancer. SOCIAL HISTORY: She lives in [facility]. She has no travel or sick contacts. REVIEW OF SYSTEMS: All negative to the 14-point review of systems except as noted above in the history of present illness. PHYSICAL EXAM: Vital Signs: Temperature is 36.6, heart rate is 70, respiratory rate 20, blood pressure 143/76, oxygen saturation 100% on room air. In general, she is awake, not in distress. Neurologic: She is oriented x3, follows all commands. HEENT: There is no conjunctival hemorrhage. Oropharynx without lesions. Neck is supple without mass. Heart: Regular rate and rhythm without murmurs, rubs, or gallops. Lungs are clear to auscultation bilaterally. Abdomen: Soft, nontender, and nondistended. There are bowel sounds present. Skin: There is no rash or splinter hemorrhage. Musculoskeletal: There is no spine tenderness to palpation or joint synovitis. The left great toe distal half there is diffuse erythema, there is no wound. 2+ dorsalis pedis pulses on the left foot. DIAGNOSTIC STUDIES/LAB DATA: MRI showed increased T2 and loss of T1 intensity in the distal phalanx of the left great toe, soft tissue swelling. White blood cell count 6, hemoglobin 11, platelets 353. Creatinine is 0.7. Please see impressions and recommendations outlined above, which I have discussed with SHAI Sykes. Thanks for asking me to see Ms. Alba in consultation. [id number]/[facility] #: [id number] MTDDiana
[2018-01-12] MEDS ORDERED: fentaNYL* 50 MCG/ML 5 ML VIAL (250 MCG VIAL) ONE (16:18)
--- NOTE | 2018-01-12 16:36 | PN ---
Progress Note - Progress Note Date of Service: 01/12/18 SOAP: Subjective: []Patient seen earlier today. No events ON. NPO, On MJ collar. Son Samuel at the bedside. Objective: []VSS Afebrile AAOx3 SHUBHAM, CN II-XII grossly intact Motor 4-/5 UEs, 2-3/5 LEs except kamron feet PF/DF, EHL 1-2/5. Exam limited and on repeat exam proximal LE (HF, KE 4-/5) Semsory grossly intact to light touch. 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 Patient was cleared by IM for surgery and discussed with Dr Sanz regarding toe osteomyelitis. Dr Sanz did not feel that the risk of infection is high and he recommended to proceed with surgery. After explaining in details to patient and her son the different treatment options, expectations, limitations and possible complications, with complications including but not limited to bleeding, infection, risk of injury to adjacent structures, coma, paralysis, , stroke, blindness, cancer, instability, need for additional procedures, adjacent level disease, proximal or distal junctional kyphosis, pseudoarthrosis, hardware failure, need for tracheostomy, gastrostomy or prolonged ICU stay, anesthesia risks patient and her son understood and wished to proceed with surgery. IC obtained. They understood the possibility of increased risk of infection and the possible outcome including paralysis and . They also understood that her condition may not improve and in fact may get worse after surgery and that operative plan may be modified according to intraoperative findings and conditions. Appreciate IM, Neurology, ID care. Fabio Thomas MD
--- NOTE | 2018-01-12 16:55 | PN ---
Subjective Date of Service: 01/12/18 Length of Stay: 1 Days Neurology is following Ms. Alba for the evaluation and management of slurred speech and extremity weakness. Interval History: She feels her arms and hands are stronger than yesterday. She still complains of lower extremity weakness. Other than the non-specific short lasting symptoms of the slurred speech yesterday, she has not had recurrence of this event. She is eager to have spine surgery. Review of Systems: Denied CP, SOB, or palpitations. Family History: Unchanged from Admission Social History: Unchanged from Admission Past Medical History: Unchanged from Admission Objective Active Medications: Acetaminophen (Tylenol Tab*) 650 mg PO Q4H PRN PRN Reason: FEVER/PAIN Aspirin (Aspirin Ec Tab*) 81 mg PO DAILY [facility] Last Admin: 01/12/18 07:56 Dose: Not Given Clonazepam (Klonopin Tab(*)) 2 mg PO QPM [facility] Last Admin: 01/11/18 17:45 Dose: Not Given Dextrose (D50w Syringe 50 Ml*) 12.5 gm IV PUSH .FOR FS < 60 - SS PRN PRN Reason: FS < 60 Sodium Chloride (Ns 0.9% 1000 Ml*) 1,000 mls @ 100 mls/hr IV PER RATE [facility] Last Admin: 01/12/18 02:42 Dose: 100 mls/hr Vancomycin HCl 1,000 mg/ (Sodium Chloride) 250 mls @ 166.667 mls/hr IVPB Q12H [facility] Last Admin: 01/12/18 08:09 Dose: 166.667 mls/hr Insulin Human Lispro (Humalog*) 0 units SUBCUT Q6H [facility]; Protocol Last Admin: 01/12/18 14:09 Dose: Not Given Ipratropium [place] (Atrovent Hfa Inhaler(Nf)) 1 puff INH BID [facility] Last Admin: 01/12/18 07:56 Dose: Not Given Lorazepam (Ativan Inj*) 1 mg IV PUSH Q6H PRN PRN Reason: ANXIETY Last Admin: 01/12/18 11:49 Dose: 1 mg Ondansetron HCl (Zofran Inj*) 4 mg IV Q6H PRN PRN Reason: NAUSEA Pharmacy Consult (Vancomycin Per Pharmacy*) 1 note FOLLOW UP . PRN PRN Reason: PER PROTOCOL Pharmacy Profile Note (Vancomycin Trough Check) 1 note FOLLOW UP 0830 ONE Stop: 01/13/18 08:31 Venlafaxine HCl (Effexor Xr Cap*) 225 mg PO QAM [facility] Last Admin: 01/12/18 07:56 Dose: Not Given Ziprasidone (Geodon Cap*) 160 mg PO QPM [facility] Last Admin: 01/11/18 17:45 Dose: Not Given Vital Signs 01/12/18 01/12/18 01/12/18 11:49 13:11 15:20 Temperature 98.4 F Pulse Rate 72 Respiratory 16 16 16 Rate Blood Pressure 140/88 (mmHg) O2 Sat by Pulse 99 Oximetry Intake and Output Last 24 Hours 01/10/18 01/11/18 01/12/18 01/13/18 06:59 06:59 06:59 06:59 Intake Total 3894 729 Output Total 3400 0 Balance 494 729 Weight 153 lb 6.4 oz Intake: IV Fluids 3644 469 NS 1394 469 IVPB 250 260 ABX - VANCOMYCIN 250 260 Oral 0 0 Output: Urine 0 0 Martin 3400 Other: # Bowel Movements 0 0 Oxygen Devices in Use Now: None Neurology Exam: General: Awake, Alert, Oriented x3 HEENT: Normocephelic/atraumstic, sclera anicteric, mucous membranes moist Neck: Supple Chest: Clear to auscultation bilaterally Cardiovascular: Regular rate and rhythm without murmurs, rubs, gallops Extremities: No clubbing, cyanosis, or edema Neurological Findings: Awake and alert to self, place and time. Speech: fluent without dysarthric, repetition intact Cranial Nerve: PERRL, EOM intact Motor: 4/5 strength in the proximal upper extremity and 5/5 in the distal upper extremity. Weakness 3/5 in the proximal hip flexion, knee flexion, and dorsiflexion bilaterally. 5/5 otherwise throughout. Sensation: intact to LT/PP bilaterally upper and lower extremities Deep Tendon Reflex: 2+ in the left triceps, 3+ right triceps. 1+ in the bilateral biceps, brachioradialis, and 2+ at bilateral patellar bilaterally. Finger to nose is normal. Gait: n/a. Result Diagrams: 01/12/18 06:33 01/12/18 06:33 Additional Lab and Data: . Microbiology and Other Data: Microbiology 01/11/18 08:45 Aerobic Blood Culture - Preliminary Blood Venous No Growth Day 1 Anaerobic Blood Culture - Preliminary No Growth Day 1 01/11/18 08:20 Aerobic Blood Culture - Preliminary Blood Venous No Growth Day 1 Anaerobic Blood Culture - Preliminary No Growth Day 1 01/11/18 08:45 Influenza Types A,B Antigen - Final Nasal Specimen received for Influenza A/B Molecular testing Diagnostic Imaging: Patient Name: SERGO ALBA I Medical Record#: [id number] Ordering Physician: Shashi Sheets [employer] Acct.#: [id number] : 1955 Age: 62 Sex: F Location: [address] [place] [address] MEDICAL/TELEMETRY Exam Date: 01/11/18 1238 ADM Status: ADM IN Order Information: MRI CERVICAL SPINE WO Accession Number: [id number] CPT: 88186 INDICATION: Weakness. COMPARISON: Comparison is made with a prior MRI of the cervical spine from August 31, 2017. IMPRESSION: DEGENERATIVE DISC DISEASE MOST PROMINENT AT THE C5-C6 LEVEL CAUSING MODERATE SPINAL CANAL NARROWING AND MILD SPINAL CORD COMPRESSION. 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 <Electronically signed by Sumit Cortés MD in OV> 01/11/18 0217 EKG Data: EKG INTERPRETATION ECG Report Patient Name SERGO ALBA I Birthdate 1955 Sex F Order Number [id number] Date of ECG 01/11/2018 08:04:09 Interpretation Sinus rhythm.normal P axis, V-rate 60- 99 Borderline prolonged MI interval.MI >212, V-rate 50- 90 Nonspecific T abnormalities, anterior leads.T <-0.10mV, V2-V4 Borderline prolonged QT interval.QTc >485mS - ABNORMAL ECG - ECG NEEDS E-SIGNING Assessment/Plan Ms. Alba is a 62-year-old female who presented after a fall. The patient has history of diabetic polyneuropathy and cervical spondylosis with myelopathy. She had a reported history of slurred speech that has resolved. I do not suspect she has a stroke or TIA. She is eager to have decompression surgery of the cervical spine as she was suppose to have this done in the past. No further neurological recommendation. I will sign off but please call me for any questions or concerns. Discussed case with Dr. Thomas.
[2018-01-12] MEDS ORDERED: Midazolam* 1 MG/ML 2 ML VIAL (2 MG) ONE ×2 (18:17→18:25)
--- NOTE | 2018-01-12 18:27 | PN ---
Progress Note - Progress Note Date of Service: 01/12/18 Note: Patient was brought to OR for surgical intervention. Case was cancelled as the patient developed third degree heart block prior to incision. Cardiology, IM consulted. Patient will be monitored in ICU. Discussed with ashley Baker over the phone. he understands and he in in agreement with plan. No changes in Neurological exam after anesthesia. Fabio Thomas MD
[2018-01-12] MEDS ORDERED: Glycopyrrolate IV* 0.2 MG/ML 1 ML VIAL ONE (19:12)
[2018-01-12] MEDS ORDERED: Neostigmine Methylsulfate* 1 MG/ML 10 ML VIAL (1 mg/ml) ONE (19:12)
[2018-01-12] MEDS ORDERED: EPHEDrine (Pressors)* 50 MG/ML VIAL ONE (19:12)
[2018-01-12] MEDS ORDERED: Atropine 1MG/ML INJ* 1 ML VIAL ONE (19:12)
[2018-01-12] MEDS: clonazePAM TAB(*) 1 MG PO SCH (20:50)
[2018-01-12] MEDS: Ziprasidone CAP* 80 MG PO SCH (21:06)
--- NOTE | 2018-01-12 23:28 | EEG ---
ELECTROENCEPHALOGRAPHY: DATE OF STUDY: 01/11/18 - ROOM #ICU-04 DATE OF READ: 01/12/18 ORDERING PROVIDER: Shashi Sheets NP MEDICATIONS: 1. Zofran. 2. Tylenol. 3. Effexor. 4. Aspirin. 5. Heparin. 6. Vancomycin. 7. Humalog. 8. Geodon. 9. Klonopin. CLINICAL PROBLEM: Mrs. Ally Alba is a 62-year-old female who had a fall and developed reported history of transient slurred speech that resolved. She was slightly hypotensive on presentation. This EEG was obtained to evaluate for epileptiform abnormalities or interhemispheric asymmetry. TIME OF RECORDIN - 1727. CLINICAL STATE: Awake and drowsy. REPORT: The waking background showed appropriate organization with clearly defined anterior-posterior voltage and frequency gradients. There was a well- defined posterior dominant rhythm of 8.5 Hz, which was symmetrical and showed normal reactivity. Anteriorly, there was an expected pattern of lower voltage, irregular, mixed faster frequencies. Hyperventilation and photic stimulations were not performed. Single electrode ECG showed a normal sinus rhythm with a rate of 75 beats per minute. Throughout the attenuation of the occipital rhythm accompanied drowsiness. Throughout the recording, there were no epileptiform discharges or electrographic seizures. CLINICAL IMPRESSION: This is a normal waking and drowsy EEG. There were no focal or epileptiform abnormalities. [id number]/[facility] #: [id number] MTDD
[2018-01-13] MEDS: Insulin LISPRO* 1 UNITS UNIT SUBCUT SCH ×4 (05:39→19:40)
[2018-01-13 05:47] LABS: EGFR Non-African American 102.9 (>60)
--- NOTE | 2018-01-13 07:45 | RAD ---
HISTORY: recent 3rd degree block COMPARISONS: January 11, 2018 VIEWS: 1: frontal AP view of the chest at 7:30 PM FINDINGS: LINES AND TUBES: None. Transcutaneous pacer pads are noted. CARDIOMEDIASTINAL SILHOUETTE: The cardiomediastinal silhouette is normal for portable technique. PLEURA: The costophrenic angles are sharp. No pleural abnormalities are noted. LUNG PARENCHYMA: The lungs are clear. ABDOMEN: The upper abdomen is clear. There is no subphrenic gas. BONES AND SOFT TISSUES: No bone or soft tissue abnormalities are noted. IMPRESSION: NO ACTIVE CARDIOPULMONARY DISEASE. R1
--- NOTE | 2018-01-13 08:03 | CONSULT ---
Subjective Date of Service: 01/13/18 Interval History: Date of admission 01/11/2018 Date of consult 01/13/2018 PMD: Dr. Rosa Military Administrative Technician: Dr. Michael CC: Fall, neck pain Reason for consult: Abnormal telemetry strip HPI Ally Alba is a 62 year old woman with multiple comorbities as below with a long standing history of syncope and falls admitted with a fall and weakness and is need of cervical spine surgery due to cervical myelopathy. After anesthesia induction she had an episode of transient heart block while undergoing positioning during anesthesia. I reviewed the strips, it was wenkebach with grouped beating. There were several beats that I am unsure if it was long AV node conduction after 1 second (extremely likely) vs. a very reliable junctional escape beat. Regardless there was no more than mobitz 1 block noted and no more than a total 1.7 second R-R interval of the strips available for review. She also had wenkebach overnight when sleeping in setting of cpap nonadherence. She had continuous linq monitor placed from 2014 and last check was 07/2016. This was unrevealing to the cause of her falls and syncope. I tried to interrogate but battery was . She denies any chest pain or palpitations. She uses a walker because of falls. She has chronic ATKINS related to underlying lung disease. Pmhx: CVA, hypertension hyperlipidemia diabetes PTSD anxiety depression history of asthma cervical stenosis history of insomnia obesity YONIS but she is nonadherent with her CPAP Osteomyelitis R foot PAST SURGICAL HISTORY: She has had: 1. Linq monitor, battery depleted 2. Hernia repair. 3. Hysterectomy. 4. Laparoscopic cholecystectomy, which was just done several months ago. Surgical Hx: Hysterectomy - (age 49 Years) uterine tumor ( benign ) complete hys/vaginally Hernia Repair, Abdominal - (age 45 Years) umbilical ALLERGIES TO MEDICATIONS: Include LIPITOR, TRAMADOL, CODEINE, SULFA, and AMBIEN. FAMILY HISTORY: Mother had heart disease., kidney failure was on dialysis Father had prostate cancer. SOCIAL HISTORY: She is a former smoker. She quit in 2011. Reported prior excessive alcohol use. Surrogate decision maker is in her 2 sons. Disabled due to schizoaffective disorder Medications Active Medications: Acetaminophen (Tylenol Tab*) 650 mg PO Q4H PRN PRN Reason: FEVER/PAIN Aspirin (Aspirin Ec Tab*) 81 mg PO DAILY [facility] Last Admin: 01/12/18 07:56 Dose: Not Given Clonazepam (Klonopin Tab(*)) 2 mg PO QPM [facility] Last Admin: 01/12/18 20:50 Dose: 2 mg Dextrose (D50w Syringe 50 Ml*) 12.5 gm IV PUSH .FOR FS < 60 - SS PRN PRN Reason: FS < 60 Sodium Chloride (Ns 0.9% 1000 Ml*) 1,000 mls @ 100 mls/hr IV PER RATE [facility] Last Admin: 01/12/18 20:49 Dose: 100 mls/hr Vancomycin HCl 1,000 mg/ (Sodium Chloride) 250 mls @ 166.667 mls/hr IVPB Q12H [facility] Last Admin: 01/12/18 21:06 Dose: 166.667 mls/hr Insulin Human Lispro (Humalog*) 0 units SUBCUT Q6H [facility]; Protocol Last Admin: 01/13/18 05:39 Dose: Not Given Ipratropium [place] (Atrovent Hfa Inhaler(Nf)) 1 puff INH BID [facility] Last Admin: 01/12/18 19:53 Dose: Not Given Lorazepam (Ativan Inj*) 1 mg IV PUSH Q6H PRN PRN Reason: ANXIETY Last Admin: 01/12/18 11:49 Dose: 1 mg Ondansetron HCl (Zofran Inj*) 4 mg IV Q6H PRN PRN Reason: NAUSEA Pharmacy Consult (Vancomycin Per Pharmacy*) 1 note FOLLOW UP . PRN PRN Reason: PER PROTOCOL Pharmacy Profile Note (Vancomycin Trough Check) 1 note FOLLOW UP 0830 ONE Stop: 01/13/18 08:31 Venlafaxine HCl (Effexor Xr Cap*) 225 mg PO QAM [facility] Last Admin: 01/12/18 07:56 Dose: Not Given Ziprasidone (Geodon Cap*) 160 mg PO QPM [facility] Last Admin: 01/12/18 21:06 Dose: 160 mg Home Medications: Pravastatin (NF) [Pravachol (NF)] 40 mg PO BEDTIME 10/19/17 [History Confirmed 01/11/18] Venlafaxine EXT RELEASE CAP* [Effexor Xr CAP*] 225 mg PO QAM 10/19/17 [History Confirmed 01/11/18] clonazePAM TAB(*) [KlonoPIN TAB(*)] 2 mg PO QPM 10/19/17 [History Confirmed 06/26] metFORMIN* [Glucophage 500 MG TAB *] 1,000 tab PO BID 10/19/17 [History Confirmed 01/11/18] Ipratropium HFA INHALER(NF) [Atrovent Hfa Inhaler(NF)] 1 puff INH BID 11/14/17 [ History Confirmed 01/11/18] Aspirin EC TAB* [Ecotrin EC Low Dose 81 MG*] 81 mg PO DAILY 11/21/17 [History Confirmed 01/11/18] Ziprasidone CAP* [Geodon CAP*] 160 mg PO QPM 11/21/17 [History Confirmed ] DOXYcycline CAP(*) [DOXYcycline 100MG CAP(*)] 100 mg PO BID 01/03/18 [History Confirmed 01/11/18] Review of Systems - Measurements Intake and Output: Intake and Output Last 24 Hours 01/11/18 01/12/18 01/13/18 01/14/18 06:59 06:59 06:59 06:59 Intake Total 3894 1617 Output Total 3400 1575 Balance 494 42 Weight 153 lb 6.4 oz 149 lb 11.2 oz Intake: IV Fluids 3644 901 LR 400 NS 1394 501 IVPB 250 476 ABX - VANCOMYCIN 250 476 Oral 0 240 Output: Urine 0 0 Martin 3400 1575 Other: # Bowel Movements 0 0 - Review of Systems Constitutional Symptoms: Positive: Weakness Negative: Weight Gain, Weight Loss Dermatology: Negative: Rash, Skin Lesions HEENT: Negative: Change in Hearing, Vertigo Eyes: Negative: Change in Vision, Double Vision Thyroid: Negative: Goiter, Thyroid Nodule, Cold Intolerance, Heat Intolerance, Weight Loss, Weight Gain Pulmonary: Positive: Shortness of Breath, Exercise Intolerance Negative: Asthma Cardiology: Positive: Shortness of Breath, Faintness, Syncope Negative: Chest Pain, Palpitations, Swelling of Ankles, Peripheral Vascular Dis, Edema, Claudication, Paroxysmal Nocturnal Dyspnea, Orthopnea Gastroenterology: Negative: Abdominal Pain, Nausea, Vomiting, Anorexia Genital - Urinary: Negative: Dysuria, Hematuria Musculoskeletal: Negative: Joint Pain, Joint Stiffness Endocrinology: Negative: Polydipsia, Polyuria Hematologic/Lymphatic: Negative: Use of Anticoagulant, Use of Antiplatelet Drugs Neurology: Negative: Change in Speech, Change in Sphincter Function, Change in Walking Psychiatry: Negative: Unusual Anxiety, Suicidal Ideation Allergic/Immunologic: Negative: Hx HIV, Immunocompromise Review of Systems Statement: All other review of systems negative, unless stated above. Objective Vital Signs: Temp Pulse Resp BP Pulse Ox 97.0 F 67 13 112/65 98 01/13/18 03:13 01/13/18 05:00 01/13/18 05:00 01/13/18 05:00 01/13/18 05:00 Oxygen Devices in Use Now: None Appearance: pleasant, nad Ears/Nose/Mouth/Throat: Clear Oropharnyx, Mucous Membranes Moist Neck: NL Appearance and Movements; NL JVP, Trachea Midline Respiratory: Symmetrical Chest Expansion and Respiratory Effort, Clear to Auscultation Cardiovascular: NL Sounds; No Murmurs; No JVD, RRR Abdominal: NL Sounds; No Tenderness; No Distention Extremities: No Clubbing, Cyanosis Skin: No Nodules or Sclerosis Neurological: Alert and Oriented x 3 Laboratory Results: 01/12/18 06:33 01/13/18 05:15 01/12/2018 k was 4.2 INR (Anticoag Therapy) 0.96 (0.77-1.02) 01/11/18 08:20 APTT 38.7 seconds (26.0-36.3) H 01/11/18 08:20 Total Bilirubin 0.30 mg/dL (0.2-1.0) 01/11/18 08:20 AST 24 U/L (13-39) 01/11/18 08:20 ALT 23 U/L (7-52) 01/11/18 08:20 Alkaline Phosphatase 89 U/L (34-104) 01/11/18 08:20 CK-MB (CK-2) 2.3 ng/mL (0.6-6.3) 01/12/18 06:33 Total Protein 7.9 g/dL (6.4-8.9) 01/11/18 08:20 Albumin 4.3 g/dL (3.2-5.2) 01/11/18 08:20 Globulin 3.6 g/dL (2-4) 01/11/18 08:20 Albumin/Globulin Ratio 1.2 (1-3) 01/11/18 08:20 10/06/2601/11/18 01/11/18 08:20 13:24 19:35 Troponin I 0.01 0.00 0.00 01/11/18 01/12/18 01/13/18 22:39 18:51 05:15 Troponin I 0.00 0.08 H* 0.00 Diagnostic Imaging: echo 01/12/2018: Normal LV size, mild LVH, LVEF 55-60%, normal LA size, normal RV size and function, no significant valvular abnormalities noted EKG Data: ekg 01/11/2018: NSR, non-specific TW changes precordial leads (sen previously 2017 ekg and returned to essentially normal 01/03/2018) EKG 01/12/2018 post-induction: Worsening of T wave changes with prolonged QT interval Assessment/Plan lAly Alba is a 62 year old woman being evaluated for wenkebach heart block - A pacemaker is not indicated - It would be unusual to have both this and an infranodal block in the absence of significant other conduction disease - Needs another EKG prior to returning to OR today to follow up prolonged QT interval post-anesthesia with use of various agents (? glycopyrolate as culprit) . Would avoid any additional QT prolonging medications. I discontinued zofran. She can continue her other current medications. - Would be cautious with head/neck positioning in OR as may have stimulated carotid sinus contributing to this episode. She also has these episodes overnight when sleeping in the presence of untreated sleep apnea - Out of abundance of precaution would leave external pacemaker pads in place. This heart block will respond to atropine as well. - Would avoid rate lowering medications - Asymptomatic sinus bradycardia and wenkebach when sleeping is not a concern - Can proceed with very necessary surgery to treat cervical myelopathy Thank you for allowing me to participate in the cardiovascular care of this patient. Please do not hesitate to contact me with questions or concerns.
[2018-01-13] MEDS: NS 0.9% 1000 ML* 1,000 ML IV SCH (08:12)
[2018-01-13] MEDS: Vancomycin(*) 1,000 MG in NS 0.9% 250 ML* 250 ML IVPB SCH ×3 (08:12→19:39)
[2018-01-13] MEDS ORDERED: Vancomycin Trough Check NOTE FOLLOW UP ONE (08:30)
--- NOTE | 2018-01-13 09:04 | PN ---
Subjective Date of Service: 01/12/18 Interval History: Pt seen and examined at request of Dr. Hurtado. Pt was given Propofol, Fentaly, and Desflurane in preparation for decompression surgery and was noted to have increasing ND interval from baseline. Pt also developed bradycardia and was given glycopyrollate and atropine. On review of rhythm strips at 1734, ND interval increased from baseline, however, strips of low voltage with some detectable p waves correlating with QRS. However, there are some QRS complexes with no apparent p waves during which the regularity was disturbed. However, given low voltage, unclear whether 3rd degree AVB is real. Discussed with both Dr. Hurtado and Florentin. Placed pt on trascutaneous pads and transferred to ICU. Will defer further eval with cards in AM as discussed. Family History: Unchanged from Admission Social History: Unchanged from Admission Past Medical History: Unchanged from Admission Objective Active Medications: Acetaminophen (Tylenol Tab*) 650 mg PO Q4H PRN PRN Reason: FEVER/PAIN Aspirin (Aspirin Ec Tab*) 81 mg PO DAILY [facility] Last Admin: 01/12/18 07:56 Dose: Not Given Clonazepam (Klonopin Tab(*)) 2 mg PO QPM [facility] Last Admin: 01/12/18 20:50 Dose: 2 mg Dextrose (D50w Syringe 50 Ml*) 12.5 gm IV PUSH .FOR FS < 60 - SS PRN PRN Reason: FS < 60 Sodium Chloride (Ns 0.9% 1000 Ml*) 1,000 mls @ 100 mls/hr IV PER RATE [facility] Last Admin: 01/13/18 08:12 Dose: 100 mls/hr Vancomycin HCl 1,000 mg/ (Sodium Chloride) 250 mls @ 166.667 mls/hr IVPB Q12H [facility] Last Admin: 01/12/18 21:06 Dose: 166.667 mls/hr Insulin Human Lispro (Humalog*) 0 units SUBCUT Q6H [facility]; Protocol Last Admin: 01/13/18 05:39 Dose: Not Given Ipratropium [place] (Atrovent Hfa Inhaler(Nf)) 1 puff INH BID [facility] Last Admin: 01/12/18 19:53 Dose: Not Given Lorazepam (Ativan Inj*) 1 mg IV PUSH Q6H PRN PRN Reason: ANXIETY Last Admin: 01/12/18 11:49 Dose: 1 mg Ondansetron HCl (Zofran Inj*) 4 mg IV Q6H PRN PRN Reason: NAUSEA Pharmacy Consult (Vancomycin Per Pharmacy*) 1 note FOLLOW UP . PRN PRN Reason: PER PROTOCOL Venlafaxine HCl (Effexor Xr Cap*) 225 mg PO QAM [facility] Last Admin: 01/12/18 07:56 Dose: Not Given Ziprasidone (Geodon Cap*) 160 mg PO QPM [facility] Last Admin: 01/12/18 21:06 Dose: 160 mg Vital Signs - 8 hr 01/13/18 01/13/18 01/13/18 01:00 01:05 01:10 Temperature Pulse Rate 82 81 74 Respiratory 12 12 10 Rate Blood Pressure 122/72 (mmHg) O2 Sat by Pulse 99 97 99 Oximetry 01/13/18 01/13/18 01/13/18 01:15 01:20 01:25 Temperature Pulse Rate 83 81 83 Respiratory 14 14 16 Rate Blood Pressure (mmHg) O2 Sat by Pulse 97 97 96 Oximetry 01/13/18 01/13/18 01/13/18 01:30 01:35 01:40 Temperature Pulse Rate 82 83 82 Respiratory 14 16 17 Rate Blood Pressure (mmHg) O2 Sat by Pulse 96 96 96 Oximetry 01/13/18 01/13/18 01/13/18 01:45 01:50 01:55 Temperature Pulse Rate 81 82 81 Respiratory 18 17 16 Rate Blood Pressure (mmHg) O2 Sat by Pulse 96 96 96 Oximetry 01/13/18 01/13/18 01/13/18 02:00 02:05 02:10 Temperature Pulse Rate 80 82 85 Respiratory 15 19 15 Rate Blood Pressure 91/71 (mmHg) O2 Sat by Pulse 97 91 96 Oximetry 01/13/18 01/13/18 01/13/18 02:15 02:20 02:25 Temperature Pulse Rate 85 84 80 Respiratory 19 19 18 Rate Blood Pressure (mmHg) O2 Sat by Pulse 96 96 98 Oximetry 01/13/18 01/13/18 01/13/18 02:30 02:35 02:40 Temperature Pulse Rate 79 80 77 Respiratory 13 17 18 Rate Blood Pressure (mmHg) O2 Sat by Pulse 100 98 100 Oximetry 01/13/18 01/13/18 01/13/18 02:45 02:50 02:55 Temperature Pulse Rate 80 78 80 Respiratory 21 20 21 Rate Blood Pressure (mmHg) O2 Sat by Pulse 98 98 97 Oximetry 01/13/18 01/13/18 01/13/18 03:00 03:05 03:10 Temperature Pulse Rate 80 69 75 Respiratory 22 8 14 Rate Blood Pressure 103/73 (mmHg) O2 Sat by Pulse 97 100 97 Oximetry 01/13/18 01/13/18 01/13/18 03:13 03:15 03:20 Temperature 97.0 F Pulse Rate 73 68 Respiratory 16 13 Rate Blood Pressure (mmHg) O2 Sat by Pulse 97 99 Oximetry 01/13/18 01/13/18 01/13/18 03:25 03:30 03:35 Temperature Pulse Rate 68 69 70 Respiratory 12 14 13 Rate Blood Pressure (mmHg) O2 Sat by Pulse 99 99 99 Oximetry 01/13/18 01/13/18 01/13/18 03:40 03:45 03:50 Temperature Pulse Rate 68 68 68 Respiratory 14 11 13 Rate Blood Pressure (mmHg) O2 Sat by Pulse 99 98 98 Oximetry 01/13/18 01/13/18 01/13/18 03:55 04:00 04:05 Temperature Pulse Rate 77 77 80 Respiratory 18 19 20 Rate Blood Pressure 119/69 (mmHg) O2 Sat by Pulse 95 97 98 Oximetry 01/13/18 01/13/18 01/13/18 04:10 04:15 04:20 Temperature Pulse Rate 81 76 76 Respiratory 20 15 17 Rate Blood Pressure (mmHg) O2 Sat by Pulse 97 99 99 Oximetry 01/13/18 01/13/18 01/13/18 04:25 04:30 04:35 Temperature Pulse Rate 75 70 74 Respiratory 19 16 18 Rate Blood Pressure (mmHg) O2 Sat by Pulse 98 98 99 Oximetry 01/13/18 01/13/18 01/13/18 04:40 04:45 04:50 Temperature Pulse Rate 72 72 74 Respiratory 13 22 21 Rate Blood Pressure (mmHg) O2 Sat by Pulse 97 98 98 Oximetry 01/13/18 01/13/18 01/13/18 04:55 05:00 05:05 Temperature Pulse Rate 75 67 66 Respiratory 18 13 12 Rate Blood Pressure 112/65 (mmHg) O2 Sat by Pulse 98 98 98 Oximetry 01/13/18 01/13/18 01/13/18 05:10 05:15 05:20 Temperature Pulse Rate 65 66 66 Respiratory 9 15 14 Rate Blood Pressure (mmHg) O2 Sat by Pulse 98 97 98 Oximetry 01/13/18 01/13/18 01/13/18 05:25 05:30 05:35 Temperature Pulse Rate 73 72 72 Respiratory 20 16 14 Rate Blood Pressure (mmHg) O2 Sat by Pulse 97 97 96 Oximetry 01/13/18 01/13/18 01/13/18 05:40 05:45 05:50 Temperature Pulse Rate 71 67 70 Respiratory 14 16 13 Rate Blood Pressure (mmHg) O2 Sat by Pulse 97 97 98 Oximetry 01/13/18 01/13/18 01/13/18 05:55 06:00 06:05 Temperature Pulse Rate 68 65 68 Respiratory 13 14 17 Rate Blood Pressure 110/65 (mmHg) O2 Sat by Pulse 98 98 98 Oximetry 01/13/18 01/13/18 01/13/18 06:10 06:15 06:20 Temperature Pulse Rate 71 68 69 Respiratory 17 19 18 Rate Blood Pressure (mmHg) O2 Sat by Pulse 98 98 98 Oximetry 01/13/18 01/13/18 01/13/18 06:25 06:30 06:35 Temperature Pulse Rate 71 72 64 Respiratory 19 20 17 Rate Blood Pressure (mmHg) O2 Sat by Pulse 98 99 97 Oximetry 01/13/18 01/13/18 01/13/18 06:40 06:45 06:50 Temperature Pulse Rate 61 68 69 Respiratory 16 21 20 Rate Blood Pressure (mmHg) O2 Sat by Pulse 100 98 98 Oximetry 01/13/18 01/13/18 01/13/18 06:55 07:00 07:05 Temperature Pulse Rate 69 61 67 Respiratory 16 14 19 Rate Blood Pressure 129/69 (mmHg) O2 Sat by Pulse 99 99 99 Oximetry 01/13/18 01/13/18 01/13/18 07:10 07:15 07:20 Temperature Pulse Rate 64 74 69 Respiratory 9 15 12 Rate Blood Pressure (mmHg) O2 Sat by Pulse 99 99 96 Oximetry 01/13/18 01/13/18 01/13/18 07:25 07:30 07:35 Temperature Pulse Rate 72 72 74 Respiratory 14 15 18 Rate Blood Pressure (mmHg) O2 Sat by Pulse 97 97 97 Oximetry 01/13/18 01/13/18 01/13/18 07:40 07:45 07:50 Temperature Pulse Rate 70 72 70 Respiratory 18 25 16 Rate Blood Pressure (mmHg) O2 Sat by Pulse 98 97 97 Oximetry 01/13/18 01/13/18 01/13/18 07:55 08:00 08:04 Temperature Pulse Rate 69 79 71 Respiratory 16 22 18 Rate Blood Pressure 131/80 (mmHg) O2 Sat by Pulse 97 98 96 Oximetry 01/13/18 01/13/18 01/13/18 08:06 08:10 08:15 Temperature Pulse Rate 68 69 67 Respiratory 14 15 16 Rate Blood Pressure (mmHg) O2 Sat by Pulse 97 97 97 Oximetry Oxygen Devices in Use Now: None Result Diagrams: 01/12/18 06:33 01/13/18 05:15 Additional Lab and Data: . Microbiology and Other Data: Microbiology 01/11/18 08:45 Aerobic Blood Culture - Preliminary Blood Venous No Growth Day 1 Anaerobic Blood Culture - Preliminary No Growth Day 1 01/11/18 08:20 Aerobic Blood Culture - Preliminary Blood Venous No Growth Day 1 Anaerobic Blood Culture - Preliminary No Growth Day 1 01/11/18 08:45 Influenza Types A,B Antigen - Final Nasal Specimen received for Influenza A/B Molecular testing Diagnostic Imaging: Patient Name: SERGO ALBA I Medical Record#: [id number] Ordering Physician: Shashi Sheets DRIVE MAN Acct.#: [id number] : 1955 Age: 62 Sex: F Location: [address] [place] [address] MEDICAL/TELEMETRY Exam Date: 01/11/181237 ADM Status: ADM IN Order Information: MRI CERVICAL SPINE WO Accession Number: [id number] CPT: 48682 INDICATION: Weakness. COMPARISON: Comparison is made with a prior MRI of the cervical spine from August 31, 2017. IMPRESSION: DEGENERATIVE DISC DISEASE MOST PROMINENT AT THE C5-C6 LEVEL CAUSING MODERATE SPINAL CANAL NARROWING AND MILD SPINAL CORD COMPRESSION. 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 <Electronically signed by Sumit Cortés MD in OV> 01/11/18 6605 EKG Data: EKG INTERPRETATION ECG Report Patient Name SERGO ALBA I Birthdate 1955 Sex F Order Number [id number] Date of ECG 01/11/2018 08:04:09 Interpretation Sinus rhythm.normal P axis, V-rate 60- 99 Borderline prolonged ND interval.ND >212, V-rate 50- 90 Nonspecific T abnormalities, anterior leads.T <-0.10mV, V2-V4 Borderline prolonged QT interval.QTc >485mS - ABNORMAL ECG - ECG NEEDS E-SIGNING Assess/Plan/Problems-Billing Ms. Alba is a 62-year-old female who presented after a fall. The patient has history of diabetic polyneuropathy and cervical spondylosis with myelopathy. She had a reported history of slurred speech that has resolved. I do not suspect she has a stroke or TIA. She is eager to have decompression surgery of the cervical spine as she was suppose to have this done in the past. No further neurological recommendation. I will sign off but please call me for any questions or concerns. Discussed case with Dr. Thomas. Status and Disposition: Inpatient. Anticipate discharge when medically stable.
[2018-01-13] MEDS: Venlafaxine EXT RELEASE CAP* 75 MG PO SCH (09:05)
[2018-01-13] MEDS: Aspirin EC TAB* 81 MG TAB.EC PO SCH (09:05)
[2018-01-13] MEDS: Ipratropium HFA INHALER(NF) (ALTERNATIVE = NEBS) INH SCH ×2 (10:43→19:34)
--- NOTE | 2018-01-13 14:55 | PN ---
Progress Note - Progress Note Date of Service: 01/13/18 SOAP: Subjective: [] Patient seen earlier today. No events ON. NPO, On MJ collar. In ICU. Surgical intervention was cancelled yesterday. Objective: []VSS Afebrile AAOx3 SHUB[place]AM, CN II-XII grossly intact Motor 4-/5 UEs, 3-4-/5 LEs except kamron feet PF/DF, EHL 1-2/5. Exam limited and on repeat exam proximal LE (HF, KE 4-/5). On distal exam patient has 4-/5 in foot DF, PF to resistance bilaterally Sensory grossly intact to light touch. Assessment: [] 62 yo f cervical spondylotic myelopathy Plan: [] Monitor VS, Neurochecks Maintain MJ collar Appreciate cardiology input, IM care Will plan for surgical intervention at a later time provided that exam is stable. Fabio Thomas MD
[2018-01-13] MEDS: clonazePAM TAB(*) 1 MG PO SCH (18:02)
[2018-01-13] MEDS: Ziprasidone CAP* 80 MG PO SCH (18:02)
--- NOTE | 2018-01-13 18:26 | PN ---
Subjective Date of Service: 01/13/18 Interval History: Patient seen and examined in ICU, feeling better, denies chest pain, no dizziness, no fevers or chills. States she feels like her UE have some better movement and less heaviness in her legs. Family History: Unchanged from Admission Social History: Unchanged from Admission Past Medical History: Unchanged from Admission Objective Active Medications: Acetaminophen (Tylenol Tab*) 650 mg PO Q4H PRN PRN Reason: FEVER/PAIN Aspirin (Aspirin Ec Tab*) 81 mg PO DAILY [facility] Last Admin: 01/13/18 09:05 Dose: 81 mg Clonazepam (Klonopin Tab(*)) 2 mg PO QPM [facility] Last Admin: 01/13/18 18:02 Dose: 2 mg Dextrose (D50w Syringe 50 Ml*) 12.5 gm IV PUSH .FOR FS < 60 - SS PRN PRN Reason: FS < 60 Vancomycin HCl 1,000 mg/ (Sodium Chloride) 250 mls @ 166.667 mls/hr IVPB Q12H [facility] Last Admin: 01/13/18 09:52 Dose: 166.667 mls/hr Insulin Human Lispro (Humalog*) 0 units SUBCUT Q6H [facility]; Protocol Last Admin: 01/13/18 13:35 Dose: Not Given Ipratropium [place] (Atrovent Hfa Inhaler(Nf)) 1 puff INH BID [facility] Last Admin: 01/13/18 10:43 Dose: Not Given Lorazepam (Ativan Inj*) 1 mg IV PUSH Q6H PRN PRN Reason: ANXIETY Last Admin: 01/12/18 11:49 Dose: 1 mg Pharmacy Consult (Vancomycin Per Pharmacy*) 1 note FOLLOW UP . PRN PRN Reason: PER PROTOCOL Venlafaxine HCl (Effexor Xr Cap*) 225 mg PO QAM [facility] Last Admin: 01/13/18 09:05 Dose: 225 mg Ziprasidone (Geodon Cap*) 160 mg PO QPM [facility] Last Admin: 01/13/18 18:02 Dose: 160 mg Vital Signs - 8 hr 01/13/18 01/13/18 01/13/18 10:25 10:30 10:35 Pulse Rate 65 63 62 Respiratory 14 12 11 Rate Blood Pressure (mmHg) O2 Sat by Pulse 98 98 97 Oximetry 01/13/18 01/13/18 01/13/18 10:40 10:45 10:50 Pulse Rate 66 67 80 Respiratory 17 13 18 Rate Blood Pressure (mmHg) O2 Sat by Pulse 99 97 100 Oximetry 01/13/18 01/13/18 01/13/18 10:55 11:00 11:05 Pulse Rate 74 73 72 Respiratory 19 19 17 Rate Blood Pressure 134/104 (mmHg) O2 Sat by Pulse 96 96 98 Oximetry 01/13/18 01/13/18 01/13/18 11:10 11:15 11:20 Pulse Rate 69 67 68 Respiratory 19 20 23 Rate Blood Pressure (mmHg) O2 Sat by Pulse 98 98 98 Oximetry 01/13/18 01/13/18 01/13/18 11:25 11:30 11:35 Pulse Rate 79 75 74 Respiratory 21 22 17 Rate Blood Pressure (mmHg) O2 Sat by Pulse 100 98 98 Oximetry 01/13/18 01/13/18 01/13/18 11:40 11:45 11:50 Pulse Rate 77 74 77 Respiratory 18 18 19 Rate Blood Pressure (mmHg) O2 Sat by Pulse 98 96 96 Oximetry 01/13/18 01/13/18 01/13/18 11:55 12:00 12:05 Pulse Rate 84 76 73 Respiratory 22 23 18 Rate Blood Pressure 159/82 (mmHg) O2 Sat by Pulse 98 97 97 Oximetry 01/13/18 01/13/18 01/13/18 12:10 12:15 12:20 Pulse Rate 76 78 79 Respiratory 14 17 20 Rate Blood Pressure (mmHg) O2 Sat by Pulse 98 97 98 Oximetry 01/13/18 01/13/18 01/13/18 12:25 12:30 12:35 Pulse Rate 72 76 77 Respiratory 21 24 23 Rate Blood Pressure (mmHg) O2 Sat by Pulse 96 96 97 Oximetry 01/13/18 01/13/18 01/13/18 12:40 12:45 12:50 Pulse Rate 76 79 74 Respiratory 20 27 22 Rate Blood Pressure (mmHg) O2 Sat by Pulse 98 96 96 Oximetry 01/13/18 01/13/18 01/13/18 12:55 13:00 13:05 Pulse Rate 85 73 69 Respiratory 17 16 20 Rate Blood Pressure 136/92 (mmHg) O2 Sat by Pulse 98 97 96 Oximetry 01/13/18 01/13/18 01/13/18 13:10 13:15 13:20 Pulse Rate 70 76 76 Respiratory 17 19 22 Rate Blood Pressure (mmHg) O2 Sat by Pulse 96 96 96 Oximetry 01/13/18 01/13/18 01/13/18 13:25 13:30 13:35 Pulse Rate 76 76 72 Respiratory 16 22 18 Rate Blood Pressure (mmHg) O2 Sat by Pulse 96 96 95 Oximetry 01/13/18 01/13/18 01/13/18 13:40 13:45 13:50 Pulse Rate 72 79 73 Respiratory 16 22 16 Rate Blood Pressure (mmHg) O2 Sat by Pulse 96 95 96 Oximetry 01/13/18 01/13/18 01/13/18 13:55 14:00 14:05 Pulse Rate 70 70 96 Respiratory 14 20 20 Rate Blood Pressure 143/95 (mmHg) O2 Sat by Pulse 96 95 97 Oximetry 01/13/18 01/13/18 01/13/18 14:10 14:15 14:20 Pulse Rate 83 79 72 Respiratory 15 15 13 Rate Blood Pressure (mmHg) O2 Sat by Pulse 97 98 98 Oximetry 01/13/18 01/13/18 01/13/18 14:25 14:30 14:35 Pulse Rate 76 79 83 Respiratory 15 17 17 Rate Blood Pressure (mmHg) O2 Sat by Pulse 98 98 98 Oximetry 01/13/18 01/13/18 01/13/18 14:40 14:45 14:50 Pulse Rate 86 91 89 Respiratory 24 19 15 Rate Blood Pressure (mmHg) O2 Sat by Pulse 98 97 98 Oximetry 01/13/18 01/13/18 01/13/18 14:55 15:00 15:05 Pulse Rate 85 82 80 Respiratory 14 15 16 Rate Blood Pressure 134/70 (mmHg) O2 Sat by Pulse 98 97 97 Oximetry 01/13/18 01/13/18 01/13/18 15:10 15:15 15:20 Pulse Rate 81 82 86 Respiratory 21 20 19 Rate Blood Pressure (mmHg) O2 Sat by Pulse 96 96 98 Oximetry 01/13/18 01/13/18 01/13/18 15:25 15:30 16:24 Pulse Rate 86 Respiratory 24 20 Rate Blood Pressure (mmHg) O2 Sat by Pulse 97 97 Oximetry 01/13/18 18:02 Pulse Rate Respiratory 18 Rate Blood Pressure (mmHg) O2 Sat by Pulse Oximetry Oxygen Devices in Use Now: None Appearance: alert, NAD Eyes: No Scleral Icterus, PERRLA Ears/Nose/Mouth/Throat: NL Teeth, Lips, Gums, Mucous Membranes Moist Neck: NL Appearance and Movements; NL JVP, - - [place] J collar in place Respiratory: Symmetrical Chest Expansion and Respiratory Effort, Clear to Auscultation Cardiovascular: NL Sounds; No Murmurs; No JVD, - - 1st degree AVB Abdominal: NL Sounds; No Tenderness; No Distention Extremities: No Edema, No Clubbing, Cyanosis Skin: No Rash or Ulcers Neurological: Alert and Oriented x 3, - - meylopathic UE bilaterally with decreased sensation and public health director Nutrition: Taking PO's - Nutrition: Malnutrition Diagnosis/Plan Malnutrition Assessment by Registered Dietitian: Malnutrition Assessment Clinical Characteristics Acute,Moderate Malnutrition Assessment: - 6.8% wt loss in one month Criteria - po intake <75% of EEE x >7 days Malnutrition Assessment: 1. 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 when po diet resumes, consistent carb diet; follow FS results 3. when po diet resumes, will consider liquid supplement (eg: Glucerna Shake) or appropriate snacks depending on po intake Malnutrition Assessment: Goals 1. decision for po intake vs NPO/surgery will be made within next 24-36 hours 2. adequate po intake to maintain lean body mass and hydration without further wt loss 3. pt will tolerate po intake without adverse GI effects or further diarrhea 4. adequate glycemic control per inpatient parameters (< 180) 5. maintain serum electrolytes WNL with adequate hydration/intake Result Diagrams: 01/12/18 06:33 01/13/18 05:15 Additional Lab and Data: . Microbiology and Other Data: Microbiology 01/11/18 08:45 Aerobic Blood Culture - Preliminary Blood Venous No Growth Day 1 Anaerobic Blood Culture - Preliminary No Growth Day 1 01/11/18 08:20 Aerobic Blood Culture - Preliminary Blood Venous No Growth Day 1 Anaerobic Blood Culture - Preliminary No Growth Day 1 01/11/18 08:45 Influenza Types A,B Antigen - Final Nasal Specimen received for Influenza A/B Molecular testing Diagnostic Imaging: Patient Name: SERGO GONZALES I Medical Record#: [id number] Ordering Physician: Shashi Sheets HOSIERY KNITTER Acct.#: [id number] : 1955 Age: 62 Sex: F Location: [facility] - MEDICAL/TELEMETRY Exam Date: 01/11/18 1238 ADM Status: ADM IN Order Information: MRI CERVICAL SPINE WO Accession Number: [id number] CPT: 81890 INDICATION: Weakness. COMPARISON: Comparison is made with a prior MRI of the cervical spine from August 31, 2017. IMPRESSION: DEGENERATIVE DISC DISEASE MOST PROMINENT AT THE C5-C6 LEVEL CAUSING MODERATE SPINAL CANAL NARROWING AND MILD SPINAL CORD COMPRESSION. 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 <Electronically signed by Sumit Cortés MD in OV> 01/11/18 7923 EKG Data: EKG INTERPRETATION ECG Report Patient Name SERGO GONZALES I Birthdate 1955 Sex F Order Number [id number] Date of ECG 01/11/2018 08:04:09 Interpretation Sinus rhythm.normal P axis, V-rate 60- 99 Borderline prolonged [place] interval.[place] >212, V-rate 50- 90 Nonspecific T abnormalities, anterior leads.T <-0.10mV, V2-V4 Borderline prolonged QT interval.QTc >485mS - ABNORMAL ECG - ECG NEEDS E-SIGNING Assess/Plan/Problems-Billing This is a 62-year-old female who presented after a fall. The patient has history of diabetic polyneuropathy and cervical spondylosis with myelopathy. She had a reported history of slurred speech that has resolved, found to have cord compression on imaging - she was planned for cervical decompression when she had what appeared to be 3rd degree heart block after anesthesia induction and surgery was aborted. - Patient Problems (1) Cervical spinal stenosis Code(s): M48.02 - SPINAL STENOSIS, CERVICAL REGION SNOMED Code(s): 15310355 Comment: - MRI showing no progression of disease - Neurosurgery plans to proceed with cervical decompression Tuesday, now that patient is cleared by cardiology - ID consult appreciated, no contraindications to proceed with surgery in setting on osteomyelitis, recommedned to continue Vancomycin post-operatively. - Her revised cardiac index = 2 , giving her a class III for perioperative cardiac events with a risk percentage of 6.6% - Recommend post-op ICU monitoring in immediate post-op period - Check labs daily (2) Heart block AV first degree Code(s): I44.0 - ATRIOVENTRICULAR BLOCK, FIRST DEGREE SNOMED Code(s): 917211356 Comment: - Questionable 3rd degree HB under anesthesia - Evaluated by Dr. Soto today, please see his note and recommendations - Patient is cleared to proceed with surgery, DOES NOT need pacemaker insertion - Avoid QT prolonging meds - [place] tele - Downgrade from ICU (3) HLD (hyperlipidemia) Code(s): E78.5 - HYPERLIPIDEMIA, UNSPECIFIED SNOMED Code(s): 72355809 Comment: - Continue statin therapy. (4) History of CVA (cerebrovascular accident) Code(s): Z86.73 - PRSNL HX OF TIA (TIA), AND CEREB INFRC W/O RESID DEFICITS SNOMED Code(s): 929935722 Comment: - No acute issues (5) Osteomyelitis Current Visit: Yes Code(s): M86.9 - OSTEOMYELITIS, UNSPECIFIED SNOMED Code(s ): 11113520 Comment: - ID consult appreciated, continue Vancomycin post-operatively. (6) Acute renal failure Current Visit: No Status: Acute Comment: - Creatinine improving, continues to be higher than baseline, initial FENA Intrinsic - renal u/s normal. Plan to recheck creatinine now, and send urine to recalculate FENA. She reports she recnetly started a SGLT2 diabetes medication ( Farxiga) which could cause ATN. Will discuss with PCP prior to discharge - Monitor I&Os - unclear what urine output has been (7) Cervical myelopathy Code(s): G95.9 - DISEASE OF SPINAL CORD, UNSPECIFIED SNOMED Code(s): 376101507 Comment: - Mariella Thayer collar advised at all times pending surgery on Tuesday - Continue steroids - OOB to chair with assistance and collar (8) DVT prophylaxis Code(s): RJZ3418 - SNOMED Code(s): 279905858 Comment: - SCDs (9) Full code status Code(s): Z78.9 - OTHER SPECIFIED HEALTH STATUS SNOMED Code(s): 099366884 (10) Behavioral disorder Code(s): HRD7078 - SNOMED Code(s): 149884042 Comment: - Continue psychiatric medication per home regimen (11) Diabetes mellitus Code(s): E11.9 - TYPE 2 DIABETES MELLITUS WITHOUT COMPLICATIONS SNOMED Code(s) : 56256992 Comment: - Stable, has been on Metformin only as outpatient - Continue Humolog per sliding scale, sugars likely to be higher while on steroids - HgbA1C much improved since last year Status and Disposition: Inpatient pending surgery Tuesday.
[2018-01-14] MEDS: Insulin LISPRO* 1 UNITS UNIT SUBCUT SCH ×5 (01:01→22:04)
[2018-01-14 05:35] LABS: ABS Basophils 0.1 10^3/ul (0-0.2); ABS Eosinophils 0.3 10^3/ul (0-0.6); ABS Lymphocytes 2.1 10^3/ul (1.0-4.8); ABS Monocytes 0.4 10^3/ul (0-0.8); ABS Neutrophils 3.1 10^3/ul (1.5-7.7); ABS Nucleated RBC 0 10^3/ul; Eosinophil % 5.5 % (0-6); Hematocrit 30 % (35-47); Lymphocyte % 35.5 % (25-47); Mean Corpuscular HGB Conc 33 g/dl (31-36); Mean Corpuscular Hemoglobin 31 pg (27-31); Mean Corpuscular Volume 94 fL (80-97); Mean Platelet Volume 7.2 um3 (7.4-10.4); Nucleated Red Blood Cells % 0; Platelet Count 274 10^3/ul (150-450); Red Blood Count 3.21 10^6/ul (4.00-5.40); Red Cell Distribution Width 13 % (10.5-15)
[2018-01-14] MEDS: Ipratropium HFA INHALER(NF) (ALTERNATIVE = NEBS) INH SCH ×2 (07:46→20:10)
[2018-01-14] MEDS: Aspirin EC TAB* 81 MG TAB.EC PO SCH (08:21)
[2018-01-14] MEDS: Vancomycin(*) 1,000 MG in NS 0.9% 250 ML* 250 ML IVPB SCH ×2 (08:21→20:52)
[2018-01-14] MEDS: Venlafaxine EXT RELEASE CAP* 75 MG PO SCH (08:21)
--- NOTE | 2018-01-14 09:20 | PN ---
Progress Note - Progress Note Date of Service: 01/14/18 SOAP: Subjective: []Doing well Up in chair Wants to ambulate this AM Objective: []Neuro intact Assessment: []Stable Plan: []Discussed with her that she likely had cord bruising with her fall last week. Her recovery has been quite good. She is on the surgery schedule for a cervical decompression and fusion I think a reasonable option is to let her recover neurologically before considering surgery at this time.
--- NOTE | 2018-01-14 15:00 | PN ---
Subjective Date of Service: 01/14/18 Interval History: Patient reports that she is feeling better, states that she has gained more mobility and strength in her right arm. Denies chest pain or shortness of breath. Denies abd pain n/v/d. Family History: Unchanged from Admission Social History: Unchanged from Admission Past Medical History: Unchanged from Admission Objective Active Medications: Acetaminophen (Tylenol Tab*) 650 mg PO Q4H PRN PRN Reason: FEVER/PAIN Aspirin (Aspirin Ec Tab*) 81 mg PO DAILY [facility] Last Admin: 01/14/18 08:21 Dose: 81 mg Clonazepam (Klonopin Tab(*)) 2 mg PO QPM [facility] Last Admin: 01/13/18 18:02 Dose: 2 mg Dextrose (D50w Syringe 50 Ml*) 12.5 gm IV PUSH .FOR FS < 60 - SS PRN PRN Reason: FS < 60 Vancomycin HCl 1,000 mg/ (Sodium Chloride) 250 mls @ 166.667 mls/hr IVPB Q12H [facility] Last Admin: 01/14/18 08:21 Dose: 166.667 mls/hr Insulin Human Lispro (Humalog*) 0 units SUBCUT ACHS [facility]; Protocol Ipratropium [place] (Atrovent Hfa Inhaler(Nf)) 1 puff INH BID [facility] Last Admin: 01/14/18 07:46 Dose: Not Given Lorazepam (Ativan Inj*) 1 mg IV PUSH Q6H PRN PRN Reason: ANXIETY Last Admin: 01/12/18 11:49 Dose: 1 mg Pharmacy Consult (Vancomycin Per Pharmacy*) 1 note FOLLOW UP . PRN PRN Reason: PER PROTOCOL Venlafaxine HCl (Effexor Xr Cap*) 225 mg PO QAM [facility] Last Admin: 01/14/18 08:21 Dose: 225 mg Ziprasidone (Geodon Cap*) 160 mg PO QPM [facility] Last Admin: 01/13/18 18:02 Dose: 160 mg Vital Signs - 8 hr 01/14/18 01/14/18 01/14/18 07:44 07:46 07:59 Temperature 97.8 F Pulse Rate 73 Respiratory 16 18 18 Rate Blood Pressure 149/85 (mmHg) O2 Sat by Pulse 98 Oximetry 01/14/18 11:22 Temperature 97.7 F Pulse Rate 80 Respiratory 16 Rate Blood Pressure 137/87 (mmHg) O2 Sat by Pulse 98 Oximetry Oxygen Devices in Use Now: None Appearance: appears comfortable sitting in the chair, no acute distress Eyes: No Scleral Icterus Ears/Nose/Mouth/Throat: Clear Oropharnyx, Mucous Membranes Moist Neck: NL Appearance and Movements; NL JVP, Trachea Midline Respiratory: Symmetrical Chest Expansion and Respiratory Effort, Clear to Auscultation Cardiovascular: NL Sounds; No Murmurs; No JVD, No Edema Abdominal: NL Sounds; No Tenderness; No Distention Extremities: No Edema, No Clubbing, Cyanosis, - - mild weakness to right hand backend tester Skin: No Rash or Ulcers Neurological: Alert and Oriented x 3 Nutrition: Taking PO's - Nutrition: Malnutrition Diagnosis/Plan Malnutrition Assessment by Registered Dietitian: Malnutrition Assessment Clinical Characteristics Acute,Moderate Malnutrition Assessment: - 6.8% wt loss in one month Criteria - po intake <75% of EEE x >7 days Malnutrition Assessment: 1. 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 when po diet resumes, consistent carb diet; follow FS results 3. when po diet resumes, will consider liquid supplement (eg: Glucerna Shake) or appropriate snacks depending on po intake Malnutrition Assessment: Goals 1. decision for po intake vs NPO/surgery will be made within next 24-36 hours 2. adequate po intake to maintain lean body mass and hydration without further wt loss 3. pt will tolerate po intake without adverse GI effects or further diarrhea 4. adequate glycemic control per inpatient parameters (< 180) 5. maintain serum electrolytes WNL with adequate hydration/intake Result Diagrams: 01/14/18 05:11 01/13/18 05:15 Additional Lab and Data: . Microbiology and Other Data: Microbiology 01/11/18 08:45 Aerobic Blood Culture - Preliminary Blood Venous No Growth Day 1 Anaerobic Blood Culture - Preliminary No Growth Day 1 01/11/18 08:20 Aerobic Blood Culture - Preliminary Blood Venous No Growth Day 1 Anaerobic Blood Culture - Preliminary No Growth Day 1 01/11/18 08:45 Influenza Types A,B Antigen - Final Nasal Specimen received for Influenza A/B Molecular testing Diagnostic Imaging: Patient Name: SERGO GONZALES I Medical Record#: [id number] Ordering Physician: Shashi Sheets SENIOR SAFETY SUPPORT MANAGER Acct.#: [id number] : 1955 Age: 62 Sex: F Location: [facility] - MEDICAL/TELEMETRY Exam Date: 01/11/18 1238 ADM Status: ADM IN Order Information: MRI CERVICAL SPINE WO Accession Number: [id number] CPT: 16977 INDICATION: Weakness. COMPARISON: Comparison is made with a prior MRI of the cervical spine from August 31, 2017. IMPRESSION: DEGENERATIVE DISC DISEASE MOST PROMINENT AT THE C5-C6 LEVEL CAUSING MODERATE SPINAL CANAL NARROWING AND MILD SPINAL CORD COMPRESSION. 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 <Electronically signed by Sumit Cortés MD in OV> 01/11/18 1659 EKG Data: EKG INTERPRETATION ECG Report Patient Name SERGO GONZALES I Birthdate 1955 Sex F Order Number [id number] Date of ECG 01/11/2018 08:04:09 Interpretation Sinus rhythm.normal P axis, V-rate 60- 99 Borderline prolonged [place] interval.[place] >212, V-rate 50- 90 Nonspecific T abnormalities, anterior leads.T <-0.10mV, V2-V4 Borderline prolonged QT interval.QTc >485mS - ABNORMAL ECG - ECG NEEDS E-SIGNING Assess/Plan/Problems-Billing This is a 62-year-old female who presented after a fall. The patient has history of diabetic polyneuropathy and cervical spondylosis with myelopathy. She had a reported history of slurred speech that has resolved, found to have cord compression on imaging - she was planned for cervical decompression when she had what appeared to be 3rd degree heart block after anesthesia induction and surgery was aborted. - Patient Problems (1) Cervical myelopathy Current Visit: No Status: Acute Code(s): G95.9 - DISEASE OF SPINAL CORD, UNSPECIFIED SNOMED Code(s): 524199979 Comment: - [place] J collar advised at all times pending surgery on Tuesday - Continue steroids - OOB to chair with assistance and collar - reports increase strength in right arm, reports increased right backend tester (2) Weakness of right upper extremity Current Visit: No Status: Acute Priority: High Code(s): R29.898 - OTH SYMPTOMS AND SIGNS INVOLVING THE MUSCULOSKELETAL SYSTEM SNOMED Code(s): 771976697 Comment: - Initially thought to be secondary to cervical myelopathy but now found by MRI to have a likely subacute CVA (3) Diabetes mellitus Current Visit: No Status: Chronic Code(s): E11.9 - TYPE 2 DIABETES MELLITUS WITHOUT COMPLICATIONS SNOMED Code(s): 14458536 Comment: - Stable, has been on Metformin only as outpatient- will continue to monitor - Continue Humolog per sliding scale, sugars likely to be higher while on steroids - HgbA1C much improved since last year - Accu checks changed to ACHS/ with SS coverage for [place] while eating and not NPO (4) HTN (hypertension) Current Visit: No Status: Chronic Code(s): I10 - ESSENTIAL (PRIMARY) HYPERTENSION SNOMED Code(s): 57361418 Comment: - stable (5) DVT prophylaxis Current Visit: No Status: Acute Code(s): MSB9209 - SNOMED Code(s): 398484014 Comment: - SCDs (6) Full code status Current Visit: No Status: Acute Code(s): Z78.9 - OTHER SPECIFIED HEALTH STATUS SNOMED Code(s): 980418409 Status and Disposition: Inpatient pending surgery Tuesday.
[2018-01-14] MEDS: Ziprasidone CAP* 80 MG PO SCH (17:49)
[2018-01-14] MEDS: clonazePAM TAB(*) 1 MG PO SCH (17:49)
[2018-01-15] MEDS: Ipratropium HFA INHALER(NF) (ALTERNATIVE = NEBS) INH SCH (07:43)
[2018-01-15] MEDS: Vancomycin(*) 1,000 MG in NS 0.9% 250 ML* 250 ML IVPB SCH ×2 (08:53→21:55)
[2018-01-15] MEDS: Insulin LISPRO* 1 UNITS UNIT SUBCUT SCH ×4 (08:54→21:58)
[2018-01-15] MEDS: Aspirin EC TAB* 81 MG TAB.EC PO SCH (08:55)
[2018-01-15] MEDS: Venlafaxine EXT RELEASE CAP* 75 MG PO SCH (08:55)
--- NOTE | 2018-01-15 09:49 | PN ---
Progress Note - Progress Note Date of Service: 01/15/18 SOAP: Subjective: [Patient feels well this morning. Was up ambulating the nursing unit frequently yesterday. Reports improved strength in the upper and lower extremities. States that she will try to work toward gaining muscle in LEs. Wearing [place] J collar at all times. ] Objective: [ Vital Signs: Temp Pulse Resp BP Pulse Ox 97.9 F 80 20 125/82 100 01/15/18 04:05 01/15/18 04:05 01/15/18 04:05 01/15/18 04:05 01/15/18 04:05 General: Sitting up in chair, NAD. Neck: [place] J collar in place. Neck is supple and symmetric. Neuro: Motor and sensory intact. ] Assessment: [Improved. Strength and mobility of lower extremities better.] Plan: [1. Continue to encourage up out of bed and ambulation. 2. Continue [place] J collar. 3. Surgical plan per Dr. Thomas. ]
--- NOTE | 2018-01-15 18:01 | PN ---
Subjective Date of Service: 01/15/18 Interval History: patient reports that she continues to feel much better today. weakness and that her right arm has decreased ROM increased . Denies chest pain or shortness of breath. denies abd pain n/v/d. Family History: Unchanged from Admission Social History: Unchanged from Admission Past Medical History: Unchanged from Admission Objective Active Medications: Acetaminophen (Tylenol Tab*) 650 mg PO Q4H PRN PRN Reason: FEVER/PAIN Aspirin (Aspirin Ec Tab*) [address] [facility] Last Admin: 01/15/18 08:55 Dose: 81 mg Clonazepam (Klonopin Tab(*)) [address] [facility] Last Admin: 01/14/18 17:49 Dose: 2 mg Dextrose (D50w Syringe 50 Ml*) 12.5 gm IV PUSH .FOR FS < 60 - SS PRN PRN Reason: FS < 60 Vancomycin HCl 1,000 mg/ (Sodium Chloride) 250 mls @ 166.667 mls/hr IVPB Q12H [facility] Last Admin: 01/15/18 08:53 Dose: 166.667 mls/hr Insulin Human Lispro (Humalog*) 0 units SUBCUT [facility]; Protocol Last Admin: 01/15/18 17:07 Dose: Not Given Ipratropium [place] (Atrovent Hfa Inhaler(Nf)) [address] [facility] Last Admin: 01/15/18 07:43 Dose: Not Given Lorazepam (Ativan Inj*) 1 mg IV PUSH Q6H PRN PRN Reason: ANXIETY Last Admin: 01/12/18 11:49 Dose: 1 mg Pharmacy Consult (Vancomycin Per Pharmacy*) 1 note FOLLOW UP . PRN PRN Reason: PER PROTOCOL Pharmacy Profile Note (Vancomycin Trough Check) 1 note FOLLOW UP ONCE ONE Stop: 01/16/18 07:31 Venlafaxine HCl (Effexor Xr Cap*) [address] [facility] Last Admin: 01/15/18 08:55 Dose: 225 mg Ziprasidone (Geodon Cap*) [address] [facility] Last Admin: 01/14/18 17:49 Dose: 160 mg Vital Signs - 8 hr 01/15/18 01/15/18 11:16 15:04 Temperature 98.4 F Pulse Rate 88 Respiratory 18 Rate Blood Pressure 148/90 (mmHg) O2 Sat by Pulse 100 100 Oximetry Oxygen Devices in Use Now: None Appearance: appears comfortable sitting in the chair, no acute distress Eyes: No Scleral Icterus Ears/Nose/Mouth/Throat: Clear Oropharnyx, Mucous Membranes Moist Neck: NL Appearance and Movements; NL JVP, Trachea Midline Respiratory: Symmetrical Chest Expansion and Respiratory Effort, Clear to Auscultation Cardiovascular: NL Sounds; No Murmurs; No JVD, No Edema Abdominal: NL Sounds; No Tenderness; No Distention Extremities: No Edema, No Clubbing, Cyanosis, - - slight decreased hand tub mender on the right Skin: No Rash or Ulcers Neurological: Alert and Oriented x 3, NL Sensation Nutrition: Taking PO's - Nutrition: Malnutrition Diagnosis/Plan Malnutrition Assessment by Registered Dietitian: Malnutrition Assessment Clinical Characteristics Acute,Moderate Malnutrition Assessment: - 6.8% wt loss in one month Criteria - po intake <75% of EEE x >7 days Malnutrition Assessment: 1. 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 when po diet resumes, consistent carb diet; follow FS results 3. when po diet resumes, will consider liquid supplement (eg: Glucerna Shake) or appropriate snacks depending on po intake Malnutrition Assessment: Goals 1. decision for po intake vs NPO/surgery will be made within next 24-36 hours 2. adequate po intake to maintain lean body mass and hydration without further wt loss 3. pt will tolerate po intake without adverse GI effects or further diarrhea 4. adequate glycemic control per inpatient parameters (< 180) 5. maintain serum electrolytes WNL with adequate hydration/intake Result Diagrams: 01/14/18 05:11 01/13/18 05:15 Additional Lab and Data: . Microbiology and Other Data: Microbiology 01/11/18 08:45 Aerobic Blood Culture - Preliminary Blood Venous No Growth Day 1 Anaerobic Blood Culture - Preliminary No Growth Day 1 01/11/18 08:20 Aerobic Blood Culture - Preliminary Blood Venous No Growth Day 1 Anaerobic Blood Culture - Preliminary No Growth Day 1 01/11/18 08:45 Influenza Types A,B Antigen - Final Nasal Specimen received for Influenza A/B Molecular testing Diagnostic Imaging: Patient Name: SERGO GONZALES I Medical Record#: [id number] Ordering Physician: Shashi Sheets [employer]PER[employer] Acct.#: [id number] : 1955 Age: 62 Sex: F Location: [facility] - MEDICAL/TELEMETRY Exam Date: 01/11/18 1238 ADM Status: ADM IN Order Information: MRI CERVICAL SPINE WO Accession Number: [id number] CPT: 02569 INDICATION: Weakness. COMPARISON: Comparison is made with a prior MRI of the cervical spine from August 31, 2017. IMPRESSION: DEGENERATIVE DISC DISEASE MOST PROMINENT AT THE C5-C6 LEVEL CAUSING MODERATE SPINAL CANAL NARROWING AND MILD SPINAL CORD COMPRESSION. 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 <Electronically signed by Sumit Cortés MD in OV> 01/11/18 1651 EKG Data: EKG INTERPRETATION ECG Report Patient Name SERGO GONZALES I Birthdate 1955 Sex F Order Number [id number] Date of ECG 01/11/2018 08:04:09 Interpretation Sinus rhythm.normal P axis, V-rate 60- 99 Borderline prolonged NH interval.NH >212, V-rate 50- 90 Nonspecific T abnormalities, anterior leads.T <-0.10mV, V2-V4 Borderline prolonged QT interval.QTc >485mS - ABNORMAL ECG - ECG NEEDS E-SIGNING Assess/Plan/Problems-Billing This is a 62-year-old female who presented after a fall. The patient has history of diabetic polyneuropathy and cervical spondylosis with myelopathy. She had a reported history of slurred speech that has resolved, found to have cord compression on imaging - she was planned for cervical decompression when she had what appeared to be 3rd degree heart block after anesthesia induction and surgery was aborted. - Patient Problems (1) Cervical myelopathy Current Visit: No Status: Acute Code(s): G95.9 - DISEASE OF SPINAL CORD, UNSPECIFIED SNOMED Code(s): 698459401 Comment: - [place] J collar implace- advised at all times pending surgery on Tuesday - Continue steroids - OOB to chair with assistance and collar - continues to reports increase strength in right arm, reports increased strength with right tub mender (2) Diabetes mellitus Current Visit: No Status: Chronic Code(s): E11.9 - TYPE 2 DIABETES MELLITUS WITHOUT COMPLICATIONS SNOMED Code(s): 53080530 Comment: - Stable, has been on Metformin only as outpatient- will continue to monitor - Continue Humolog per sliding scale, sugars likely to be higher while on steroids - HgbA1C much improved since last year - Accu checks changed to ACHS/ with SS coverage for ACHS while eating and not NPO (3) HTN (hypertension) Current Visit: No Status: Chronic Code(s): I10 - ESSENTIAL (PRIMARY) HYPERTENSION SNOMED Code(s): 26079300 Comment: - stable (4) DVT prophylaxis Current Visit: No Status: Acute Code(s): WUT2369 - SNOMED Code(s): 763459605 Comment: - SCDs (5) Full code status Current Visit: No Status: Acute Code(s): Z78.9 - OTHER SPECIFIED HEALTH STATUS SNOMED Code(s): 088525231 Status and Disposition: Inpatient pending surgery Tuesday.
[2018-01-15] MEDS: Ziprasidone CAP* 80 MG PO SCH (18:28)
[2018-01-15] MEDS: clonazePAM TAB(*) 1 MG PO SCH (18:28)
[2018-01-16] MEDS: Ipratropium HFA INHALER(NF) (ALTERNATIVE = NEBS) INH SCH ×3 (06:43→20:37)
[2018-01-16] MEDS ORDERED: Vancomycin Trough Check NOTE FOLLOW UP ONE (07:30)
[2018-01-16 07:50] LABS: EGFR Non-African American 59.4 (>60)
[2018-01-16 08:11] LABS: Vancomycin Trough 30.7 mcg/mL
--- NOTE | 2018-01-16 08:33 | PN ---
Subjective Date of Service: 01/16/18 Interval History: Ms. Alba is in good spirits. She reports feeling well this morning and denies any pain. [place] J collar in place. No N/V/D. Reports constipation that was not relieved with prune juice which she normally uses. She reports she has been up ambulating around the unit 3 times per day independently. No numbness or weakness. No neurological deficits. Denies chest pain, SOB. Family History: Unchanged from Admission Social History: Unchanged from Admission Past Medical History: Unchanged from Admission Objective Active Medications: Acetaminophen (Tylenol Tab*) 650 mg PO Q4H PRN Aspirin (Aspirin Ec Tab*) 81 mg PO DAILY [place] Clonazepam (Klonopin Tab(*)) 2 mg PO QPM [place] Dextrose (D50w Syringe 50 Ml*) 12.5 gm IV PUSH .FOR FS < 60 - SS PRN Docusate Sodium (Colace Cap*) 100 mg PO BID PRN Insulin Human Lispro (Humalog*) 0 units SUBCUT ACHS [place]; Protocol Ipratropium [place] (Atrovent Hfa Inhaler(Nf)) 1 puff INH BID [place] Lorazepam (Ativan Inj*) 1 mg IV PUSH Q6H PRN Magnesium Hydroxide (Milk Of Magnesia Liq*) 30 ml PO Q6H PRN Pharmacy Consult (Vancomycin Per Pharmacy*) 1 note FOLLOW UP . PRN Venlafaxine HCl (Effexor Xr Cap*) 225 mg PO QAM [place] Ziprasidone (Geodon Cap*) 160 mg PO QPM [place] Oxygen Devices in Use Now: None Appearance: Elderly female sitting in bed in no acute distress. Eyes: No Scleral Icterus, PERRLA Ears/Nose/Mouth/Throat: NL Teeth, Lips, Gums, Mucous Membranes Moist Neck: NL Appearance and Movements; NL JVP, Trachea Midline Respiratory: Symmetrical Chest Expansion and Respiratory Effort, Clear to Auscultation Cardiovascular: NL Sounds; No Murmurs; No JVD, RRR, No Edema Abdominal: No Hepatosplenomegaly, - - Normoactive bowel sounds, RLQ tenderness Extremities: No Edema Skin: No Rash or Ulcers Neurological: Alert and Oriented x 3 Lines/Tubes/Other Access: Clean, Dry and Intact Peripheral IV Nutrition: Taking PO's - Nutrition: Malnutrition Diagnosis/Plan Malnutrition Assessment by Registered Dietitian: Malnutrition Assessment Clinical Characteristics Acute,Moderate Malnutrition Assessment: - 6.8% wt loss in one month Criteria - po intake <75% of EEE x >7 days Malnutrition Assessment: 1. 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 when po diet resumes, consistent carb diet; follow FS results 3. when po diet resumes, will consider liquid supplement (eg: Glucerna Shake) or appropriate snacks depending on po intake Malnutrition Assessment: Goals 1. decision for po intake vs NPO/surgery will be made within next 24-36 hours 2. adequate po intake to maintain lean body mass and hydration without further wt loss 3. pt will tolerate po intake without adverse GI effects or further diarrhea 4. adequate glycemic control per inpatient parameters (< 180) 5. maintain serum electrolytes WNL with adequate hydration/intake Result Diagrams: 01/14/18 05:11 01/16/18 07:22 Assess/Plan/Problems-Billing This is a 62-year-old female who presented after a fall. The patient has history of diabetic polyneuropathy and cervical spondylosis with myelopathy. She had a reported history of slurred speech that has resolved, found to have cord compression on imaging - she was planned for cervical decompression when she had EKG abnormalities after anesthesia induction and surgery was aborted. - Patient Problems (1) Cervical myelopathy Current Visit: Yes Status: Acute Priority: High Code(s): G95.9 - DISEASE OF SPINAL CORD, UNSPECIFIED SNOMED Code(s): 951580699 Comment: - No neurological deficits - [place] J collar in place - Neurosurgery recommends continued hospitalization until surgery Tuesday - Further management per neurosurgery (2) Heart block atrioventricular Current Visit: Yes Status: Acute Priority: High Code(s): I44.30 - UNSPECIFIED ATRIOVENTRICULAR BLOCK SNOMED Code(s): 540713487 Comment: - No further episodes since 01/14 - Continue to monitor on telemetry (3) Diabetes mellitus Current Visit: Yes Status: Chronic Priority: High Code(s): E11.9 - TYPE 2 DIABETES MELLITUS WITHOUT COMPLICATIONS SNOMED Code(s): 78647191 Comment: - HgbA1C much improved since last year - Stable, on Metformin only as outpatient- will continue to monitor - Continue Humolog per sliding scale and finger sticks AC/HS, sugars likely to be higher while on steroids (4) HTN (hypertension) Current Visit: Yes Status: Chronic Priority: High Code(s): I10 - ESSENTIAL (PRIMARY) HYPERTENSION SNOMED Code(s): 80316598 Comment: - Normotensive off medication (5) Full code status Current Visit: Yes Status: Acute Priority: High Code(s): Z78.9 - OTHER SPECIFIED HEALTH STATUS SNOMED Code(s): 704649880 (6) DVT prophylaxis Current Visit: Yes Status: Acute Priority: High Code(s): TMU3491 - SNOMED Code(s): 801910167 Comment: - SCDs Status and Disposition: Inpatient pending surgery Tuesday.
[2018-01-16] MEDS: Insulin LISPRO* 1 UNITS UNIT SUBCUT SCH ×4 (08:46→22:11)
[2018-01-16] MEDS: Docusate CAP* 100 MG PO PRN (08:47)
[2018-01-16] MEDS: Venlafaxine EXT RELEASE CAP* 75 MG PO SCH (08:47)
[2018-01-16] MEDS: Aspirin EC TAB* 81 MG TAB.EC PO SCH (08:47)
[2018-01-16] MEDS: Vancomycin(*) 1,000 MG in NS 0.9% 250 ML* 250 ML IVPB SCH (10:05)
[2018-01-16] MEDS: clonazePAM TAB(*) 1 MG PO SCH (20:29)
[2018-01-16] MEDS: Ziprasidone CAP* 80 MG PO SCH (20:30)
[2018-01-17] MEDS: Magnesium Hydroxide LIQ* 30 ML UDC PO PRN ×2 (03:45→10:05)
[2018-01-17] MEDS ORDERED: Vancomycin Random Level* NOTE FOLLOW UP ONE (06:00)
[2018-01-17] MEDS: Ipratropium HFA INHALER(NF) (ALTERNATIVE = NEBS) INH SCH ×2 (08:19→19:35)
[2018-01-17] MEDS: Aspirin EC TAB* 81 MG TAB.EC PO SCH (10:05)
[2018-01-17] MEDS: Docusate CAP* 100 MG PO PRN (10:05)
[2018-01-17] MEDS: Insulin LISPRO* 1 UNITS UNIT SUBCUT SCH ×4 (10:06→21:58)
[2018-01-17] MEDS: Venlafaxine EXT RELEASE CAP* 75 MG PO SCH (10:06)
[2018-01-17] MEDS: Vancomycin(*) 1,500 MG in NS 0.9% 250 ML* 250 ML IVPB SCH (10:06)
[2018-01-17] MEDS ORDERED: Magnesium CITRATE* 300 ML BTL PO ONE (10:07)
--- NOTE | 2018-01-17 11:27 | PN ---
Subjective Date of Service: 01/17/18 Interval History: Ms. Alba has no complaints this morning and is in good spirits. She has full ROM of BUE and continues to ambulate independently in the halls multiple times during the day. [place] J collar in place. Denies pain. Not taking any analgesics. She is anxious about surgery tomorrow, but still would like to go through with surgery as she feels it will improve her quality of life. She is constipated and has no had a BM in 6 days. No N/V, CP, SOB, dizziness. Family History: Unchanged from Admission Social History: Unchanged from Admission Past Medical History: Unchanged from Admission Objective Active Medications: Acetaminophen (Tylenol Tab*) 650 mg PO Q4H PRN Aspirin (Aspirin Ec Tab*) 81 mg PO DAILY [place] Clonazepam (Klonopin Tab(*)) 2 mg PO QPM [place] Dextrose (D50w Syringe 50 Ml*) 12.5 gm IV PUSH .FOR FS < 60 - SS PRN Docusate Sodium (Colace Cap*) 100 mg PO BID PRN Vancomycin HCl 1,500 mg/ (Sodium Chloride) 250 mls @ 166.667 mls/hr IVPB Q24H [place] Insulin Human Lispro (Humalog*) 0 units SUBCUT ACHS [place]; Protocol Ipratropium [place] (Atrovent Hfa Inhaler(Nf)) 1 puff INH BID [place] Lorazepam (Ativan Inj*) 1 mg IV PUSH Q6H PRN Magnesium Hydroxide (Milk Of Magnesia Liq*) 30 ml PO Q6H PRN Pharmacy Consult (Vancomycin Per Pharmacy*) 1 note FOLLOW UP . PRN Pharmacy Profile Note (Vancomycin Trough Check) 1 note FOLLOW UP 0900 ONE Venlafaxine HCl (Effexor Xr Cap*) 225 mg PO QAM [place] Ziprasidone (Geodon Cap*) 160 mg PO QPM [place] Vital Signs - 8 hr 01/17/18 03:24 Temperature 97.6 F Pulse Rate 70 Respiratory 18 Rate Blood Pressure 104/66 (mmHg) O2 Sat by Pulse 98 Oximetry Oxygen Devices in Use Now: None Appearance: Elderly female sitting in chair in no acute distress. Eyes: No Scleral Icterus, PERRLA Ears/Nose/Mouth/Throat: NL Teeth, Lips, Gums, Mucous Membranes Moist Neck: NL Appearance and Movements; NL JVP, Trachea Midline Respiratory: Symmetrical Chest Expansion and Respiratory Effort, Clear to Auscultation Cardiovascular: NL Sounds; No Murmurs; No JVD, RRR, No Edema Abdominal: NL Sounds; No Tenderness; No Distention, No Hepatosplenomegaly Extremities: No Edema Skin: No Rash or Ulcers Neurological: Alert and Oriented x 3 Lines/Tubes/Other Access: Clean, Dry and Intact Peripheral IV - Nutrition: Malnutrition Diagnosis/Plan Malnutrition Assessment by Registered Dietitian: Malnutrition Assessment Clinical Characteristics Acute,Moderate Malnutrition Assessment: - 6.8% wt loss in one month Criteria - po intake <75% of EEE x >7 days Malnutrition Assessment: 1. 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 when po diet resumes, consistent carb diet; follow FS results 3. when po diet resumes, will consider liquid supplement (eg: Glucerna Shake) or appropriate snacks depending on po intake Malnutrition Assessment: Goals 1. decision for po intake vs NPO/surgery will be made within next 24-36 hours 2. adequate po intake to maintain lean body mass and hydration without further wt loss 3. pt will tolerate po intake without adverse GI effects or further diarrhea 4. adequate glycemic control per inpatient parameters (< 180) 5. maintain serum electrolytes WNL with adequate hydration/intake Result Diagrams: 01/14/18 05:11 01/16/18 07:22 Assess/Plan/Problems-Billing This is a 62-year-old female who presented after a fall. The patient has history of diabetic polyneuropathy and cervical spondylosis with myelopathy. She had a reported history of slurred speech that has resolved, found to have cord compression on imaging - she was planned for cervical decompression when she had EKG abnormalities after anesthesia induction and surgery was aborted. - Patient Problems (1) Cervical myelopathy Current Visit: Yes Status: Acute Priority: High Code(s): G95.9 - DISEASE OF SPINAL CORD, UNSPECIFIED SNOMED Code(s): 239373253 Comment: - No neurological deficits - [place] J collar in place - Neurosurgery recommends continued hospitalization until surgery Tuesday - Further management per neurosurgery - According to the Revised Cardiac Risk Index, the patient has a score of 2 points indicating an 6.6% risk of major cardiac event. The patient has a METS score of 7.44. EKG personally reviewed shows sinus rhythm with 1st degree AV block and a rate of 82. She does not require any further cardiac workup and has been seen by cardiology in consult. The patient has been medically optimized for surgery cervical spine surgery with Dr. Olvera tomorrow. (2) Heart block atrioventricular Current Visit: Yes Status: Acute Priority: High Code(s): I44.30 - UNSPECIFIED ATRIOVENTRICULAR BLOCK SNOMED Code(s): 971624035 Comment: - No further episodes since 01/14 - Continue to monitor on telemetry (3) Osteomyelitis of toe of left foot Current Visit: Yes Status: Acute Priority: High Code(s): M86.9 - OSTEOMYELITIS, UNSPECIFIED SNOMED Code(s): 32814009 Comment: - MRI on 01/11/18 shows osteomyelitis of the left first distal phalanx - Appreciate ID consult - Continue vanco with goal trough of 15-20 for 6-8 weeks (4) Diabetes mellitus Current Visit: Yes Status: Chronic Priority: High Code(s): E11.9 - TYPE 2 DIABETES MELLITUS WITHOUT COMPLICATIONS SNOMED Code(s): 55973068 Comment: - HgbA1C much improved since last year - Stable, on Metformin only as outpatient- will continue to monitor - Continue Humolog per sliding scale and finger sticks AC/HS (5) HTN (hypertension) Current Visit: Yes Status: Chronic Priority: High Code(s): I10 - ESSENTIAL (PRIMARY) HYPERTENSION SNOMED Code(s): 81782484 Comment: - Normotensive off medication (6) Full code status Current Visit: Yes Status: Acute Priority: High Code(s): Z78.9 - OTHER SPECIFIED HEALTH STATUS SNOMED Code(s): 528136775 (7) DVT prophylaxis Current Visit: Yes Status: Acute Priority: High Code(s): RXL8483 - SNOMED Code(s): 540607315 Comment: - SCDs Status and Disposition: Inpatient pending surgery Tuesday. Will need outpatient antibiotics for osteomyelitis.
--- NOTE | 2018-01-17 14:39 | PN ---
Progress Note - Progress Note Date of Service: 01/17/18 SOAP: Subjective: []Neuro stable Ambulating with walker Surgery scheduled for 10AM tommorow Objective: []Neuro intact Assessment: []Stable pre op Plan: [] Questions answered regarding procedure in AM
[2018-01-17] MEDS: Ziprasidone CAP* 80 MG PO SCH (20:55)
[2018-01-17] MEDS: clonazePAM TAB(*) 1 MG PO SCH (20:56)
[2018-01-18 06:39] LABS: ABS Basophils 0.1 10^3/ul (0-0.2); ABS Eosinophils 0.4 10^3/ul (0-0.6); ABS Lymphocytes 2.3 10^3/ul (1.0-4.8); ABS Monocytes 0.5 10^3/ul (0-0.8); ABS Neutrophils 4.9 10^3/ul (1.5-7.7); ABS Nucleated RBC 0 10^3/ul; Eosinophil % 5.1 % (0-6); Hematocrit 31 % (35-47); Hemoglobin 10.3 g/dl (12.0-16.0); Lymphocyte % 28.6 % (25-47); Mean Corpuscular HGB Conc 33 g/dl (31-36); Mean Corpuscular Hemoglobin 31 pg (27-31); Mean Corpuscular Volume 94 fL (80-97); Mean Platelet Volume 7.3 um3 (7.4-10.4); Nucleated Red Blood Cells % 0.1; Platelet Count 411 10^3/ul (150-450); Red Blood Count 3.29 10^6/ul (4.00-5.40); Red Cell Distribution Width 13 % (10.5-15); White Blood Count 8.1 10^3/ul (3.5-10.8)
[2018-01-18 06:47] LABS: INR 0.95 (0.77-1.02)
[2018-01-18 06:57] LABS: EGFR Non-African American 48.1 (>60)
[2018-01-18] MEDS: Insulin LISPRO* 1 UNITS UNIT SUBCUT SCH ×4 (07:35→21:16)
[2018-01-18] MEDS ORDERED: Midazolam* 1 MG/ML 5 ML VIAL (5 MG) ONE (08:20)
[2018-01-18] MEDS ORDERED: fentaNYL* 50 MCG/ML 2 ML VIAL (100 MCG VIAL) ONE (08:20)
[2018-01-18] MEDS ORDERED: Succinylcholine* 20 MG/ML 10 ML VIAL ONE (08:22)
[2018-01-18] MEDS ORDERED: Atropine 1MG/ML INJ* 1 ML VIAL ONE (08:22)
[2018-01-18] MEDS: Ipratropium HFA INHALER(NF) (ALTERNATIVE = NEBS) INH SCH ×2 (08:27→19:55)
[2018-01-18] MEDS: Vancomycin(*) 1,500 MG in NS 0.9% 250 ML* 250 ML IVPB SCH (08:34)
[2018-01-18] MEDS: Aspirin EC TAB* 81 MG TAB.EC PO SCH (08:38)
[2018-01-18] MEDS ORDERED: Lidocaine 1% MPF wEPI 200,000* 30 ML SDV ONE (09:53)
[2018-01-18] MEDS ORDERED: Thrombin 5,000 UNITS* 1 APPLIC KIT - topical use - TOPICAL ONE (09:53)
[2018-01-18] MEDS ORDERED: Bacitracin IV* 50,000 UNITS INJ ONE (09:54)
--- NOTE | 2018-01-18 10:08 | PN ---
Subjective Date of Service: 01/18/18 Interval History: Ms. Alba is anxious for surgery today. She continues to feel well and is asymptomatic. Full active ROM, no neurological deficits. Wearing [place] J collar at all times. She did have a BM overnight. Denies CP, SOB, dizziness, N/V. Family History: Unchanged from Admission Social History: Unchanged from Admission Past Medical History: Unchanged from Admission Objective Active Medications: Acetaminophen (Tylenol Tab*) 650 mg PO Q4H PRN Aspirin (Aspirin Ec Tab*) 81 mg PO DAILY [place] Clonazepam (Klonopin Tab(*)) 2 mg PO QPM@2000 [facility] Dextrose (D50w Syringe 50 Ml*) 12.5 gm IV PUSH .FOR FS < 60 - SS PRN Docusate Sodium (Colace Cap*) 100 mg PO BID PRN Vancomycin HCl 1,500 mg/ (Sodium Chloride) 250 mls @ 166.667 mls/hr IVPB Q24H [facility] Insulin Human Lispro (Humalog*) 0 units SUBCUT ACHS [place]; Protocol Ipratropium [place] (Atrovent Hfa Inhaler(Nf)) 1 puff INH BID [place] Lorazepam (Ativan Inj*) 1 mg IV PUSH Q6H PRN Magnesium Hydroxide (Milk Of Magnesia Liq*) 30 ml PO Q6H PRN Pharmacy Consult (Vancomycin Per Pharmacy*) 1 note FOLLOW UP . PRN Pharmacy Profile Note (Vancomycin Trough Check) 1 note FOLLOW UP 0900 ONE Venlafaxine HCl (Effexor Xr Cap*) 225 mg PO DAILY@1600 [place] Ziprasidone (Geodon Cap*) 160 mg PO QPM@2000 [facility] Vital Signs - 8 hr 01/18/18 01/18/18 01/18/18 03:08 03:51 07:44 Temperature 98.0 F 97.8 F Pulse Rate 66 73 Respiratory 20 16 Rate Blood Pressure 102/53 115/69 (mmHg) O2 Sat by Pulse 99 97 100 Oximetry Oxygen Devices in Use Now: None Appearance: Elderly female sitting in chair in no acute distress Eyes: No Scleral Icterus, PERRLA Ears/Nose/Mouth/Throat: NL Teeth, Lips, Gums, Mucous Membranes Moist Neck: NL Appearance and Movements; NL JVP, Trachea Midline Respiratory: Symmetrical Chest Expansion and Respiratory Effort, Clear to Auscultation Cardiovascular: NL Sounds; No Murmurs; No JVD, RRR Abdominal: NL Sounds; No Tenderness; No Distention, No Hepatosplenomegaly Extremities: No Clubbing, Cyanosis, - - +1 pitting edema to LLE Skin: No Rash or Ulcers Neurological: Alert and Oriented x 3 Lines/Tubes/Other Access: Clean, Dry and Intact [place], Clean, Dry and Intact Peripheral IV - Nutrition: Malnutrition Diagnosis/Plan Malnutrition Assessment by Registered Dietitian: Malnutrition Assessment Clinical Characteristics Acute,Moderate Malnutrition Assessment: - 6.8% wt loss in one month Criteria - po intake <75% of EEE x >7 days Malnutrition Assessment: 1. 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 when po diet resumes, consistent carb diet; follow FS results 3. when po diet resumes, will consider liquid supplement (eg: Glucerna Shake) or appropriate snacks depending on po intake Malnutrition Assessment: Goals 1. decision for po intake vs NPO/surgery will be made within next 24-36 hours 2. adequate po intake to maintain lean body mass and hydration without further wt loss 3. pt will tolerate po intake without adverse GI effects or further diarrhea 4. adequate glycemic control per inpatient parameters (< 180) 5. maintain serum electrolytes WNL with adequate hydration/intake Result Diagrams: 01/18/18 06:10 01/18/18 06:10 Assess/Plan/Problems-Billing This is a 62-year-old female who presented after a fall. The patient has history of diabetic polyneuropathy and cervical spondylosis with myelopathy. She had a reported history of slurred speech that has resolved, found to have cord compression on imaging - she was planned for cervical decompression when she had EKG abnormalities after anesthesia induction and surgery was aborted. - Patient Problems (1) Cervical myelopathy Current Visit: Yes Status: Acute Priority: High Code(s): G95.9 - DISEASE OF SPINAL CORD, UNSPECIFIED SNOMED Code(s): 509546029 Comment: - No neurological deficits - [place] J collar in place - Surgery today, further management per neurosurgery (2) Heart block atrioventricular Current Visit: Yes Status: Acute Priority: High Code(s): I44.30 - UNSPECIFIED ATRIOVENTRICULAR BLOCK SNOMED Code(s): 127674993 Comment: - No further episodes since 01/14 - Continue to monitor on telemetry (3) Osteomyelitis of toe of left foot Current Visit: Yes Status: Acute Priority: High Code(s): M86.9 - OSTEOMYELITIS, UNSPECIFIED SNOMED Code(s): 45257923 Comment: - MRI on 01/11/18 shows osteomyelitis of the left first distal phalanx - Appreciate ID consult - Continue vanco with goal trough of 15-20 for 6-8 weeks (4) Diabetes mellitus Current Visit: Yes Status: Chronic Priority: High Code(s): E11.9 - TYPE 2 DIABETES MELLITUS WITHOUT COMPLICATIONS SNOMED Code(s): 34336708 Comment: - HgbA1C much improved since last year - Stable, on Metformin only as outpatient - Continue Humolog per sliding scale and finger sticks AC/HS (5) HTN (hypertension) Current Visit: Yes Status: Chronic Priority: High Code(s): I10 - ESSENTIAL (PRIMARY) HYPERTENSION SNOMED Code(s): 38414795 Comment: - Normotensive off medication (6) Full code status Current Visit: Yes Status: Acute Priority: High Code(s): Z78.9 - OTHER SPECIFIED HEALTH STATUS SNOMED Code(s): 411544046 (7) DVT prophylaxis Current Visit: Yes Status: Acute Priority: High Code(s): QDG2469 - SNOMED Code(s): 691701946 Comment: - SCDs Status and Disposition: Inpatient pending surgery today. Will need outpatient antibiotics for osteomyelitis.
--- NOTE | 2018-01-18 10:48 | PN ---
Progress Note - Progress Note Date of Service: 01/18/18 SOAP: Subjective: []No events ON. NPO, On MJ collar. Son Samuel at the bedside. Was able to ambulate with walker. Feels balance is not good. Martin. Patient had BM yesterday. Objective: []VSS Afebrile AAOx3 SHUBHAM, CN II-XII grossly intact Motor 4-/5 UEs, 4-/5 LEs Sensory grossly intact to light touch. 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 Was cleared by cardiology, IM , ID for surgery. On Vancomycin. Discussed in extend with patient and her son Samuel regarding surgical intervention. After explaining in details to patient and her son the different treatment options, expectations, limitations and possible complications, with complications including but not limited to bleeding, infection, risk of injury to adjacent structures, coma, paralysis, , stroke, blindness, cancer, instability, need for additional procedures, adjacent level disease, proximal or distal junctional kyphosis, pseudoarthrosis, hardware failure,spinal fluid leak, prolonged paralysis, loss of sensation and pain, need for tracheostomy, gastrostomy or prolonged ICU stay, anesthesia risks, patient and her son understood and wish to proceed with surgery. IC obtained prior to last anesthesia. They understand the possibility of increased risk of infection and the possible outcome including paralysis and . They also understand that her condition may not improve and in fact may get worse after surgery and that operative plan may be modified according to intraoperative findings and conditions. They also understand that the case may be aborted or staged according to intraoperative findings and conditions and that she may require prolonged ICU care. Appreciate IM, Neurology, ID care. Fabio Thomas MD
[2018-01-18] MEDS: Venlafaxine EXT RELEASE CAP* 75 MG PO SCH (16:38)
--- NOTE | 2018-01-18 18:22 | PN ---
Progress Note - Progress Note Date of Service: 01/18/18 Note: Patient was scheduled to undergo a PCDF today. Due to two episodes of sterility issues in the OR, case was postponed. Discussed in extend with the patient and her son, regarding further plan. Due to her clinical improvement and presence of osteomyelitis, we agreed to postpone the surgical intervention for now. Patient may be discharged with a cervical collar from ns standpoint and follow up in the office in 2-4 weeks. Will need to have cardiology follow up and clearance prior to surgical intervention and to have ID clearance. Full instructions form ns standpoint were given to the patient with emphasis in fall precautions and avoidance of any activities that may put her at risk for any further injury. Fabio Thomas MD
[2018-01-18] MEDS: clonazePAM TAB(*) 1 MG PO SCH (21:15)
[2018-01-18] MEDS: Ziprasidone CAP* 80 MG PO SCH (21:16)
[2018-01-19] MEDS: Ipratropium HFA INHALER(NF) (ALTERNATIVE = NEBS) INH SCH ×2 (07:02→19:34)
[2018-01-19] MEDS: Insulin LISPRO* 1 UNITS UNIT SUBCUT SCH ×4 (07:34→21:56)
[2018-01-19] MEDS: Vancomycin(*) 1,500 MG in NS 0.9% 250 ML* 250 ML IVPB SCH (08:48)
[2018-01-19] MEDS: Aspirin EC TAB* 81 MG TAB.EC PO SCH (08:48)
--- NOTE | 2018-01-19 09:29 | PN ---
Progress Note - Progress Note Date of Service: 01/19/18 SOAP: Subjective: CC: osteomyelitis HPI: 62 year old woman with left great toe osteomyelitis and cellulitis; redness resolved. Was here with cervical myelopathy, arm strength improving. No surgery planned currently. No fever, rash, or diarrhea. Objective: Vital Signs Temp 36.7 C 01/19/18 07:28 Pulse 78 01/19/18 07:28 Resp 20 01/19/18 07:30 BP 122/74 01/19/18 07:28 Pulse Ox 99 01/19/18 07:39 Intake & Output 01/18/18 01/19/18 01/19/18 18:59 06:59 18:59 Intake Total 240 0 720 Output Total 750 Balance -510 0 720 Intake: Oral 240 0 720 Output: Martin 750 Other: Estimated Void Medium # Bowel Movements 1 Estimated Stool Amount Medium # Voids 3 Gen:awake, no distress HEENT: no thrush Heart:RRR no murmur Lungs:CTA BL Abd:+BS NTND soft Skin: no rash MSK: Left great to trace edema no erythema; 1+ DP L foot Laboratory Results - last 24 hr 01/18/18 01/18/18 01/18/18 09:41 12:15 13:38 POC Glucose (mg/dL) 128 H 104 H 104 H 01/18/18 01/18/18 01/19/18 16:31 20:21 07:09 POC Glucose (mg/dL) 111 H 151 H 121 H Assessment: 1. Left great toe acute non hematogenous osteomyelitis, cellulitis improving 2. T2 DM 3. hyperlipidemia 4. cervical myelopathy Plan: 1. daptomycin 500 mg IV daily for 35 more days w weekly cbc, cmp, crp, ck; follow up with me 1-2 weeks Discussed with Noelle Stringer NP 25 minutes floor time >50% floor time >50% face to face discussing home antibiotic plans
[2018-01-19] MEDS: Venlafaxine EXT RELEASE CAP* 75 MG PO SCH (17:10)
--- NOTE | 2018-01-19 18:24 | PN ---
Subjective Date of Service: 01/19/18 Interval History: Patient with no complaints today. Continues to have improved Rom of right arm and right leg. Denies chest pain or shortness of breath. Denies headache or dizziness. Family History: Unchanged from Admission Social History: Unchanged from Admission Past Medical History: Unchanged from Admission Objective Active Medications: Acetaminophen (Tylenol Tab*) 650 mg PO Q4H PRN PRN Reason: FEVER/PAIN Aspirin (Aspirin Ec Tab*) 81 mg PO DAILY [facility] Last Admin: 01/19/18 08:48 Dose: 81 mg Clonazepam (Klonopin Tab(*)) 2 mg PO QPM@1999 [facility] Last Admin: 01/18/18 21:15 Dose: 2 mg Dextrose (D50w Syringe 50 Ml*) 12.5 gm IV PUSH .FOR FS < 60 - SS PRN PRN Reason: FS < 60 Docusate Sodium (Colace Cap*) 100 mg PO BID PRN PRN Reason: CONSTIPATION Last Admin: 01/17/18 10:05 Dose: 100 mg Vancomycin HCl 1,500 mg/ (Sodium Chloride) 250 mls @ 166.667 mls/hr IVPB Q24H [facility] Last Admin: 01/19/18 08:48 Dose: 166.667 mls/hr Insulin Human Lispro (Humalog*) 0 units SUBCUT ACHS [facility]; Protocol Last Admin: 01/19/18 17:23 Dose: Not Given Ipratropium Ragland (Atrovent Hfa Inhaler(Nf)) 1 puff INH BID [facility] Last Admin: 01/19/18 07:02 Dose: Not Given Magnesium Hydroxide (Milk Of Magnesia Liq*) 30 ml PO Q6H PRN PRN Reason: CONSTIPATION Last Admin: 01/17/18 10:05 Dose: 30 ml Pharmacy Consult (Vancomycin Per Pharmacy*) 1 note FOLLOW UP . PRN PRN Reason: PER PROTOCOL Pharmacy Profile Note (Vancomycin Trough Check) 1 note FOLLOW UP 0900 ONE Stop: 01/20/18 09:01 Venlafaxine HCl (Effexor Xr Cap*) 225 mg PO DAILY@1600 [facility] Last Admin: 01/19/18 17:10 Dose: 225 mg Ziprasidone (Geodon Cap*) 160 mg PO QPM@2000 [facility] Last Admin: 01/18/18 21:16 Dose: 160 mg Vital Signs - 8 hr 1001/19/18 01/19/18 11:39 15:19 15:26 Temperature 97.6 F 98.0 F Pulse Rate 73 79 Respiratory 16 16 Rate Blood Pressure 133/80 145/86 (mmHg) O2 Sat by Pulse 100 100 100 Oximetry Oxygen Devices in Use Now: None Appearance: Alert, resting in bed , no complaints Eyes: No Scleral Icterus Ears/Nose/Mouth/Throat: Clear Oropharnyx, Mucous Membranes Moist Neck: NL Appearance and Movements; NL JVP, Trachea Midline Respiratory: Symmetrical Chest Expansion and Respiratory Effort, Clear to Auscultation Cardiovascular: NL Sounds; No Murmurs; No JVD, RRR Abdominal: NL Sounds; No Tenderness; No Distention Extremities: No Edema, No Clubbing, Cyanosis Skin: No Rash or Ulcers Neurological: Alert and Oriented x 3 Lines/Tubes/Other Access: Clean, Dry and Intact Naso-enteral Tube Nutrition: Taking PO's - Nutrition: Malnutrition Diagnosis/Plan Malnutrition Assessment by Registered Dietitian: Malnutrition Assessment Clinical Characteristics Acute,Moderate Malnutrition Assessment: - 6.8% wt loss in one month Criteria - po intake <75% of EEE x >7 days Malnutrition Assessment: 1. 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 when po diet resumes, consistent carb diet; follow FS results 3. when po diet resumes, will consider liquid supplement (eg: Glucerna Shake) or appropriate snacks depending on po intake Malnutrition Assessment: Goals 1. decision for po intake vs NPO/surgery will be made within next 24-36 hours 2. adequate po intake to maintain lean body mass and hydration without further wt loss 3. pt will tolerate po intake without adverse GI effects or further diarrhea 4. adequate glycemic control per inpatient parameters (< 180) 5. maintain serum electrolytes WNL with adequate hydration/intake Result Diagrams: 01/18/18 06:10 01/20/18 06:11 Additional Lab and Data: . Microbiology and Other Data: Microbiology 01/11/18 08:45 Aerobic Blood Culture - Preliminary Blood Venous No Growth Day 1 Anaerobic Blood Culture - Preliminary No Growth Day 1 01/11/18 08:20 Aerobic Blood Culture - Preliminary Blood Venous No Growth Day 1 Anaerobic Blood Culture - Preliminary No Growth Day 1 01/11/18 08:45 Influenza Types A,B Antigen - Final Nasal Specimen received for Influenza A/B Molecular testing Diagnostic Imaging: Patient Name: SERGO GONZALES I Medical Record#: [id number] Ordering Physician: Shashi Sheets SEARCH MARKETING ANALYST Acct.#: [id number] : 1955 Age: 62 Sex: F Location: [address] [place] [address] MEDICAL/TELEMETRY Exam Date: 01/11/18 1238 ADM Status: ADM IN Order Information: MRI CERVICAL SPINE WO Accession Number: [id number] CPT: 75782 INDICATION: Weakness. COMPARISON: Comparison is made with a prior MRI of the cervical spine from August 31, 2017. IMPRESSION: DEGENERATIVE DISC DISEASE MOST PROMINENT AT THE C5-C6 LEVEL CAUSING MODERATE SPINAL CANAL NARROWING AND MILD SPINAL CORD COMPRESSION. 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 <Electronically signed by Sumit Cortés MD in OV> 01/11/18 6668 EKG Data: EKG INTERPRETATION ECG Report Patient Name SERGO GONZALES I Birthdate 1955 Sex F Order Number [id number] Date of ECG 01/11/2018 08:04:09 Interpretation Sinus rhythm.normal P axis, V-rate 60- 99 Borderline prolonged AR interval.AR >212, V-rate 50- 90 Nonspecific T abnormalities, anterior leads.T <-0.10mV, V2-V4 Borderline prolonged QT interval.QTc >485mS - ABNORMAL ECG - ECG NEEDS E-SIGNING Assess/Plan/Problems-Billing This is a 62-year-old female who presented after a fall. The patient has history of diabetic polyneuropathy and cervical spondylosis with myelopathy. She had a reported history of slurred speech that has resolved, found to have cord compression on imaging - she was planned for cervical decompression when she had EKG abnormalities after anesthesia induction and surgery was aborted. - Patient Problems (1) Cervical myelopathy Status: Acute Priority: High Code(s): G95.9 - DISEASE OF SPINAL CORD, UNSPECIFIED SNOMED Code(s): 936677012 Comment: - No neurological deficits - [place] J collar in place at all times - Surgery cancelled - patient will be discaharged home and return for surgery as an outpatient- will need outpatient cardiology, ID clearance (2) Diabetes mellitus Status: Chronic Priority: High Code(s): E11.9 - TYPE 2 DIABETES MELLITUS WITHOUT COMPLICATIONS SNOMED Code(s): 35399569 Comment: Resume home diabetic regimen. (3) HTN (hypertension) Status: Chronic Priority: High Code(s): I10 - ESSENTIAL (PRIMARY) HYPERTENSION SNOMED Code(s): 42051055 Comment: - Normotensive off medication (4) DVT prophylaxis Status: Acute Priority: High Code(s): SHJ1442 - SNOMED Code(s): 878600650 Comment: - SCDs (5) Full code status Status: Acute Priority: High Code(s): Z78.9 - OTHER SPECIFIED HEALTH STATUS SNOMED Code(s): 708223333 Status and Disposition: Will need outpatient antibiotics for osteomyelitis at the outpatient infusion center. discharge in the AM to outpatient infusion center in the AM
[2018-01-19] MEDS: Ziprasidone CAP* 80 MG PO SCH (22:09)
[2018-01-19] MEDS: clonazePAM TAB(*) 1 MG PO SCH (22:10)
[2018-01-20 04:04] VITALS: BP 126/74
[2018-01-20 07:09] LABS: EGFR Non-African American 51.2 (>60)
[2018-01-20] MEDS: Ipratropium HFA INHALER(NF) (ALTERNATIVE = NEBS) INH SCH (07:51)
[2018-01-20] MEDS: Insulin LISPRO* 1 UNITS UNIT SUBCUT SCH (07:58)
[2018-01-20] MEDS: Aspirin EC TAB* 81 MG TAB.EC PO SCH (07:59)
[2018-01-20] MEDS ORDERED: Vancomycin Trough Check NOTE FOLLOW UP ONE (09:00)
--- NOTE | 2018-01-20 14:09 | RAD ---
INDICATION: Cervical ORIF. COMPARISON: January 11, 2018 MRI. TECHNIQUE: 2.2 seconds fluoroscopy. FINDINGS: Lateral spot image of the cervical spine obtained. IMPRESSION: Interoperative control films. CPT II Codes: G9500
--- NOTE | 2018-01-23 11:34 | DS ---
CC: Christiano Rosa MD * DISCHARGE SUMMARY: DATE OF ADMISSION: 01/11/18 DATE OF DISCHARGE: 01/20/18 ATTENDING PHYSICIAN WHILE IN THE HOSPITAL: Taniya Ellison MD * (dictated by Elizabeth Stringer NP) PRIMARY CARE PROVIDER: Christiano Rosa MD PRIMARY DIAGNOSES: 1. Cervical spondylitic myelopathy. 2. Bradycardia. 3. Osteomyelitis. SECONDARY DIAGNOSES: 1. Cerebrovascular accident. 2. Hypertension. 3. Hyperlipidemia. 4. Diabetes. 5. Posttraumatic stress disorder. 6. Anxiety. 7. Depression. 8. Asthma. 9. Cervical stenosis. 10. Insomnia. 11. Obesity. 12. Obstructive sleep apnea. STUDIES COMPLETED WHILE IN THE HOSPITAL: She had a chest x-ray on 01/11/18. Radiologist's impression: No active cardiopulmonary disease. She had a CT of the brain on 01/11/18. Radiologist's impression: There is a trace dependent mastoid air cell diffusion on the right unchanged since . CT of the brain otherwise non-acute. She had an MRI of the lower extremity on 01/11/18, concern for osteomyelitis of the left foot. Radiologist's impression: Osteomyelitis of the first distal phalanx, soft tissue edema at the great toe and medial forefoot most consistent with cellulitis without evidence of loculated tissue, plain abscess collection. She had a transthoracic echocardiogram on 01/11/18. Conclusion: The left ventricular chamber size is normal, mild concentric left ventricular hypertrophy was observed. There was normal left ventricular systolic function. The estimated ejection fraction was 55% to 60%. The left atrial chamber is normal size. The left ventricular chamber and systolic function is within normal limits. No significant valvular abnormalities were noted. When compared to prior study from August 2017, there were no significant changes. She had MRI of the lumbar spine on 01/11/18. Radiologist's impression: 1. Moderate chronic compression fractures of the L1 vertebral body. 2. [id number] diffuse lumbar spondylosis. She had a cervical spine MRI on 01/11/18. Radiologist's impression: Degenerative disk disease, most prominent at C5-C6 level causing moderate spinal canal narrowing and mild spinal cord compression. There is increased signal intensity within the spinal cord at the level, which appears to be similar to the prior exam most consistent with myelomalacia secondary to compressive myelopathy. She had an electroencephalogram on 01/12/18, which was a normal awake and drowsy EEG. There were no focal epileptiform abnormalities. DISCHARGE MEDICATIONS: She will be placed on daptomycin 500 mg IV for 35 more days as recommended from Dr. Mancia. Continued home medications: 1. Aspirin 81 mg p.o. daily. 2. Metformin 1000 mg p.o. b.i.d. 3. Klonopin 2 mg p.o. q.p.m. 4. Geodon 160 mg p.o. q.p.m. 5. Pravastatin 40 mg p.o. at bedtime. 6. Atrovent HFA inhaler 1 puff b.i.d. 7. Effexor 225 mg p.o. q.a.m. HISTORY OF PRESENT ILLNESS/HOSPITAL COURSE: Ms. Alba is a 62-year-old female. She has a known history of CVA, hypertension, hyperlipidemia, diabetes, PTSD, anxiety, depression, asthma, cervical stenosis with history of insomnia, obstructive sleep apnea, who is noncompliant with her CPAP. She states last night at approximately 10 o'clock, she was feeling well. She got up to use the bathroom and the next thing she knew she was on the floor. She woke up at 2:30 in the morning. She knew where she was. She was able to get to the phone and [facility]. They came and they did a lift support, but she did not want to come to the hospital at that point, she told them she was okay, so she did not come to the ER. She states that in that episode she does not know if she fainted. She did state that she was incontinent of urine and bowel. She denied having any chest pressure or shortness of breath. She states she has been taking antibiotics for possible osteomyelitis of her right great toe. She states that she has not been having any vomiting. She does state over the last week she has noted that she has been having some diarrhea with eating and that she has been taking Imodium to help this. She denies any fever or chills to her knowledge. When she woke up, she knew where she was and she felt profoundly weak. She had an outpatient MRI scheduled. She went to the MRI this morning. They saw her MRI and were concerned because of how weak she was and the MRI team transferred her to the emergency room for further evaluation. She is denying any neck pain or back pain. She states that she is not having any chest pain. She denies any worsening weakness to her right arm. She reports that that is from a previous stroke. She denies any weakness on 1 side , but is saying both legs are very weak, initially having trouble lifting down both of her arms. She came to the emergency room for evaluation. They were concerned for her osteomyelitis and weakness and we were asked to evaluate her for admission to the hospital. She was seen in consultation during this hospitalization by Dr. Gallagher and Dr. Thomas. The patient was initially seen by Dr. Gallagher who found the patient having improvements in terms of her speech and did not feel that the patient was in acute stroke was related to other medical etiologies such as hypoglycemia or hypotension while her weakness was felt due to her cervical spondylosis with myelopathy exacerbated by her recent fall. The patient was seen in consultation by Dr. Thomas and the initial plan was that she would benefit from decompression surgery to posterior cervical decompression and fusion. They were needing clearance by Dr. Mancia from Infectious Disease due to her newly diagnosis of osteomyelitis. During the hospitalization she was cleared for surgery. She did have surgery attempted, but the patient did develop some bradycardia after being placed under sedation for the surgery, so the surgery was stopped and she had further evaluation and consultation from Cardiology. She was seen by Cardiology, they did not feel that that her arrhythmia was related to third- degree heart block. She had a Wenckebach heart block. Pacemaker was not indicated. They did recommend an EKG prior to returning to the OR and followup on prolonged QT interval post anesthesia. They recommended avoiding any additional QT prolongation medications and discontinuing of Zofran. She could continue all of her other current medications. He also recommended cautious with head and neck positioning in the OR as this may stimulate carotid sinus contributing to the episode. The episodes that she experienced overnight with Wenckebach heart block are believed to be the precedence of untreated sleep apnea. He also recommended would leave external pacemaker pads in place as heart block will also respond to atropine well. He recommended avoiding rate lowering medications. Asymptomatic sinus bradycardia and Wenckebach when sleeping is not a concern. Can proceed with a very necessary surgery to treat her cervical myelopathy with his recommendation. During the hospitalization the patient did have a second attempt at cervical decompression surgery. During the second surgery, there were sterility issues. Again, the surgery was stopped and canceled. At that time, Dr. Thomas felt that we could proceed with the surgery as the patient should be treated for her osteomyelitis and return at the completion of her osteomyelitis and have the surgery at that point. Given that her symptoms have improved, she had regained full range of motion of her right upper extremity and strength, and her lower extremity leg weakness had returned to baseline and had improved, so at this time the surgery has been postponed, she will receive medications for osteomyelitis for 35 more days. She will follow up with Dr. Thomas in 2 to 4 weeks. She will need clearance from her primary care provider as well as Cardiology and Dr. Thomas' recommendations before proceeding with cervical spine surgery. The patient had no other complaints during this hospitalization. At this time, she is stable for discharge home. The patient will be discharged home today. Vital signs are as follows: Temperature 98.0, heart rate 73, respirations 20, O2 saturation 98%, blood pressure 126/74. DISCHARGE PLAN: Ms. Alba will be discharged back home. Activity as tolerated. She should continue on a heart healthy diet. 1. Cervical myelopathy. She should leave her [place] J collar in place at all times as instructed by Dr. Thomas. She should follow up with Dr. Thomas in 2 to 4 weeks to have surgery rescheduled for cervical decompression. The patient should use a walker at all times for balance and gait stability. 2. Osteomyelitis. The patient will receive IV daptomycin 500 mg IV daily at the infusion center. She will follow up with Dr. Mancia as scheduled. She will need weekly lab work as ordered by Dr. Mancia. The patient did have a PICC line placed in her left upper arm prior to the day of discharge. 3. Chronic medical conditions. She should continue on her previously prescribed home medications. There have been no changes or adjustments. The patient was instructed to return to the emergency room if she develops any chest pain, shortness of breath, any significant weakness, slurred speech or any other concerning symptoms. This is a summarization of her extended hospitalization. For further details, please obtain the entire medical record. TIME SPENT: Time spent on this discharge was approximately 60 minutes, greater than half that time was spent discussing discharge plans with the patient and instructions. The patient was discharged to the infusion center for her first dose of daptomycin. CONDITION ON DISCHARGE: Stable. ELIZABETH STRINGER, DIRECTOR [employer] [id number]/[facility] #: [id number] MTDD
== END 2018-01-20 08:10 | disposition home health service (06) | DRG 552 ==
LOC: ED 07:10 → MED 10:18 → MEDTELE 14:15 → ICU 01-12 19:09 → MEDTELE 01-13 15:47
PROVIDERS: ADMIT Internal Medicine; ATTEND Internal Medicine
PROC: 4A00X4Z Measurement of Central Nervous Electrical Activity, External Approach (ICD-10-PCS; 2018-01-11)
PROC: 02HV33Z Insertion of Infusion Device into Superior Vena Cava, Percutaneous Approach (ICD-10-PCS; principal; 2018-01-19)
DX: M47.12 Other spondylosis with myelopathy, cervical region (principal); L03.116 Cellulitis of left lower limb; G95.89 Other specified diseases of spinal cord; N17.9 Acute kidney failure, unspecified; M86.172 Other acute osteomyelitis, left ankle and foot; M48.56XA Collapsed vertebra, not elsewhere classified, lumbar region, initial encounter for fracture; E11.69 Type 2 diabetes mellitus with other specified complication; R53.1 Weakness; I10 Essential (primary) hypertension; E78.5 Hyperlipidemia, unspecified; F43.10 Post-traumatic stress disorder, unspecified; F32.9 Major depressive disorder, single episode, unspecified; J45.909 Unspecified asthma, uncomplicated; M48.02 Spinal stenosis, cervical region; I44.1 Atrioventricular block, second degree; Z53.8 Procedure and treatment not carried out for other reasons; W19.XXXA Unspecified fall, initial encounter; M17.0 Bilateral primary osteoarthritis of knee; Z96.1 Presence of intraocular lens; F41.0 Panic disorder [episodic paroxysmal anxiety]; R55 Syncope and collapse; Z53.09 Procedure and treatment not carried out because of other contraindication; R00.1 Bradycardia, unspecified; K59.00 Constipation, unspecified; F25.9 Schizoaffective disorder, unspecified; M47.816 Spondylosis without myelopathy or radiculopathy, lumbar region; G47.00 Insomnia, unspecified; R47.81 Slurred speech; I45.81 Long QT syndrome; E11.319 Type 2 diabetes mellitus with unspecified diabetic retinopathy without macular edema; E11.42 Type 2 diabetes mellitus with diabetic polyneuropathy; F91.9 Conduct disorder, unspecified; E66.9 Obesity, unspecified; G47.33 Obstructive sleep apnea (adult) (pediatric); Z90.710 Acquired absence of both cervix and uterus; Z90.49 Acquired absence of other specified parts of digestive tract; Z88.8 Allergy status to other drugs, medicaments and biological substances; Z68.27 Body mass index [BMI] 27.0-27.9, adult; Z88.6 Allergy status to analgesic agent; Z88.5 Allergy status to narcotic agent; Z88.2 Allergy status to sulfonamides; Z82.49 Family history of ischemic heart disease and other diseases of the circulatory system; Z80.42 Family history of malignant neoplasm of prostate; Z87.891 Personal history of nicotine dependence; Z72.89 Other problems related to lifestyle; Z84.1 Family history of disorders of kidney and ureter; Z91.19 Patient's noncompliance with other medical treatment and regimen; Y92.9 Unspecified place or not applicable; Z87.01 Personal history of pneumonia (recurrent); Z87.440 Personal history of urinary (tract) infections; Z98.42 Cataract extraction status, left eye; Z98.41 Cataract extraction status, right eye; Z79.82 Long term (current) use of aspirin; Z79.84 Long term (current) use of oral hypoglycemic drugs; I69.331 Monoplegia of upper limb following cerebral infarction affecting right dominant side
CPT/HCPCS: 36415; 70450; 71045; 71046; 72141; 72148; 76001; 80048; 80053; 80202; 81003; 82550; 82553; 82565; 82607; 83605; 84145; 84484; 84520; 85025; 85610; 85652; 85730; 86140; 87040; 93005; 93306; 95816; 99284; A9270-GY; C1751; G8978-GP-CH; G8979-GP-CH; G8980-GP-CH; J0330; J0461; J1100; J1644; J2001; J2060; J2250; J2704; J2710; J3010; J3370

== ENCOUNTER 2018-01-23 09:38 | Observation (INO) | payer MEDICARE ==
--- NOTE | 2018-01-23 11:06 | RAD ---
HISTORY: weak COMPARISONS: January 12, 2018 VIEWS: 4: Frontal dual-energy and lateral views of the chest. FINDINGS: CARDIOMEDIASTINAL SILHOUETTE: The cardiomediastinal silhouette is normal. CALIN: The calin are normal. PLEURA: The costophrenic angles are sharp. No pleural abnormalities are noted. LUNG PARENCHYMA: The lungs are clear. ABDOMEN: The upper abdomen is clear. There is no subphrenic gas. BONES AND SOFT TISSUES: No bone or soft tissue abnormalities are noted. OTHER: Left-sided PICC line is noted with the tip overlying the superior vena cava. An implantable cardiac monitor technician is noted. IMPRESSION: NO ACTIVE CARDIOPULMONARY DISEASE.
[2018-01-23 11:15] LABS: ABS Basophils 0.1 10^3/ul (0-0.2); ABS Eosinophils 0.1 10^3/ul (0-0.6); ABS Lymphocytes 1.8 10^3/ul (1.0-4.8); ABS Monocytes 0.4 10^3/ul (0-0.8); ABS Nucleated RBC 0 10^3/ul; Eosinophil % 0.8 % (0-6); Hematocrit 35 % (35-47); Hemoglobin 11.7 g/dl (12.0-16.0); Mean Corpuscular HGB Conc 34 g/dl (31-36); Mean Corpuscular Hemoglobin 31 pg (27-31); Mean Corpuscular Volume 93 fL (80-97); Mean Platelet Volume 6.9 um3 (7.4-10.4); Nucleated Red Blood Cells % 0; Platelet Count 489 10^3/ul (150-450); Red Blood Count 3.73 10^6/ul (4.00-5.40); Red Cell Distribution Width 13 % (10.5-15); White Blood Count 10.4 10^3/ul (3.5-10.8)
[2018-01-23 11:30] LABS: INR 0.92 (0.77-1.02)
[2018-01-23 11:42] LABS: EGFR Non-African American 21.1 (>60)
--- NOTE | 2018-01-23 12:20 | ED ---
Complex/Multi-Sys Presentation - HPI Summary HPI Summary: This patient is a 62 year old F presenting to [facility] with a concern of a possible allergic reaction that began last night. The patient rates the pain 8/ 10 in severity. Symptoms alleviated by nothing, she states the following meds have no effect on her Zofran, Compazine, Reglan, and promethazine. Patient reports nausea, blurred vision, diarrhea, weakness, inability to walk, ABD pain , sleep disturbances, decreased PO intake, chills, and subjective fever. Pt was supposed to have surgery last Tuesday but two sterile trays were contaminated per her, so Dr. Thomas suggested out patient infusion of gentamicin instead. She states Dr Soni should know she cant tolerate daily infusions she thinks she is allergic. She began the gentamicin use on 01-20 along with this she has been taking doxycycline for osteomyelitis 4 weeks ago. Hx DM. She states she has a curve in her C spine that causes her to lose all strength in her legs and arms. - History Of Current Complaint Chief Complaint: EDAbdPain Time Seen by Provider: 01/23/18 12:09 Hx Obtained From: Patient Onset/Duration: Lasting Hours, Still Present Timing: Constant Severity Currently: Mild Severity Initially: Mild Associated Signs And Symptoms: Positive: Other - see HPI - Allergies/Home Medications Allergies/Adverse Reactions: Allergies Allergy/AdvReac Type Severity Reaction Status Date / Time atorvastatin Allergy Severe See Comment Verified 01/23/18 09:50 tramadol Allergy Severe Shortness Verified 01/23/18 09:50 of Breath codeine Allergy Intermediate Rash Verified 01/23/18 09:50 Sulfa (Sulfonamide Allergy Mild Rash Verified 01/23/18 09:50 Antibiotics) lorazepam AdvReac Intermediate Agitation Verified 01/23/18 09:50 amoxicillin [From Augmentin] AdvReac Mild Nausea And Verified 01/23/18 09:50 Vomiting clavulanic acid AdvReac Mild Nausea And Verified 01/23/18 09:50 [From Augmentin] Vomiting PMH/Surg Hx/FS Hx/Imm Hx Endocrine/Hematology History: Reports: Hx Diabetes Denies: Hx Thyroid Disease Cardiovascular History: Reports: Hx Hypercholesterolemia, Hx Hypertension, Other Cardiovascular Problems/Disorders - hypercholesterolemia Denies: Hx Pacemaker/ICD, Hx Peripheral Vascular Disease Respiratory History: Reports: Hx Asthma, Hx Pneumonia, Hx Sleep Apnea - doesn't use her CPAP, Other Respiratory Problems/Disorders - reports pneumonia x5 in 9 years - has seen dr combs Denies: Hx Chronic Obstructive Pulmonary Disease (COPD) GI History: Reports: Hx Gall Bladder Disease - gall stones, Other GI Disorders - current gallbladder issue Denies: Hx Hiatal Hernia, Hx Ulcer History: Reports: Hx Acute Renal Failure, Hx Renal Disease - HX OF FAILURE - THAT RESOLVED, Other Problems/Disorders - hx UTI's Musculoskeletal History: Reports: Hx Arthritis - bilateral knees, Other Musculoskeletal History - reports spinal stenosis - followed by dr timmons Denies: Hx Osteoporosis Sensory History: Reports: Hx Cataracts - bilateral, Hx Contacts or Glasses - glasses, Hx Vision Problem Denies: Hx Hearing Aid Opthamlomology History: Reports: Hx Cataracts - bilateral, Hx Contacts or Glasses - glasses, Hx Vision Problem Neurological History: Reports: Hx Headaches - none in 3 yrs, 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, Other Neuro Impairments/Disorders - reports hx psychosis Psychiatric History: Reports: Hx Anxiety, Hx Depression, Hx Panic Disorder - ANXIETY UNDER CONTROL, Hx Post Traumatic Stress Disorder, Hx Schizophrenia, Hx Substance Abuse - EtOH, Other Psychiatric Issues/Disorders - Psychosis, controlled with Geodon Denies: Hx Eating Disorder, Hx of Violent Episodes Against Others - Cancer History Hx Chemotherapy: No Hx Radiation Therapy: No - Surgical History Surgery Procedure, Year, and Place: hyste[place] - [place]. [place]. 06/19/14-[facility] REVEAL HEART LOOP RECORDER - CURRENTLY NOT ACTIVE. bilateral cataract extraction with IOL's 2013 - . GALLBLADDER Hx Anesthesia Reactions: No - Immunization History Date of Influenza Vaccine: 12/2016 Infectious Disease History: No Infectious Disease History: Reports: Hx Shingles Denies: Hx Clostridium Difficile, Hx Hepatitis, Hx Human Immunodeficiency Virus (HIV), Hx of Known/Suspected MRSA, Hx Tuberculosis, History Other Infectious Disease, Traveled Outside the [place] in Last 30 Days - Family History Known Family History: Positive: Hypertension - Social History Alcohol Use: None Alcohol Amount: 1-2 beers occassionally last drink 3 mo. ago Hx Substance Use: No Substance Use Type: Reports: None Hx Tobacco Use: Yes Smoking Status (MU): Former Smoker Type: Cigarettes Amount Used/How Often: reports had 3 cigs per day for 5 years Have You Smoked in the Last Year: No Review of Systems Constitutional: Other - sleep disturbance Positive: Fever - subjective , Chills, Other - inability to walk, Positive: Blurred Vision Gastrointestinal: Other - decreased PO intake Positive: Abdominal Pain, Diarrhea, Nausea Positive: Weakness All Other Systems Reviewed And Are Negative: Yes Physical Exam - Summary Physical Exam Summary: Appearance: Well appearing, no pain distress Skin: warm, dry, reflects adequate perfusion Head/face: normal Eyes: EOMI, [place] ENT: mucous membranes moist Neck: supple, non-tender Respiratory: CTA, breath sounds present Cardiovascular: RRR, pulses symmetrical Abdomen: non-tender, soft Bowel Sounds: decreased Musculoskeletal: normal, strength/ROM intact Neuro: normal, sensory motor intact, A&Ox3 Pt arrives in a [place] j collar, she moves arms and legs without difficulty. Triage Information Reviewed: Yes Vital Signs On Initial Exam: Initial Vitals Temp Pulse Resp BP Pulse Ox 97.9 F 95 20 142/100 98 01/23/18 09:44 01/23/18 09:44 01/23/18 09:44 01/23/18 09:44 01/23/18 09:44 Vital Signs Reviewed: Yes Diagnostics - Vital Signs Vital Signs Temp Pulse Resp BP Pulse Ox 01/23/18 11:45 96.2 F 92 16 130/95 98 01/23/18 09:44 97.9 F 95 20 142/100 98 - Laboratory Lab Results: Lab Results 01/23/18 01/23/18 01/23/18 Range/Units 11:07 11:07 11:07 WBC 10.4 (3.5-10.8) 10^3/ul RBC 3.73 L (4.00-5.40) 10^6/ul Hgb 11.7 L (12.0-16.0) g/dl Hct 35 (35-47) % MCV 93 (80-97) fL MCH 31 (27-31) pg MCHC 34 (31-36) g/dl RDW 13 (10.5-15) % Plt Count 489 H D (150-450) 10^3/ul MPV 6.9 L (7.4-10.4) um3 Neut % (Auto) 77.3 (38-83) % Lymph % (Auto) 17.0 L (25-47) % [place] % (Auto) 4.1 (0-7) % Eos % (Auto) 0.8 (0-6) % Baso % (Auto) 0.8 (0-2) % Absolute Neuts (auto) 8.0 H (1.5-7.7) 10^3/ul Absolute Lymphs (auto) 1.8 (1.0-4.8) 10^3/ul Absolute Monos (auto) 0.4 (0-0.8) 10^3/ul Absolute Eos (auto) 0.1 (0-0.6) 10^3/ul Absolute Basos (auto) 0.1 (0-0.2) 10^3/ul Absolute Nucleated RBC 0 10^3/ul Nucleated RBC % 0 INR (Anticoag Therapy) 0.92 (0.77-1.02) APTT 37.6 H (26.0-36.3) seconds Sodium 135 (135-145) mmol/L Potassium 4.7 (3.5-5.0) mmol/L Chloride 100 L (101-111) mmol/L Carbon Dioxide 25 (22-32) mmol/L Anion Gap 10 (2-11) mmol/L BUN 24 (6-24) mg/dL Creatinine 2.33 H (0.51-0.95) mg/dL Est GFR ( Amer) 25.5 (>60) Est GFR (Non-Af Amer) 21.1 (>60) BUN/Creatinine Ratio 10.3 (8-20) Glucose 158 H (70-100) mg/dL Lactic Acid (0.5-2.0) mmol/L Calcium 9.7 (8.6-10.3) mg/dL Total Bilirubin 0.40 (0.2-1.0) mg/dL AST 25 (13-39) U/L ALT 28 (7-52) U/L Alkaline Phosphatase 103 (34-104) U/L Troponin I 0.00 (<0.04) ng/mL C-Reactive Protein 25.25 H (<8.01) mg/L Total Protein 8.3 (6.4-8.9) g/dL Albumin 4.4 (3.2-5.2) g/dL Globulin 3.9 (2-4) g/dL Albumin/Globulin Ratio 1.1 (1-3) 01/23/18 Range/Units 11:07 WBC (3.5-10.8) 10^3/ul RBC (4.00-5.40) 10^6/ul Hgb (12.0-16.0) g/dl Hct (35-47) % MCV (80-97) fL MCH (27-31) pg MCHC (31-36) g/dl RDW (10.5-15) % Plt Count (150-450) 10^3/ul MPV (7.4-10.4) um3 Neut % (Auto) (38-83) % Lymph % (Auto) (25-47) % [place] % (Auto) (0-7) % Eos % (Auto) (0-6) % Baso % (Auto) (0-2) % Absolute Neuts (auto) (1.5-7.7) 10^3/ul Absolute Lymphs (auto) (1.0-4.8) 10^3/ul Absolute Monos (auto) (0-0.8) 10^3/ul Absolute Eos (auto) (0-0.6) 10^3/ul Absolute Basos (auto) (0-0.2) 10^3/ul Absolute Nucleated RBC 10^3/ul Nucleated RBC % INR (Anticoag Therapy) (0.77-1.02) APTT (26.0-36.3) seconds Sodium (135-145) mmol/L Potassium (3.5-5.0) mmol/L Chloride (101-111) mmol/L Carbon Dioxide (22-32) mmol/L Anion Gap (2-11) mmol/L BUN (6-24) mg/dL Creatinine (0.51-0.95) mg/dL Est GFR ( Amer) (>60) Est GFR (Non-Af Amer) (>60) BUN/Creatinine Ratio (8-20) Glucose (70-100) mg/dL Lactic Acid 1.5 (0.5-2.0) mmol/L Calcium (8.6-10.3) mg/dL Total Bilirubin (0.2-1.0) mg/dL AST (13-39) U/L ALT (7-52) U/L Alkaline Phosphatase (34-104) U/L Troponin I (<0.04) ng/mL C-Reactive Protein (<8.01) mg/L Total Protein (6.4-8.9) g/dL Albumin (3.2-5.2) g/dL Globulin (2-4) g/dL Albumin/Globulin Ratio (1-3) Result Diagrams: 01/23/18 11:07 01/23/18 11:07 Lab Statement: Any lab studies that have been ordered have been reviewed, and results considered in the medical decision making process. - Radiology CXR Radiology Interpretation Completed By: Radiologist - NO ACTIVE CARDIOPULMONARY DISEASE. ED physician has reviewed this radiology report. - EKG 11:08 Cardiac Rate: NL EKG Rhythm: Sinus Rhythm - at [address] Segment: Non-Specific EKG Interpretation: nml axis, baseline artifact Complex Multi-Symp Course/Dx Course Of Treatment: Patient on a host of recent antibiotics now with diarrhea as well as nausea. Patient has been resistant to antiemetics in the past but has responded well to IV Haldol, Benadryl. She was hydrated here with 2 L of lactated Ringer's. Stool studies when able. She was also found to have acute renal failure and will require admission for this. - Diagnoses Differential Diagnoses/HQI/PQRI: Other - Peptic ulcer disease, antibiotic associated diarrhea, C. difficile colitis, sepsis, enteritis Provider Diagnoses: Acute renal failure, Antibiotic-associated diarrhea - Physician Notifications Discussed Care Of Patient With: Teresa Bey Time Discussed With Above Provider: 13:20 Instructed by Provider To: Admit As Inpatient - Critical Care Time Critical Care Time: 30-74 min - CCT is EXCLUSIVE of separately billable procedures Discharge - Sign-Out/Discharge Documenting (check all that apply): Patient Departure - admitted - Discharge Plan Condition: Fair Disposition: ADMITTED TO [facility] Referrals: Christiano Rosa MD [Primary Care Provider] - - Billing Disposition and Condition Condition: FAIR Disposition: Admitted to [facility] - Attestation Statements Document Initiated by Chica: Yes Documenting Yancyibroz: Anderson Pedroza Provider For Whom Chica is Documenting (Include Credential): Lv Vasquez MD Scribe Attestation: Anderson Lim scribed for Lv Vasquez MD on 01/23/18 at 1420. Scribe Documentation Reviewed: Yes Provider Attestation: The documentation as recorded by the Anderson ram accurately reflects the service I personally performed and the decisions made by me, Lv Vasquez MD
[2018-01-23] MEDS ORDERED: Famotidine TAB* 20 MG PO ONE (12:34)
[2018-01-23] MEDS: Lactated Ringers 1000 ml Bag*IV.FLUID IV ONE ×2 (12:43→15:20)
[2018-01-23] MEDS ORDERED: diPHENhydraMINE IV* 50 MG/ML 1 ml VIAL (BENADRYL) IV ONE (12:50)
[2018-01-23] MEDS ORDERED: Metoclopramide IV* 5 MG/ML 2 ML VIAL IV ONE (12:50)
[2018-01-23] MEDS ORDERED: Haloperidol INJ IV/IM* 5 MG/ML AMP IV SLOW PU PRN (12:55)
[2018-01-23] MEDS ORDERED: Haloperidol INJ IV/IM* 5 MG/ML AMP IV SLOW PU ONE (13:09)
[2018-01-23] MEDS ORDERED: Magnesium Hydroxide LIQ* 30 ML UDC PO PRN (14:20)
[2018-01-23] MEDS ORDERED: Ondansetron INJ* 2 MG/ML VIAL IV PRN (14:20)
[2018-01-23] MEDS ORDERED: Acetaminophen TAB* 325 MG PO PRN (14:20)
[2018-01-23] MEDS ORDERED: oxyCODONE/Acetamin 5/325 MG* TAB PO PRN (14:20)
[2018-01-23] MEDS ORDERED: Albuterol 2.5 MG/3 ML NEB.SOL* (0.083%) INH PRN (14:20)
[2018-01-23] MEDS ORDERED: Al Hydrox/Mg Hydrox/Simet LIQ* 30 ML UDC PO PRN (14:20)
[2018-01-23] MEDS ORDERED: LORazepam TAB(*) 1 MG PO PRN (14:29)
[2018-01-23] MEDS ORDERED: diPHENhydraMINE IV* 50 MG/ML 1 ml VIAL (BENADRYL) IV PRN (14:30)
[2018-01-23] MEDS ORDERED: Dextrose 50% Syringe 50 ML* 25 GM/50 ML SYRINGE IV PUSH PRN (14:37)
[2018-01-23 15:20] LABS: Urine Appearance Clear; Urine Blood Negative (Negative); Urine Color Straw; Urine Ketones Negative (Negative); Urine Protein Negative (Negative); Urine Red Blood Cell 1+(3-5/hpf) (Absent); Urine Specific Gravity 1.005 (1.010-1.030); Urine Urobilinogen Negative (Negative); Urine White Blood Cell 1+(6-10/hpf) (Absent)
[2018-01-23] MEDS: NS 0.9% 1000 ML* 1,000 ML IV SCH (17:00)
--- NOTE | 2018-01-23 17:42 | HP ---
AMENDED REPORT NOW INCLUDES COSIGNER DESIGNATION CC: Dr. Rosa; Dr. Mancia * ADMISSION HISTORY AND PHYSICAL: DATE OF ADMISSION: 01/23/18 PATIENT OF ADMITTING HOSPITALIST: Teresa Bey DO *(DICTATED BY SHAI NETTLES) PRIMARY CARE PROVIDER: Dr. Christiano Rosa. CONSULTING NEUROLOGIST: Dr. Gallagher. PRIMARY NEUROLOGIST: Dr. Turcios. INFECTIOUS DISEASE SPECIALIST: Dr. Carlos Mancia. ATTENDING PHYSICIAN WHILE THE PATIENT IN THE HOSPITAL: Teresa Bey DO CHIEF COMPLAINT: Nausea, vomiting, and diarrhea. HISTORY OF PRESENT ILLNESS: Ms. Alba is a 62-year-old female, who is well known to us from multiple admissions in the past few months, with past medical history of hypertension, hyperlipidemia, CVAs, diabetes mellitus, anxiety and depression, who was recently discharged 3 days ago after a long stay in the hospital related to some neurological symptoms with weakness of the lower extremity. 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 She was taken in an attempt for surgery last week as well, however due to technical difficulties incision was not even made and the patient eventually extubated and scheduled for a surgery on a later date. She reports that she has been on IV antibiotic infusion once daily since she was diagnosed with also left great toe osteomyelitis. Dr. Mancia had seen the patient in consultation in her prior admission and plans were for her to have a PICC line and started to have an IV antibiotic infusion since the last Tuesday. She reports symptoms of nausea, vomiting, inability to keep any food or drinks down, as well as diarrhea and some abdominal cramping and she thinks it is likely related to her antibiotic administration. She denies any traveling recently or any outdoor food consumption. She denies any bleeding per rectum or significant abdominal pain. She denies any fever, chills, chest pain, headache, dizziness, or weakness. She was evaluated in the emergency room and had a laboratory workup that showed no evidence of leukocytosis. Her chemistry panel showed creatinine of 2.33, which seems to be elevated compared to her baseline, likely consistent with dehydration, and her C-reactive protein was elevated at 25.2, which also appeared to be higher than her recent baseline of 9 to 10. Given her ongoing symptoms and intolerance of her IV infusion of antibiotics, we were asked to see the patient for further evaluation and consider admission for IV fluid hydration. PAST MEDICAL HISTORY: As mentioned above, the patient with multiple medical issues includin. CVA. 2. Hypertension. 3. Hyperlipidemia. 4. Diabetes mellitus. 5. PTSD. 6. Anxiety. 7. Depression. 8. Asthma. 9. Cervical stenosis. 10. Insomnia. 11. Obesity. 12. Obstructive sleep apnea. PAST SURGICAL HISTORY: Significant for: 1. Loop recorder placement; however, it is no longer functioning. 2. Hernia repair. 3. Hysterectomy. 4. Laparoscopic cholecystectomy that was done last year. MEDICATIONS: Her current medications at home include: 1. Aspirin 81 mg p.o. daily. 2. Clonazepam 2 mg p.o. q.p.m. 3. Ipratropium inhaler 1 puff inhaled b.i.d. 4. Glucophage 1000 mg p.o. b.i.d. 5. Pravastatin 40 mg p.o. q.h.s. 6. Effexor 225 mg p.o. q.a.m. 7. Geodon 160 mg p.o. q.p.m. ALLERGIES: Include ATORVASTATIN, TRAMADOL, CODEINE, SULFA, and AMBIEN. FAMILY HISTORY: Significant for heart disease in her mother and prostate cancer in her father. SOCIAL HISTORY: The patient is a former smoker, quit 6 years ago. She occasionally drinks alcohol. Surrogate decision makers are her 2 sons and she wishes to be a full code. REVIEW OF SYSTEMS: See HPI. Otherwise, 12 points review of systems were examined and they were essentially negative. PHYSICAL EXAMINATION GENERAL: She is a pleasant, healthy-appearing, middle-aged female, in no acute distress or discomfort at the time of admission. VITAL SIGNS: Revealed temperature of 96.2, pulse of 92, blood pressure 130/95, respirations of 16 with O2 sat of 98% on room air. HEENT: Head is normocephalic, atraumatic. Sclerae anicteric. PERRLA. Oropharynx pink and moist. NECK: Neck is secured with a [place] J collar and exam is pending at this time. LUNGS: Clear to auscultation bilaterally. HEART: Regular rate and rhythm. Normal S2 and S2 without rubs, murmurs, or gallops. BREASTS: Exam deferred at this time. ABDOMEN: Soft, nontender, and nondistended. There are no hernias, masses, or hepatosplenomegaly. There is no guarding, rigidity, or rebound tenderness. BACK: With normal curvature and no CVA tenderness. EXTREMITIES: Without cyanosis, clubbing, or edema. NEUROLOGIC: She is awake, alert, and oriented x3. Handgrip is equal bilaterally. Sensation is intact throughout. RECTAL: Exam deferred at this time. ACCESSORY DIAGNOSTIC DATA: Chest x-ray done today showed no evidence of acute cardiopulmonary issue. EKG with no ST changes. IMPRESSION: A 62-year-old female with multiple medical problems, who was recently discharged from the hospital with diagnosis of left great toe osteomyelitis as well as cervical spine stenosis, who is awaiting surgical decompression at present time, who has been on IV antibiotic infusion for the past few days, presented to the emergency room with worsening nausea, vomiting, diarrhea, and found on exam also to be dehydrated, will be admitted under hospitalist services for the following. ASSESSMENT AND PLAN: 1. Nausea, vomiting, diarrhea. The patient had tried Zofran, Reglan, Compazine with no relief. Haldol and Benadryl as well as Pepcid seemed to improve her symptoms. I will continue her on Benadryl and Ativan as well given her longstanding history of anxiety. She appears to be comfortable at the time of admission and received IV fluid bolus in the ED and I will continue gentle hydration with normal saline. 2. Left great toe osteomyelitis. I did touch base with Dr. Mancia, who will come to see the patient in consultation and make a decision about her antibiotic coverage from that point on. 3. History of weakness and slurred speech. She does not exhibit any neurological symptoms upon this admission. We will continue to monitor her on the telemetry floor. 4. History of cerebrovascular accident. We will continue her secondary prevention regimen. 5. Hypertension. We will continue her home regimen. 6. Hyperlipidemia. We will continue her statin therapy. 7. Diabetes mellitus. I will stop her metformin and cover her with lispro sliding scale. 8. History of posttraumatic stress disorder, anxiety, and depression. We will continue all her home meds. 9. History of asthma. I will continue her inhaler. 10. Cervical stenosis. Appears to be stable. We will continue her [place] J collar at this time. We will monitor her symptoms. Any worsening, I will get Dr. Thomas involved. 11. History of obstructive sleep apnea. She is noncompliant with her CPAP. 12. DVT prophylaxis: She is a high risk and will be covered with subcu heparin. 13. Code status: She wishes to be a full code. TIME SPENT: Approximately 60 minutes spent admitting this patient, for which greater than 50% of that time on performing physical exam and obtaining history. I went on and discussed the case with my attending, who agreed to plan of care. SHAI NETTLES [id number]/CPS #: [id number]
[2018-01-23] MEDS: clonazePAM TAB(*) 1 MG PO SCH (18:13)
[2018-01-23] MEDS: Ziprasidone CAP* 80 MG PO SCH (18:13)
[2018-01-23] MEDS ORDERED: Ipratropium HFA INHALER(NF) (ALTERNATIVE = NEBS) INH SCH (21:00)
[2018-01-23] MEDS ORDERED: CMCS:Pravastatin (NF) 20 MG TAB PO SCH (21:00)
[2018-01-23] MEDS: Insulin LISPRO* 1 UNITS UNIT SUBCUT SCH ×2 (21:17→21:20)
[2018-01-23] MEDS: Heparin VIAL(*) 5000 UNITS/ML VIAL (FIVE THOUSAND) SUBCUT SCH (21:18)
[2018-01-24] MEDS: Heparin VIAL(*) 5000 UNITS/ML VIAL (FIVE THOUSAND) SUBCUT SCH ×2 (06:08→15:05)
[2018-01-24] MEDS: NS 0.9% 1000 ML* 1,000 ML IV SCH (06:09)
[2018-01-24 06:24] LABS: ABS Basophils 0.1 10^3/ul (0-0.2); ABS Eosinophils 0.2 10^3/ul (0-0.6); ABS Lymphocytes 2.1 10^3/ul (1.0-4.8); ABS Monocytes 0.4 10^3/ul (0-0.8); ABS Neutrophils 3.2 10^3/ul (1.5-7.7); ABS Nucleated RBC 0 10^3/ul; Eosinophil % 3.7 % (0-6); Hematocrit 27 % (35-47); Hemoglobin 9.6 g/dl (12.0-16.0); Lymphocyte % 35.9 % (25-47); Mean Corpuscular HGB Conc 35 g/dl (31-36); Mean Corpuscular Hemoglobin 33 pg (27-31); Mean Corpuscular Volume 93 fL (80-97); Nucleated Red Blood Cells % 0.1; Platelet Count 289 10^3/ul (150-450); Red Blood Count 2.94 10^6/ul (4.00-5.40); Red Cell Distribution Width 13 % (10.5-15)
[2018-01-24 06:42] LABS: EGFR Non-African American 25.3 (>60)
[2018-01-24] MEDS: Insulin LISPRO* 1 UNITS UNIT SUBCUT SCH ×3 (08:03→17:19)
[2018-01-24] MEDS ORDERED: Aspirin EC TAB* 81 MG TAB.EC PO SCH (09:00)
[2018-01-24] MEDS ORDERED: Spiriva Inhaler DEVICE* 1 EACH DEVICE INH ONE (09:00)
[2018-01-24] MEDS ORDERED: Tiotropium CAP.INH* CAP.INH/18 MCG (USE ORDER SET !) INH SCH (09:00)
[2018-01-24] MEDS ORDERED: Venlafaxine EXT RELEASE CAP* 75 MG PO SCH (09:00)
[2018-01-24 11:28] VITALS: BP 138/81
[2018-01-24] MEDS ORDERED: cefTRIAXone(*) 1 GM in NS 0.9% 50 ML* 50 ML IVPB SCH (16:00)
--- NOTE | 2018-01-24 16:00 | PN ---
Subjective Interval History: No more GI sx's. Feels well, anxious to go home. Objective Active Medications: Acetaminophen (Tylenol Tab*) 650 mg PO Q4H PRN PRN Reason: FEVER/PAIN Al Hydrox/Mg Hydrox/Simethicone (Maalox Plus*) 30 ml PO Q6H PRN PRN Reason: INDIGESTION Albuterol (Ventolin 2.5 Mg/3 Ml Neb.Amina*) 2.5 mg INH [id number] AWAKE PRN PRN Reason: sob/wheezing Aspirin (Aspirin Ec Tab*) 81 mg PO DAILY [facility] Last Admin: 01/24/18 07:59 Dose: 81 mg Clonazepam (Klonopin Tab(*)) 2 mg PO QPM [facility] Last Admin: 01/23/18 18:13 Dose: 2 mg Dextrose (D50w Syringe 50 Ml*) 12.5 gm IV PUSH .FOR FS < 60 - SS PRN PRN Reason: FS < 60 Diphenhydramine HCl (Benadryl Iv*) 25 mg IV Q6H PRN PRN Reason: PRURITIS Heparin Sodium (Porcine) (Heparin Vial(*)) 5,000 units SUBCUT Q8HR [facility] Last Admin: 01/24/18 15:05 Dose: 5,000 units Sodium Chloride (Ns 0.9% 1000 Ml*) 1,000 mls @ 75 mls/hr IV PER RATE [facility] Last Admin: 01/24/18 06:09 Dose: 75 mls/hr Ceftriaxone Sodium 1 gm/ (Sodium Chloride) 50 mls @ 200 mls/hr IVPB Q24H [facility] Insulin Human Lispro (Humalog*) 0 units SUBCUT ACHS [facility]; Protocol Last Admin: 01/24/18 11:49 Dose: Not Given Lorazepam (Ativan Tab(*)) 1 mg PO Q6H PRN PRN Reason: ANXIETY Magnesium Hydroxide (Milk Of Magnesia Liq*) 30 ml PO Q4H PRN PRN Reason: CONSTIPATION Last Admin: 01/24/18 15:24 Dose: 30 ml Ondansetron HCl (Zofran Inj*) 4 mg IV Q4H PRN PRN Reason: NAUSEA/VOMITING Oxycodone/Acetaminophen (Percocet 5/325 Tab*) 1 tab PO Q4H PRN PRN Reason: Pain Pravastatin Sodium (Pravachol (Nf)) 40 mg PO BEDTIME [place]; Protocol Last Admin: 01/23/18 21:26 Dose: Not Given Tiotropium Sweetser (Spiriva Cap.Inh*) 1 cap INH DAILY [facility] Last Admin: 01/24/18 12:00 Dose: 1 cap Venlafaxine HCl (Effexor Xr Cap*) 225 mg PO QAM [facility] Last Admin: 01/24/18 07:59 Dose: 225 mg Ziprasidone (Geodon Cap*) 160 mg PO QPM [place] Last Admin: 01/23/18 18:13 Dose: 160 mg Vital Signs - 8 hr 01/24/18 01/24/18 01/24/18 08:00 08:24 10:55 Temperature 97.8 F 97.1 F Pulse Rate 71 80 Respiratory 18 18 18 Rate Blood Pressure 135/71 138/81 (mmHg) O2 Sat by Pulse 100 100 99 Oximetry Oxygen Devices in Use Now: None Appearance: Alert, in a chair. In good spirits. Looks comfortable. Eyes: No Scleral Icterus Neck: NL Appearance and Movements; NL JVP, No Thyroid Enlargement, Masses Respiratory: Symmetrical Chest Expansion and Respiratory Effort, Clear to Auscultation, Clear to Percussion Cardiovascular: NL Sounds; No Murmurs; No JVD, RRR, No Edema, - Extremities: No Edema, No Clubbing, Cyanosis, - Skin: No Rash or Ulcers, No Nodules or Sclerosis, - Neurological: Alert and Oriented x 3, NL Sensation Result Diagrams: 01/24/18 06:05 01/24/18 06:05 Additional Lab and Data: Lab Results 01/23/18 01/23/18 01/23/18 Range/Units 11:07 11:07 11:07 WBC 10.4 (3.5-10.8) 10^3/ul RBC 3.73 L (4.00-5.40) 10^6/ul Hgb 11.7 L (12.0-16.0) g/dl Hct 35 (35-47) % MCV 93 (80-97) fL MCH 31 (27-31) pg MCHC 34 (31-36) g/dl RDW 13 (10.5-15) % Plt Count 489 H D (150-450) 10^3/ul MPV 6.9 L (7.4-10.4) um3 Neut % (Auto) 77.3 (38-83) % Lymph % (Auto) 17.0 L (25-47) % Geary % (Auto) 4.1 (0-7) % Eos % (Auto) 0.8 (0-6) % Baso % (Auto) 0.8 (0-2) % Absolute Neuts (auto) 8.0 H (1.5-7.7) 10^3/ul Absolute Lymphs (auto) 1.8 (1.0-4.8) 10^3/ul Absolute Monos (auto) 0.4 (0-0.8) 10^3/ul Absolute Eos (auto) 0.1 (0-0.6) 10^3/ul Absolute Basos (auto) 0.1 (0-0.2) 10^3/ul Absolute Nucleated RBC 0 10^3/ul Nucleated RBC % 0 INR (Anticoag Therapy) 0.92 (0.77-1.02) APTT 37.6 H (26.0-36.3) seconds Sodium 135 (135-145) mmol/L Potassium 4.7 (3.5-5.0) mmol/L Chloride 100 L (101-111) mmol/L Carbon Dioxide 25 (22-32) mmol/L Anion Gap 10 (2-11) mmol/L BUN 24 (6-24) mg/dL Creatinine 2.33 H (0.51-0.95) mg/dL Est GFR ( Amer) 25.5 (>60) Est GFR (Non-Af Amer) 21.1 (>60) BUN/Creatinine Ratio 10.3 (8-20) Glucose 158 H (70-100) mg/dL Lactic Acid (0.5-2.0) mmol/L Calcium 9.7 (8.6-10.3) mg/dL Total Bilirubin 0.40 (0.2-1.0) mg/dL AST 25 (13-39) U/L ALT 28 (7-52) U/L Alkaline Phosphatase 103 (34-104) U/L Troponin I 0.00 (<0.04) ng/mL C-Reactive Protein 25.25 H (<8.01) mg/L Total Protein 8.3 (6.4-8.9) g/dL Albumin 4.4 (3.2-5.2) g/dL Globulin 3.9 (2-4) g/dL Albumin/Globulin Ratio 1.1 (1-3) 01/23/18 Range/Units 11:07 WBC (3.5-10.8) 10^3/ul RBC (4.00-5.40) 10^6/ul Hgb (12.0-16.0) g/dl Hct (35-47) % MCV (80-97) fL MCH (27-31) pg MCHC (31-36) g/dl RDW (10.5-15) % Plt Count (150-450) 10^3/ul MPV (7.4-10.4) um3 Neut % (Auto) (38-83) % Lymph % (Auto) (25-47) % Geary % (Auto) (0-7) % Eos % (Auto) (0-6) % Baso % (Auto) (0-2) % Absolute Neuts (auto) (1.5-7.7) 10^3/ul Absolute Lymphs (auto) (1.0-4.8) 10^3/ul Absolute Monos (auto) (0-0.8) 10^3/ul Absolute Eos (auto) (0-0.6) 10^3/ul Absolute Basos (auto) (0-0.2) 10^3/ul Absolute Nucleated RBC 10^3/ul Nucleated RBC % INR (Anticoag Therapy) (0.77-1.02) APTT (26.0-36.3) seconds Sodium (135-145) mmol/L Potassium (3.5-5.0) mmol/L Chloride (101-111) mmol/L Carbon Dioxide (22-32) mmol/L Anion Gap (2-11) mmol/L BUN (6-24) mg/dL Creatinine (0.51-0.95) mg/dL Est GFR ( Amer) (>60) Est GFR (Non-Af Amer) (>60) BUN/Creatinine Ratio (8-20) Glucose (70-100) mg/dL Lactic Acid 1.5 (0.5-2.0) mmol/L Calcium (8.6-10.3) mg/dL Total Bilirubin (0.2-1.0) mg/dL AST (13-39) U/L ALT (7-52) U/L Alkaline Phosphatase (34-104) U/L Troponin I (<0.04) ng/mL C-Reactive Protein (<8.01) mg/L Total Protein (6.4-8.9) g/dL Albumin (3.2-5.2) g/dL Globulin (2-4) g/dL Albumin/Globulin Ratio (1-3) Microbiology and Other Data: Microbiology 01/23/18 14:48 Urine Culture - Final Urine 01/23/18 12:17 Aerobic Blood Culture - Preliminary Blood Venous No Growth Day 1 Anaerobic Blood Culture - Preliminary No Growth Day 1 01/23/18 11:07 Aerobic Blood Culture - Preliminary Blood Venous No Growth Day 1 Anaerobic Blood Culture - Preliminary No Growth Day 1 Assess/Plan/Problems-Billing Assessment: - Patient Problems (1) Osteomyelitis of toe of left foot Current Visit: No Status: Acute Priority: High Code(s): M86.9 - OSTEOMYELITIS, UNSPECIFIED SNOMED Code(s): 96555653 Comment: Ceftriaxone 1 gm IV now then daily in Infusion Center. Discussed with Dr. Mancia. Not clear if she is intolerant of daptomycin or had an intercurren illness which has resolved. (2) Cervical spinal stenosis Current Visit: No Status: Acute Code(s): M48.02 - SPINAL STENOSIS, CERVICAL REGION SNOMED Code(s): 57477304 Comment: Wearing her collar all day. Fup as previously planned. (3) Diabetes mellitus Current Visit: No Status: Chronic Priority: High Code(s): E11.9 - TYPE 2 DIABETES MELLITUS WITHOUT COMPLICATIONS SNOMED Code(s): 32521570 Comment: Resume home diabetic regimen.
[2018-01-24] MEDS: clonazePAM TAB(*) 1 MG PO SCH (17:18)
[2018-01-24] MEDS: Ziprasidone CAP* 80 MG PO SCH (17:20)
--- NOTE | 2018-01-25 12:39 | DS ---
CC: Christiano Rosa MD; Dr. Mancia.* DISCHARGE SUMMARY: DATE OF ADMISSION: DATE OF DISCHARGE: 01/24/18. HOSPITAL COURSE: This 62-year-old woman was admitted with nausea and weakness. She was recently discharged from the hospital on 01/20/18. She has a PICC line. She was to get daptomycin everyday as an outpatient. She is being treated for osteomyelitis of the left great toe. She went to the Infusion Center on 01/21/18 and 01/22/18. She said she was feeling weak. She feels this is related to daptomycin. She had nausea on the of the month. She took [employer] to the hospital to go to the Infusion Center but she went to the ER instead and was admitted. I do not think she had any antibiotic on 01/23/18. She had acute kidney injury, however, her creatinine is coming down. Her creatinine is 1.99. She can get another BMP at the Infusion Center. She got IV fluids all day today. She received 1 gm of ceftriaxone in the hospital and we will continue the same 1 gm ceftriaxone daily. The planned course is 35 days. I have discussed the case with Dr. Mancia. I will ask the Infusion Center to do a BMP on 01/25/18 as well. FINAL DIAGNOSES: 1. Adverse reaction to medication. 2. Acute kidney injury. 3. Osteomyelitis, left great toe. 4. Spinal stenosis. 5. Diabetes mellitus. DISCHARGE MEDICATIONS: 1. Venlafaxine ER 225 mg q AM 2. Clonazepam 2 mg q hs 3. Pravastatin 40 mg q hs 4. Metformin 1000 mg bid 5. Ipratropium HFA inhaler 1 puff bid 6. Ziprasidone 10 mg q hs 7. ASA EC 81 mg daily DISCHARGE CONDITION: stable DISCHARGE DISPOSITION: home [id number]/[facility] #: [id number] [facility]
== END 2018-01-24 18:00 | disposition home or self-care (01) ==
LOC: ED 09:38 → INTOOBSV 14:20 → MED 14:20
PROVIDERS: ADMIT Hospitalist; ATTEND Internal Medicine
DX: T50.995A Adverse effect of other drugs, medicaments and biological substances, initial encounter (principal); N17.9 Acute kidney failure, unspecified; M86.9 Osteomyelitis, unspecified; M48.02 Spinal stenosis, cervical region; E11.9 Type 2 diabetes mellitus without complications; Y92.9 Unspecified place or not applicable; R50.9 Fever, unspecified; R10.9 Unspecified abdominal pain; R11.0 Nausea; R19.7 Diarrhea, unspecified; R53.1 Weakness; Z87.891 Personal history of nicotine dependence
CPT/HCPCS: 36415; 36592; 71046; 80048; 80053; 80170; 81003; 81015; 83605; 84484; 85025; 85610; 85730; 86140; 87040; 87086; 93005; 94640; 96365; 96366; 96374; 96375; 99284; A9270-GY; G0378; J0696; J0878; J1200; J1630; J1644; J2765

== ENCOUNTER 2018-02-07 05:29 | Emergency (ER) | payer MEDICARE ==
[2018-02-07] MEDS ORDERED: NS 0.9% 1000 ML* 1,000 ML IV ONE (05:37)
--- NOTE | 2018-02-07 05:45 | ED ---
Neurological HPI - HPI Summary HPI Summary: A 62 y/o female MOLLY presents to the ED c/o diffuse weakness since the morning of 02/07/2018. She states that she came to the ED because she was too weak go to the bathroom. She also c/o shakiness, SOB, CP, claims that her left leg is swollen and she is nauseous from the ambulance ride. She denies vomiting and abdominal pain. She believes that Rocephin is the cause of her pain. She lives by herself with no help in an apartment. The patient will be signed out to Dr. Vasquez upon shift change, pending lab results. - History of Current Complaint Stated Complaint: WEAKNESS Time Seen by Provider: 02/07/18 05:33 Hx Obtained From: Patient Onset/Duration: Sudden Onset, Gradual Onset, Started hours ago, Still Present Timing: Constant Onset Severity: Moderate Current Severity: Moderate - Additional Pertinent History Primary Care Physician: [id number] - Allergy/Home Medications Allergies/Adverse Reactions: Allergies Allergy/AdvReac Type Severity Reaction Status Date / Time atorvastatin Allergy Severe See Comment Verified 02/06/18 08:40 tramadol Allergy Severe Shortness Verified 02/06/18 08:40 of Breath codeine Allergy Intermediate Rash Verified 02/06/18 08:40 Sulfa (Sulfonamide Allergy Mild Rash Verified 02/06/18 08:40 Antibiotics) daptomycin Allergy See Comment Verified 02/06/18 08:40 lorazepam AdvReac Intermediate Agitation Verified 02/06/18 08:40 amoxicillin [From Augmentin] AdvReac Mild Nausea And Verified 02/06/18 08:40 Vomiting clavulanic acid AdvReac Mild Nausea And Verified 02/06/18 08:40 [From Augmentin] Vomiting PMH/Surg Hx/FS Hx/Imm Hx Endocrine/Hematology History: Reports: Hx Diabetes Denies: Hx Thyroid Disease Cardiovascular History: Reports: Hx Hypercholesterolemia, Hx Hypertension, Other Cardiovascular Problems/Disorders - hypercholesterolemia Denies: Hx Pacemaker/ICD, Hx Peripheral Vascular Disease Respiratory History: Reports: Hx Asthma, Hx Pneumonia, Hx Sleep Apnea - doesn't use her CPAP, Other Respiratory Problems/Disorders - reports pneumonia x5 in 9 years - has seen dr combs Denies: Hx Chronic Obstructive Pulmonary Disease (COPD) GI History: Reports: Hx Gall Bladder Disease - gall stones, Other GI Disorders - current gallbladder issue Denies: Hx Hiatal Hernia, Hx Ulcer History: Reports: Hx Acute Renal Failure, Hx Renal Disease - HX OF FAILURE - THAT RESOLVED, Other Problems/Disorders - hx UTI's Musculoskeletal History: Reports: Hx Arthritis - bilateral knees, Other Musculoskeletal History - reports spinal stenosis - followed by dr timmons Denies: Hx Osteoporosis Sensory History: Reports: Hx Cataracts - bilateral, Hx Contacts or Glasses - glasses, Hx Vision Problem Denies: Hx Hearing Aid Opthamlomology History: Reports: Hx Cataracts - bilateral, Hx Contacts or Glasses - glasses, Hx Vision Problem Neurological History: Reports: Hx Headaches - none in 3 yrs, 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, Other Neuro Impairments/Disorders - reports hx psychosis Psychiatric History: Reports: Hx Anxiety, Hx Depression, Hx Panic Disorder - ANXIETY UNDER CONTROL, Hx Post Traumatic Stress Disorder, Hx Schizophrenia, Hx Substance Abuse - EtOH, Other Psychiatric Issues/Disorders - Psychosis, controlled with Geodon Denies: Hx Eating Disorder, Hx of Violent Episodes Against Others - Cancer History Hx Chemotherapy: No Hx Radiation Therapy: No - Surgical History Surgery Procedure, Year, and Place: hyste[place] - [place]. [place] - [place]. 06/19/14-[facility] REVEAL HEART LOOP RECORDER - CURRENTLY NOT ACTIVE. bilateral cataract extraction with IOL's 2013 - [facility] [place]. GALLBLADDER Hx Anesthesia Reactions: No - Immunization History Date of Influenza Vaccine: 12/2016 Infectious Disease History: Reports: Hx Shingles Denies: Hx Clostridium Difficile, Hx Hepatitis, Hx Human Immunodeficiency Virus (HIV), Hx of Known/Suspected MRSA, Hx Tuberculosis, History Other Infectious Disease - Family History Known Family History: Positive: Hypertension - Social History Alcohol Use: None Alcohol Amount: 1-2 beers occassionally last drink 3 mo. ago Hx Substance Use: No Substance Use Type: Reports: None Hx Tobacco Use: Yes Smoking Status (MU): Never Smoked Tobacco Type: Cigarettes Amount Used/How Often: reports had 3 cigs per day for 5 years Have You Smoked in the Last Year: No Review of Systems Positive: Other - Positive: Shaking. Negative: Fever Positive: Chest Pain Positive: Shortness Of Breath Positive: Nausea. Negative: Abdominal Pain, Vomiting Positive: Edema - left leg Positive: Weakness All Other Systems Reviewed And Are Negative: Yes Physical Exam - Summary Physical Exam Summary: Appearance: Well-appearing, Well-nourished, lying in bed comfortably Skin: Warm, dry, no obvious rash Eyes: sclera anicteric, no conjunctival pallor ENT: mucous membranes moist, pharynx appears normal Neck: Supple, nontender Respiratory: Clear to auscultation, no signs of respiratory distress Cardiovascular: Normal S1, S2. No murmurs. Normal distal pulses in tibial and radial bilaterally. Abdomen: Soft, nontender, normal active bowel sounds present Musculoskeletal: Normal, Strength/ROM Intact. No swelling or tenderness in the LLE. Neurological: A&Ox3, awake and alert, mentation is normal, speech is fluent and appropriate Psychiatric: affect is normal, does not appear anxious or depressed Triage Information Reviewed: Yes Vital Signs Reviewed: Yes Diagnostics - Laboratory Result Diagrams: 02/07/18 06:47 02/07/18 06:47 Lab Statement: Any lab studies that have been ordered have been reviewed, and results considered in the medical decision making process. - EKG 06:42 Cardiac Rate: Tachycardia - 101 bpm EKG Rhythm: Sinus Tachycardia Summary of EKG Findings: P waves, QRS complex, and T waves are within normal limits, T waves and intervals are normal, no ischemic changes. Course/Dx - Course Course Of Treatment: A 62 y/o female MOLLY presents to the ED c/o diffuse weakness since the morning of 02/07/2018. She states that she came to the ED because she was too weak go to the bathroom. She also c/o shakiness, SOB, CP, claims that her left leg is swollen and she is nauseous from the ambulance ride. She denies vomiting and abdominal pain. She believes that Rocephin is the cause of her pain. She lives by herself with no help in an apartment. Her EKG revealed sinus tachycardia at 101 bpm. The patient will be signed out to Dr. Vasquez upon shift change, pending lab results. - Diagnoses Provider Diagnoses: Cervical spinal stenosis, Weakness, Osteomyelitis of toe Discharge - Sign-Out/Discharge Documenting (check all that apply): Sign-Out Patient Signing out patient TO: Lv Vasquez Receiving patient FROM: Moy Polk - Discharge Plan Condition: Improved Disposition: HOME Meds/Orders/Equipment: Home Care: Skilled Needs Location: None Selected Patient Education Materials: Osteomyelitis (ED), Cervical Spinal Stenosis (ED) , Weakness (ED) Referrals: Simeon Turcios MD [Medical Doctor] - Christiano Rosa MD [Primary Care Provider] - Carie Thomas MD [Medical Doctor] - Additional Instructions: Call your doctor first thing on arrival home today for prompt follow-up. Continue your outpatient Rocephin injections. Return if worse, new symptoms or other concerns. - Billing Disposition and Condition Condition: IMPROVED Disposition: Home - Attestation Statements Document Initiated by Chica: Yes Documenting Scribe: Tom Guillen Provider For Whom Chica is Documenting (Include Credential): Moy Polk MD Scribe Attestation: I, Tom Guillen, scribed for Moy Polk MD on 02/10/18 at 1555. Scribe Documentation Reviewed: Yes Provider Attestation: The documentation as recorded by the Tom ram accurately reflects the service I personally performed and the decisions made by me, Moy Polk MD
[2018-02-07 07:00] LABS: ABS Basophils 0.1 10^3/ul (0-0.2); ABS Eosinophils 0.1 10^3/ul (0-0.6); ABS Lymphocytes 1.3 10^3/ul (1.0-4.8); ABS Monocytes 0.3 10^3/ul (0-0.8); ABS Neutrophils 7.3 10^3/ul (1.5-7.7); ABS Nucleated RBC 0 10^3/ul; Eosinophil % 1.5 % (0-6); Hematocrit 32 % (35-47); Hemoglobin 10.7 g/dl (12.0-16.0); Lymphocyte % 14.3 % (25-47); Mean Corpuscular HGB Conc 33 g/dl (31-36); Mean Corpuscular Hemoglobin 31 pg (27-31); Mean Corpuscular Volume 93 fL (80-97); Mean Platelet Volume 7.4 um3 (7.4-10.4); Nucleated Red Blood Cells % 0; Platelet Count 404 10^3/ul (150-450); Red Blood Count 3.47 10^6/ul (4.00-5.40); Red Cell Distribution Width 13 % (10.5-15); White Blood Count 9.2 10^3/ul (3.5-10.8)
[2018-02-07 07:22] LABS: EGFR Non-African American 47.7 (>60)
--- NOTE | 2018-02-07 08:04 | ED ---
Progress - Progress Note Progress Note: Receiving sign out from Dr. Polk, pending lab results. Pt is a 62 y/o female who presents to the ED c/o weakness. She currently has osteomyelitis of her left toe and has been going to the infusion center every day for 1 g of Rocephin until 02/28/18. Pt believes she is having an adverse reaction to Rocephin, and reports feeling weaker each day. She woke up this morning and was only able to walk 2 steps, and is concerned because she lives alone. Dr. Olvera will not perform surgery for her neck until her osteomyelitis is cleared. He told the pt that if she falls, she will become paralyzed. Currently she states she is burning up and cannot urinate in the bed gross. Pt states she does not want to go to a nursing facility for any care. She will be admitted with final dx of osteomyelitis of toe, chronic weakness, and cervical spine stenosis. - Consult/PCP Time Called: 07:34 Consult/PCP: Dr. Tabor Consult Reason/Comments: Consult social workers, to dispo pt to the care home. Re-Evaluation - Re-Evaluation First Eval Re-Evaluation Time: 11:11 Change: Improved Comment: Pt is able to ambulate. Informed her about admission. Course/Dx - Course Course Of Treatment: Appearance: Well appearing, no pain distress. Skin: warm, dry, reflects adequate perfusion. Head/face: normal. Eyes: EOMI, SHUBHAM. ENT: mucous membranes moist. Neck: supple, non-tender. Respiratory: CTA, breath sounds present. Cardiovascular: RRR, pulses symmetrical. Abdomen: non-tender, soft. Bowel Sounds: present. Musculoskeletal: normal, strength/ROM intact. Neuro: normal, sensory motor intact, A&Ox3. Patient presents with generalized weakness that is chronic. Today she states she can't walk however it appears as though she may be scared to or have other reasons not try. She was offered placement so she can continue her IV treatment for osteomyelitis which she needs to complete prior to any surgery on her cervical spine for chronic spinal stenosis. The patient refused different placements offered by social work. At that time she got up from bed and walked with normal strength with a walker but otherwise unassisted. At that time she was offered admission here on a swing service which she refused and wished to discharge home. - Diagnoses Provider Diagnoses: Cervical spinal stenosis, Weakness, Osteomyelitis of toe - Provider Notifications Discussed Care Of Patient With: Social Work Time Discussed With Above Provider: 11:04 Instructed by Provider To: Admit As Inpatient - Pt refused care home placement. She will be admitted as "swing." Discharge - Sign-Out/Discharge Documenting (check all that apply): Patient Departure - Discharge, Receiving Sign-Out Receiving patient FROM: Moy Polk - Discharge Plan Condition: Improved Disposition: HOME Meds/Orders/Equipment: Home Care: Skilled Needs Location: None Selected Patient Education Materials: Osteomyelitis (ED), Cervical Spinal Stenosis (ED) , Weakness (ED) Referrals: Simeon Turcios MD [Medical Doctor] - Christiano Rosa MD [Primary Care Provider] - Carie Thomas MD [Medical Doctor] - Additional Instructions: Call your doctor first thing on arrival home today for prompt follow-up. Continue your outpatient Rocephin injections. Return if worse, new symptoms or other concerns. - Billing Disposition and Condition Condition: IMPROVED Disposition: Home - Attestation Statements Document Initiated by Scribe: Yes Documenting Scribe: Mercy Peters Provider For Whom Scribe is Documenting (Include Credential): Lv Vasquez MD Scribe Attestation: IMercy, scribed for Lv Vasquez MD on 02/07/18 at 1740. Scribe Documentation Reviewed: Yes Provider Attestation: The documentation as recorded by the Mercy ram accurately reflects the service I personally performed and the decisions made by me, Lv Vasquez MD
[2018-02-07 11:32] VITALS: BP 155/91
== END 2018-02-07 11:31 | disposition home or self-care (01) ==
LOC: ED 05:29
DX: R53.1 Weakness (principal); E11.8 Type 2 diabetes mellitus with unspecified complications; E78.00 Pure hypercholesterolemia, unspecified; I10 Essential (primary) hypertension; F17.210 Nicotine dependence, cigarettes, uncomplicated
CPT/HCPCS: 36415; 80053; 80320; 82550; 83605; 83735; 84443; 84484; 85025; 93005; 96360; 99283; G0480

== ENCOUNTER → 2018-02-28 00:15 | Emergency (ER) | payer MEDICARE ==
--- NOTE | 2018-02-28 00:51 | ED ---
Back Pain - HPI Summary HPI Summary: Pt. is a 62 y.o female who presents to the ED for low back pain and left knee pain after a fall that occurred just prior to arrival. Pt. states she has cervical stenosis that causes her legs to get weak and fall frequently. Pt. states she wears a c collar at all times. She states she is scheduled for neck surgery. Pt. states she was sitting on the toilet tonight and when she went to wipe herself her legs got weak and she fell to the ground striking her low back and left knee. Denies head injury or LOC. Symptoms are mild in severity. Movement makes sxs worse. Rest makes sxs better. - History of Current Complaint Chief Complaint: EDBackInjuryPain Stated Complaint: FALL, BACK PAIN Time Seen by Provider: 02/28/18 00:38 Hx Obtained From: Patient Pain Intensity: 6 - Allergies/Home Medications Allergies/Adverse Reactions: Allergies Allergy/AdvReac Type Severity Reaction Status Date / Time atorvastatin Allergy Severe See Comment Verified 02/13/18 10:08 tramadol Allergy Severe Shortness Verified 02/13/18 10:08 of Breath codeine Allergy Intermediate Rash Verified 02/13/18 10:08 Sulfa (Sulfonamide Allergy Mild Rash Verified 02/13/18 10:08 Antibiotics) daptomycin Allergy See Comment Verified 02/13/18 10:08 lorazepam AdvReac Intermediate Agitation Verified 02/13/18 10:08 amoxicillin [From Augmentin] AdvReac Mild Nausea And Verified 02/13/18 10:08 Vomiting clavulanic acid AdvReac Mild Nausea And Verified 02/13/18 10:08 [From Augmentin] Vomiting PMH/Surg Hx/FS Hx/Imm Hx Previously Healthy: Yes Endocrine/Hematology History: Reports: Hx Diabetes Denies: Hx Thyroid Disease Cardiovascular History: Reports: Hx Hypercholesterolemia, Hx Hypertension, Other Cardiovascular Problems/Disorders - hypercholesterolemia Denies: Hx Pacemaker/ICD, Hx Peripheral Vascular Disease Respiratory History: Reports: Hx Asthma, Hx Pneumonia, Hx Sleep Apnea - doesn't use her CPAP, Other Respiratory Problems/Disorders - reports pneumonia x5 in 9 years - has seen dr combs Denies: Hx Chronic Obstructive Pulmonary Disease (COPD) GI History: Reports: Hx Gall Bladder Disease - gall stones, Other GI Disorders - current gallbladder issue Denies: Hx Hiatal Hernia, Hx Ulcer History: Reports: Hx Acute Renal Failure, Hx Renal Disease - HX OF FAILURE - THAT RESOLVED, Other Problems/Disorders - hx UTI's Musculoskeletal History: Reports: Hx Arthritis - bilateral knees, Other Musculoskeletal History - reports spinal stenosis - followed by dr timmons Denies: Hx Osteoporosis Sensory History: Reports: Hx Cataracts - bilateral, Hx Contacts or Glasses - glasses, Hx Vision Problem Denies: Hx Hearing Aid Opthamlomology History: Reports: Hx Cataracts - bilateral, Hx Contacts or Glasses - glasses, Hx Vision Problem Neurological History: Reports: Hx Headaches - none in 3 yrs, 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, Other Neuro Impairments/Disorders - reports hx psychosis Psychiatric History: Reports: Hx Anxiety, Hx Depression, Hx Panic Disorder - ANXIETY UNDER CONTROL, Hx Post Traumatic Stress Disorder, Hx Schizophrenia, Hx Substance Abuse - EtOH, Other Psychiatric Issues/Disorders - Psychosis, controlled with Geodon Denies: Hx Eating Disorder, Hx of Violent Episodes Against Others - Cancer History Hx Chemotherapy: No Hx Radiation Therapy: No - Surgical History Surgery Procedure, Year, and Place: [place] 06[place]-[employer] REVEAL HEART LOOP RECORDER - CURRENTLY NOT ACTIVE. bilateral cataract extraction with IOL's 2013 - [facility] GALLBLADDER Hx Anesthesia Reactions: No - Immunization History Date of Influenza Vaccine: 12/2016 Infectious Disease History: No Infectious Disease History: Reports: Hx Shingles Denies: Hx Clostridium Difficile, Hx Hepatitis, Hx Human Immunodeficiency Virus (HIV), Hx of Known/Suspected MRSA, Hx Tuberculosis, History Other Infectious Disease, Traveled Outside the [place] in Last 30 Days - Family History Known Family History: Positive: Hypertension, Non-Contributory - Social History Occupation: Retired Lives: Alone Alcohol Use: None Alcohol Amount: 1-2 beers occassionally last drink 3 mo. ago Hx Substance Use: No Substance Use Type: Reports: None Hx Tobacco Use: Yes Smoking Status (MU): Never Smoked Tobacco Type: Cigarettes Amount Used/How Often: reports had 3 cigs per day for 5 years Have You Smoked in the Last Year: No Review of Systems Respiratory: Negative Gastrointestinal: Negative Positive: Other - low back pain and left knee pain Positive: Other - abrasion to left knee Neurological: Other - chronic neuropathy in legs All Other Systems Reviewed And Are Negative: Yes Physical Exam Triage Information Reviewed: Yes Vital Signs On Initial Exam: Initial Vitals Temp Pulse Resp BP Pulse Ox 97.7 F 92 20 105/73 99 02/28/18 00:19 02/28/18 00:19 02/28/18 00:19 02/28/18 00:19 02/28/18 00:19 Vital Signs Reviewed: Yes Appearance: Positive: Well-Appearing - Pt. sitting up in bed in NAD. Wear hard c collar Skin: Positive: Warm, Dry Head/Face: Positive: Normal Head/Face Inspection Eyes: Positive: Normal, EOMI Neck: Positive: Other: - c collar in place Musculoskeletal: Positive: Other - Lumbar midline tenderness on palpation. Superifical abrasion overlying left knee with diffuse pain on palpation. No hip pain. Palpable pedal pulse. Neurological: Positive: Normal, CN Intact II-III Psychiatric: Positive: Affect/Mood Appropriate Diagnostics - Vital Signs Vital Signs Temp Pulse Resp BP Pulse Ox 02/28/18 00:20 87 105/73 97 02/28/18 00:19 97.7 F 92 20 105/73 99 - Laboratory Lab Statement: Any lab studies that have been ordered have been reviewed, and results considered in the medical decision making process. Back Pain Course/Dx - Course Course Of Treatment: Pt. presenting for back and knee pain after fall. She declines pain medication. Xrays ordered. Hip and knee xray show chronic changes without acute fx or dislocation. On re exam pt. is sleeping comfortably. Results discussed. Wound was clean and dressed by myself. Able to ambulate in hallway with walker. DC home. To f.u with PCP if pain persist and return to ER if sxs change or worsen. Pt. understands and agree with plan. - Diagnoses Differential Diagnosis/HQI/PQRI: Positive: Arthritis, Fracture, Strain, Sprain Provider Diagnoses: Fall, Lumbar strain, Knee contusion Discharge - Sign-Out/Discharge Documenting (check all that apply): Patient Departure - Discharge Plan Condition: Good Disposition: HOME Patient Education Materials: Low Back Strain (ED), Knee Pain (ED) Referrals: Christiano Rosa MD [Primary Care Provider] - Additional Instructions: Schedule a follow up appointment with your PCP Ice knee and back intermittently Keep wound clean and dry Return to ER if symptoms change or worsen - Billing Disposition and Condition Condition: GOOD Disposition: Home
[2018-02-28 02:16] VITALS: BP 101/71
== END | disposition home or self-care (01) ==
LOC: ED 00:15
DX: S39.012A Strain of muscle, fascia and tendon of lower back, initial encounter (principal); S80.02XA Contusion of left knee, initial encounter; W19.XXXA Unspecified fall, initial encounter; Y92.9 Unspecified place or not applicable; E11.9 Type 2 diabetes mellitus without complications; Z88.5 Allergy status to narcotic agent; Z88.2 Allergy status to sulfonamides
CPT/HCPCS: 72110; 99283

== ENCOUNTER 2018-03-10 11:10 | Observation (INO) | payer MEDICARE, OTHER ==
[2018-03-10] MEDS ORDERED: NS 0.9% 1000 ML* 1,000 ML IV ONE (11:32)
[2018-03-10] MEDS ORDERED: Ondansetron INJ* 2 MG/ML VIAL IV ONE (11:34)
[2018-03-10 11:55] LABS: ABS Basophils 0.1 10^3/ul (0-0.2); ABS Eosinophils 0 10^3/ul (0-0.6); ABS Lymphocytes 1.4 10^3/ul (1.0-4.8); ABS Monocytes 0.3 10^3/ul (0-0.8); ABS Neutrophils 6.7 10^3/ul (1.5-7.7); ABS Nucleated RBC 0 10^3/ul; Eosinophil % 0.5 %; Hematocrit 35 % (35-47); Hemoglobin 11.5 g/dl (12.0-16.0); Lymphocyte % 16.9 %; Mean Corpuscular HGB Conc 33 g/dl (31-36); Mean Corpuscular Hemoglobin 31 pg (27-31); Mean Corpuscular Volume 93 fL (80-97); Mean Platelet Volume 7.7 fL (7.4-10.4); Nucleated Red Blood Cells % 0; Platelet Count 375 10^3/ul (150-450); Red Blood Count 3.75 10^6/ul (4.00-5.40); Red Cell Distribution Width 14 % (10.5-15); White Blood Count 8.5 10^3/ul (3.5-10.8)
[2018-03-10 12:04] LABS: INR 1.02 (0.77-1.02)
[2018-03-10 12:12] LABS: EGFR Non-African American 65.8 (>60)
[2018-03-10] MEDS ORDERED: Diazepam SYRINGE* 5 MG/ML 2 ML SYRINGE (10 MG total) IV ONE (12:26)
--- NOTE | 2018-03-10 12:26 | ED ---
Complex/Multi-Sys Presentation - HPI Summary HPI Summary: A 62 y/o female brought in by [facility] ambulance presents to [facility] with a chief complaint of nausea since 03/06/18 after she had a heart monitor placed. She also c/o weakness. Dr. Michael is her machine cell tuber and, according to the patient , one of his nurses said her symptoms are likely due to the flu and that she is anxious. She takes clonazepam for her anxiety but did not take it today. The patient thinks she is not anxious. She was in the ED on 02/28/18 for syncope and collapse. She denies abd pain, vomiting and syncope. She states that she has been on every nausea medication and none of them works for her. She has a Hx of DM. - History Of Current Complaint Chief Complaint: EDNauseaVomitDiarrh Time Seen by Provider: 03/10/18 11:31 Hx Obtained From: Patient, EMS Onset/Duration: Sudden Onset, Lasting Days, Still Present Timing: Constant Severity Currently: Moderate Severity Initially: Moderate Associated Signs And Symptoms: Positive: Nausea. Negative: Syncope, Vomiting - Allergies/Home Medications Allergies/Adverse Reactions: Allergies Allergy/AdvReac Type Severity Reaction Status Date / Time atorvastatin Allergy Severe See Comment Verified 03/10/18 11:37 tramadol Allergy Severe Shortness Verified 03/10/18 11:37 of Breath codeine Allergy Intermediate Rash Verified 03/10/18 11:37 Sulfa (Sulfonamide Allergy Mild Rash Verified 03/10/18 11:37 Antibiotics) amlodipine Allergy Unknown Verified 03/10/18 11:37 Reaction Details daptomycin Allergy See Comment Verified 03/10/18 11:37 quetiapine [From Seroquel] Allergy Unknown Verified 03/10/18 11:37 Reaction Details zolpidem [From Ambien] Allergy Unknown Verified 03/10/18 11:37 Reaction Details lorazepam AdvReac Intermediate Agitation Verified 03/10/18 11:37 amoxicillin [From Augmentin] AdvReac Mild Nausea And Verified 03/10/18 11:37 Vomiting clavulanic acid AdvReac Mild Nausea And Verified 03/10/18 11:37 [From Augmentin] Vomiting PMH/Surg Hx/FS Hx/Imm Hx Endocrine/Hematology History: Reports: Hx Diabetes Denies: Hx Thyroid Disease Cardiovascular History: Reports: Hx Hypercholesterolemia, Hx Hypertension, Hx Pacemaker/ICD, Other Cardiovascular Problems/Disorders - hypercholesterolemia Denies: Hx Peripheral Vascular Disease Respiratory History: Reports: Hx Asthma, Hx Pneumonia, Hx Sleep Apnea - doesn't use her CPAP, Other Respiratory Problems/Disorders - reports pneumonia x5 in 9 years - has seen dr combs Denies: Hx Chronic Obstructive Pulmonary Disease (COPD) GI History: Reports: Hx Gall Bladder Disease - gall stones, Other GI Disorders - current gallbladder issue Denies: Hx Hiatal Hernia, Hx Ulcer History: Reports: Hx Acute Renal Failure, Hx Renal Disease - HX OF FAILURE - THAT RESOLVED, Other Problems/Disorders - hx UTI's Musculoskeletal History: Reports: Hx Arthritis - bilateral knees, Other Musculoskeletal History - reports spinal stenosis - followed by dr timmons Denies: Hx Osteoporosis Sensory History: Reports: Hx Cataracts - bilateral, Hx Contacts or Glasses - glasses, Hx Vision Problem Denies: Hx Hearing Aid Opthamlomology History: Reports: Hx Cataracts - bilateral, Hx Contacts or Glasses - glasses, Hx Vision Problem Neurological History: Reports: Hx Headaches - none in 3 yrs, 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, Other Neuro Impairments/Disorders - reports hx psychosis Psychiatric History: Reports: Hx Anxiety, Hx Depression, Hx Panic Disorder - ANXIETY UNDER CONTROL, Hx Post Traumatic Stress Disorder, Hx Schizophrenia, Hx Substance Abuse - EtOH, Other Psychiatric Issues/Disorders - Psychosis, controlled with Geodon Denies: Hx Eating Disorder, Hx of Violent Episodes Against Others - Cancer History Hx Chemotherapy: No Hx Radiation Therapy: No - Surgical History Surgery Procedure, Year, and Place[place] REVEAL HEART LOOP RECORDER - CURRENTLY NOT ACTIVE. bilateral cataract extraction with IOL's 2013 - [facility] GALLBLADDER Hx Anesthesia Reactions: No - Immunization History Date of Influenza Vaccine: 12/2016 Infectious Disease History: No Infectious Disease History: Reports: Hx Shingles Denies: Hx Clostridium Difficile, Hx Hepatitis, Hx Human Immunodeficiency Virus (HIV), Hx of Known/Suspected MRSA, Hx Tuberculosis, History Other Infectious Disease, Traveled Outside the [place] in Last 30 Days - Family History Known Family History: Positive: Hypertension, Non-Contributory - Social History Alcohol Use: None Alcohol Amount: 1-2 beers occassionally last drink 3 mo. ago Hx Substance Use: No Substance Use Type: Reports: None Hx Tobacco Use: Yes Smoking Status (MU): Former Smoker Type: Cigarettes Amount Used/How Often: reports had 3 cigs per day for 5 years Have You Smoked in the Last Year: No Review of Systems Positive: Nausea. Negative: Abdominal Pain, Vomiting Positive: Weakness. Negative: Syncope Negative: Anxious All Other Systems Reviewed And Are Negative: Yes Physical Exam - Summary Physical Exam Summary: GENERAL: Patient is a well-developed and nourished F who is lying comfortable in the stretcher. Patient is not in any acute respiratory distress. HEAD AND FACE: Normocephalic EYES: PERRLA, EOMI x 2. EARS: Hearing grossly intact. MOUTH: Dry mucous membranes NECK: Supple, trachea is midline, no adenopathy, no JVD, no carotid bruit. CHEST: Symmetric, no tenderness at palpation, loop recorder left chest incision clean and dry. LUNGS: Clear to auscultation bilaterally. No wheezing or crackles. CVS: Regular rate and rhythm, S1 and S2 present, no murmurs or gallops appreciated. ABDOMEN: Soft, non-tender. Bowel sounds are normal. No abdominal abnormal pulsations. EXTREMITIES: Full ROM in all major joints, no edema, no cyanosis or clubbing. NEURO: Alert and oriented x 3. No acute neurological deficits. Speech is normal and follows commands. SKIN: Dry and warm GCS: 15 Triage Information Reviewed: Yes Vital Signs On Initial Exam: Initial Vitals Temp Pulse Resp BP Pulse Ox 97.5 F 70 16 153/95 98 03/10/18 11:25 03/10/18 11:25 03/10/18 11:25 03/10/18 11:25 03/10/18 11:25 Vital Signs Reviewed: Yes Diagnostics - Vital Signs Vital Signs Temp Pulse Resp BP Pulse Ox 03/10/18 11:25 97.5 F 70 16 153/95 98 - Laboratory Lab Results: Lab Results 03/10/18 03/10/18 03/10/18 Range/Units 11:35 11:35 11:35 WBC 8.5 (3.5-10.8) 10^3/ul RBC 3.75 L (4.00-5.40) 10^6/ul Hgb 11.5 L (12.0-16.0) g/dl Hct 35 (35-47) % MCV 93 (80-97) fL MCH 31 (27-31) pg MCHC 33 (31-36) g/dl RDW 14 (10.5-15) % Plt Count 375 (150-450) 10^3/ul MPV 7.7 (7.4-10.4) fL Neut % (Auto) 78.1 % Lymph % (Auto) 16.9 % [place] % (Auto) 3.9 % Eos % (Auto) 0.5 % Baso % (Auto) 0.6 % Absolute Neuts (auto) 6.7 (1.5-7.7) 10^3/ul Absolute Lymphs (auto) 1.4 (1.0-4.8) 10^3/ul Absolute Monos (auto) 0.3 (0-0.8) 10^3/ul Absolute Eos (auto) 0 (0-0.6) 10^3/ul Absolute Basos (auto) 0.1 (0-0.2) 10^3/ul Absolute Nucleated RBC 0 10^3/ul Nucleated RBC % 0 INR (Anticoag Therapy) (0.77-1.02) APTT (26.0-36.3) seconds Sodium 136 (135-145) mmol/L Potassium 4.7 (3.5-5.0) mmol/L Chloride 102 (101-111) mmol/L Carbon Dioxide 28 (22-32) mmol/L Anion Gap 6 (2-11) mmol/L BUN 10 (6-24) mg/dL Creatinine 0.87 (0.51-0.95) mg/dL Est GFR ( Amer) 79.6 (>60) Est GFR (Non-Af Amer) 65.8 (>60) BUN/Creatinine Ratio 11.5 (8-20) Glucose 149 H (70-100) mg/dL Lactic Acid 1.2 (0.5-2.0) mmol/L Calcium 9.9 (8.6-10.3) mg/dL Magnesium 1.3 L (1.9-2.7) mg/dL Total Bilirubin 0.40 (0.2-1.0) mg/dL AST 31 (13-39) U/L ALT 32 (7-52) U/L Alkaline Phosphatase 76 (34-104) U/L CK-MB (CK-2) 1.5 (0.6-6.3) ng/mL Troponin I 0.00 (<0.04) ng/mL B-Natriuretic Peptide (<=100) pg/mL Total Protein 7.3 (6.4-8.9) g/dL Albumin 3.9 (3.2-5.2) g/dL Globulin 3.4 (2-4) g/dL Albumin/Globulin Ratio 1.1 (1-3) 03/10/18 03/10/18 Range/Units 11:35 11:35 WBC (3.5-10.8) 10^3/ul RBC (4.00-5.40) 10^6/ul Hgb (12.0-16.0) g/dl Hct (35-47) % MCV (80-97) fL MCH (27-31) pg MCHC (31-36) g/dl RDW (10.5-15) % Plt Count (150-450) 10^3/ul MPV (7.4-10.4) fL Neut % (Auto) % Lymph % (Auto) % [place] % (Auto) % Eos % (Auto) % Baso % (Auto) % Absolute Neuts (auto) (1.5-7.7) 10^3/ul Absolute Lymphs (auto) (1.0-4.8) 10^3/ul Absolute Monos (auto) (0-0.8) 10^3/ul Absolute Eos (auto) (0-0.6) 10^3/ul Absolute Basos (auto) (0-0.2) 10^3/ul Absolute Nucleated RBC 10^3/ul Nucleated RBC % INR (Anticoag Therapy) 1.02 (0.77-1.02) APTT 35.9 (26.0-36.3) seconds Sodium (135-145) mmol/L Potassium (3.5-5.0) mmol/L Chloride (101-111) mmol/L Carbon Dioxide (22-32) mmol/L Anion Gap (2-11) mmol/L BUN (6-24) mg/dL Creatinine (0.51-0.95) mg/dL Est GFR ( Amer) (>60) Est GFR (Non-Af Amer) (>60) BUN/Creatinine Ratio (8-20) Glucose (70-100) mg/dL Lactic Acid (0.5-2.0) mmol/L Calcium (8.6-10.3) mg/dL Magnesium (1.9-2.7) mg/dL Total Bilirubin (0.2-1.0) mg/dL AST (13-39) U/L ALT (7-52) U/L Alkaline Phosphatase (34-104) U/L CK-MB (CK-2) (0.6-6.3) ng/mL Troponin I (<0.04) ng/mL B-Natriuretic Peptide 39 (<=100) pg/mL Total Protein (6.4-8.9) g/dL Albumin (3.2-5.2) g/dL Globulin (2-4) g/dL Albumin/Globulin Ratio (1-3) Result Diagrams: 03/11/18 07:28 03/11/18 07:28 Lab Statement: Any lab studies that have been ordered have been reviewed, and results considered in the medical decision making process. - Radiology CXR Radiology Interpretation Completed By: Radiologist Summary of Radiographic Findings: No active cardiopulmonary disease is noted. ED physician has reviewed this imaging report. - CT Brain CT Interpretation Completed By: Radiologist Summary of CT Findings: No acute intracranial pathology. ED physician has reviewed this imaging report. - EKG 11:38 Cardiac Rate: NL - 69 bpm EKG Rhythm: Sinus Rhythm Summary of EKG Findings: without ischemic changes Re-Evaluation - Re-Evaluation First Eval Re-Evaluation Time: 14:15 Change: Unchanged Comment: Unsteady gait when walking to restroom. Complex Multi-Symp Course/Dx Course Of Treatment: A 62 y/o female brought in by [facility] ambulance presents to [facility] with a chief complaint of nausea since 03/06/18 after she had a heart monitor placed. Workup is unremarkable with a negative Brain CT a negative CXR and an EKG with NSR at 69bpm. Lab results were obtained. Dx: dizziness. The patient will be admitted. Case discussed with hospitalist, Dr. Borjas. I discussed results with patient. The patient agrees with this plan. - Diagnoses Provider Diagnoses: Dizziness - Physician Notifications Discussed Care Of Patient With: Magaly Borjas Time Discussed With Above Provider: 16:15 Instructed by Provider To: Admit As Inpatient Discharge - Sign-Out/Discharge Documenting (check all that apply): Patient Departure - Admit - Discharge Plan Condition: Improved Disposition: ADMITTED TO [facility] - Billing Disposition and Condition Condition: IMPROVED Disposition: Admitted to [facility] - Attestation Statements Document Initiated by [place]: Yes Documenting Scribe: Tom Guillen Provider For Whom Chica is Documenting (Include Credential): Yuni Otto MD Scribe Attestation: ITom, scribed for Yuni Otto MD on 03/12/18 at 0131. Scribe Documentation Reviewed: Yes Provider Attestation: The documentation as recorded by the Tom ram accurately reflects the service I personally performed and the decisions made by me, Ricki Otto MD Status of Scribe Document: Viewed Consult Consult: At 14:20- Dr. Fisher's office called and we discussed the patient.
[2018-03-10] MEDS ORDERED: Diazepam INJ (NF) 5 MG/ML 10 ML VIAL (50 MG TOTAL) IV ONE (13:00)
[2018-03-10] MEDS ORDERED: Magnesium Sulfate 2 GM IV* 2 GM/50 ML BAG IVPB ONE (13:31)
[2018-03-10 14:29] LABS: Urine Appearance Clear; Urine Blood Negative (Negative); Urine Color Straw; Urine Ketones Negative (Negative); Urine Protein Negative (Negative); Urine Red Blood Cell Absent (Absent); Urine Specific Gravity 1.006 (1.010-1.030); Urine Urobilinogen Negative (Negative); Urine White Blood Cell 1+(6-10/hpf) (Absent)
[2018-03-10] MEDS ORDERED: Acetaminophen TAB* 325 MG PO PRN (17:19)
[2018-03-10] MEDS ORDERED: Albuterol HFA INHALER* 8 gm MDI INH PRN (17:21)
[2018-03-10] MEDS ORDERED: Ziprasidone CAP* 80 MG PO SCH (18:00)
[2018-03-10] MEDS ORDERED: Magnesium Sulfate IV* 3 GM in NS 0.9% 100 ML* 100 ML IVPB ONE (18:21)
[2018-03-10] MEDS ORDERED: Dextrose 50% Syringe 50 ML* 25 GM/50 ML SYRINGE IV PUSH PRN (18:40)
[2018-03-10] MEDS: NS 0.9% 1000 ML* 1,000 ML IV SCH (19:23)
[2018-03-10] MEDS: Magnesium Oxide TAB* 400 MG PO SCH (19:23)
[2018-03-10] MEDS: DOXYcycline IV* 100 MG in NS 0.9% 250 ML* 250 ML IVPB SCH (19:23)
[2018-03-10] MEDS: Insulin LISPRO* 1 UNITS UNIT SUBCUT SCH (20:36)
[2018-03-10] MEDS: Heparin VIAL(*) 5000 UNITS/ML VIAL (FIVE THOUSAND) SUBCUT SCH (20:44)
[2018-03-10] MEDS ORDERED: clonazePAM TAB(*) 1 MG PO SCH (21:00)
--- NOTE | 2018-03-11 04:46 | HP ---
ADDENDUM NOW INCLUDED ON THIS REPORT CC: Dr. Rosa; Dr. Mancia; Dr. Thomas; Dr. Turcios * HISTORY AND PHYSICAL: DATE OF ADMISSION: 03/10/18 PRIMARY CARE PROVIDER: Dr. Rosa. CHIEF COMPLAINT: Nausea and unsteady gait. HISTORY OF PRESENT ILLNESS: Ally Alba is a 62-year-old female with history of severe anxiety, who has also history of cervical myelopathy and ambulates with a walker. The patient has history of multiple admissions for nausea. She presents once again complaining of nausea. She stated that she had an event monitor implanted by Dr. Fisher on 03/06/18 and ever since then she had been nauseated. She is a rather convoluted historian. She stated that she does not feel anxious, but when asked directly if the nausea could be caused due to the anxiety, she said yes. She stated that she feels that the clonazepam causes her gait to be unsteady and she made a decision today to take herself "off it." She stated that she had been nauseated for 3 days and has not eaten anything or taken her medications, but later on when asked when was the last dose of doxycycline that she took, she stated that she took it today in the morning. Nevertheless, she appears dehydrated and she is going to be placed on overnight observation. PAST MEDICAL HISTORY: 1. History of C-spine myelopathy for which she is being evaluated by Dr. Thomas for C-spine surgery. 2. History of chronically unsteady gait, using walker at baseline. 3. History of CVA with what I believe as no residual deficits. 4. History of hypertension. 5. Hyperlipidemia. 6. Diabetes mellitus. 7. PTSD. 8. Anxiety. 9. Depression. 10. Asthma. 11. Insomnia. 12. Obesity. 13. Obstructive sleep apnea, not compliant with CPAP. 14. History of hernia repair. 15. Hysterectomy. 16. Laparoscopic cholecystectomy. 17. History of event monitor placed on 03/06/18. 18. 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 19. History of orthostatic hypotension. 20. History of carpal tunnel syndrome. 21. History of persistent microalbuminuria due to diabetes type 2. 22. The patient has history of frequent falls and had event monitor placed in by Dr. Fisher on 03/06/18. The patient also has history of what appears to be induced by antiemetics Jay. CURRENT MEDICATIONS: Include: 1. Metformin 1000 mg b.i.d. 2. Clonazepam 2 mg at p.m. 3. Geodon 160 mg q.p.m. 4. Effexor XR 225 mg q.a.m. 5. Pravastatin 40 mg at bedtime. 6. Doxycycline 100 mg b.i.d. 7. Aspirin 81 mg daily. 8. Albuterol inhaler 1 puff every 6 hours p.r.n. ALLERGIES: Include CODEINE, rash; SULFA, rash; LIPITOR, muscle weakness; AMLODIPINE, chest tightness and weakness; TRAMADOL, nausea and vomiting, migraine and facial flushing; SEROQUEL, fainting; AMBIEN, confusion and nightmares; AUGMENTIN, diarrhea and abdominal pain; DAPTOMYCIN, weakness in lower extremities and nausea. The patient also lists ATIVAN and the sensitivity is unsteady gait. FAMILY HISTORY: Positive for heart disease in mother and prostate cancer in father. SOCIAL HISTORY: The patient lives alone. She quit smoking 6 years ago. Denies any alcohol or drug use. Her surrogate decision makers are her 2 sons. She is a full code. She ambulates with a rolling walker. REVIEW OF SYSTEMS: Please see history of present illness. In addition, all the other 12 systems were reviewed with the patient and were negative. PHYSICAL EXAMINATION GENERAL: The patient is a very pleasant 62-year-old female, who is in no acute distress. Alert, awake, and oriented x3. VITAL SIGNS: Blood pressure of 160/91, heart rate of 73 and regular, respiratory rate 17, oxygen saturation 98% on room air, temperature of 97.5. HEENT: Head: Atraumatic, normocephalic. Eyes: Pupils are equal, reactive to light and accommodation. Oropharynx is clear. Mucosa dry. NECK: Supple. No JVD. No bruits bilaterally. RESPIRATORY: Clear to auscultation bilaterally. CARDIOVASCULAR: Regular rate and rhythm. No murmur. ABDOMEN: Soft, nontender. Bowel sounds present in all 4 quadrants. EXTREMITIES: There is no edema. Pulses are +2 bilaterally. There is no clubbing or cyanosis. NEUROLOGIC: Speech is clear. Cranial nerves II through XII grossly intact. Motor strength is 4+/5 in bilateral lower extremities. Gait is wide, but steady and the patient is able to ambulate with a walker without any additional support. DIAGNOSTIC STUDIES/LAB DATA: Laboratory data showed white blood cell count of 8.5, hemoglobin of 11.5, hematocrit of 35, and platelets of 375. Sodium was 136 , potassium 4.7, chloride 102, carbon dioxide 28, BUN 10, creatinine 0.87. Liver function tests unremarkable. Magnesium of 1.3. Troponin of 0. Brain natriuretic peptide was 39. Urinalysis: Trace esterase, present epithelial cells, no bacteria. CT of the brain showed impression: "No acute intracranial pathology." The patient's senior graphic designer shows normal sinus rhythm with heart rate in the 70s. EKG is pending at the time of dictation. ASSESSMENT AND PLAN: 1. The patient appears mildly dehydrated and she is going to be placed on overnight observation on intravenous fluids. Due to the patient's history of arrhythmias when on antiemetics, I will try to abstain from them especially that the patient is on Geodon and most of the antiemetics cause worsening QT prolongation. At this point, the patient's EKG is pending at the time of dictation. I suspect that at least some of the problems with nausea are related to the patient's anxiety. She requested for her clonazepam to be discontinued, but at this point since she stated that she had been taking it for "several years," I will lower the dose to 1 mg at night. 2. In regards to the patient's problems with walking, the patient at baseline walks with a walker, her gait is steady, I will confirm it with physical therapy evaluation in the morning, but at this point, I do not see any worsening of her symptoms. 3. In regards to the patient's history of anxiety and posttraumatic stress disorder, I will continue all of her psychiatric as an outpatient apart from the above-mentioned lowering clonazepam dose to 1 mg at night. 4. The patient has history of chronic osteomyelitis in the right foot. On examination of the right foot today and the right great toe, apart from slight onychomycosis, there is no evidence of ongoing infection. Due to her nausea, I will place her on doxycycline that she usually takes as prescribed by Dr. Mancia p.o. 100 mg b.i.d. to IV while in the hospital. 5. In regards to the patient's diabetes, the patient is going to be placed on insulin sliding scale and her metformin is going to be held while in the hospital. 6. For DVT prophylaxis, the patient is going to be placed on heparin subcutaneously. 7. The patient's code status is full and her surrogates are her sons. TIME SPENT: Approximately 65 minutes was spent on admission of this patient, more than half that time was spent [id number] with the patient during the interview and physical exam. ADDENDUM: Please note that the patient also has severe hypomagnesemia with a magnesium level of 1.3, which may contribute to generalized weakness. That is going to be replaced IV and p.o. [id number]/[facility] #: [id number]/[facility] #: [id number] ROXANNA
--- NOTE | 2018-03-11 04:46 | HP ---
HISTORY AND PHYSICAL: ADDENDUM: Please note that the patient also has severe hypomagnesemia with a magnesium level of 1.3, which may contribute to generalized weakness. That is going to be replaced IV and p.o. [id number]/[facility] #: [id number] MTDD
[2018-03-11] MEDS: Heparin VIAL(*) 5000 UNITS/ML VIAL (FIVE THOUSAND) SUBCUT SCH (05:38)
[2018-03-11 07:53] LABS: ABS Basophils 0 10^3/ul (0-0.2); ABS Eosinophils 0.2 10^3/ul (0-0.6); ABS Lymphocytes 1.6 10^3/ul (1.0-4.8); ABS Monocytes 0.4 10^3/ul (0-0.8); ABS Neutrophils 4.2 10^3/ul (1.5-7.7); ABS Nucleated RBC 0 10^3/ul; Eosinophil % 2.9 %; Hematocrit 34 % (35-47); Hemoglobin 11.2 g/dl (12.0-16.0); Lymphocyte % 25.2 %; Mean Corpuscular HGB Conc 33 g/dl (31-36); Mean Corpuscular Hemoglobin 31 pg (27-31); Mean Corpuscular Volume 94 fL (80-97); Mean Platelet Volume 7.9 fL (7.4-10.4); Nucleated Red Blood Cells % 0.1; Platelet Count 313 10^3/ul (150-450); Red Blood Count 3.64 10^6/ul (4.00-5.40); Red Cell Distribution Width 14 % (10.5-15); White Blood Count 6.5 10^3/ul (3.5-10.8)
[2018-03-11 08:13] LABS: EGFR Non-African American 66.6 (>60)
[2018-03-11] MEDS: Insulin LISPRO* 1 UNITS UNIT SUBCUT SCH ×2 (08:15→12:08)
[2018-03-11] MEDS: DOXYcycline IV* 100 MG in NS 0.9% 250 ML* 250 ML IVPB SCH (08:18)
[2018-03-11] MEDS: NS 0.9% 1000 ML* 1,000 ML IV SCH (08:18)
[2018-03-11] MEDS: Magnesium Oxide TAB* 400 MG PO SCH (08:22)
[2018-03-11] MEDS ORDERED: Aspirin EC TAB* 81 MG TAB.EC PO SCH (09:00)
[2018-03-11] MEDS ORDERED: Venlafaxine EXT RELEASE CAP* 75 MG PO SCH (09:00)
[2018-03-11 09:22] VITALS: BP 142/80
--- NOTE | 2018-03-12 06:06 | DS ---
DISCHARGE SUMMARY: DATE OF ADMISSION: 03/10/18 DATE OF DISCHARGE: 03/11/18 ADMITTING PROVIDER: Randee Wills MD PRIMARY CARE PHYSICIAN: Christiano Rosa MD ATTENDING PHYSICIAN ON THE DAY OF DISCHARGE: Yair Martinez MD CHIEF COMPLAINT: Nausea and unsteady gait. PRINCIPAL DIAGNOSES: Nausea; hypomagnesemia; anxiety; chronic benzodiazepine use, which may be contributing to frequent nocturnal falls. HISTORY OF PRESENT ILLNESS AND HOSPITAL COURSE: Ally Alba is a 62-year- old female with past medical history of severe anxiety, frequent falls, CVA, hypertension, hyperlipidemia, orthostatic hypotension, nonalcoholic steatohepatitis, cervical myelopathy, recommended to be wearing a [place] J Collar all times, PTSD, anxiety, depression, asthma, insomnia, obstructive sleep apnea, compliant with CPAP. Please see [facility] for full details, but briefly she has a history of multiple admissions for nausea and presents again with complaints of nausea. She has an event monitor implanted 4 days prior to admission on 03/06/18 and reports that she became hypoglycemic in the setting of fasting before that procedure and has been having nausea since the procedure. The history was reportedly convoluted. She also, with the consultation of her son, who is a nurse, has decided to stop taking the 2 mg clonazepam nightly for insomnia, which she has been on for many years, as I think it may be contributing to her history of frequent nocturnal falls. She was referred to hospitalist service for admission. It was later found that her magnesium level was low at 1.3. She was felt to be mildly dehydrated and given IV fluids and a total of 5 g of magnesium supplementation. She had a CT head, which was unremarkable. Her magnesium increased to 2.7 by hospital day #2. Troponins were tracked and were negative x3. Her EKG was unchanged on admission with Q waves in V3 and T-wave inversions or flattening in the V1 through V4. On hospital day #2, she was feeling remarkably better and of note, she had been given decreased clonazepam dose of 1 mg the previous night with a plan to slowly taper her benzodiazepines off over the next several weeks. Given her history frequent falls, she worked with Physical Therapy and was determined to have no skilled needs that would necessitate a subacute rehab , but it was recommended to pursue outpatient physical therapy to address strength differences between the right lower extremity and the left lower extremity; gait training and balance training. Due to her history of multiple falls, she was started on standing exercises with a rolling walker and chair. She was considered stable for discharge and there were no events on telemetry and she denied any palpitation. Blood pressure and other hemodynamics were stable. Patient's QTc was 458 on admission EKG, and patient was not given antinausea medication upon admission due to concern for already being on Geodon and venlafaxine. DISCHARGE MEDICATIONS: Include: 1. Albuterol 1 puff inhaled q.6 hours p.r.n. 2. Aspirin 81 mg daily. 3. Clonazepam 1 mg p.o. at bedtime (newly reduced from 2 mg p.o. at bedtime, she has approximately 20 tabs of that left, was instructed to purchase a pill splitter and follow up with Dr. Rosa for further titration instructions). 4. Doxycycline 100 mg p.o. b.i.d. 5. Magnesium oxide 400 mg p.o. daily (new, to be started in 3 days). 6. Metformin 1000 mg p.o. b.i.d. 7. Pravastatin 40 mg q.h.s. 8. Effexor 225 mg p.o. q.a.m. 9. Ziprasidone 160 mg p.o. q.p.m. DISCHARGE DIET: Consistent heart healthy. FOLLOWUP: Please follow with Dr. Christiano Rosa within 7 days, Dr. Belkys Fisher within already scheduled followup to have her original event recorder removed, and as scheduled with Dr. Thomas (they are trying to arrange surgery for her cervical myelopathy). Patient indicates that this is likely going to happen in late April versus May. TIME SPENT ON DISCHARGE: 35 minutes. [id number]/[facility] #: [id number] ROXANNA
== END 2018-03-11 13:55 | disposition home or self-care (01) ==
LOC: ED 11:10 → MED 17:19
PROVIDERS: ADMIT Internal Medicine; ATTEND Internal Medicine
DX: R11.0 Nausea (principal); E83.42 Hypomagnesemia; R53.1 Weakness; F13.20 Sedative, hypnotic or anxiolytic dependence, uncomplicated; I10 Essential (primary) hypertension; Z88.5 Allergy status to narcotic agent; E78.5 Hyperlipidemia, unspecified; I95.1 Orthostatic hypotension; E11.9 Type 2 diabetes mellitus without complications; R42 Dizziness and giddiness; R26.81 Unsteadiness on feet; Z79.82 Long term (current) use of aspirin; Z88.6 Allergy status to analgesic agent; Z88.8 Allergy status to other drugs, medicaments and biological substances; Z87.891 Personal history of nicotine dependence; W19.XXXA Unspecified fall, initial encounter; Y92.9 Unspecified place or not applicable; Z86.73 Personal history of transient ischemic attack (TIA), and cerebral infarction without residual deficits
CPT/HCPCS: 36415; 70450; 71045; 80048; 80053; 81003; 81015; 82553; 83605; 83735; 83880; 84484; 85025; 85610; 85730; 87086; 93005; 96365; 96366; 96372; 96375; 96376; 99285; A9270-GY; G0378; G8978-GP-CI; G8979-GP-CI; G8980-GP-CI; J1644; J3360; J3475

== ENCOUNTER 2018-04-28 10:08 | Inpatient (IN) | payer MEDICARE ==
--- NOTE | 2018-04-28 10:33 | ED ---
Neurological HPI - HPI Summary HPI Summary: A 62 y/o female brought in by ambulance presents to the ED c/o weakness for the past 8 days. In the ED room, the patient has a pulse of 84 BPM, respiratory rate of 24, and blood pressure of 148/99. As per triage, "Patient states that she has had extreme weakness x8 days and believes the symptoms are similar to her previous stroke a year ago". According to the patient, she has been experiencing generalized diffuse weakness for the past 8 days. She stated that she has had no sleep along with not eating for the past 8 days. She stated that she has insomnia with a sleep disorder. She noted that this has never happened before, but seems similar to her previous stroke she had before. She further noted that since her past stroke, her toes curl as shown in the ED room. Patient denies any fall, but stated that there was this medication she was on that makes her fall, but now she is off the medication. Patient lives by herself at home, and she gets around when she can as she tries but most of the time fails to move. She stated that she hasn't been eating, tried her best to go to the bathroom but was unable to do so except 4 days ago she had a stool. She stated that she hasn't urinated because she is so dehydrated. Patient denies any smoking, ETOH, or taking any medications to commit suicide. Additionally, she denies any fevers, chills, ear pain, sore throat, blurred vision, depression, edema, anxiety, abdominal pain, back pain, CP, but does have SOB and a headache reaching 10/10 in severity. - History of Current Complaint Chief Complaint: EDGeneral Stated Complaint: HEADACHE/INSOMNIA Hx Obtained From: Patient Onset/Duration: Sudden Onset, Started days ago - 8 DAYS, Still Present Timing: Constant Onset Severity: Severe - 10/10 Current Severity: Severe - 10/10 Number of Seizures: 0 Headache Location: Diffuse (Right), Diffuse (Left) Pain Intensity: 10 Pain Scale Used: 0-10 Numeric Character: Weak Syncope Timin Number of Episodes: 0 Aggravating: Nothing Alleviating: Nothing Associated Signs and Symptoms: Positive: Headache, Weakness, Shortness of Breath. Negative: Chest Pain, Depression, Anxiety - Additional Pertinent History Primary Care Physician: [id number] - Allergy/Home Medications Allergies/Adverse Reactions: Allergies Allergy/AdvReac Type Severity Reaction Status Date / Time atorvastatin Allergy Severe See Comment Verified 03/10/18 11:37 tramadol Allergy Severe Shortness Verified 03/10/18 11:37 of Breath codeine Allergy Intermediate Rash Verified 03/10/18 11:37 Sulfa (Sulfonamide Allergy Mild Rash Verified 03/10/18 11:37 Antibiotics) amlodipine Allergy Unknown Verified 03/10/18 11:37 Reaction Details daptomycin Allergy See Comment Verified 03/10/18 11:37 quetiapine [From Seroquel] Allergy Unknown Verified 03/10/18 11:37 Reaction Details zolpidem [From Ambien] Allergy Unknown Verified 03/10/18 11:37 Reaction Details lorazepam AdvReac Intermediate Agitation Verified 03/10/18 11:37 amoxicillin [From Augmentin] AdvReac Mild Nausea And Verified 03/10/18 11:37 Vomiting clavulanic acid AdvReac Mild Nausea And Verified 03/10/18 11:37 [From Augmentin] Vomiting PMH/Surg Hx/FS Hx/Imm Hx Endocrine/Hematology History: Reports: Hx Diabetes Denies: Hx Thyroid Disease Cardiovascular History: Reports: Hx Hypercholesterolemia, Hx Hypertension, Hx Pacemaker/ICD, Other Cardiovascular Problems/Disorders - hypercholesterolemia Denies: Hx Peripheral Vascular Disease Respiratory History: Reports: Hx Asthma, Hx Pneumonia, Hx Sleep Apnea - doesn't use her CPAP, Other Respiratory Problems/Disorders - reports pneumonia x5 in 9 years - has seen dr combs Denies: Hx Chronic Obstructive Pulmonary Disease (COPD) GI History: Reports: Hx Gall Bladder Disease - gall stones, Other GI Disorders - current gallbladder issue Denies: Hx Hiatal Hernia, Hx Ulcer History: Reports: Hx Acute Renal Failure, Hx Renal Disease - HX OF FAILURE - THAT RESOLVED, Other Problems/Disorders - hx UTI's Musculoskeletal History: Reports: Hx Arthritis - bilateral knees, Other Musculoskeletal History - reports spinal stenosis - followed by dr timmons Denies: Hx Osteoporosis Sensory History: Reports: Hx Cataracts - bilateral, Hx Contacts or Glasses - glasses, Hx Vision Problem Denies: Hx Hearing Aid Opthamlomology History: Reports: Hx Cataracts - bilateral, Hx Contacts or Glasses - glasses, Hx Vision Problem Neurological History: Reports: Hx Headaches - none in 3 yrs, 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, Other Neuro Impairments/Disorders - reports hx psychosis Psychiatric History: Reports: Hx Anxiety, Hx Depression, Hx Panic Disorder - ANXIETY UNDER CONTROL, Hx Post Traumatic Stress Disorder, Hx Schizophrenia, Hx Substance Abuse - EtOH, Other Psychiatric Issues/Disorders - Psychosis, controlled with Geodon Denies: Hx Eating Disorder, Hx of Violent Episodes Against Others - Cancer History Hx Chemotherapy: No Hx Radiation Therapy: No - Surgical History Surgery Procedure, Year, and Place: hysterectomy - [place]. [place]. 06/19/14-Scaled Inference REVEAL HEART LOOP RECORDER - CURRENTLY NOT ACTIVE. bilateral cataract extraction with IOL's 2013 - [facility]. GALLBLADDER Hx Anesthesia Reactions: No - Immunization History Date of Influenza Vaccine: 12/2016 Infectious Disease History: No Infectious Disease History: Reports: Hx Shingles Denies: Hx Clostridium Difficile, Hx Hepatitis, Hx Human Immunodeficiency Virus (HIV), Hx of Known/Suspected MRSA, Hx Tuberculosis, History Other Infectious Disease, Traveled Outside the [place] in Last 30 Days - Family History Known Family History: Positive: Hypertension, Non-Contributory - Social History Alcohol Use: None Alcohol Amount: 1-2 beers occassionally last drink 3 mo. ago Hx Substance Use: No Substance Use Type: Reports: None Hx Tobacco Use: Yes Smoking Status (MU): Former Smoker Type: Cigarettes Amount Used/How Often: reports had 3 cigs per day for 5 years Have You Smoked in the Last Year: No Review of Systems Positive: Other - PATIENT IS DEHYDRATED. Negative: Fever, Chills Positive: Other - NEGATIVE: DOUBLE VISION. Negative: Blurred Vision Negative: Sore Throat, Ear Ache Negative: Chest Pain Positive: Shortness Of Breath Positive: Other - NEGATIVE: BLOOD IN STOOL, CONSTIPATION. Negative: Abdominal Pain Negative: dysuria, hematuria Positive: Other - NEGATIVE: NECK PAIN, BACK PAIN. Negative: Edema Negative: Rash, Bruising Positive: Headache, Weakness Psychological: Other - NEGATIVE: SI Negative: Anxious, Depressed All Other Systems Reviewed And Are Negative: No Physical Exam - Summary Physical Exam Summary: Appearance: Alert, conversive, nontoxic appearing Skin: Warm, dry, no mottling, no rashes, no contusions HEENT: EOMI, PERRL, dry mucous membranes Neck: No masses on the neck, supple Respiratory: Clear to auscultation, breath sounds present, no rales, no rhonchi , no wheezes Cardiovascular: RRR, pulses are symmetrical in both lower and upper extremities Abdomen: Soft, non-tender Bowel Sounds: Present Musculoskeletal: No CVA tenderness, no obvious deformity, moving all extremities in a grossly normal manner, no edema Neurological: A&Ox3, CN II-XII Intact, moving all extremities symmetrically. Mild weakness to the lower extremities. Psychiatric: Flat-affect GCS: 15 Triage Information Reviewed: Yes Vital Signs On Initial Exam: Initial Vitals Temp Pulse Resp BP Pulse Ox 96.2 F 83 16 148/99 98 04/28/18 10:09 04/28/18 10:09 04/28/18 10:09 04/28/18 10:09 04/28/18 10:09 Vital Signs Reviewed: Yes - [place] Coma Scale Best Eye Response: 4 - Spontaneous Best Motor Response: 6 - Obeys Commands Best Verbal Response: 5 - Oriented Coma Scale Total: 15 Diagnostics - Vital Signs Vital Signs Temp Pulse Resp BP Pulse Ox 04/28/18 10:09 96.2 F 83 16 148/99 98 - Laboratory Result Diagrams: 04/28/18 10:43 04/28/18 10:43 Lab Statement: Any lab studies that have been ordered have been reviewed, and results considered in the medical decision making process. - Radiology CXR Radiology Interpretation Completed By: Radiologist Summary of Radiographic Findings: NO ACTIVE CARDIOPULMONARY DISEASE. ED PHYSICIAN REVIEWED THIS RADIOLOGY REPORT. - CT BRAIN CT CT Interpretation Completed By: Radiologist Summary of CT Findings: NO ACUTE INTRACRANIAL PATHOLOGY. ED PHYSICIAN REVIEWED THIS RADIOLOGY REPORT. - EKG 1022 Cardiac Rate: NL - 84 BPM EKG Rhythm: Sinus Rhythm - [address] Segment: Normal Summary of EKG Findings: normal QRS, normal QTc, normal axis, normal ST/T wave. - Additional Comments Diagnostic Additional Comments: CERVICAL SPINE MRI: 1. DEGENERATIVE DISC DISEASE AND OSTEOARTHRITIS. 2. THERE IS STABLE MYELOMALACIA AT C5-C6 3. THERE IS MODERATE NARROWING OF THE CENTRAL CANAL AT C4-C5 AND C5-C6 WITH MILD NARROWING OF THE CENTRAL CANAL AT C6-C7. 4. THERE IS MULTILEVEL NEUROFORAMINAL NARROWING DESCRIBED ABOVE. ED PHYSICIAN REVIEWED THIS RADIOLOGY REPORT. Re-Evaluation - Re-Evaluation First Eval Re-Evaluation Time: 12:27 Change: Unchanged Comment: DISCUSSED RESULTS AND ADMISSION WITH PATIENT. Second Eval Re-Evaluation Time: 13:34 Change: Unchanged Comment: SPOKE TO CHARGE NURSE FOR DR. BLOOD. DR. BLOOD AND PA IS IN SURGERY. CHARGE NURSE WILL CONVEY INFORMATION TO DR. BLOOD AND WILL CALL BACK. Course/Dx - Course Course Of Treatment: A 62 y/o female brought in by ambulance presents to the ED c/o weakness for the past 8 days. Physical examination findings significant for flat-affect, mild weakness to the lower extremities, and dry mucous membranes. A CXR revealed no active cardiopulmonary disease. A Brain CT revealed no acute intracranial pathology. GCS: 15. A Cervical Spine MRI revealed 1. Degenerative disc disease and osteoarthritis. 2. There is stable myelomalacia at C5-C6. 3. There is moderate narrowing of the central canal at C4-C5 and C5-C6 with mild narrowing of the central canal at C6-C7. 4. There is multilevel neuroforaminal narrowing as described above. An EKG revealed NSR OF 84 BPM, normal QRS, normal QTc, normal axis, normal ST/T wave. Hematology and Chemistry screens were done. No significant laboratory abnormalities were found. In the ED course, the patient received Tylenol and IV fluids. Patient care was discussed with hospitalist, Dr. Deshpande, who recommends consulting with Dr. Alba. Patient care was also discussed with Dr. Alba who will consult with the patient. Dr. Alba was able to see the patient and recommended a Neck MRI and have neurosurgery see patient. Patient care was discussed with Dr. Blood who does not accept patient for admission. Dr. Deshpande accepts patient for admission. Patient will be admitted with a diagnosis of mild dehydration and lower extremity weakness. Patient is agreeable with this plan. - Diagnoses Provider Diagnoses: Lower extremity weakness, Mild dehydration - Physician Notifications Discussed Care Of Patient With: Vincenzo Deshpande Time Discussed With Above Provider: 12:36 Instructed by Provider To: Other - RECOMMENDS CONSULTING DR. ALBA. 1238 - WILL SEE PATIENT. 1251 - DR. ALBA SAW PATIENT AND RECOMMENDS GETTING MRI OF NECK (POSSIBLY BACK SCAN WELL) AND CALL NEUROSURGERY. HE STATED CALL BACK IF NEUROSURGERY CAN'T DO ANYTHING. 1455 - DR. BLOOD DOES NOT ACCEPT PATIENT FOR ADMISSION. 1456 - DR. DESHPANDE ACCEPTS PATIENT FOR ADMISSION. Discharge - Sign-Out/Discharge Documenting (check all that apply): Patient Departure - ADMIT, Sign-Out Patient - BILLY Signing out patient TO: Vincenzo Deshpande Receiving patient FROM: Katherin Rincon - Discharge Plan Condition: Stable Disposition: ADMITTED TO [facility] - Billing Disposition and Condition Condition: STABLE Disposition: Admitted to [facility] - Attestation Statements Document Initiated by Chica: Yes Documenting Scribe: Nito Omer Provider For Whom Chica is Documenting (Include Credential): Katherin Rincon MD Scribe Attestation: Nito Lim, scribed for Katherin Rincon MD on 04/28/18 at 2205. Scribe Documentation Reviewed: Yes Provider Attestation: The documentation as recorded by the Nito ram accurately reflects the service I personally performed and the decisions made by me, Katherin Rincon MD Status of Scribe Document: Viewed
[2018-04-28 10:55] LABS: ABS Basophils 0.1 10^3/ul (0-0.2); ABS Eosinophils 0 10^3/ul (0-0.6); ABS Lymphocytes 1.6 10^3/ul (1.0-4.8); ABS Monocytes 0.4 10^3/ul (0-0.8); ABS Neutrophils 9.4 10^3/ul (1.5-7.7); ABS Nucleated RBC 0 10^3/ul; Eosinophil % 0.2 %; Hematocrit 39 % (35-47); Hemoglobin 12.9 g/dl (12.0-16.0); Lymphocyte % 14.1 %; Mean Corpuscular HGB Conc 33 g/dl (31-36); Mean Corpuscular Hemoglobin 30 pg (27-31); Mean Corpuscular Volume 92 fL (80-97); Mean Platelet Volume 6.9 fL (7.4-10.4); Nucleated Red Blood Cells % 0.1; Platelet Count 576 10^3/ul (150-450); Red Blood Count 4.29 10^6/ul (4.00-5.40); Red Cell Distribution Width 14 % (10.5-15); White Blood Count 11.5 10^3/ul (3.5-10.8)
[2018-04-28 11:18] LABS: Albumin/Globulin Ratio 0.9 (1-3); EGFR Non-African American 71.4 (>60); Globulin 4.6 g/dL (2-4); Magnesium 1.8 mg/dL (1.9-2.7); Potassium 4.6 mmol/L (3.5-5.0); Total Bilirubin 0.4 mg/dL (0.2-1.0); Total Protein 8.6 g/dL (6.4-8.9)
[2018-04-28 11:32] LABS: TSH (Thyroid Stimulating Horm) 3.11 mcIU/mL (0.34-5.60)
[2018-04-28] MEDS ORDERED: Acetaminophen TAB* 325 MG PO ONE (11:39)
[2018-04-28] MEDS ORDERED: NS 0.9% 1000 ML* 1,000 ML IV ONE (11:39)
[2018-04-28] MEDS ORDERED: Magnesium Sulfate 2 GM IV* 2 GM/50 ML BAG IVPB ONE (15:17)
--- NOTE | 2018-04-28 15:50 | CONSULT ---
Consult Consult: Neurosurgery Consult Date of Consult: 04/28/18 Reason for Consult: Cervical stenosis, weakness Referring Provider: Dr. Rincon HPI: This is a 62 year old female with past medical history significant for who presented to [facility] today complaining of headache and insomnia for the past 8 days. She states that beginning 8 days ago, she has been unable to ambulate, move her arms or legs, eat food, drink water, and take her medications. She reports bilateral upper and lower extremity weakness. She also reports neuropathy causing upper and lower extremity burning pain and numbness/tingling , equally right and left. She thought that she was having a stroke again which prompted her to call an ambulance today for evaluation at [facility]. She complains of 8 day headache beginning at the top of her head and travelling to the forehead. She has a history of cervical spondylosis and stenosis for which she has been scheduled for surgery with Dr. Thomas several times since last January. She was experiencing a similar episode after a fall in January with upper and lower extremity weakness which eventually improved and she was able to return home without undergoing surgery. She clearly states today that she does not want surgery. She reports recent illness for 3 weeks after Dariel during which time she experience nausea, fever, diarrhea and chest congestion. Past Medical History: 1. Diabetes 2. Cervical stenosis and spondylosis with myelopathy 3. History of CVA, follows with Dr. Turcios 4. PTSD 5. Anxiety 6. Depression 7. Insomnia 8. Obesity Past Surgical History: 1. Laparoscopic cholecystectomy 2. Loop recorder placement 3. Hysterectomy 4. Hernia repair Home Medications: 1. Pravastatin (NF) [Pravachol (NF)] 40 mg PO BEDTIME 10/19/17 [History Confirmed 04/28/18] 2. Venlafaxine EXT RELEASE CAP* [Effexor Xr CAP*] 225 mg PO QAM 10/19/17 [ History Confirmed 04/28/18] 3. metFORMIN* [Glucophage 500 MG TAB *] 1,000 tab PO BID 10/19/17 [History Confirmed 04/28/18] 4. Aspirin EC TAB* [Ecotrin EC Low Dose 81 MG*] 81 mg PO DAILY 11/21/17 [ History Confirmed 04/28/18] 5. Ziprasidone CAP* [Geodon CAP*] 160 mg PO QPM 11/21/17 [History Confirmed ] 6. Albuterol HFA INHALER* [Ventolin HFA Inhaler*] 1 puff INH Q6H PRN 03/07/18 [ History Confirmed 04/28/18] 7. Magnesium Oxide TAB* [MagOx 400 TAB*] 400 mg PO DAILY #30 tab 03/11/18 [Rx Confirmed 04/28/18] Allergies: 1. Atorvastatin 2. Tramadol 3. Codeine ROS: Full ROS completed. Pertinent findings stated in HPI and all others negative Physical Exam: Vital Signs: Temp Pulse Resp BP Pulse Ox 96.2 F 82 27 165/93 97 04/28/18 10:09 04/28/18 16:00 04/28/18 16:00 04/28/18 15:41 04/28/18 16:00 General: Alert, sitting recumbent in bed. No acute pain. Appears anxious, poor eye contact. HEENT: Head is normocephalic and atraumatic. PERRL, EOMI, Sclerae anicteric. Moist mucus membranes. Neck: Supple, symmetric. CV: Radial and pedal pulses 2+ and equal Lungs: Breathing is nonlabored and lungs are clear Abdomen: The abdomen is rounded, nontender, nondistended. NABS Neuro: CN II-XII intact. Speech is clear. Able to provide history. Oriented to person, place and time. Sensation intact upper and lower extremities, equal right and left. DTR 3+ throughout. Hoffmans negative. No ankle clonus. Strength 1+ in upper and lower extremities bilaterally. Unable to hold up arms when requested but is able to lift arms to scratch face or readjust gown. Able to lower right and left leg slowly to bed when dropped from 6 inches. Extremities: No edema or cyanosis. Hammer toes bilaterally. Imagin. MRI cervical spine on 04/28/18 shows degenerative disc disease, spondylosis and stenosis C4-5, C5-6 with cord signal change Assessment and Plan: This is a 62 year old female who presents to [facility] complaining of headache, insomnia and upper/lower extremity weakness for the past 8 days which have prevented her from caring for herself, eating, drinking and taking medication during that time. MRI cervical spine obtained today for evaluation of the weakness is unchanged since previous study showing spondylosis , degenerative disc disease and stenosis at C4-5, C5-6 with cord signal change. She has followed with Dr. Thomas and was scheduled for surgery in the past. I have discussed the MRI findings with her in relation to current symptoms. She states very clearly that she does not want surgery. She is being admitted by hospitalist medicine for further work up and neurosurgery is available if needed. At this time, there is no plan for surgery.
[2018-04-28] MEDS ORDERED: Acetaminophen TAB* 325 MG PO PRN (15:51)
[2018-04-28] MEDS ORDERED: Dextrose 50% Syringe 50 ML* 25 GM/50 ML SYRINGE IV PUSH PRN (16:00)
[2018-04-28] MEDS ORDERED: Albuterol 2.5 MG/3 ML NEB.SOL* (0.083%) INH PRN (16:01)
[2018-04-28] MEDS ORDERED: Cyclobenzaprine TAB* 10 MG PO PRN (16:01)
[2018-04-28] MEDS: Insulin LISPRO* 1 UNITS UNIT SUBCUT SCH ×2 (16:46→21:49)
[2018-04-28] MEDS: Lactated Ringers 1000 ML Bag* 1,000 ML IV SCH (17:59)
--- NOTE | 2018-04-28 18:06 | CONS ---
CONSULTATION REPORT: DATE OF CONSULT: 04/28/18 LOCATION: She is being seen in the ER. PRIMARY CARE PROVIDER: Dr. Christiano Rosa. REASON FOR CONSULT: Lower extremity weakness, no bowel movement for 4 days, not urinating, generalized weakness. HISTORY OF PRESENT ILLNESS: Ms. Alba is a 62-year-old female with a complicated past medical history including a prior stroke, hypertension, hyperlipidemia, diabetes, PTSD, anxiety, depression, asthma, cervical stenosis, insomnia, obesity, obstructive sleep apnea, cervical myelopathy. She has been evaluated by Neurosurgery and was scheduled for surgical decompression, which was delayed. She has had multiple admissions back in January. She was admitted with what appeared to be some cervical myelopathy with weakness and surgery was scheduled, but because of some complications including a bradyarrhythmia and then subsequent complications with osteomyelitis and some sterility issues, it was decided that she should have an outpatient surgery. Most recently, she was seen in the hospital back on 03/11/18. At that time, she was admitted with nausea and unsteady gait. It was noted at that time that due to her cervical myelopathy, she was supposed to be wearing a [employer] collar at all times. She has a history of multiple falls and it was found that her falls were likely related to some benzodiazepines, which were slowly weaned and she has improved from a gait standpoint. She denies any recent falls, but the patient is a poor historian and so it is unclear to me when her last fall was. She denies any neck injury, but she states she has not been wearing her collar. She did receive IV antibiotics for her osteomyelitis and apparently she states that that issue has resolved. She also had an event recorder placed at some point, but it had stopped working. She was brought into the hospital today by ambulance. She states that she has been in her bed for the last 8 days , largely confined to the bed, although she has been able to ambulate some to the bathroom. She states she has not had a bowel movement in 4 days and that she has not urinated in 2 days. When I asked her if she could go, she said she did not feel like she needed to go. She states that she feels dehydrated. She also states that she has had no sleep in the last 8 days. She does have a history of sleep apnea. She noted to me weakness in her arms and legs. She feels like she cannot move. She states that she is not having any severe pain, but she does have some numbness and tingling in her legs in a stocking distribution. She feels like she might be having another stroke and she states to me that she has a headache that is frontal in nature. She denies any recent alcohol use, any recent fevers, chills, vision changes, problems swallowing or speaking, facial drooping, shortness of breath, dyspnea on exertion above her baseline. She denies any chest pain. She denies any abdominal pain. She does endorse some back pain in her neck and in her lower back. She has a number of complaints regarding her arm and leg weakness, inability to move them, inability to stand on her legs, feeling like she is going to fall and the bladder and bowel issues. I asked about her neck. She states that she saw Dr. Thomas as an outpatient, but she does not want to have surgery at this point. The patient is a very poor historian and seems to perseverate at times on her weakness. PAST MEDICAL HISTORY: As noted above. She has a history of unsteady gait and reports that she uses a walker. There are apparently no residual deficits from her CVA, though she was unclear. PTSD, anxiety, obstructive sleep apnea with CPAP, hernia repair, hysterectomy, asthma, depression, diabetes mellitus, hyperlipidemia, hypertension, myelopathy as noted. She also had a laparoscopic cholecystectomy, event monitor placed in February of 2018 which is no longer working, history of nonalcoholic steatohepatitis, history of orthostatic hypotension, carpal tunnel syndrome, frequent falls, cardiac arrhythmia, chronic osteomyelitis of the right foot. MEDICATIONS: Her current medications at home include: 1. Magnesium. 2. Aspirin. 3. Albuterol. 4. Geodon. 5. Venlafaxine. 6. Pravastatin. 7. Metformin. She was unclear on her medication list. I obtained this from the EMR. ALLERGIES: She has a number of allergies including CODEINE, SULFA, LIPITOR, AMLODIPINE, TRAMADOL, SEROQUEL, AMBIEN, AUGMENTIN, DAPTOMYCIN, ATIVAN due to unsteady gait. FAMILY HISTORY: Significant for heart disease. SOCIAL HISTORY: She lives by herself. No longer smokes, quit years ago. No alcohol or drug use. REVIEW OF SYSTEMS: Review of systems in 14-organ systems was difficult to obtain, but generally noted above, otherwise negative. PHYSICAL EXAM: Vital Signs: Temperature of 96.2, heart rate of 74, pulse rate of 77, respiratory rate of 25, O2 sat of 98%, blood pressure of 159/103. In general, she is a well-nourished, well-developed female, lying in her hospital bed. She is somewhat confused at times, tangential in her thinking at times. She is normocephalic, atraumatic. Sclerae are anicteric. Mucous membranes are moist. Oropharynx is clear. Neck is supple. No carotid bruits. Chest is clear to auscultation bilaterally. Cardiovascular is regular rate and rhythm. Extremities: No clubbing, cyanosis, or edema. She does have hammertoes and high arches. She has no lesions. Her skin is warm and dry. She is depressed and has a flat affect. On neurologic examination, she is awake, alert, and oriented to x3, person, place, and time. Speech is fluent. There is no dysarthria. She has no problems with comprehension or repetition. Cranial Nerves: Pupils are equal, round and reactive. Extraocular muscles are intact. Facial sensation is intact. She has no diplopia or nystagmus. Her face is symmetric. Hearing is intact. Her palate raises symmetrically. Tongue is midline. No tongue atrophy or fasciculations. Motor Exam: She has limited ability to move at this point. Whether this is with effort or not is unclear to me, but she is able to raise her arms off the bed, but has little resistance , 4-/5 proximally and distally as well as health safety manager strength. She is unable to lift her legs off the bed. Again, there may be some poor effort here with grade 3 to 4-/5 proximally, distally 4-/5, some resistance. Tone is increased in the lower extremities. She is hyperreflexic with 3+ at the biceps and triceps, brachioradialis. She is 3+ at the patella, 1+ at the ankles. She has equivocal Babinski's. She has stocking loss of light touch, pinprick, vibration , proprioception in the legs to the knees. [id number] is slow and difficult. There is no noted tremor, no resting tremor. Gait is not assessed at this time. She is unable to get up. DIAGNOSTIC STUDIES: She had a brain CT done that shows no acute abnormalities. Chest x-ray shows no active cardiopulmonary disease. 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 She had a lumbar spine MRI from 01/11/18, showed moderate chronic compression fracture of L1 vertebral body, [id number] diffuse lumbar spondylosis, mild -to- moderate spinal canal narrowing and mild bilateral neural foraminal narrowing at L4- 5, mild bilateral neural foraminal narrowing at L3-4, mild bilateral neural foraminal narrowing at L2-3. No evidence for significant disk bulge or herniation at L1-2. She had an MRI of the lower extremity on 01/11/18, showed osteomyelitis of the first distal phalanx. ASSESSMENT AND PLAN: Ms. Alba is a 62-year-old female with a complicated past medical history including prior stroke with no reported residuals, hypertension , hyperlipidemia, diabetes, obstructive sleep apnea, history of cervical myelopathy with known lower extremity weakness, followed by Dr. Thomas with plans for outpatient surgery, although the patient states that she does not want surgery at this time. She states she has not been wearing her C-collar at home. She denies any recent falls, but she states she has been unable to get out bed. She now complains of diarrhea 4 days ago and then constipation as well as inability to urinate, which she attributes to being dehydrated. She states she has not urinated in 2 days. She was complaining of a headache initially to me, but subsequently stated that her main problem was her weakness and general body pain all over. She notes significant weakness in the arms and legs and states that she is so weak that she is unable to walk. She called the ambulance today because of her inability to walk, get out of bed, urinate or have a bowel movement. Her brain CT showed no acute abnormalities. 1. Weakness. At this point, I am very concerned that she may have had progression of her cervical spine disease that the myelopathy is worse. She has poor effort, but it does appear that she is weak in the upper and lower extremities, although it is difficult to completely quantify. She is hyperreflexic in the upper and lower extremities suggesting a central cord process. In addition, she is complaining of bladder and bowel issues, which is concerning as well. I would recommend stat neurosurgical consultation, seeing as Dr. Thomas follows her as an outpatient. I think it is important to have him evaluate her for possible worsening disease. I am going to order an MRI of the cervical spine, but I defer to Dr. Thomas regarding additional workup. Other consideration would be an epidural abscess. Consider additional imaging of the thoracic and lumbar spine. Other consideration would be new spine disease from a fall such as a lumbar stenosis, although this would not explain her arm symptoms. This does not appear to be a myelopathic process. She has an overlying neuropathy, which could complicate the picture as well. 2. History of cerebrovascular accident. I see no evidence for stroke. While her examination shows generalized weakness, she has no focal weakness that I can appreciate. We will continue secondary to stroke risk factor reduction in general with aspirin, statin, blood pressure and diabetes control. She is a nonsmoker. 3. Headache. While this was initially a major complaint of hers, subsequently she states that the general body pain and weakness is her major complaint, it is something we can follow. She has not had anything to drink in 2 days. She is likely very dehydrated. This could be contributing to her headache as well. Should her headache worsen, we would consider an MRI of the brain. She is afebrile. Her neck is supple. 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 4. Osteomyelitis. It is unclear to me if she completed a full course of IV antibiotics. We will consider reimaging her left foot, although she is not having any pain there currently. I will continue to follow her closely and make further recommendations as necessary. Thank you for the opportunity to participate in the care of this very interesting patient. [id number]/[facility] #: [id number] ROXANNA
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
[2018-04-28] MEDS ORDERED: traZODone TAB* 50 MG TAB PO PRN (21:37)
[2018-04-28] MEDS ORDERED: traZODone TAB* 50 MG TAB ONE (21:44)
[2018-04-28] MEDS: Heparin VIAL(*) 5000 UNITS/ML VIAL (FIVE THOUSAND) SUBCUT SCH (21:49)
[2018-04-28] MEDS: Polyethylene Glycol 3350* 17 GM PACKET PO SCH (21:50)
[2018-04-29 00:41] LABS: Urine Appearance Cloudy; Urine Bacteria Absent (Absent); Urine Bilirubin Negative (Negative); Urine Blood Negative (Negative); Urine Color Yellow; Urine Glucose Negative (Negative); Urine Ketones Negative (Negative); Urine Nitrite Negative (Negative); Urine Protein Negative (Negative); Urine Red Blood Cell Trace(0-2/hpf) (Absent); Urine Urobilinogen Negative (Negative); Urine White Blood Cell 3+(>20/hpf) (Absent)
[2018-04-29] MEDS: Lactated Ringers 1000 ML Bag* 1,000 ML IV SCH ×2 (00:50→08:47)
[2018-04-29] MEDS: Heparin VIAL(*) 5000 UNITS/ML VIAL (FIVE THOUSAND) SUBCUT SCH ×3 (05:14→21:52)
[2018-04-29 07:26] LABS: ABS Basophils 0 10^3/ul (0-0.2); ABS Eosinophils 0.1 10^3/ul (0-0.6); ABS Lymphocytes 1.5 10^3/ul (1.0-4.8); ABS Monocytes 0.4 10^3/ul (0-0.8); ABS Nucleated RBC 0 10^3/ul; Eosinophil % 1.6 %; Hematocrit 33 % (35-47); Hemoglobin 10.9 g/dl (12.0-16.0); Lymphocyte % 21.8 %; Mean Corpuscular HGB Conc 33 g/dl (31-36); Mean Corpuscular Hemoglobin 30 pg (27-31); Mean Corpuscular Volume 92 fL (80-97); Mean Platelet Volume 6.9 fL (7.4-10.4); Nucleated Red Blood Cells % 0.1; Platelet Count 383 10^3/ul (150-450); Red Blood Count 3.59 10^6/ul (4.00-5.40); Red Cell Distribution Width 14 % (10.5-15); White Blood Count 7.1 10^3/ul (3.5-10.8)
[2018-04-29 07:50] LABS: Calcium 9.3 mg/dL (8.6-10.3); Magnesium 1.9 mg/dL (1.9-2.7); Potassium 4.2 mmol/L (3.5-5.0)
[2018-04-29 07:56] LABS: BUN/Creatinine Ratio 19.5 (8-20); EGFR Non-African American 70.4 (>60)
[2018-04-29] MEDS: Insulin LISPRO* 1 UNITS UNIT SUBCUT SCH ×4 (08:46→21:52)
[2018-04-29] MEDS: Venlafaxine EXT RELEASE CAP* 75 MG PO SCH (08:46)
[2018-04-29] MEDS: Aspirin EC TAB* 81 MG TAB.EC PO SCH (08:46)
[2018-04-29] MEDS: Polyethylene Glycol 3350* 17 GM PACKET PO SCH ×2 (08:46→21:49)
[2018-04-29] MEDS: Magnesium Oxide TAB* 400 MG PO SCH (09:00)
--- NOTE | 2018-04-29 09:30 | PN ---
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
--- NOTE | 2018-04-29 12:53 | PN ---
Subjective Date of Service: 04/29/18 Interval History: Ms. Alba is feeling better today. She reports that her symptoms spontaneously resolved around 2300 last night. Prior to that, she reports she was not able to close her hands, though she now has full ROM of all extremities. She remains weak, but it sounds as though this is her baseline. She is agreeable to surgery as she is fearful that her symptoms will recur and she is not interested in going to a jail. She denies CP, SOB, N/V/D. Family History: Unchanged from Admission Social History: Unchanged from Admission Past Medical History: Unchanged from Admission Objective Active Medications: Acetaminophen (Tylenol Tab*) 650 mg PO Q6H PRN FEVER/PAIN Albuterol (Ventolin 2.5 Mg/3 Ml Neb.Amina*) 2.5 mg INH Q4H PRN SOB/WHEEZING Aspirin (Aspirin Ec Tab*) 81 mg PO DAILY [place] Cyclobenzaprine HCl (Flexeril Tab*) 10 mg PO TID PRN SPASMS Dextrose (D50w Syringe 50 Ml*) 12.5 gm IV PUSH .FOR FS < 60 - SS PRN FS < 60 Heparin Sodium (Porcine) (Heparin Vial(*)) 5,000 units SUBCUT Q8HR [place] Insulin Human Lispro (Humalog*) 0 units SUBCUT ACHS [place]; Protocol Magnesium Oxide (Magox 400 Tab*) 400 mg PO DAILY [place] Polyethylene Glycol/Electrolytes (Miralax*) 17 gm PO 0800,2100 [place] Trazodone HCl (Desyrel Tab*) 50 mg PO BEDTIME PRN INSOMNIA Venlafaxine HCl (Effexor Xr Cap*) 225 mg PO QAM [place] Oxygen Devices in Use Now: None Appearance: Elderly female sitting in bed in NAD Eyes: No Scleral Icterus Ears/Nose/Mouth/Throat: Mucous Membranes Moist Neck: NL Appearance and Movements; NL JVP, Trachea Midline Respiratory: Symmetrical Chest Expansion and Respiratory Effort, Clear to Auscultation Cardiovascular: NL Sounds; No Murmurs; No JVD, RRR Abdominal: NL Sounds; No Tenderness; No Distention Extremities: No Edema Skin: No Rash or Ulcers Neurological: Alert and Oriented x 3, - - Strength 4/5 to BLE, 3/5 to BUE Lines/Tubes/Other Access: Clean, Dry and Intact Peripheral IV Nutrition: Taking PO's Result Diagrams: 04/29/18 07:03 04/29/18 07:03 Assess/Plan/Problems-Billing Assessment: Ms. Alba is a 62 yo F with PMH of DM, HLD, asthma, depression, and known cervical myelopathy; presented to the ED with c/o weakness x8 days and was admitted with concern for cord compression. - Patient Problems (1) Cervical myelopathy Code(s): G95.9 - DISEASE OF SPINAL CORD, UNSPECIFIED Comment: - Neurological deficits on admission, now resolved - MRI shows myelomalacia C5-C6, moderate stenosis at C4-C5 and C5-C6 - Appreciate Neurosurgery consult; recommends follow up as an outpt for possible surgery, though will follow up on Tuesday if she remains hospitalized - PT/OT (2) Behavioral disorder Comment: - Apparent paranoia, possible conversion disorder - Had been off medications for 8 days prior to admission - Appreciate Psych consult - Hold Geodon - Continue venlafaxine (3) Diabetes mellitus, type 2 Comment: - Last A1c 6.6% - Hold metformin while hospitalized - Continue lispro SS (4) History of CVA (cerebrovascular accident) Code(s): Z86.73 - PRSNL HX OF TIA (TIA), AND CEREB INFRC W/O RESID DEFICITS Comment: - No residual deficits - Continue aspirin (5) Asthma Code(s): J45.909 - UNSPECIFIED ASTHMA, UNCOMPLICATED Comment: - No acute symptoms - Continue albuterol PRN (6) DVT prophylaxis Comment: - Heparin SQ (7) Full code status Code(s): Z78.9 - OTHER SPECIFIED HEALTH STATUS Comment: Status and Disposition: Inpatient as there is concern that her symptoms may recur if she is sent home. Plan to remain hospitalized over the weekend and follow up with Dr. Thomas on Tuesday to determine if she may require inpatient surgery. Anticipate d/c home when medically stable. Attending: Christiano Rosa
[2018-04-30] MEDS: Heparin VIAL(*) 5000 UNITS/ML VIAL (FIVE THOUSAND) SUBCUT SCH ×3 (07:13→23:21)
[2018-04-30] MEDS ORDERED: clonazePAM TAB(*) 0.5 MG PO ONE (07:46)
[2018-04-30] MEDS: Aspirin EC TAB* 81 MG TAB.EC PO SCH (08:03)
[2018-04-30] MEDS: Magnesium Oxide TAB* 400 MG PO SCH (08:03)
[2018-04-30] MEDS: Polyethylene Glycol 3350* 17 GM PACKET PO SCH ×2 (08:03→23:21)
[2018-04-30] MEDS: Venlafaxine EXT RELEASE CAP* 75 MG PO SCH (08:03)
[2018-04-30] MEDS: Insulin LISPRO* 1 UNITS UNIT SUBCUT SCH ×4 (08:19→22:56)
[2018-04-30] MEDS ORDERED: Albuterol HFA INHALER* 8 gm MDI INH PRN (10:40)
--- NOTE | 2018-04-30 13:22 | PN ---
Subjective Date of Service: 04/30/18 Interval History: Ms. Alba is feeling better today. She has been up ambulating with staff. She still feels weak, but feels stronger than yesterday. She reports that she was taking Geodon prior to admission. She also reports that she has been attempting to wean herself off clonazepam within the last month or so. She reported some "jerking" sensations and anxiety this morning which she relates to benzo withdrawal. She denies CP, SOB, N/V. Family History: Unchanged from Admission Social History: Unchanged from Admission Past Medical History: Unchanged from Admission Objective Active Medications: Acetaminophen (Tylenol Tab*) 650 mg PO Q6H PRN FEVER/PAIN Albuterol (Ventolin Hfa Inhaler*) 1 puff INH Q6H PRN WHEEZING Aspirin (Aspirin Ec Tab*) 81 mg PO DAILY [place] Clonazepam (Klonopin Tab(*)) 0.25 mg PO DAILY [place] Cyclobenzaprine HCl (Flexeril Tab*) 10 mg PO TID PRN SPASMS Dextrose (D50w Syringe 50 Ml*) 12.5 gm IV PUSH .FOR FS < 60 - SS PRN FS < 60 Heparin Sodium (Porcine) (Heparin Vial(*)) 5,000 units SUBCUT Q8HR [place] Insulin Human Lispro (Humalog*) 0 units SUBCUT ACHS [place]; Protocol Magnesium Oxide (Magox 400 Tab*) 400 mg PO DAILY [facility] Polyethylene Glycol/Electrolytes (Miralax*) 17 gm PO 0800,2100 [facility] Pravastatin Sodium (Pravachol (Nf)) 40 mg PO BEDTIME [place]; Protocol Trazodone HCl (Desyrel Tab*) 50 mg PO BEDTIME PRN INSOMNIA Venlafaxine HCl (Effexor Xr Cap*) 225 mg PO QAM [place] Ziprasidone (Geodon Cap*) 160 mg PO QPM [facility] Vital Signs - 8 hr 04/30/18 04/30/18 07:36 08:02 Temperature 97.9 F Pulse Rate 71 Respiratory 18 20 Rate Blood Pressure 156/84 (mmHg) O2 Sat by Pulse 98 Oximetry Oxygen Devices in Use Now: None Appearance: Elderly female sitting in bed in NAD Eyes: No Scleral Icterus Ears/Nose/Mouth/Throat: Mucous Membranes Moist Neck: NL Appearance and Movements; NL JVP, Trachea Midline Respiratory: Symmetrical Chest Expansion and Respiratory Effort, Clear to Auscultation Cardiovascular: NL Sounds; No Murmurs; No JVD, RRR Abdominal: NL Sounds; No Tenderness; No Distention Extremities: No Edema Skin: No Rash or Ulcers Neurological: Alert and Oriented x 3, NL Muscle Strength and Tone Lines/Tubes/Other Access: Clean, Dry and Intact Peripheral IV Nutrition: Taking PO's Result Diagrams: 04/29/18 07:03 04/29/18 07:03 Assess/Plan/Problems-Billing Assessment: Ms. Alba is a 62 yo F with PMH of DM, HLD, asthma, depression, and known cervical myelopathy; presented to the ED with c/o weakness x8 days and was admitted with concern for cord compression. - Patient Problems (1) Cervical myelopathy Code(s): G95.9 - DISEASE OF SPINAL CORD, UNSPECIFIED Comment: - Neurological deficits on admission, now resolved - MRI shows myelomalacia C5-C6, moderate stenosis at C4-C5 and C5-C6 - Appreciate Neurosurgery consult; recommends follow up as an outpt for possible surgery, though will follow up with William tomorrow for further recommendations - PT/OT (2) Benzodiazepine withdrawal Code(s): F13.239 - SEDATV/HYP/ANXIOLYTC DEPENDENCE W WITHDRAWAL, UNSP Comment : - She has been attempting to wean herself off at home, though she is a poor historian and it is unclear what dosing and frequency she has been on; was not placed on clonazepam on admission as it was not known to be a home medication - Mild withdrawal symptoms this morning - Start clonazepam 0.25mg daily today (3) Behavioral disorder Comment: - Apparent paranoia, possible conversion disorder - Had been off medications for 8 days prior to admission - Appreciate Psych consult - Continue venlafaxine; resume Geodon (4) Diabetes mellitus, type 2 Comment: - Last A1c 6.6% - Hold metformin while hospitalized - Continue lispro SS (5) History of CVA (cerebrovascular accident) Code(s): Z86.73 - PRSNL HX OF TIA (TIA), AND CEREB INFRC W/O RESID DEFICITS Comment: - No residual deficits - Continue aspirin (6) Asthma Code(s): J45.909 - UNSPECIFIED ASTHMA, UNCOMPLICATED Comment: - No acute symptoms - Continue albuterol PRN (7) DVT prophylaxis Comment: - Heparin SQ (8) Full code status Code(s): Z78.9 - OTHER SPECIFIED HEALTH STATUS Comment: Status and Disposition: Inpatient due to concern for recurrence of symptoms and for acute benzo withdrawal requiring monitoring for seizures. I will speak with Dr. Thomas tomorrow to determine further surgical recommendations. Attending: Christiano Rosa
[2018-04-30] MEDS ORDERED: Ziprasidone CAP* 80 MG PO SCH (18:00)
[2018-04-30] MEDS ORDERED: CMCS - Pravastatin (NF) 20 MG TAB PO SCH (21:00)
[2018-04-30] MEDS ORDERED: NS 0.9% 500 ML* 500 ML IV ONE (23:53)
[2018-05-01] MEDS: Heparin VIAL(*) 5000 UNITS/ML VIAL (FIVE THOUSAND) SUBCUT SCH ×2 (05:45→13:54)
[2018-05-01] MEDS: Polyethylene Glycol 3350* 17 GM PACKET PO SCH (08:54)
--- NOTE | 2018-05-01 08:56 | PN ---
Progress Note - Progress Note Date of Service: 05/01/18 SOAP: Subjective: []Patient feels well this AM Neurological function back at baseline Is agreeable to D/C to F/U with Dr. Thomas in office Objective: [] Motor intact Increased tone LEs Hyperreflexic Assessment: []Stable cervical myelopathy Plan: [] Case discussed with Dr. Thomas. He would prefer she be discharged to follow up in office as out patient
[2018-05-01] MEDS ORDERED: clonazePAM TAB(*) 0.5 MG PO SCH ×3 (09:00→21:00)
[2018-05-01] MEDS: Insulin LISPRO* 1 UNITS UNIT SUBCUT SCH ×2 (09:27→12:52)
[2018-05-01] MEDS: Aspirin EC TAB* 81 MG TAB.EC PO SCH (09:29)
[2018-05-01] MEDS: Venlafaxine EXT RELEASE CAP* 75 MG PO SCH (09:30)
[2018-05-01] MEDS: Magnesium Oxide TAB* 400 MG PO SCH (09:31)
[2018-05-01 12:15] VITALS: BP 137/84
--- NOTE | 2018-05-01 19:36 | DS ---
CC: Dr. Thomas * DISCHARGE SUMMARY: DATE OF ADMISSION: 04/28/18 DATE OF DISCHARGE: 05/01/18 PRIMARY CARE PROVIDER: Dr. Christiano Rosa. NEUROSURGEON: Dr. Thomas. ATTENDING PHYSICIAN: Dr. Christiano Rosa * (dictated by Estefanía Moseley NP). PRIMARY DIAGNOSES: 1. Cervical myelopathy causing cord compression, resolved spontaneously. 2. Benzodiazepine withdrawal. SECONDARY DIAGNOSES: 1. Diabetes mellitus type 2. 2. History of cerebrovascular accident. 3. Asthma. STUDIES WHILE IN THE HOSPITAL: 1. EKG on 04/28/18 shows normal sinus rhythm with a rate of 84, QTc 457. No ischemic changes. 2. Brain CT on 04/28/18 reads as no acute intracranial pathology. 3. Chest x-ray on 04/28/18 reads as no active cardiopulmonary disease. 4. Cervical spine MRI on 04/28/18 reads as degenerative disk disease and osteoarthritis. There is stable myelomalacia at C5-C6. There is moderate narrowing of the central canal at C4-C5 and C5-C6 with mild narrowing of the central canal at C6-C7. There is multilevel neuroforaminal narrowing as described above. CONSULTATIONS WHILE IN THE HOSPITAL: 1. The patient was seen in consultation by Dr. Alba from Neurology on 04/28/18 for lower extremity weakness. 2. The patient was seen in consultation by SHAI Godoy and Dr. Zuniga from Neurosurgery beginning on 04/28/18 for cervical stenosis and weakness. HISTORY OF PRESENT ILLNESS AND HOSPITAL COURSE: Ms. Alba is a 62-year-old female with past medical history of known cervical myelopathy, hypertension, diabetes mellitus and CVA, who presented to the emergency room on 04/28/18 with complaints of total muscle weakness for 8 days. Please see the history and physical by SHAI Sandra, for a complete summary of the events leading up to this hospitalization. In short, the patient reported 8 days of barely being able to move her arms and legs. She reported that she was unable to eat during that time and was not taking any of her medications. That morning, she had a headache which she described as 10/10 at the top of her head radiating down to her forehead. I will note that the patient has been following with Dr. Thomas because of her cervical myelopathy and had previously been scheduled for surgery, most recently on 03/31/18, which she canceled as she was fearful of deficits that she would have after surgery. In the emergency room, the patient was seen by Dr. Alba who felt as though as her weakness was secondary to cervical myelopathy and recommended consultation with Neurosurgery. She was also seen by Dr. Zuniga and SHAI Godoy, who felt as though the patient was still a surgical candidate, though at that time the patient was still refusing surgery. I will note that according to the history and physical, the patient was unable to move her upper extremities when prompted, though was seen on numerous occasions moving bilateral arms with full range of motion to adjust her gown. There was some concern for conversion disorder. Because of the concern for generalized weakness, she was admitted by the hospitalist service. I should note that Neurosurgery reported a cord signal change, although this was not reported on the Radiology report and therefore there was a concern for cord compression. The patient's symptoms spontaneously resolved the night of admission around 2300. When I saw the patient the following day, she still had significant weakness of her bilateral upper extremities and lower extremities, though noted that she did have more movement and therefore, felt as though her weakness was improved. She was seen by Dr. Zuniga who felt as though she was stable to follow up with Dr. Thomas as an outpatient to schedule surgery. I have been in close contact with the patient's primary care provider and it was agreed that discharging the patient home would be risky due to her known cervical myelopathy and risk for recurrent cord compression. There was also concern about lack of followup as the patient has previously declined surgery. The patient remained hospitalized over the weekend and her strength improved. She was evaluated by Physical Therapy, who noted that she did have some generalized weakness, though did not have any acute physical therapy needs at that point. Today, the patient was seen by Dr. Zuniga who spoke with Dr. Thomas, and he prefers that the patient be discharged for outpatient followup. There was a psychiatry consult placed on admission. I did speak with Psychiatry today about psychiatric concerns and possible conversion disorder. Psychiatry stated that because conversion disorder is a diagnosis of exclusion, her cervical myelopathy would need to be resolved before any sort of diagnosis could be made. He did not suggest any medication changes at this point and felt as though she was stable for discharge home from a psychological standpoint. I did speak with the patient's PCP and my attending, Dr. Rosa, and he is aware that the plan is for discharge home with followup as soon as possible with Neurosurgery. I have spoken with the patient and she is agreeable for discharge home. She feels as though her strength is at baseline at this point and feels as though she will be able to function at home and perform ADLs. She verbalizes that she will follow up with Neurosurgery as instructed. Ms. Alba is stable for discharge today. Vital signs are as follows: Temp 97.5 , heart rate 82, respiratory rate 18, oxygen saturation 98% on room air, blood pressure 137/84. DISCHARGE MEDICATIONS: Changed medication: 1. Clonazepam 0.25 mg p.o. every Tuesday, Tuesday, Tuesday (previously was daily). Continued medications: 1. Albuterol MDI 1 puff q.6 hours p.r.n. wheezing. 2. Aspirin 81 mg p.o. daily. 3. Magnesium oxide 400 mg p.o. daily. 4. Metformin 1000 mg p.o. b.i.d. 5. Pravastatin 40 mg p.o. at bedtime. 6. Venlafaxine 225 mg p.o. daily. 7. Geodon 160 mg p.o. at bedtime. DISCHARGE PLAN: Ms. Alba will be discharged home with visiting nurse services. Activity will be as tolerated. Diet will be regular as tolerated. Medications are noted above. The patient has been attempting to wean herself off clonazepam. At this point, I have advised her to stop taking the clonazepam daily and only take this 3 times a week. She is agreeable to this plan. She can continue her other usual medications and she does not require any pain medications at this point. She will need to follow up with Neurosurgery as soon as possible. The patient currently has an appointment scheduled for and the office staff was not able to fit her in sooner. I have been in touch with the PA from Neurosurgery who will attempt to find a sooner appointment for the patient to ensure close follow up. She will need to follow up with her primary care provider. Case Management has made an appointment for her with Dr. Rosa on 05/11/18. She has been advised to return to the emergency room or nearest hospital for any worsening of symptoms, shortness of breath, lightheadedness, dizziness, chest discomfort, high fevers, chills, night sweats , loss of consciousness, or any other worrisome signs or symptoms. This is a summarized report of a complex medical history and hospital stay. For further details, please see the entire medical record. TIME SPENT: Approximately 40 minutes was spent on this discharge. ESTEFANÍA MOSELEY, VIDEO SPECIALIST [id number]/CPS #: [id number] ROXANNA
== END 2018-05-01 14:31 | disposition home health service (06) | DRG 92 ==
LOC: ED 10:08 → MED 15:51 → OBSVTOIN 04-30 12:00
PROVIDERS: ADMIT Internal Medicine; ATTEND Internal Medicine
DX: G95.29 Other cord compression (principal); M50.00 Cervical disc disorder with myelopathy, unspecified cervical region; M47.12 Other spondylosis with myelopathy, cervical region; F19.939 Other psychoactive substance use, unspecified with withdrawal, unspecified; M86.672 Other chronic osteomyelitis, left ankle and foot; E11.69 Type 2 diabetes mellitus with other specified complication; M48.02 Spinal stenosis, cervical region; E11.9 Type 2 diabetes mellitus without complications; I10 Essential (primary) hypertension; E78.5 Hyperlipidemia, unspecified; F43.10 Post-traumatic stress disorder, unspecified; F41.9 Anxiety disorder, unspecified; F32.9 Major depressive disorder, single episode, unspecified; J45.909 Unspecified asthma, uncomplicated; G47.33 Obstructive sleep apnea (adult) (pediatric); G56.00 Carpal tunnel syndrome, unspecified upper limb; G47.00 Insomnia, unspecified; F22 Delusional disorders; E66.9 Obesity, unspecified; R51 Headache; Z68.26 Body mass index [BMI] 26.0-26.9, adult; Z79.84 Long term (current) use of oral hypoglycemic drugs; Z79.82 Long term (current) use of aspirin; Z79.899 Other long term (current) drug therapy; Z88.1 Allergy status to other antibiotic agents; Z88.5 Allergy status to narcotic agent; Z88.8 Allergy status to other drugs, medicaments and biological substances; Z82.49 Family history of ischemic heart disease and other diseases of the circulatory system; Z80.42 Family history of malignant neoplasm of prostate; Z87.891 Personal history of nicotine dependence; Z86.73 Personal history of transient ischemic attack (TIA), and cerebral infarction without residual deficits; Z91.81 History of falling; Z91.19 Patient's noncompliance with other medical treatment and regimen
CPT/HCPCS: 36415; 70450; 71045; 72141; 80048; 80053; 81003; 81015; 82550; 83735; 84443; 84484; 85025; 87086; 93005; 99284; A9270-GY; G0378; G8978-GP-CH; G8979-GP-CH; G8987-GO-CI; G8988-GO-CI; G8989-GO-CI; J1644; J3475

== ENCOUNTER 2018-05-23 07:09 | Emergency (ER) | payer MEDICARE, OTHER ==
[2018-05-23] MEDS ORDERED: NS 0.9% 1000 ML** 1,000 ML IV ONE (07:31)
--- NOTE | 2018-05-23 07:44 | ED ---
Complex/Multi-Sys Presentation - HPI Summary HPI Summary: Pt is a 63 y/o female brought in by EMS who presents to the ED c/o weakness. She found out 4 days ago that her surgery with Dr. Thomas on 06/15/18 was cancelled. Pt was told her surgery for her myelopathy and paralysis was cancelled because her son didnt call the office. She is upset because she believes this is unethical, and has been under stress from this. Since yesterday morning, pt has c/o weakness, SOB with exertion, dehydration, and one episode of chest tightness. She is unable to walk without shaking, feeling lightheaded, and falling down. Pt also notes nausea with eating and drinking, and has only urinated once since yesterday. She has not been able to sleep due to the anxiety, and was diaphoretic this morning. Pt denies any fever, syncope, vomiting, or abdominal pain. Her last BM was 4 days ago. Pt has not taken any medications for the past 4 days because she cant get them. She is a diabetic and is unsure of her current blood sugar. PMHx falls, anxiety, c-spine myelopathy, unsteady gait, and paralysis. - History Of Current Complaint Chief Complaint: EDWeakness Time Seen by Provider: 05/23/18 07:15 Hx Obtained From: Patient Onset/Duration: Gradual Onset, Lasting Days - 1, Still Present Timing: Constant Aggravating Factor(s): Recent stress Alleviating Factor(s): Nothing Associated Signs And Symptoms: Positive: Weakness, SOB, Chest Pain, Nausea, Diaphoresis. Negative: Syncope, Vomiting, Abdominal Pain, Fever Related History: Similar Episode/Diagnosed As: - c-spine myelopathy, anxiety - Allergies/Home Medications Allergies/Adverse Reactions: Allergies Allergy/AdvReac Type Severity Reaction Status Date / Time atorvastatin Allergy Severe See Comment Verified 05/23/18 07:22 tramadol Allergy Severe Shortness Verified 05/23/18 07:22 of Breath codeine Allergy Intermediate Rash Verified 05/23/18 07:22 Sulfa (Sulfonamide Allergy Mild Rash Verified 05/23/18 07:22 Antibiotics) amlodipine Allergy Unknown Verified 05/23/18 07:22 Reaction Details daptomycin Allergy See Comment Verified 05/23/18 07:22 quetiapine [From Seroquel] Allergy Unknown Verified 05/23/18 07:22 Reaction Details zolpidem [From Ambien] Allergy Unknown Verified 05/23/18 07:22 Reaction Details lorazepam AdvReac Intermediate Agitation Verified 05/23/18 07:22 amoxicillin [From Augmentin] AdvReac Mild Nausea And Verified 05/23/18 07:22 Vomiting clavulanic acid AdvReac Mild Nausea And Verified 03/10/18 11:37 [From Augmentin] Vomiting PMH/Surg Hx/FS Hx/Imm Hx Endocrine/Hematology History: Reports: Hx Diabetes Denies: Hx Thyroid Disease Cardiovascular History: Reports: Hx Hypercholesterolemia, Hx Hypertension, Hx Pacemaker/ICD, Other Cardiovascular Problems/Disorders - hypercholesterolemia Denies: Hx Peripheral Vascular Disease Respiratory History: Reports: Hx Asthma, Hx Pneumonia, Hx Sleep Apnea - doesn't use her CPAP, Other Respiratory Problems/Disorders - reports pneumonia x5 in 9 years - has seen dr combs Denies: Hx Chronic Obstructive Pulmonary Disease (COPD) GI History: Reports: Hx Gall Bladder Disease - gall stones, Other GI Disorders - current gallbladder issue Denies: Hx Hiatal Hernia, Hx Ulcer History: Reports: Hx Acute Renal Failure, Hx Renal Disease - HX OF FAILURE - THAT RESOLVED, Other Problems/Disorders - hx UTI's Musculoskeletal History: Reports: Hx Arthritis - bilateral knees, Other Musculoskeletal History - reports spinal stenosis - followed by dr timmons Denies: Hx Osteoporosis Sensory History: Reports: Hx Cataracts - bilateral, Hx Contacts or Glasses - glasses, Hx Vision Problem Denies: Hx Hearing Aid Opthamlomology History: Reports: Hx Cataracts - bilateral, Hx Contacts or Glasses - glasses, Hx Vision Problem Neurological History: Reports: Hx Headaches - none in 3 yrs, 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, Other Neuro Impairments/Disorders - c-spine myelopathy, paralysis, reports hx psychosis Psychiatric History: Reports: Hx Anxiety, Hx Depression, Hx Panic Disorder - ANXIETY UNDER CONTROL, Hx Post Traumatic Stress Disorder, Hx Schizophrenia, Hx Substance Abuse - EtOH, Other Psychiatric Issues/Disorders - Psychosis, controlled with Geodon Denies: Hx Eating Disorder, Hx of Violent Episodes Against Others - Cancer History Hx Chemotherapy: No Hx Radiation Therapy: No - Surgical History Surgery Procedure, Year, and Place: hyste[place] - [place]. [place]. [place]/19/[place] REVEAL HEART LOOP RECORDER - CURRENTLY NOT ACTIVE. [place] [facility] [place] Hx Anesthesia Reactions: No - Immunization History Date of Influenza Vaccine: 12/2016 Infectious Disease History: No Infectious Disease History: Reports: Hx Shingles Denies: Hx Clostridium Difficile, Hx Hepatitis, Hx Human Immunodeficiency Virus (HIV), Hx of Known/Suspected MRSA, Hx Tuberculosis, History Other Infectious Disease, Traveled Outside the [place] in Last 30 Days - Family History Known Family History: Positive: Cardiac Disease, Hypertension, Other - [place] - Social History Alcohol Use: None Alcohol Amount: 1-2 beers occassionally last drink 3 mo. ago Hx Substance Use: No Substance Use Type: Reports: None Hx Tobacco Use: Yes Smoking Status (MU): Former Smoker Type: Cigarettes Amount Used/How Often: reports had 3 cigs per day for 5 years Have You Smoked in the Last Year: No Review of Systems Positive: Skin Diaphoresis, Other - dehydration, lack of sleep. Negative: Fever Positive: Chest Pain - chest tightness 1x Positive: Shortness Of Breath - with exertion Positive: Nausea. Negative: Abdominal Pain, Vomiting Positive: other - decreased urine output Neurological: Other - Lightheadedness Positive: Weakness. Negative: Syncope Positive: Anxious All Other Systems Reviewed And Are Negative: Yes Physical Exam - Summary Physical Exam Summary: Appearance: Well appearing, no pain distress Skin: warm, dry, reflects adequate perfusion Head/face: normal, atraumatic Eyes: EOMI, [place] ENT: mucous membranes moist Neck: supple, non-tender Respiratory: CTA, breath sounds present Cardiovascular: RRR, pulses symmetrical Abdomen: non-tender, soft Bowel Sounds: present Musculoskeletal: normal, strength/ROM intact Neuro: sensory motor intact, A&Ox3, slow to follow directions Psych: flat affect, angry disposition Triage Information Reviewed: Yes Vital Signs On Initial Exam: Initial Vitals Temp Pulse Resp BP Pulse Ox 97 F 78 15 135/97 99 05/23/18 07:17 05/23/18 07:17 05/23/18 07:17 05/23/18 07:17 05/23/18 07:17 Vital Signs Reviewed: Yes Diagnostics - Vital Signs Vital Signs Temp Pulse Resp BP Pulse Ox 05/23/18 07:19 75 100 05/23/18 07:17 97 F 78 15 135/97 99 - Laboratory Result Diagrams: 05/23/18 07:45 05/23/18 07:45 Lab Statement: Any lab studies that have been ordered have been reviewed, and results considered in the medical decision making process. Re-Evaluation - Re-Evaluation First Eval Re-Evaluation Time: 08:36 Change: Unchanged Comment: Pt would like to go home. Complex Multi-Symp Course/Dx Course Of Treatment: Nurse's notes reviewed. Patient is well-known to me having presented for the same issue several times. She is upset with the neurosurgeon has delayed her surgery. She has no evidence for paralysis. She was hydrated here and doing well she was able to ambulate on her own. She was happy with referral to other neurosurgeons. She is discharged in good condition. Incidental finding of mildly elevated LFTs without jaundice or abdominal pain. This has been noted in the past as well. - Diagnoses Differential Diagnoses/HQI/PQRI: Metabolic Abnormality, Urinary Tract Infection , Other - Dehydration Provider Diagnoses: Adjustment disorder, Mild dehydration, LFT elevation Discharge - Sign-Out/Discharge Documenting (check all that apply): Patient Departure - Discharge Patient Received Moderate/Deep Sedation with Procedure: No - Discharge Plan Condition: Improved Disposition: HOME Patient Education Materials: Dehydration (ED), Stress (ED) Referrals: Christiano Rosa MD [Primary Care Provider] - Additional Instructions: Dr. Dylan Herrera -- [facility] (ortho spine) [address] [place] [address] Dr[address] Zamora -- [facility]. [address] [place] [address] The spine surgeons listed above to schedule prompt follow-up. Call your doctor today to schedule follow-up with primary care. You will need following of mild elevations in your liver enzymes. Stay well-hydrated. Take medications as prescribed. Return if worse, fevers, new symptoms or other concerns as discussed. - Billing Disposition and Condition Condition: IMPROVED Disposition: Home - Attestation Statements Document Initiated by Scribe: Yes Documenting Scribe: Mercy Peters Provider For Whom Scribe is Documenting (Include Credential): Lv Vasquez MD Scribe Attestation: [facility]cy Lmi, scribed for Lv Vasquez MD on 05/23/18 at 1131. Scribe Documentation Reviewed: Yes Provider Attestation: The documentation as recorded by the scribe, Mercy Peters accurately reflects the service I personally performed and the decisions made by me, Lv Vasquez MD Status of Scribe Document: Viewed
[2018-05-23 08:03] LABS: ABS Basophils 0.1 10^3/ul (0-0.2); ABS Eosinophils 0.2 10^3/ul (0-0.6); ABS Lymphocytes 2.1 10^3/ul (1.0-4.8); ABS Monocytes 0.6 10^3/ul (0-0.8); ABS Neutrophils 7.5 10^3/ul (1.5-7.7); ABS Nucleated RBC 0 10^3/ul; Eosinophil % 2.1 %; Hematocrit 41 % (35-47); Hemoglobin 13.4 g/dl (12.0-16.0); Lymphocyte % 20.1 %; Mean Corpuscular HGB Conc 33 g/dl (31-36); Mean Corpuscular Hemoglobin 30 pg (27-31); Mean Corpuscular Volume 92 fL (80-97); Mean Platelet Volume 7.4 fL (7.4-10.4); Nucleated Red Blood Cells % 0; Platelet Count 462 10^3/ul (150-450); Red Blood Count 4.43 10^6/ul (4.00-5.40); Red Cell Distribution Width 14 % (10.5-15); White Blood Count 10.4 10^3/ul (3.5-10.8)
[2018-05-23 08:11] LABS: Albumin 4.3 g/dL (3.2-5.2); BUN/Creatinine Ratio 28.3 (8-20); Calcium 10.1 mg/dL (8.6-10.3); EGFR African American 68.3 (>60); EGFR Non-African American 56.5 (>60); Globulin 4.1 g/dL (2-4); Magnesium 2.1 mg/dL (1.9-2.7); Total Bilirubin 0.4 mg/dL (0.2-1.0); Total Protein 8.4 g/dL (6.4-8.9)
[2018-05-23 08:42] VITALS: BP 140/80
== END 2018-05-23 08:58 | disposition home or self-care (01) ==
LOC: ED 07:09
DX: F43.20 Adjustment disorder, unspecified (principal); R94.5 Abnormal results of liver function studies; E86.0 Dehydration; R53.1 Weakness; R06.02 Shortness of breath; R07.9 Chest pain, unspecified; R11.0 Nausea; Z88.2 Allergy status to sulfonamides; Z88.0 Allergy status to penicillin; E11.9 Type 2 diabetes mellitus without complications; I10 Essential (primary) hypertension; Z95.0 Presence of cardiac pacemaker; Z87.448 Personal history of other diseases of urinary system; Z87.891 Personal history of nicotine dependence
CPT/HCPCS: 36415; 80053; 83735; 85025; 96360; 99282

== ENCOUNTER 2018-06-17 09:39 | Emergency (ER) | payer MEDICARE, OTHER ==
--- NOTE | 2018-06-17 09:56 | ED ---
Complex/Multi-Sys Presentation - HPI Summary HPI Summary: Patient is a 63-year-old female who presents emergency department with complaints of increased anxiety, lightheadedness, shortness of breath and chest pressure. Patient states yesterday she developed a feeling of lightheadedness, chest pressure and diaphoresis at rest. Patient states she was hoping symptoms would resolve but today she still felt lightheadedness and called an ambulance. Patient is unable to state if she has chest pain or not at this time. Patient 's blood pressure was reportedly high in the ambulance she was given 4 baby aspirin and sublingual nitroglycerin. Patient is unable to say if nitroglycerin improved her chest discomfort. Patient states she has a lot of stress in her life right now. Patient states that she is currently being weaned off of benzodiazepines. Pt. states she was seeing Dr. Olvera for neck issues and states she was scheduled for surgery but it was cancelled due to "family support" issues per pt. Patient denies recent illness, fever, cough, abdominal pain, vomiting, diarrhea, urinary symptoms. Pt. was seen in ED last month for similar sxs. Past medical hx of anxiety, HTN, HLD, DM, asthma, CVA. Symptoms are moderate in severity. No current modifying factors. - History Of Current Complaint Chief Complaint: EDChestPainROMI Time Seen by Provider: 06/17/18 09:41 Hx Obtained From: Patient - Allergies/Home Medications Allergies/Adverse Reactions: Allergies Allergy/AdvReac Type Severity Reaction Status Date / Time atorvastatin Allergy Severe See Comment Verified 06/17/18 10:01 tramadol Allergy Severe Shortness Verified 06/17/18 10:01 of Breath codeine Allergy Intermediate Rash Verified 06/17/18 10:01 Sulfa (Sulfonamide Allergy Mild Rash Verified 06/17/18 10:01 Antibiotics) amlodipine Allergy Unknown Verified 06/17/18 10:01 Reaction Details daptomycin Allergy See Comment Verified 06/17/18 10:01 quetiapine [From Seroquel] Allergy Unknown Verified 06/17/18 10:01 Reaction Details zolpidem [From Ambien] Allergy Unknown Verified 06/17/18 10:01 Reaction Details lorazepam AdvReac Intermediate Agitation Verified 06/17/18 10:01 amoxicillin [From Augmentin] AdvReac Mild Nausea And Verified 06/17/18 10:01 Vomiting clavulanic acid AdvReac Mild Nausea And Verified 06/17/18 10:01 [From Augmentin] Vomiting PMH/Surg Hx/FS Hx/Imm Hx Previously Healthy: Yes Endocrine/Hematology History: Reports: Hx Diabetes Denies: Hx Thyroid Disease Cardiovascular History: Reports: Hx Hypercholesterolemia, Hx Hypertension, Hx Pacemaker/ICD, Other Cardiovascular Problems/Disorders - hypercholesterolemia Denies: Hx Peripheral Vascular Disease Respiratory History: Reports: Hx Asthma, Hx Pneumonia, Hx Sleep Apnea - doesn't use her CPAP, Other Respiratory Problems/Disorders - reports pneumonia x5 in 9 years - has seen dr combs Denies: Hx Chronic Obstructive Pulmonary Disease (COPD) GI History: Reports: Hx Gall Bladder Disease - gall stones, Other GI Disorders - current gallbladder issue Denies: Hx Hiatal Hernia, Hx Ulcer History: Reports: Hx Acute Renal Failure, Hx Renal Disease - HX OF FAILURE - THAT RESOLVED, Other Problems/Disorders - hx UTI's Musculoskeletal History: Reports: Hx Arthritis - bilateral knees, Other Musculoskeletal History - reports spinal stenosis - followed by dr timmons Denies: Hx Osteoporosis Sensory History: Reports: Hx Cataracts - bilateral, Hx Contacts or Glasses - glasses, Hx Vision Problem Denies: Hx Hearing Aid Opthamlomology History: Reports: Hx Cataracts - bilateral, Hx Contacts or Glasses - glasses, Hx Vision Problem Neurological History: Reports: Hx Headaches - none in 3 yrs, 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, Other Neuro Impairments/Disorders - c-spine myelopathy, paralysis, reports hx psychosis Psychiatric History: Reports: Hx Anxiety, Hx Depression, Hx Panic Disorder - ANXIETY UNDER CONTROL, Hx Post Traumatic Stress Disorder, Hx Schizophrenia, Hx Substance Abuse - EtOH, Other Psychiatric Issues/Disorders - Psychosis, controlled with Geodon Denies: Hx Eating Disorder, Hx of Violent Episodes Against Others - Cancer History Hx Chemotherapy: No Hx Radiation Therapy: No - Surgical History Surgery Procedure, Year, and Place: hyste[place]. [place]. 06/19/14-[facility] REVEAL HEART LOOP RECORDER - CURRENTLY NOT ACTIVE. bilateral cataract extraction with IOL's 2013 - . GALLBLADDER Hx Anesthesia Reactions: No - Immunization History Date of Influenza Vaccine: 12/2016 Infectious Disease History: No Infectious Disease History: Reports: Hx Shingles Denies: Hx Clostridium Difficile, Hx Hepatitis, Hx Human Immunodeficiency Virus (HIV), Hx of Known/Suspected MRSA, Hx Tuberculosis, History Other Infectious Disease, Traveled Outside the [place] in Last 30 Days - Family History Known Family History: Positive: Cardiac Disease, Hypertension, Other - [place] - Social History Occupation: Disabled Lives: With Family Alcohol Use: None Alcohol Amount: 1-2 beers occassionally last drink 3 mo. ago Hx Substance Use: No Substance Use Type: Reports: None Hx Tobacco Use: Yes Smoking Status (MU): Former Smoker Type: Cigarettes Amount Used/How Often: reports had 3 cigs per day for 5 years Have You Smoked in the Last Year: No Review of Systems Constitutional: Negative Negative: Fever, Chills ENT: Negative Positive: Chest Pain Positive: Shortness Of Breath Gastrointestinal: Negative Negative: Abdominal Pain, Vomiting, Diarrhea Genitourinary: Negative Negative: dysuria Musculoskeletal: Negative Skin: Negative Neurological: Negative Positive: Anxious All Other Systems Reviewed And Are Negative: Yes Physical Exam Triage Information Reviewed: Yes Vital Signs On Initial Exam: Initial Vitals Pulse Resp BP Pulse Ox 88 22 148/95 98 06/17/18 09:42 06/17/18 09:42 06/17/18 09:42 06/17/18 09:42 Vital Signs Reviewed: Yes Appearance: Positive: Well-Nourished - Pt. sitting up in bed extremely anxious. Poor eye contact. Tearful at times. Skin: Positive: Warm, Dry Head/Face: Positive: Normal Head/Face Inspection Eyes: Positive: Normal, EOMI Neck: Positive: Supple Respiratory/Lung Sounds: Positive: Clear to Auscultation, Breath Sounds Present Cardiovascular: Positive: Normal, RRR Abdomen Description: Positive: Nontender, Soft Musculoskeletal: Positive: Normal, Strength/ROM Intact. Negative: Edema Left, Edema Right Neurological: Positive: Normal, CN Intact II-III Psychiatric: Positive: Anxious Diagnostics - Vital Signs Vital Signs Temp Pulse Resp BP Pulse Ox 06/17/18 09:44 98.0 F 85 23 148/95 99 06/17/18 09:43 85 32 98 06/17/18 09:42 88 22 148/95 98 - Laboratory Result Diagrams: 06/17/18 09:58 06/17/18 09:58 Lab Statement: Any lab studies that have been ordered have been reviewed, and results considered in the medical decision making process. Complex Multi-Symp Course/Dx Course Of Treatment: Pt. presenting with chest pain and feeling lightheaded since yesterday. Afebrile. BP 148/95, O2 saturation is 98% on RA. ECG done at 0944 shows a sinus rhythm of 87bpm, normal axis, no ST elevation or depression. Pt. is extremely anxious. CXR negative for acute findings per radiology. CBC shows mild elevation in CBC, chronic high platlets. Glucose 199, lactic acid 2.1 , mag 1.8. Negative troponin x 2. HEART score is 4 which is moderate risk. Pt. notes she follows with staffing account manager, Dr. Michael. She currently has a loop recorder and has had a negative stress test over the last several months. Case discussed with Dr. Michael who has no further recommendations at this time. Hospitalist, Dr. Rosa, who will consult on pt. Dr. Rosa saw pt. in ED and feels she is safe to dc home. Dr. Rosa has been pt.'s PCP for years and is very familiar with her. Pt. to f.u outpt. in a few days and return to ER if sxs change or worsen - Diagnoses Differential Diagnoses/HQI/PQRI: Cardiac Ischemia, Metabolic Abnormality Provider Diagnoses: Chest pain, Anxiety Discharge - Sign-Out/Discharge Documenting (check all that apply): Patient Departure Patient Received Moderate/Deep Sedation with Procedure: No - Discharge Plan Condition: Good Disposition: HOME Patient Education Materials: Chest Pain (ED), Anxiety (ED) Referrals: Mandy Schafer MD [Primary Care Provider] - Additional Instructions: Schedule a follow up appointment with your PCP on Tuesday Continue home medications as directed Return to ER if symptoms change or worsen - Billing Disposition and Condition Condition: GOOD Disposition: Home
[2018-06-17 10:13] LABS: INR 0.94 (0.77-1.02)
[2018-06-17 10:14] LABS: ABS Basophils 0 10^3/ul (0-0.2); ABS Eosinophils 0 10^3/ul (0-0.6); ABS Lymphocytes 1.2 10^3/ul (1.0-4.8); ABS Monocytes 0.4 10^3/ul (0-0.8); ABS Neutrophils 9.6 10^3/ul (1.5-7.7); ABS Nucleated RBC 0 10^3/ul; Eosinophil % 0.2 %; Hematocrit 40 % (35-47); Lymphocyte % 10.4 %; Mean Corpuscular HGB Conc 33 g/dl (31-36); Mean Corpuscular Hemoglobin 30 pg (27-31); Mean Corpuscular Volume 92 fL (80-97); Mean Platelet Volume 7.5 fL (7.4-10.4); Nucleated Red Blood Cells % 0; Platelet Count 519 10^3/ul (150-450); Red Cell Distribution Width 14 % (10.5-15); White Blood Count 11.2 10^3/ul (3.5-10.8)
[2018-06-17 10:24] LABS: Albumin 4.5 g/dL (3.2-5.2); Albumin/Globulin Ratio 1.2 (1-3); BUN/Creatinine Ratio 21.1 (8-20); Calcium 9.6 mg/dL (8.6-10.3); EGFR African American 92.7 (>60); EGFR Non-African American 76.6 (>60); Globulin 3.7 g/dL (2-4); Magnesium 1.8 mg/dL (1.9-2.7); Potassium 4.5 mmol/L (3.5-5.0); Total Bilirubin 0.5 mg/dL (0.2-1.0); Total Protein 8.2 g/dL (6.4-8.9)
[2018-06-17] MEDS ORDERED: NS 0.9% 1000 ML** 1,000 ML IV ONE (10:47)
[2018-06-17 11:08] LABS: TSH (Thyroid Stimulating Horm) 3.68 mcIU/mL (0.34-5.60)
[2018-06-17 14:35] LABS: Urine Appearance Clear; Urine Bacteria Absent (Absent); Urine Bilirubin Negative (Negative); Urine Blood Negative (Negative); Urine Color Yellow; Urine Glucose Negative (Negative); Urine Ketones Negative (Negative); Urine Nitrite Negative (Negative); Urine Protein 2+(100 mg/dL) (Negative); Urine Red Blood Cell Trace(0-2/hpf) (Absent); Urine Specific Gravity 1.015 (1.010-1.030); Urine Squamous Epithelial Cell Present (Absent); Urine Urobilinogen Negative (Negative); Urine White Blood Cell 3+(>20/hpf) (Absent)
--- NOTE | 2018-06-17 17:09 | PN ---
Progress Note - Progress Note Date of Service: 06/17/18 Note: Brief Consult Note Patient seen and examined. 1 hour discussion ensued. In brief, patient has many complaints and concerns about her psychiatrist, her neurosurgeon, her PCP. She has >24 hours of chest pressure, unchanged EKG, two negative troponins. Had negative stress test 02/23/18. Advised to accept discharge from ED, see PCP, and follow up with Dr. Michael also. Will dictate full consult.
[2018-06-17 18:15] VITALS: BP 164/109
--- NOTE | 2018-06-19 14:34 | CONS ---
CC: Dr. Schafer at [facility]; Dr. Michael; Dr. Thomas MEDICINE CONSULTATION: DATE OF CONSULT: 06/17/18 CHIEF COMPLAINT: Chest pain. REQUESTING PHYSICIAN: Dr. Starks in the emergency department. HISTORY OF PRESENT ILLNESS: Ms. Alba is a 63-year-old woman who is well known to me in my primary dc re practice, who presents with chest heaviness that she rates at 7 to 8/10 with radiation to both arm s accompanied by sweating. She states that her both arms felt uncomfortable, not really painful. Th e patient denies any palpitations, but does feel short of breath. The pain and heaviness began at 8: 30 a.m. more than 24 years prior to admission and has been present all day and all overnight. She st ates she called 911 this morning when she became more concerned about heart attack. Apparently, siderographer arrived her house and she "sent them away" because she felt she needed ACLS ambulance. An ACLS ambu nancy appeared and she was transferred to the emergency department. The patient's cardiac history, s he had a planned neurosurgical procedure in January of last year on 01/13/18; during anesthesia, cuca ction she had a Wenckebach rhythm on her EKG. The surgery was cancelled and she had a cardiology con sult with Dr. Soto. She currently has 2 implantable event monitors, one functioning, one not funct ioning. On 02/23/18, she had a normal stress Myoview at the cardiology office. She also had a cardi ology preop visit on 06/06/18, which cleared her for reattempt of the surgery. Parenthetically the salazar rgery was cancelled again after the initial January cancellation because of some contamination of the operating room. This was during the same hospital stay in January. That hospital stay that started on 01/11/18 through 01/20/18 was initiated by falls and then recommendation of cervical spinal steno sis and a concern of needing cervical decompression. Dr. Thomas was her neurosurgeon. The patient was also admitted on 01/23/18 for nausea and vomiting. At that point, she had an osteomy elitis in her left great toe and was on daptomycin for this as an outpatient. It was felt that she h ad an adverse reaction to the daptomycin and the daptomycin was causing overall body weakness. She w as switched to ceftriaxone at that point. The patient was admitted again to this hospital on 8 to 03/11/18 with unsteadiness. This was attributed to tapering of her clonazepam, which she has be en doing with her outpatient psychiatrist. The patient was again admitted on 04/28/18 to 05/01/18 wi th episode of quadriparesis that resolved spontaneously. It was initially thought her cervical steno sis was causing this, but she had evaluation with Dr. Alba and Dr. Zuniga, and it was felt that this was a somatic or factitious disorder at this time. She does remain with an MRI finding on 04/28/18 of narrowing of the central canal at C4-C5 and C5-C6 and multilevel foraminal narrowing and myelomala kerwin at C5 and C6. At this point, the patient states that she has been referred Dr. Thomas to jairo Roberts in [facility]. PAST MEDICAL HISTORY: Includes hypertension; hyperlipidemia; type 2 diabetes; history of stroke with out any residual PTSD; anxiety; depression; axis II traits; obstructive sleep apnea, on CPAP; history of left great toe osteomyelitis; nonalcoholic steatohepatitis; and QT prolongation, which was part o f the reason for her event monitors. She also had syncope at one point, which led to the event monit ors. PAST SURGICAL HISTORY: Cholecystectomy, hysterectomy. MEDICATIONS AN OUTPATIENT: 1. Albuterol inhaler 1 puff q.6 hours p.r.n. wheezing. 2. Aspirin 81 mg p.o. q. day. 3. Metformin 1000 mg p.o. b.i.d. 4. Pravastatin 40 mg p.o. q.h.s. 5. Venlafaxine XR 225 mg p.o. q.a.m. 6. Geodon 160 mg p.o. q.p.m. 7. Clonazepam 0.25 mg p.o. 3 times a week. 8. Magnesium oxide 400 mg p.o. q. day. ALLERGIES: ATORVASTATIN, TRAMADOL, CODEINE, AMLODIPINE, SULFA, DAPTOMYCIN, QUETIAPINE, ZOLPIDEM, MARIANELA AZEPAM, AMOXICILLIN, and CLAVULANIC ACID. FAMILY HISTORY: Positive for heart disease in her mother and prostate cancer in her father. SOCIAL HISTORY: She quit smoking 6 years ago. She denies any alcohol or drug use. She lives alone, is . She has 2 sons. She has a healthcare proxy, her son, Samuel Abraham. REVIEW OF SYSTEMS: The patient denies any fevers, weight loss, or anorexia. The patient denies any cough or hematemesis. The patient denies any nausea, vomiting, diarrhea, or constipation. She does admit to some turmoil with her psychiatric care. She sees a counselor, but says she has stopped edilberto Junior at [facility] because of a conflict over mismanagement of her medic ations. Review of discussions with Dr. Thomas showed that there was also difficulty with communication wi th her son who Dr. Thomas felt needed to be involved in her decision making about her cervical salazar rgery. Remainder of her 14 review of systems was negative other than mentioned in the HPI. PHYSICAL EXAM: Temperature is 36.9, pulse 90, respirations 16, blood pressure is 164/109 up to 196/1 25, oxygen saturation 97%. General: She is alert, in no acute distress. Head is normocephalic, atr aumatic. Sclerae anicteric. Pupils are equal, round, and reactive to light and accommodation. Orop harynx is moist. No lesions. Neck: No JVD. No carotid bruit. No thyromegaly. Lungs: Clear to a uscultation and percussion bilaterally. Heart: Regular rate and rhythm without murmurs or gallops. Abdomen: Soft, nontender. Positive bowel sounds. No hepatosplenomegaly. Extremities: No periphe ral edema. Dorsalis pedis pulses are 1+ bilaterally. Neurologic: Cranial nerves II through XII are intact. Motor strength is 5/5 throughout. Deep tendon reflexes are symmetric. Psychiatrically, mikey courtney is alert and oriented x3. She has a pattern of argumentative and contradictory statements and she brings every discussion of mental care around to the mismanagement and errors and mentions lawsuits. DIAGNOSTIC STUDIES/LAB DATA: Her white count is 11.2, hemoglobin 13.0, hematocrit 40%, platelets of 519, INR of 0.94, PTT 32.0. Sodium 137, potassium 4.5, chloride 101, bicarb 24, BUN 16, creatinine 0 .78, glucose 199, lactic acid 2.1, calcium 9.6, magnesium 1.8, AST 39, ALT 38, alk phos 109, troponin is 0 x3 in this ER stay. Albumin is 4.5. Total protein is 8.2. TSH is 3.68. Urinalysis shows 2+ p rotein and 2+ leuk esterase, 3+ white cells. Squamous cells are present. Chest x-ray shows no evidence of pneumonia or pulmonary edema. Possible COPD. EKG shows normal sinu s rhythm, left atrial enlargement, no QT prolongation. ASSESSMENT AND RECOMMENDATIONS: The patient's chest pain differential would include pericarditis, ca rdiac ischemia, anxiety, and chronic obstructive pulmonary disease. The patient's extensive cardiac workup has been reviewed with the patient and with the ER department. We are not recommending admiss ion to the hospital this time. She should see her director religious education as an outpatient and discuss cardiac catheterization if further chest pain occurs. Given the negative troponins and no EKG changes, I demarco bt the patient needs to stay in the hospital for an inpatient cardiology consult or catheterization. For her hypertension, her blood pressure has been very labile and this is due to her anxiety and post traumatic stress disorder and the current stressful situation in the emergency department. The patie nt is advised to follow up with primary care about both the chest pain and high blood pressure for re evaluation of her outpatient regimen. For her anxiety and posttraumatic stress disorder and axis II behaviors, the patient is advised to fi nd a new psychiatrist. She does report that she has tried to find a private psychiatrist, but it was too expensive and she was not going back to the [facility]. At this point, she i s weaning herself off clonazepam, which was probably causing increased anxiety and may be the empiric cause of this chest discomfort. She was advised to see family and children services which take her insurance. She was advised to continue on her Geodon and Effexor as well. It should be noted that t he Effexor can cause hypertension. For her cervical stenosis, I discussed the patient's episodic all 4 extremity weakness and the fact t [facility] are not convinced that this is a pathologic issue from her neck. I di d advise the patient to see Dr. Roberts in [place] as planned because she does have real pathology visi ble on her MRI, but the patient, upon hearing that people are feeling that she is having unexplained symptoms, states that she does not want to see any further neurologist or neurosurgeons. For her diabetes, this has been under good control and we will continue her current regimen. TIME SPENT: I spent 78 minutes with the patient in examining, consulting with her, and collecting re cords and completing this extensive medical consultation. [id number]/[facility] #: [id number]
== END 2018-06-17 18:15 | disposition home or self-care (01) ==
LOC: ED 09:39
DX: R07.9 Chest pain, unspecified (principal); F41.9 Anxiety disorder, unspecified; I10 Essential (primary) hypertension; E78.5 Hyperlipidemia, unspecified; E11.9 Type 2 diabetes mellitus without complications; J45.909 Unspecified asthma, uncomplicated; Z86.73 Personal history of transient ischemic attack (TIA), and cerebral infarction without residual deficits; Z88.5 Allergy status to narcotic agent; E78.00 Pure hypercholesterolemia, unspecified; Z95.810 Presence of automatic (implantable) cardiac defibrillator; Z79.82 Long term (current) use of aspirin; G47.33 Obstructive sleep apnea (adult) (pediatric); Z79.84 Long term (current) use of oral hypoglycemic drugs; Z60.2 Problems related to living alone; Z87.891 Personal history of nicotine dependence
CPT/HCPCS: 36415; 71045; 80053; 81003; 81015; 83605; 83735; 84443; 84484; 85025; 85610; 85730; 87086; 93005; 96360; 96361; 99285

== ENCOUNTER 2018-09-12 17:00 | Emergency (ER) | payer MEDICARE, OTHER ==
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
[2018-09-12 20:45] VITALS: BP 181/106
== END 2018-09-12 20:44 | disposition home or self-care (01) ==
LOC: ED 17:00
DX: M79.604 Pain in right leg (principal); M19.90 Unspecified osteoarthritis, unspecified site; I10 Essential (primary) hypertension; E78.5 Hyperlipidemia, unspecified; I25.10 Atherosclerotic heart disease of native coronary artery without angina pectoris; E11.9 Type 2 diabetes mellitus without complications; Z88.2 Allergy status to sulfonamides; Z87.891 Personal history of nicotine dependence; R94.31 Abnormal electrocardiogram [ECG] [EKG]
CPT/HCPCS: 99281

== ENCOUNTER 2019-03-04 06:39 | Emergency (ER) | payer MEDICARE, OTHER ==
[2019-03-04] MEDS ORDERED: Metoclopramide IV* 5 MG/ML 2 ML VIAL IV ONE (06:48)
[2019-03-04] MEDS ORDERED: Morphine 4 MG/ML VIAL (1 ml) 4 MG/ML VIAL IV ONE (06:49)
[2019-03-04] MEDS ORDERED: Lactated Ringers 1000 ML Bag* 1,000 ML IV SCH (07:00)
[2019-03-04 07:05] LABS: ABS Basophils 0.1 10^3/ul (0-0.2); ABS Lymphocytes 1.2 10^3/ul (1.0-4.8); ABS Monocytes 0.6 10^3/ul (0-0.8); ABS Neutrophils 11.7 10^3/ul (1.5-7.7); Eosinophil % 0.2 %; Hematocrit 39 % (35-47); Hemoglobin 13.4 g/dL (12.0-16.0); Lymphocyte % 8.7 %; Mean Corpuscular HGB Conc 34 g/dL (31-36); Mean Corpuscular Hemoglobin 32 pg (27-31); Mean Corpuscular Volume 94 fL (80-97); Platelet Count 421 10^3/uL (150-450); Red Cell Distribution Width 13 % (10-15); White Blood Count 13.5 10^3/uL (3.5-10.8)
[2019-03-04 07:12] LABS: INR 1.02 (0.82-1.09)
--- OUTSIDE RECORDS SUMMARY | 2019-03-04 07:19 | XMS REPORT | Continuity of Care Document ---
:1955 External Reference #:[id number] Author Name Dang Sanchez N.P. (transmitted by agent of provider Rolf Sheppard) Address [address] [place] [address] Care Team Providers Name Role Phone Yoselyn Cintron MD - Internal Care Team Information Narcotics Agent Medicine Dwain Duron DPM - Foot Surgery Care Team Information Narcotics Agent Clarence Grover MD - Surgery Care Team Information Narcotics Agent [phone] Cielo Crouch MD - Internal Medicine Care Team Information Narcotics Agent [phone] Problems Active Problems Provider Date Cardiac disease monitoring status Christiano Rosa M.D.,[facility] Onset: 2018 Note: event monitor in place Cirrhosis of liver Christiano Rosa M.D.,FACP Onset: 12/08/2017 Note: on laparosopy, bx, likely ORR Essential hypertension Patti Lunsford M.D. Onset: 10/28/2009 Obesity Patti Lunsford M.D. Onset: 10/28/2009 Mixed hyperlipidemia Lenny Elizabeth M.D. Onset: 07/19/2011 Persistent microalbuminuria associated Yoselyn Cintron M.D. Onset: 09/11/2013 with type 2 diabetes mellitus Note: improving Diabetic peripheral neuropathy Yoselyn Cintron M.D. Onset: 09/11/2013 Sleep disorder Randi White MD Onset: 02/11/2014 Obstructive sleep apnea syndrome Randi White MD Onset: 05/07/2014 Note: noncompliant CPAP Major depression in remission Yoselyn Cintron M.D. Onset: 06/13/2014 Note: Dr. Junior now sees [facility] member Posttraumatic stress disorder Onset: Note: Dr. junior Type 2 diabetes mellitus Onset: Note: since age 33 Carpal tunnel syndrome Yoselyn Cintron M.D. Onset: 09/24/2015 Note: moderate on R, mild on L ( NCV) Diverticulosis of sigmoid colon Yoselyn Cintron M.D. Onset: 03/22/2016 Osteoarthritis of knee Christiano Rosa M.D.,FACP Onset: 08/10/2017 Anxiety state Malorie Garay NP Onset: 09/14/2017 History of cerebrovascular accident Malorie Garay NP Onset: 09/14/2017 without residual deficits Orthostatic hypotension Malorie Garay NP Onset: 09/15/2017 History of cholecystectomy Christiano Rosa M.D.,FACP Onset: 12/29/2017 Social History Type Date Description Comments Sex Unknown Tobacco Use Start: Unknown Former Cigarette Smoker End: Unknown 1-5 Cigarettes Daily Tobacco Use Start: Unknown Quit 04/2011 Smoking Status Reviewed: 02/28/19 Quit 04/2011 ETOH Use occasional beer or wine Tobacco Use Start: Unknown Patient is a former End: Unknown smoker Recreational Drug Use Denies Drug Use Tobacco Use Start: Unknown Smoked for 5 years, stopped 2011. Exercise Type/Frequency Exercises sporadically walks to miles/day weather permitting Allergies, Adverse Reactions, Alerts Active Allergies Reaction Severity Comments Date Sulfa Urticaria ,difficulty ambulating 10/25/2008 Lipitor muscle weakness 06/19/2012 Amlodipine chest tightness 05/09/2014 weakness Tramadol Nausea and Vomiting, Severe 10/01/2014 migraine, facial flushing Seroquel Moderate pt fainted while on this 08/22/2017 med Ambien confusion,nightmares 11/14/2017 Augmentin diarrhea, severe 12/29/2017 abdominal pain Daptomycin Severe weakness in lower 02/02/2018 extremities and nausea Ativan severe aggitation and 03/01/2018 confusion Medications Active Medications SIG Qnty Indications Ordering Provider Date Lisinopril 1.5 tabs by 90tabs I10 Cielo Crouch MD 01/02/2019 10mg mouth every day Tablets Ziprasidone HCL 2 every night at 60caps Cielo Crouch MD 01/02/2019 80mg bedtime Capsules Hydroxyzine HCL take one tablet 30tabs G47.00 Mandy Schafer MD 06/21/2018 25mg by mouth at Tablets night for sleep as needed. Magnesium Oxide Take 1 Tablet By 30tabs Magaly Borjas, 05/03/2018 Mouth Every Day DO 400(241.3mg) mg Tablets Freestyle Lancets twice daily of 100units E11.65 Yoselyn Cintron, 2014 as needed. Gayathri [facility] Freestyle Lite Test Check Three 250units E11.65 Christiano Rush 09/19/2014 Times Daily And Gayathri Rosa,FACP Strip as Needed Metformin HCL take 2 tablets 120tabs E11.65 Magaly Borjas, 12/18/2013 500mg by mouth two DO Tablets times daily E11.9 Pravastatin Sodium 1 tablet daily at 90tabs E78.5 Magaly Borjas DO 08/16 40mg bedtime Tablets Effexor XR 3 tabs in in the 90caps Mandy Schafer MD 75mg Caps ER morning 24HR Aspirin Chew And Swallow 1 Unknown 81mg Chewtabs Tablet By Mouth Daily Medications Administered in Office Medication SIG Qnty Indications Ordering Provider Date Inj, Regadenoson, 0.1 MG Adrian Couch M.D. 02/23/2018 Injection Technetium TC 99M Adrian Couch M.D. 02/23/2018 Tetrofosmin, Per Unit Dose Up To 40 Millicuries Injection Technetium TC 99M Kapil Derek Andrade M.D., 06/25/2014 Tetrofosmin, Per Unit Dose [facility], FASNC Up To 40 Millicuries Injection Technetium TC 99M Rodney Michael M.D. 06/25/2014 Tetrofosmin, Per Unit Dose Up To 40 Millicuries Injection Technetium TC 99M Rodney Michael M.D. 06/25/2014 Tetrofosmin, Per Unit Dose Up To 40 Millicuries Injection Depomedrol 80MG Joan Antonio M.D. 02/01/2013 Injection PPD Patti Lunsford M.D. 07/29/2009 Injection Immunizations CPT Code Status Date Vaccine Reaction Lot # [id number] Given 02/01/2019 Influenza Virus Vaccine, No immediate reaction [id number] Quadrivalent ([id number]), Derived From Cell 04206 Given 12/29/2017 Hepatitis B Vaccine Adult [id number] Dosage 14912 Given 12/29/2017 Influenza Virus Vaccine, [id number] Quadrivalent, Split, Preservative Free 24675 Given 01/20/2017 Influenza Virus Vaccine, [id number] Quadrivalent, Split, Preservative Free 01479 Given 01/26/2016 Influ Virus Vaccine, [id number] Quadrivalent, Split Virus, [place] [address] Given 03/20/2015 Influenza Virus Vaccine, [id number] Quadrivalent, Split, Preservative Free 18090 Given 03/20/2014 Pneumococcal Conjugate [id number] Vaccine 13 Valent For Intramuscular Use 83592 Given 01/23/2014 Influenza Virus Vaccine, [id number] Quadrivalent, Split, Preservative Free 00591 Given 06/05/2012 Zoster (Zostavax) [id number] 67577 Given 08/11/2010 Pneumonia Vaccine [id number] 39233 Given 08/11/2010 Tdap - [id number] Tetanus/Diptheria/Acellular Pertussis 16032 Given 02/13/2009 Influenza Virus Vaccine, [id number] Pandemic Formulation 53330 Given 02/13/2009 Administration Swine Flu Shot Vital Signs Date Vital Result Comment 02/28/2019 8:09am Height 62 inches 5'2" Weight 170.38 lb with shoes Heart Rate 56 /min irregular BP Systolic Sitting 140 mmHg Rue (regular cuff) BP Diastolic Sitting 70 mmHg Rue (regular cuff) BP Systolic Standing 130 mmHg BP Diastolic Standing 66 mmHg BMI (Body Mass Index) 31.2 kg/m2 Ejection Fraction 55-60% Echocardiogram 01/12/2018 02/01/2019 8:24am Height 62 inches 5'2" Weight 171.00 lb Heart Rate 80 /min BP Systolic Sitting 127 mmHg BP Diastolic Sitting 83 mmHg Body Temperature 98.3 F O2 % BldC Oximetry 94 % BMI (Body Mass Index) 31.3 kg/m2 Results Test Acquired Date Facility Test Result H/L Range Note Urine 01/02/2019 [facility] Ur Microalbumin 38.3 mg/L Microalbumin 101 (mg/L) [place] [address] [phone] Urine Creatinine 21.33 mg/dL Urine Microalbumin/Creatinine 179.5 High <31 Lipid Profile 09/12/2018 [facility] Triglycerides 137 mg/dL 1 (Trig/Chol/HDL) [address] [place] [address] [phone] Cholesterol 181 mg/dL 2 HDL Cholesterol 64.5 mg/dL 3 LDL Cholesterol 89 mg/dL 4 Comp Metabolic Panel 09/12/2018 [facility] Sodium 132 mmol/L Low 135-[address] [place] [address] [phone] Potassium 4.1 mmol/L Normal 3.5-5.0 Chloride 95 mmol/L Low 101-111 Co2 Carbon Dioxide 27 mmol/L Normal 22-32 Anion Gap 10 mmol/L Normal 2-11 Glucose 118 mg/dL High 70-100 Blood Urea Nitrogen 22 mg/dL Normal 6-24 Creatinine 1.08 mg/dL High 0.51-0.95 BUN/Creatinine Ratio 20.4 High 8-20 Calcium 10.3 mg/dL Normal 8.6-10.3 Total Protein 7.8 g/dL Normal 6.4-8.9 Albumin 4.4 g/dL Normal 3.2-5.2 Globulin 3.4 g/dL Normal 2-4 Albumin/Globulin Ratio 1.3 Normal 1-3 Total Bilirubin 0.40 mg/dL Normal 0.2-1.0 Alkaline Phosphatase 95 U/L Normal 34-104 Alt 33 U/L Normal 7-52 Ast 32 U/L Normal 13-39 Egfr Non- 51.1 >60 Egfr 61.8 >60 5 Laboratory test 09/12/2018 [facility] Magnesium 1.6 mg/dL Low 1.9-2.[address] [place] [address] [phone] Hemoglobin A1c (Glyco HGB) 6.4 % High 4.0-5.6 6 1 Desirable: <150 Borderline High: 150-199 High: 200-499 Very High: >500 2 Desirable: <200 Borderline High: 200-239 High: >239 3 Low: <40 Desirable: 40-60 High: >60 4 Desirable: <100 Near Optimal: 100-129 Borderline High: 130-159 High: 160-189 Very High: >189 5 Because ethnic data is not always readily available, this report includes an eGFR for both -Americans and non- Americans. The National Kidney Disease Education Program (NKDEP) does not endorse the use of the MDRD equation for patients that are not between the ages of 18 and 70, are , have extremes of body size, muscle mass, or nutritional status, or are non- or non-. According to the National Kidney Foundation, irrespective of diagnosis, the stage of the disease is based on the level of kidney function: Stage Description GFR(mL/min/1.73 m(2)) 1 Kidney damage with normal or decreased GFR 90 2 Kidney damage with mild decrease in GFR 60-89 3 Moderate decrease in GFR 30-59 4 Severe decrease in GFR 15-29 5 Kidney failure <15 (or dialysis) 6 Therapeutic target for the treatment of diabetes mellitus patients is <7% HBA1C, and in selective patients <6.0%. Please refer to [place] [employer] diabetic care guidelines for further information. Procedures Date Code Description Status 02/08/2019 046712956 Diabetic Retinal Eye Exam Completed 02/05/2019 [id number] Mammogram Completed 01/13/2019 46590 Implantable Cardio System Loop Recorder Sys Remota Completed Data [employer] 01/13/2019 57964 Interrogation Dev Loop Recorder Incl Physician Completed Analysis,Rev,Repor 01/03/2019 24783 EKG Tracing & Interpretation Completed 12/13/2018 25392 Implantable Cardio System Loop Recorder Sys Remota Completed Data [employer] 12/13/2018 52252 Interrogation Dev Loop Recorder Incl Physician Completed Analysis,Rev,Repor 11/12/2018 81553 Implantable Cardio System Loop Recorder Sys Remota Completed Data Acquistio 11/12/2018 01080 Interrogation Dev Loop Recorder Incl Physician Completed Analysis,Rev,Repor 10/12/2018 60888 Implantable Cardio System Loop Recorder Sys Remota Completed Data [employer] 10/12/2018 46018 Interrogation Dev Loop Recorder Incl Physician Completed Analysis,Rev,Repor 09/19/2018 [id number] Diabetic Foot Exam Completed 09/11/2018 56770 Interrogation Dev Loop Recorder Incl Physician Completed Analysis,Rev,Repor 09/11/2018 54104 Implantable Cardio System Loop Recorder Rajinder Chatman Completed Data [employer] 10/21/2017 [id number] Diabetic Foot Exam Completed 10/14/2017 [id number] Diabetic Retinal Eye Exam Completed 08/09/2017 [id number] Diabetic Foot Exam Completed 07/13/2017 [id number] Diabetic Foot Exam Completed 11/11/2016 [id number] Mammogram Completed 10/27/2015 [id number] Mammogram Completed 04/22/2015 [id number] Mammogram Completed 10/01/2014 [id number] Mammogram Completed 06/06/2014 131491158 Diabetic Retinal Eye Exam Completed 02/13/2014 [id number] Diabetic Foot Exam Completed 09/19/2013 188632046 Bone Mineral Density Test Completed 07/02/2013 842992415 Diabetic Retinal Eye Exam Completed 05/14/2013 [id number] Mammogram Completed 12/05/2012 [id number] Diabetic Foot Exam Completed 12/27/2011 00012967 Mammogram Completed 12/02/2011 [id number] Mammogram Completed 11/24/2011 [id number] Diabetic Foot Exam Completed 12/09/2010 819788131 Diabetic Foot Exam Completed 11/13/2010 [id number] Diabetic Foot Exam Completed 12/12/2009 16406099 Mammogram Completed 07/15/2009 [id number] Colonoscopy Completed 07/12/2009 [id number] Colonoscopy Completed Medical Devices Description No Information Available Encounters Type Date Location Provider Dx Diagnosis Office Visit 02/28/2019 [facility] Dang Sanchez, I10 Essential ( primary) 8:30a N.P. 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 Z23 Encounter for immunization Office Visit 01/03/2019 10:00a [place] Rodney Felder E11.9 Type 2 diabetes Cardiology Gayathri Michael mellitus without complications I10 Essential (primary) hypertension E83.42 Hypomagnesemia R07.89 Other chest pain R55 Syncope and collapse I44.1 Atrioventricular block, second degree E66.8 Other obesity Office Visit 01/02/2019 8:20a [facility] Internal Cielo Crouch, E11.9 Type 2 diabetes Medicine - MD mellitus without Ccmob complications I10 Essential (primary) hypertension Z12.31 Encntr screen mammogram for malignant neoplasm of breast F43.10 Post-traumatic stress disorder, unspecified Office Visit 09/14/2018 8:20a [facility] Internal Magaly Cyrusner, M25.571 Pain in right Medicine - Suite DO ankle and R joints of right foot E83.42 Hypomagnesemia Assessments Date Code Description Provider 02/28/2019 I10 Essential (primary) hypertension Dang Sanchez, N.P. 02/28/2019 E11.69 Type 2 diabetes mellitus with other Dang Sanchez, N.P. specified complication 02/28/2019 I44.30 Unspecified atrioventricular block Dang Sanchez N.P. 02/28/2019 Z95.818 Presence of other cardiac implants and Dang Sanchez, N.P. 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 01/13/2019 I45.81 Long QT syndrome Rodney Mihcael M.D. 01/13/2019 R29.6 Repeated falls Rodney Michael M.D. 01/13/2019 Z95.818 Presence of other cardiac implants and Rodney Michael M.D. grafts 01/09/2019 I10 Essential (primary) hypertension Nurse Visit A 01/03/2019 E11.9 Type 2 diabetes mellitus without Rodney Michael M.D. complications 01/03/2019 I10 Essential (primary) hypertension Rodney Michael M.D. 01/03/2019 E83.42 Hypomagnesemia Rodney Michael M.D. 01/03/2019 R07.89 Chest pain Rodney Michael M.D. 01/03/2019 R55 Syncope Rodney Michael M.D. 01/03/2019 I44.1 Mobitz type I second degree Rodney Michael M.D. atrioventricular block on electrocardiogram 01/03/2019 E66.8 Obesity Rodney Michael M.D. 01/02/2019 E11.9 Type 2 diabetes mellitus without Cielo Crouch MD complications 01/02/2019 I10 Essential (primary) hypertension Cielo Crouch MD 01/02/2019 Z12.31 Encounter for screening mammogram for Cielo Crouch MD malignant neoplasm of breast 01/02/2019 F43.10 Post-traumatic stress disorder, Cielo Crouch MD unspecified 12/13/2018 I44.30 Unspecified atrioventricular block Rodney Michael M.D. 12/13/2018 I45.81 Long QT syndrome Rodney Michael M.D. 12/13/2018 R29.6 Repeated falls Rodney Michael M.D. 12/13/2018 Z95.818 Presence of other cardiac implants and Rodney Michael M.D. grafts 11/12/2018 I44.30 Unspecified atrioventricular block Rodney Michael M.D. 11/12/2018 I45.81 Long QT syndrome Rodney Michael M.D. 11/12/2018 R29.6 Repeated falls Rodney Mcihael M.D. 11/12/2018 Z95.818 Presence of other cardiac implants and Rodney Michael M.D. grafts 10/12/2018 I44.30 Unspecified atrioventricular block Rodney Michael M.D. 10/12/2018 I45.81 Long QT syndrome Rodney Michael M.D. 10/12/2018 R29.6 Repeated hardik Michael M.D. 10/12/2018 Z95.818 Presence of other cardiac implants and Rodney Michael M.D. grafts 09/14/2018 M25.571 Pain in right ankle and joints of right Magaly Borjas, DO foot 09/14/2018 E83.42 Hypomagnesemia Magaly Borjas, DO 09/11/2018 I44.30 Unspecified atrioventricular block Rodney Michael M.D. 09/11/2018 I45.81 Long QT syndrome Rodney Michael M.D. 09/11/2018 R29.6 Repeated falls Rodney Michael M.D. 09/11/2018 Z95.818 Presence of other cardiac implants and Rodney Michael M.D. grafts Plan of Treatment Future Appointment(s):03/19/2019 8:30 am - Dang Sanchez, N.P. at [facility]05/08/2019 8:20 am - Cielo Crouch MD at [facility] Internal Medicine - [facility]02/28/2019 - Dang Sanchez N.P.I10 Essential (primary) hypertensionFollow up:[place] 10 days (after thanksgiving) 08/2019 JFMRecommendations:Increase Lisinopril to 1.5 (10mg) tabs daily Take BP as you are doing and keep a list Bring in listin 10 days when you come back for BP pnvzdP15.69 Type 2 diabetes mellitus with other specified juditatqrfivI31.30 Unspecified atrioventricular cswodM52.818 Presence of other cardiac implants and grafts Functional Status Description No Information Available Mental Status Description No Information Available Referrals Description No Information Available
--- OUTSIDE RECORDS SUMMARY | 2019-03-04 07:19 | XMS REPORT | Continuity of Care Document ---
:1955 External Reference #:[id number] Author Name Niraj Marcelino M.D. Address [address] [place] [address] Care Team Providers Name Role Phone Yoselyn Cintron MD Care Team Information District Sales Representative [phone] Problems Active Problems Provider Date After-cataract with vision obscured following Niraj Marcelino M.D. Onset: extraction of cataract Lens Replaced By Other Means Niraj Marcelino M.D. Onset: 07/02/2013 Epiretinal membrane Niraj Marcelino M.D. Onset: 07/02/2013 Type 2 diabetes mellitus Niraj Marcelino M.D. Onset: 07/02/2013 Social History Type Date Description Comments Sex Unknown ETOH Use Denies alcohol use Tobacco Use Start: Unknown End: Unknown Patient is a former smoker Smoking Status Reviewed: 02/08/19 Patient is a former smoker Allergies, Adverse Reactions, Alerts Active Allergies Reaction Severity Comments Date Lipitor 07/02/2013 Codeine 07/02/2013 Sulfa Antibiotics 07/02/2013 Tramadol 01/08/2016 Medications Active Medications SIG Qnty Indications Ordering Provider Date Effexor XR 3 in the Am Niraj Marcelino, 10/14/2017 75mg Caps ER MSandyDSandy 24HR Metformin HCL 2 tabs twice a Unknown 1000mg day Tablets Pravastatin Sodium Take 1 Tablet By Unknown 40mg Mouth AT Bedtime Tablets Lisinopril Cielo Crouch MD 10mg Tablets Hydroxyzine HCL Take 1 Tablet By Unknown 25mg Mouth Nightly as Tablets Needed For Sleep Magnesium Oxide Take 1 Tablet By Unknown Mouth Every Day 400(241.3Mg) mg Tablets Immunizations Description No Information Available Vital Signs Date Vital Result Comment 02/08/2019 8:08am Intraocular Pressure Right Eye 17 mmHg Intraocular Pressure Left Eye 17 mmHg 10/14/2017 9:06am Intraocular Pressure Right Eye 19 mmHg Intraocular Pressure Left Eye 19 mmHg Results Description No Information Available Procedures Date Code Description Status 02/08/2019 92852 Fundus Photography W/Interpretation & Report Completed 02/08/2019 53485 Ophthalmoscopy Subsequent Completed 02/08/2019 65558 Eye Exam Est Comprehensive Completed Medical Devices Description No Information Available Encounters Description No Information Available Assessments Date Code Description Provider 02/08/2019 E11.9 Type 2 diabetes mellitus without Niraj Marcelino M.D. complications 02/08/2019 Z96.1 Presence of intraocular lens Niraj Marcelino M.D. 02/08/2019 H35.373 Puckering of macula, bilateral Niraj Marcelino M.D. Plan of Treatment 02/08/2019 - Niraj Marcelino M.D.E11.9 Type 2 diabetes mellitus without eemlnpjieltjpH90.1 Presence of intraocular lensH35.373 Puckering of macula, bilateralFollow up:1 yr Functional Status Description No Information Available Mental Status Description No Information Available Referrals Description No Information Available
--- OUTSIDE RECORDS SUMMARY | 2019-03-04 07:19 | XMS REPORT | Continuity of Care Document ---
:1955 External Reference #:[id number] Author Name Rodney Michael M.D. (transmitted by agent of provider Charleen Villegas) Address [address] [address] Care Team Providers Name Role Phone Yoselyn Cintron MD - Internal Care Team Information Algology Teacher Medicine Dwain Duron DPM - Foot Surgery Care Team Information Algology Teacher Clarence Grover MD - Surgery Care Team Information Algology Teacher [phone] Cielo Crouch MD - Internal Medicine Care Team Information Algology Teacher Problems Active Problems Provider Date Cardiac disease monitoring status Christiano Rosa M.D.,[facility] Onset: 2018 Note: event monitor in place Cirrhosis of liver Christiano Rosa M.D.,FACP Onset: 12/08/2017 Note: on laparosopy, bx, likely ORR Essential hypertension Patti Lunsford M.D. Onset: 10/28/2009 Obesity Patti Lunsford M.D. Onset: 10/28/2009 Mixed hyperlipidemia Lenny Elizabeth M.D. Onset: 07/19/2011 Persistent microalbuminuria associated Yoselyn Cintron M.D. Onset: 09/11/2013 with type 2 diabetes mellitus Note: improving Diabetic peripheral neuropathy Yoselyn Citnron M.D. Onset: 09/11/2013 Sleep disorder Randi White MD Onset: 02/11/2014 Obstructive sleep apnea syndrome Randi White MD Onset: 05/07/2014 Note: noncompliant CPAP Major depression in remission Yoselyn Cintron M.D. Onset: 06/13/2014 Note: Dr. Junior now sees [facility] member Posttraumatic stress disorder Onset: Note: Dr. [...] Start: Unknown Quit 04/2011 Smoking Status Reviewed: 01/03/19 Quit 04/2011 ETOH Use Has consumed alcohol in 35-50 ( 3-4 glasses the past of wine ) ETOH Use 08/22/2017 Occasionally consumes beer Tobacco Use Start: Unknown Patient is a [...] SIG Qnty Indications Ordering Provider Date Lisinopril 1 by mouth every 90tabs I10 Cielo Crouch MD 01/02/2019 10mg day Tablets Ziprasidone HCL 2 every night [...] E11.65 Yoselyn Cintron, 2014 as needed. Gayathri [facility] Freestyle Lite Test Check Three 250units E11.65 [...] 40 Millicuries Injection Technetium TC 99M Kapil Andrade M.D., 06/25/2014 Tetrofosmin, Per Unit Dose [facility], [place] Up To 40 Millicuries Injection Technetium TC 99M Rodney Michael M.D. 06/25/2014 Tetrofosmin, Per Unit Dose Up To 40 Millicuries Injection Technetium TC 99M Rodney Michael M.D. 06/25/2014 Tetrofosmin, Per Unit Dose Up To 40 Millicuries Injection Depomedrol 80MG Joan Antonio M.D. 02/01/2013 Injection Patti Rose M.D. 07/29/2009 Injection Immunizations CPT Code Status Date Vaccine Lot # [id number] Given 12/29/2017 Hepatitis B Vaccine Adult Dosage [id number] 56210 Given 12/29/2017 Influenza Virus Vaccine, Quadrivalent, Split, [id number] Preservative Free 63754 Given 01/20/2017 Influenza Virus Vaccine, Quadrivalent, Split, [id number] Preservative Free 32620 Given 01/26/2016 Influ Virus Vaccine, Quadrivalent, Split Virus, [place] [id number] [address] Given 03/20/2015 Influenza Virus Vaccine, Quadrivalent, Split, [id number] Preservative Free 83997 Given 03/20/2014 Pneumococcal Conjugate Vaccine 13 Valent For [id number] Intramuscular Use 01586 Given 01/23/2014 Influenza Virus Vaccine, Quadrivalent, Split, [id number] Preservative Free 88272 Given 06/05/2012 Zoster (Zostavax) [id number] 76616 Given 08/11/2010 Pneumonia Vaccine [id number] 42781 Given 08/11/2010 Tdap - Tetanus/Diptheria/Acellular Pertussis [id number] 06667 Given 02/13/2009 Influenza Virus Vaccine, Pandemic Formulation [id number] 01291 Given 02/13/2009 Administration Swine Flu Shot Vital Signs Date Vital Result Comment 01/03/2019 9:33am Height 62 inches 5'2" Weight 167.50 lb with shoes Heart Rate 80 /min apical, regular BP Systolic Sitting 144 mmHg LA, reg cuff BP Diastolic Sitting 94 mmHg LA, reg cuff BP Systolic Standing 144 mmHg LA, reg cuff BP Diastolic Standing 90 mmHg LA, reg cuff BP Systolic Lying Down 142 mmHg la repeat sitting BP Diastolic Lying Down 89 mmHg la repeat sitting BMI (Body Mass Index) 30.6 kg/m2 Ejection Fraction 55%-60% echo 01/12/18 01/02/2019 8:14am Height 62 inches 5'2" Weight 167.25 lb Heart Rate 76 /min BP Systolic 152 mmHg BP Diastolic 92 mmHg Body Temperature 97.7 F O2 % BldC Oximetry 96 % BMI (Body Mass Index) 30.6 kg/m2 Results Test Date Facility Test Result H/L Range Note Urine Microalbumin 01/02/2019 [facility] Ur Microalbumin 38.3 mg /L Random (mg/L) [place] [address] [phone] Urine Creatinine 21.33 mg/dL Urine Microalbumin/Creatinine 179.5 High <31 Lipid Profile 09/12/2018 [facility] Triglycerides 137 mg/dL 1 (Trig/Chol/HDL) [place] [address] [phone] Cholesterol 181 mg/dL 2 HDL Cholesterol 64.5 mg/dL 3 LDL Cholesterol 89 mg/dL 4 Comp Metabolic Panel 09/12/2018 [facility] Sodium 132 mmol/L Low 135-145 [place] [address] [phone] Potassium 4.1 mmol/L Normal 3.5-5.0 Chloride 95 [...] Egfr 61.8 >60 5 Laboratory test 09/12/2018 [facility] Magnesium 1.6 mg/dL Low 1.9-2.[address] [place] [address] [phone] Hemoglobin A1c (Glyco HGB) 6.4 % High [...] in selective patients <6.0%. Please refer to [place] [employer] diabetic care guidelines for further information. Procedures Date Code Description Status 01/03/2019 00114 EKG Tracing & Interpretation Completed 09/19/2018 [id number] Diabetic Foot Exam Completed 10/21/2017 [id number] Diabetic Foot Exam Completed 10/14/2017 [id number] Diabetic Retinal Eye Exam Completed 08/09/2017 [id number] Diabetic Foot Exam Completed 07/13/2017 [id number] Diabetic Foot Exam Completed 11/11/2016 [id number] Mammogram Completed 10/27/2015 [id number] Mammogram Completed 04/22/2015 [id number] Mammogram Completed 10/01/2014 [id number] Mammogram Completed 06/06/2014 [id number] Diabetic Retinal Eye Exam Completed 02/13/2014 [id number] Diabetic Foot Exam Completed 09/19/2013 [id number] Bone Mineral Density Test Completed 07/02/2013 [id number] Diabetic Retinal Eye Exam Completed 05/14/2013 [id number] Mammogram Completed 12/05/2012 [id number] Diabetic Foot Exam Completed 12/27/2011 [id number] Mammogram Completed 12/02/2011 [id number] Mammogram Completed 11/24/2011 [id number] Diabetic Foot Exam Completed 12/09/2010 [id number] Diabetic Foot Exam Completed 11/13/2010 [id number] Diabetic Foot Exam Completed 12/12/2009 [id number] Mammogram Completed 07/15/2009 [id number] Colonoscopy Completed 07/12/2009 [id number] Colonoscopy Completed Medical Devices Description No Information Available Encounters Type Date Location Provider Dx Diagnosis Office Visit 09/14/2018 [facility] Internal Magaly Suad, M25.571 Pain in right 8:20a Medicine - Suite DO ankle and joints R of right foot E83.42 Hypomagnesemia Assessments Date Code Description Provider 01/03/2019 E11.9 Type 2 diabetes mellitus without [...] Post-traumatic stress disorder, Cielo Crouch MD unspecified 09/14/2018 M25.571 Pain in right ankle and joints of right Magaly Suad, DO foot 09/14/2018 E83.42 Hypomagnesemia Magaly Borjas DO Plan of Treatment Future Appointment(s):02/28/2019 8:30 am - Dang Sanchez, N.P. at [facility]02/01/2019 8:40 am - Cielo Crouch MD at [facility] Internal Medicine - [facility]01/03/2019 - Rodney Michael M.D.E11.9 Type 2 diabetes mellitus without arsoxsicuqguwW39 Essential (primary) hypertensionRecommendations:try 5 mg of lisinopril for 5 days and monitor bp's and then increase as needed.E83.42 EwmxyycenjwabdV16.89 Chest painR55 XwjrjqcU91.1 Mobitz type I second degree atrioventricular block on electrocardiogramFollow up:ov Dang 2 m ov JFM 8 mE66.8 Obesity Functional Status Description No Information Available Mental Status Description No Information Available Referrals Description No Information Available
--- OUTSIDE RECORDS SUMMARY | 2019-03-04 07:19 | XMS REPORT | Continuity of Care Document ---
:1955 External Reference #:[id number] Author Name Cielo Crouch MD (transmitted by agent of provider Brunilda Us) Address [address], [address] [place] [address] Care Team Providers Name Role Phone Yoselyn Cintron MD - Internal Care Team Information Product Advisor Medicine Dwain Duron DPM - Foot Surgery Care Team Information Product Advisor Clarence Grover MD - Surgery Care Team Information Product Advisor [phone] Cielo Crouch MD - Internal Medicine Care Team Information Product Advisor [phone] Problems Active Problems Provider Date Cardiac disease monitoring status Christiano Rosa M.D.,[facility] Onset: 2018 Note: event monitor in place [...] Start: Unknown Quit 04/2011 Smoking Status Reviewed: 02/01/19 Quit 04/2011 ETOH Use Has consumed alcohol [...] E11.65 Yoselyn Cintron, 2014 as needed. [facility] Fre[facility] Lite Test Check Three 250units E11.65 [...] Andrade M.D., 06/25/2014 Tetrofosmin, Per Unit Dose [facility], FAS[facility] Up To 40 Millicuries Injection Technetium TC 99M Rodney Michael M.D. 06/25/2014 Tetrofosmin, Per Unit Dose Up To 40 Millicuries Injection Technetium TC 99M Rodney Michael M.D. 06/25/2014 Tetrofosmin, Per Unit Dose Up To 40 Millicuries Injection Depomedrol 80MG Joan Antonio M.D. 02/01/2013 Injection PPD Patti Lunsford M.D. 07/29/2009 Injection Immunizations CPT Code Status Date Vaccine Reaction Lot # [id number] Given 02/01/2019 Influenza Virus Vaccine, No immediate reaction [id number] Quadrivalent ([id number]), Derived From Cell 04956 Given 12/29/2017 Hepatitis B Vaccine Adult [id number] Dosage 64772 Given 12/29/2017 Influenza Virus Vaccine, [id number] Quadrivalent, Split, Preservative Free 38355 Given 01/20/2017 Influenza Virus Vaccine, [id number] Quadrivalent, Split, Preservative Free 42174 Given 01/26/2016 Influ Virus Vaccine, [id number] Quadrivalent, Split Virus, [place] [address] Given 03/20/2015 Influenza Virus Vaccine, [id number] Quadrivalent, Split, Preservative Free 66878 Given 03/20/2014 Pneumococcal Conjugate [id number] Vaccine 13 Valent For Intramuscular Use 72044 Given 01/23/2014 Influenza Virus Vaccine, [id number] Quadrivalent, Split, Preservative Free 27146 Given 06/05/2012 Zoster (Zostavax) [id number] 88715 Given 08/11/2010 Pneumonia Vaccine [id number] 45647 Given 08/11/2010 Tdap - [id number] Tetanus/Diptheria/Acellular Pertussis 43185 Given 02/13/2009 Influenza Virus Vaccine, [id number] Pandemic Formulation 51808 Given 02/13/2009 Administration Swine Flu Shot Vital Signs Date Vital Result Comment 02/01/2019 8:24am Height 62 inches 5'2" Weight 171.00 lb Heart Rate 80 /min BP Systolic Sitting 127 mmHg BP Diastolic Sitting 83 mmHg Body Temperature 98.3 F O2 % BldC Oximetry 94 % BMI (Body Mass Index) 31.3 kg/m2 01/09/2019 9:20am Height 62 inches 5'2" Weight 167.00 lb Heart Rate 69 /min BP Systolic 130 mmHg right arm 130/84 BP Diastolic 88 mmHg right arm 130/84 Body Temperature 96.6 F O2 % BldC Oximetry 96 % BMI (Body Mass Index) 30.5 kg/m2 Results Test Date Facility Test Result H/L Range Note Urine Microalbumin 01/02/2019 [facility] Ur Microalbumin 38.3 mg /L Random [address] (mg/L) [place] [address] [phone] Urine Creatinine 21.33 mg/dL Urine Microalbumin/Creatinine 179.5 High <31 Lipid Profile 09/12/2018 [facility] Triglycerides 137 mg/dL 1 (Trig/Chol/HDL) [address] [place] [address] [phone] Cholesterol 181 mg/dL 2 HDL Cholesterol 64.5 mg/dL 3 LDL Cholesterol 89 mg/dL 4 Comp Metabolic Panel 09/12/2018 [facility] Sodium 132 mmol/L Low 135-[address] [place] [address] [phone] Potassium 4.1 mmol/L Normal 3.5-5.0 Chloride 95 [...] Egfr 61.8 >60 5 Laboratory test 09/12/2018 [facility] Magnesium 1.6 mg/dL Low 1.9-2.[address] [place] [address] [phone] Hemoglobin A1c (Glyco HGB) 6.4 % High [...] in selective patients <6.0%. Please refer to [place] [employer] diabetic care guidelines for further information. Procedures Date Code Description Status 01/03/2019 36464 EKG Tracing & Interpretation Completed 12/13/2018 57084 Implantable Cardio System Loop Recorder Sys Remota Completed Data Acquistio 12/13/2018 63382 Interrogation Dev Loop Recorder Incl Physician Completed Analysis,Rev,Repor 11/12/2018 [id number] Implantable Cardio System Loop Recorder Sys Remota Completed Data Acquistio 11/12/2018 21220 Interrogation Dev Loop Recorder Incl Physician Completed Analysis,Rev,Repor 10/12/2018 [id number] Implantable Cardio System Loop Recorder Sys Remota Completed Data Acquistio 10/12/2018 12247 Interrogation Dev Loop Recorder Incl Physician Completed Analysis,Rev,Repor 09/19/2018 [id number] Diabetic Foot Exam Completed 09/11/2018 73238 Interrogation Dev Loop Recorder Incl Physician Completed Analysis,Rev,Repor 09/11/2018 [id number] Implantable Cardio System Loop Recorder Sys Remota Completed Data [employer] 08/11/2018 77156 Implantable Cardio System Loop Recorder Sys Remota Completed Data Acquistio 08/11/2018 33574 Interrogation Dev Loop Recorder Incl Physician Completed Analysis,Rev,Repor 10/21/2017 [id number] Diabetic Foot Exam Completed 10/14/2017 696120316 Diabetic Retinal Eye Exam Completed 08/09/2017 [id number] Diabetic Foot Exam Completed 07/13/2017 [id number] Diabetic Foot Exam Completed 11/11/2016 [id number] Mammogram Completed 10/27/2015 [id number] Mammogram Completed 04/22/2015 [id number] Mammogram Completed 10/01/2014 [id number] Mammogram Completed 06/06/2014 980250939 Diabetic Retinal Eye Exam Completed 02/13/2014 072734351 Diabetic Foot Exam Completed 09/19/2013 134756611 Bone Mineral Density Test Completed 07/02/2013 156895252 Diabetic Retinal Eye Exam Completed 05/14/2013 [id number] Mammogram Completed 12/05/2012 [id number] Diabetic Foot Exam Completed 12/27/2011 [id number] Mammogram Completed 12/02/2011 [id number] Mammogram Completed 11/24/2011 [id number] Diabetic Foot Exam Completed 12/09/2010 824459773 Diabetic Foot Exam Completed 11/13/2010 [id number] Diabetic Foot Exam Completed 12/12/2009 [id number] Mammogram Completed 07/15/2009 [id number] Colonoscopy Completed 07/12/2009 [id number] Colonoscopy Completed Medical Devices Description No Information Available Encounters Type Date Location Provider Dx Diagnosis Office Visit 01/03/2019 [facility] Rodney Felder E11.9 Type 2 diabetes 10:00a Gayathri Michael mellitus without complications I10 Essential (primary) hypertension E83.42 Hypomagnesemia R07.89 Other chest pain R55 Syncope and collapse I44.1 Atrioventricular block, second degree E66.8 Other obesity Office Visit 01/02/2019 8:20a [facility] Internal Cielo Crouch, E11.9 Type 2 diabetes Medicine - MD mellitus without Ccmob complications I10 Essential (primary) hypertension Z12.31 Encntr screen mammogram for malignant neoplasm of breast F43.10 Post-traumatic stress disorder, unspecified Office Visit 09/14/2018 8:20a [facility] Internal Magaly Borjas M25.571 Pain in right Medicine - Suite DO ankle and R joints of right foot E83.42 Hypomagnesemia Assessments Date Code Description Provider 02/01/2019 I10 Essential (primary) hypertension Cielo Crouch MD 02/01/2019 E11.69 Type 2 diabetes mellitus with other Cielo Miko, MD specified complication 02/01/2019 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 11/12/2018 R29.6 Repeated falls Rodney Michael M.D. 11/12/2018 Z95.818 Presence of other cardiac implants and Rodney Michael M.D. grafts 10/12/2018 I44.30 Unspecified atrioventricular block Rodney Michael M.D. 10/12/2018 I45.81 Long QT syndrome Rodney Michael M.D. 10/12/2018 R29.6 Repeated falls Rodney Michael M.D. 10/12/2018 Z95.818 Presence of other [...] cardiac implants and Rodney Michael M.D. grafts 08/11/2018 I44.30 Unspecified atrioventricular block Rodney Michael M.D. 08/11/2018 I45.81 Long QT syndrome Rodney Michael M.D. 08/11/2018 R29.6 Repeated falls Rodney Michael M.D. 08/11/2018 Z95.818 Presence of other cardiac implants and Rodney Michael M.D. grafts Plan of Treatment Future Appointment(s):05/08/2019 8:20 am - [facility] - Dang [facility] N.P[facility] at [facility]xkjsgt[facility]xd48/24/2019 - Cielo Crouch MDI10 Essential (primary) hypertensionComments:Your blood pressure is fine. Continue the same medicationFollow up:F/U 3 aibyfoU84.69 Type 2 diabetes mellitus with other specified complicationComments:HbA1c was 6.4 in September 2018. Will recheck in 3 monthsEye exam this monthUrine is leaking some proteinbut this will get better with lisinoprilContinue same dose diagcrigiN16 Other psychotic disorder not due to a substance or known physiological conditionComments:Reviewed notes from Dr. Member. Richardson same medsZ23 Encounter for immunization Functional Status Description No Information Available Mental Status Description No Information Available Referrals Description No Information Available
[2019-03-04 07:20] LABS: Albumin 4.6 g/dL (3.2-5.2); Calcium 9.8 mg/dL (8.6-10.3); Magnesium 1.8 mg/dL (1.9-2.7); Potassium 4.1 mmol/L (3.5-5.0); Total Bilirubin 0.5 mg/dL (0.2-1.0)
[2019-03-04 07:27] LABS: Albumin/Globulin Ratio 1.2 (1-3); BUN/Creatinine Ratio 20.2 (8-20); C Reactive Protein 3.36 mg/L (<8.01); EGFR African American 77.3 (>60); EGFR Non-African American 63.9 (>60); Globulin 3.8 g/dL (2-4); Total Protein 8.4 g/dL (6.4-8.9)
[2019-03-04] MEDS ORDERED: Iodixanol* (CONTRAST) 320 MG/ML 100 ML SDV IV ONE (09:11)
[2019-03-04 10:35] LABS: Urine Appearance Cloudy; Urine Bilirubin Negative (Negative); Urine Blood 1+ (Negative); Urine Color Yellow; Urine Glucose 1+(50 mg/dL) (Negative); Urine Ketones Negative (Negative); Urine Nitrite Negative (Negative); Urine Protein 2+(100 mg/dL) (Negative); Urine Specific Gravity 1.032 (1.010-1.030); Urine Urobilinogen Negative (Negative)
[2019-03-04 10:39] LABS: Urine Bacteria Absent (Absent); Urine Red Blood Cell 2+(6-10/hpf) (Absent); Urine Squamous Epithelial Cell Present (Absent); Urine White Blood Cell 2+(11-20/hpf) (Absent)
[2019-03-04 11:04] VITALS: BP 157/96
--- NOTE | 2019-03-04 11:51 | ED ---
Abdominal Pain/Female - HPI Summary HPI Summary: This patient is a 63-year-old female presenting to the ED with mid abdominal/ periumbilical pain with associated nausea and vomiting 1 since 2 days ago. Pain is currently rated a 4/10, constant and aching. Symptoms are not made worse or better after eating. She continues to eat and drink, however decreased appetite per patient. Patient does have a history of diabetes and hypertension. She denies any melena, hematemesis, hematochezia, easy bruising or bleeding, epigastric pain and tenderness, dysphasia, odynophagia or headaches. Denies any gross hematuria. She also denies any fevers, sweats, chills. Denies any UTI symptoms, however has hx of such. No current modifying factors. - History of Current Complaint Chief Complaint: EDAbdPain Stated Complaint: ABDOMINAL PAIN PER EMS Time Seen by Provider: 03/04/19 06:48 Hx Obtained From: Patient ?: No Onset/Duration: Sudden Onset Timing: Constant Severity Initially: Moderate Severity Currently: Moderate Pain Intensity: 2 Pain Scale Used: 0-10 Numeric Location: Other - midabdominal/periumbilical Radiates: No Aggravating Factor(s): Nothing Alleviating Factor(s): Nothing Associated Signs and Symptoms: Positive: Negative - Risk Factors Ectopic Risk Factor: Negative Ovarian Torsion Risk Factor: Negative Allergies/Adverse Reactions: Allergies Allergy/AdvReac Type Severity Reaction Status Date / Time atorvastatin Allergy Severe See Comment Verified 09/12/18 17:13 tramadol Allergy Severe Shortness Verified 09/12/18 17:13 of Breath codeine Allergy Intermediate Rash Verified 09/12/18 17:13 Sulfa (Sulfonamide Allergy Mild Rash Verified 09/12/18 17:13 Antibiotics) amlodipine Allergy Unknown Verified 09/12/18 17:13 Reaction Details daptomycin Allergy See Comment Verified 09/12/18 17:13 quetiapine [From Seroquel] Allergy Unknown Verified 09/12/18 17:13 Reaction Details zolpidem [From Ambien] Allergy Unknown Verified 09/12/18 17:13 Reaction Details lorazepam AdvReac Intermediate Agitation Verified 09/12/18 17:13 amoxicillin [From Augmentin] AdvReac Mild Nausea And Verified 09/12/18 17:13 Vomiting clavulanic acid AdvReac Mild Nausea And Verified 09/12/18 17:13 [From Augmentin] Vomiting Home Medications: Home Medications Lisinopril 1.5 tab PO DAILY 03/04/19 [History Confirmed 03/04/19] hydrOXYzine HCL TAB* [Atarax 25 MG TAB*] 1 tab PO DAILY PRN 03/04/19 [History Confirmed 03/04/19] PMH/Surg Hx/FS Hx/Imm Hx Previously Healthy: Yes Endocrine/Hematology History: Reports: Hx Diabetes Denies: Hx Thyroid Disease Cardiovascular History: Reports: Hx Hypercholesterolemia, Hx Hypertension, Hx Pacemaker/ICD, Other Cardiovascular Problems/Disorders - hypercholesterolemia Denies: Hx Angina, Hx Coronary Artery Disease, Hx Myocardial Infarction, Hx Peripheral Vascular Disease, Hx Valvular Heart Disease Respiratory History: Reports: Hx Pneumonia, Hx Sleep Apnea - doesn't use her CPAP, Other Respiratory Problems/Disorders - reports pneumonia x5 in 9 years - has seen dr combs [place]: Hx Asthma, Hx Chronic Obstructive Pulmonary Disease (COPD) GI History: Reports: Hx Gall Bladder Disease - gall stones, Other GI Disorders - current gallbladder issue Denies: Hx Hiatal Hernia, Hx Ulcer History: Reports: Hx Acute Renal Failure, Hx Renal Disease - HX OF FAILURE - THAT RESOLVED, Other Problems/Disorders - hx UTI's Musculoskeletal History: Reports: Hx Arthritis - bilateral knees, Other Musculoskeletal History - reports spinal stenosis - followed by dr timmons Den[place]: Hx Osteoporosis Sensory History: Denies: Hx Cataracts, Hx Contacts or Glasses, Hx Eye Injury, Hx Eye Prosthesis, Hx Glaucoma, Hx Legally Blind, Hx Macular Degeneration, Hx Vision Problem, Hx Deafness, Hx Hearing Aid, Hx Hearing Problem, Other Sensory Impairments Opthamlomology History: Denies: Hx Cataracts, Hx Contacts or Glasses, Hx Eye Injury, Hx Eye Prosthesis, Hx Glaucoma, Hx Legally Blind, Hx Macular Degeneration, Hx Vision Problem, Other Sensory Impairments Neurological History: Reports: Hx Headaches - none in 3 yrs, 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, Other Neuro Impairments/Disorders - c-spine myelopathy, paralysis, reports hx psychosis Psychiatric History: Reports: Hx Anxiety, Hx Depression, Hx Panic Disorder - ANXIETY UNDER CONTROL, Hx Post Traumatic Stress Disorder, Hx Schizophrenia, Hx Substance Abuse - EtOH, Other Psychiatric Issues/Disorders - Psychosis, controlled with Geodon Denies: Hx Eating Disorder, Hx of Violent Episodes Against Others - Cancer History Hx Chemotherapy: No Hx Radiation Therapy: No - Surgical History Surgery Procedure, Year, and Place: hysterectomy - [place]. [place] - [place]. 06/19/14-[facility] REVEAL HEART LOOP RECORDER - CURRENTLY NOT ACTIVE. bilateral cataract extraction with IOL's 2013 - [facility] GALL[facility] Hx Anesthesia Reactions: No - Immunization History Date of Influenza Vaccine: 12/2016 Hx Pertussis Vaccination: No Immunizations Up to Date: Yes Infectious Disease History: Yes Infectious Disease History: Reports: Hx Shingles Denies: Hx Clostridium Difficile, Hx Hepatitis, Hx Human Immunodeficiency Virus (HIV), Hx of Known/Suspected MRSA, Hx Tuberculosis, History Other Infectious Disease, Traveled Outside the [place] in Last 30 Days - Family History Known Family History: Positive: Cardiac Disease, Hypertension, Other - [place] - Social History Occupation: Unemployed Lives: Alone Alcohol Use: None Alcohol Amount: 1-2 beers occassionally last drink 3 mo. ago Hx Substance Use: No Substance Use Type: Reports: None Hx Tobacco Use: Yes Smoking Status (MU): Former Smoker Type: Cigarettes Amount Used/How Often: reports had 3 cigs per day for 5 years Have You Smoked in the Last Year: No Review of Systems Negative: Fever, Chills, Fatigue, Skin Diaphoresis Negative: Palpitations, Chest Pain Negative: Shortness Of Breath, Cough Positive: Abdominal Pain, Vomiting, Nausea. Negative: Diarrhea Genitourinary: Negative Positive: no symptoms reported, see HPI Negative: Arthralgia, Myalgia Skin: Negative All Other Systems Reviewed And Are Negative: Yes Physical Exam Triage Information Reviewed: Yes Vital Signs On Initial Exam: Initial Vitals Temp Pulse Resp BP Pulse Ox 97.0 F 74 18 167/104 96 03/04/19 06:50 03/04/19 06:50 03/04/19 06:50 03/04/19 06:50 03/04/19 06:50 Vital Signs Reviewed: Yes Appearance: Positive: Well-Appearing, Well-Nourished Skin: Positive: Warm, Skin Color Reflects Adequate Perfusion Head/Face: Positive: Normal Head/Face Inspection Eyes: Positive: EOMI, [place], Conjunctiva Clear Neck: Positive: Supple, Nontender, No Lymphadenopathy Respiratory/Lung Sounds: Positive: Clear to Auscultation, Breath Sounds Present Cardiovascular: Positive: RRR, Pulses are Symmetrical in both Upper and Lower Extremities Musculoskeletal: Positive: Normal, Strength/ROM Intact Neurological: Positive: Speech Normal Psychiatric: Positive: Normal, Affect/Mood Appropriate AVPU Assessment: Alert Procedures - Sedation Patient Received Moderate/Deep Sedation with Procedure: No Diagnostics - Vital Signs Vital Signs Temp Pulse Resp BP Pulse Ox 03/04/19 11:03 97.7 F 70 18 157/96 96 03/04/19 07:10 18 03/04/19 06:50 97.0 F 74 18 167/104 96 - Laboratory Lab Results: Lab Results 03/04/19 03/04/19 03/04/19 Range/Units 06:58 06:58 06:58 WBC 13.5 H (3.5-10.8) 10^3/uL RBC 4.20 (3.70-4.87) 10^6 /uL Hgb 13.4 (12.0-16.0) g/dL Hct 39 (35-47) % MCV 94 (80-97) fL MCH 32 H (27-31) pg MCHC 34 (31-36) g/dL RDW 13 (10-15) % Plt Count 421 (150-450) 10^3/uL MPV 7.0 L (7.4-10.4) fL Neut % (Auto) 86.6 % Lymph % (Auto) 8.7 % [place] % (Auto) 4.1 % Eos % (Auto) 0.2 % Baso % (Auto) 0.4 % Absolute Neuts (auto) 11.7 H (1.5-7.7) 10^3/ul Absolute Lymphs (auto) 1.2 (1.0-4.8) 10^3/ul Absolute Monos (auto) 0.6 (0-0.8) 10^3/ul Absolute Eos (auto) 0.0 (0-0.6) 10^3/ul Absolute Basos (auto) 0.1 (0-0.2) 10^3/ul Absolute Nucleated RBC 0.0 10^3/ul Nucleated RBC % 0.0 INR (Anticoag Therapy) 1.02 (0.82-1.09) Sodium 131 L (135-145) mmol/L Potassium 4.1 (3.5-5.0) mmol/L Chloride 95 L (101-111) mmol/L Carbon Dioxide 27 (22-32) mmol/L Anion Gap 9 (2-11) mmol/L BUN 18 (6-24) mg/dL Creatinine 0.89 (0.51-0.95) mg/dL Est GFR ( Amer) 77.3 (>60) Est GFR (Non-Af Amer) 63.9 (>60) BUN/Creatinine Ratio 20.2 H (8-20) Glucose 203 H (70-100) mg/dL Lactic Acid (0.5-2.0) mmol/L Calcium 9.8 (8.6-10.3) mg/dL Magnesium 1.8 L (1.9-2.7) mg/dL Total Bilirubin 0.50 (0.2-1.0) mg/dL AST 38 (13-39) U/L ALT 35 (7-52) U/L Alkaline Phosphatase 86 (34-104) U/L C-Reactive Protein 3.36 (<8.01) mg/L Total Protein 8.4 (6.4-8.9) g/dL Albumin 4.6 (3.2-5.2) g/dL Globulin 3.8 (2-4) g/dL Albumin/Globulin Ratio 1.2 (1-3) Lipase 19 (11.0-82.0) U/L Urine Color Urine Appearance Urine pH (5-9) Ur Specific [place] (1.010-1.030) Urine Protein (Negative) Urine Ketones (Negative) Urine Blood (Negative) Urine Nitrate (Negative) Urine Bilirubin (Negative) Urine Urobilinogen (Negative) Ur Leukocyte Esterase (Negative) Urine WBC (Auto) (Absent) Urine RBC (Auto) (Absent) Ur Squamous Epith Cells (Absent) Urine Bacteria (Absent) Urine Glucose (Negative) 03/04/19 03/04/19 Range/Units 06:58 10:22 WBC (3.5-10.8) 10^3/uL RBC (3.70-4.87) 10^6 /uL Hgb (12.0-16.0) g/dL Hct (35-47) % MCV (80-97) fL MCH (27-31) pg MCHC (31-36) g/dL RDW (10-15) % Plt Count (150-450) 10^3/uL MPV (7.4-10.4) fL Neut % (Auto) % Lymph % (Auto) % [place] % (Auto) % Eos % (Auto) % Baso % (Auto) % Absolute Neuts (auto) (1.5-7.7) 10^3/ul Absolute Lymphs (auto) (1.0-4.8) 10^3/ul Absolute Monos (auto) (0-0.8) 10^3/ul Absolute Eos (auto) (0-0.6) 10^3/ul Absolute Basos (auto) (0-0.2) 10^3/ul Absolute Nucleated RBC 10^3/ul Nucleated RBC % INR (Anticoag Therapy) (0.82-1.09) Sodium (135-145) mmol/L Potassium (3.5-5.0) mmol/L Chloride (101-111) mmol/L Carbon Dioxide (22-32) mmol/L Anion Gap (2-11) mmol/L BUN (6-24) mg/dL Creatinine (0.51-0.95) mg/dL Est GFR ( Amer) (>60) Est GFR (Non-Af Amer) (>60) BUN/Creatinine Ratio (8-20) Glucose (70-100) mg/dL Lactic Acid 1.4 (0.5-2.0) mmol/L Calcium (8.6-10.3) mg/dL Magnesium (1.9-2.7) mg/dL Total Bilirubin (0.2-1.0) mg/dL AST (13-39) U/L ALT (7-52) U/L Alkaline Phosphatase (34-104) U/L C-Reactive Protein (<8.01) mg/L Total Protein (6.4-8.9) g/dL Albumin (3.2-5.2) g/dL Globulin (2-4) g/dL Albumin/Globulin Ratio (1-3) Lipase (11.0-82.0) U/L Urine Color Yellow Urine Appearance Cloudy Urine pH 6.0 (5-9) Ur Specific [place] 1.032 H (1.010-1.030) Urine Protein 2+(100 mg/dl) A (Negative) Urine Ketones Negative (Negative) Urine Blood 1+ A (Negative) Urine Nitrate Negative (Negative) Urine Bilirubin Negative (Negative) Urine Urobilinogen Negative (Negative) Ur Leukocyte Esterase 3+ A (Negative) Urine WBC (Auto) 2+(11-20/hpf) A (Absent) Urine RBC (Auto) 2+(6-10/hpf) A (Absent) Ur Squamous Epith Cells Present A (Absent) Urine Bacteria Absent (Absent) Urine Glucose 1+(50 mg/dl) A (Negative) Result Diagrams: 03/04/19 06:58 03/04/19 06:58 Lab Statement: Any lab studies that have been ordered have been reviewed, and results considered in the medical decision making process. Abdominal Pain Fem Course/Dx - Course Course Of Treatment: During his course of treatment, the patient's evaluated for periumbilical/medical abdominal pain associated with nausea and vomiting. Differentials immediately included SBO and hernia. Patient does have a history of hernia with a large mesh several years ago she states. On physical examination, lungs CTA, RRR. Patient is endorsing nausea at this time, however denying any vomiting since last night. She is also declining any nausea medication at first. Labs obtained which show a slightly elevated white count of 13,000. CT abdomen/pelvis obtained with oral and IV contrast which shows no hernia or bowel obstruction is noted. Contrast is noted in the right colon. Normal-appearing appendix. No hernias are noted. Diverticulosis of the sigmoid colon without diverticulitis. Patient did finally agree to Reglan and she was also given morphine. On reexamination, she states the Reglan did not improve her nausea, however her pain did improve. UA obtained which shows evidence of a UTI. We will treat for this at this time with Macrobid. No allergies noted. This patient is feeling improved, she will be discharged home with UTI and abdominal pain. She voices no concerns however it is encouraged for the patient to return immediately if she develops any worsening or changing symptoms or continues to be unable to take PO. - Diagnoses Differential Diagnosis: Positive: Bowel Obstruction, Constipation, Diverticulitis, Irritable Bowel Syndrome, Urinary Tract Infection, Other - n/v/ abd pain/hernia/diverticulosis/viral syndrome Provider Diagnoses: Abdominal pain, Nausea & vomiting, UTI (urinary tract infection) Is Visit Related: No Discharge ED - Sign-Out/Discharge Documenting (check all that apply): Patient Departure - Discharge Plan Condition: Stable Disposition: HOME Prescriptions: Nitrofurantoin Monohyd/M-Cryst [Macrobid 100 mg Capsule] 100 mg PO BID #10 cap MDD 2 Patient Education Materials: Urinary Tract Infection in Women (ED) Referrals: Cielo Crouch MD [Primary Care Provider] - Additional Instructions: Take macrobid twice daily x 5 days Please return to the ED if you develop any worsening symptoms - Billing Disposition and Condition Condition: STABLE Disposition: Home - Attestation Statements Provider Attestation: I was available for consult. This patient was seen by the YOLANDA. The patient was not presented to, seen by, or examined by me. Escobar Hays MD
== END 2019-03-04 11:03 | disposition home or self-care (01) ==
LOC: ED 06:39
DX: R10.9 Unspecified abdominal pain (principal); R11.2 Nausea with vomiting, unspecified; N39.0 Urinary tract infection, site not specified; Z87.891 Personal history of nicotine dependence; E78.00 Pure hypercholesterolemia, unspecified; I10 Essential (primary) hypertension; F41.9 Anxiety disorder, unspecified; F32.9 Major depressive disorder, single episode, unspecified
CPT/HCPCS: 36415; 74177; 80053; 81003; 81015; 83605; 83690; 83735; 85025; 85610; 86140; 87086; 96374; 96375; 99283; J2270; J2765; Q9967

== ENCOUNTER 2022-12-07 12:34 | Inpatient (IN) ==
[2022-12-07 13:29] LABS: ABS Lymphocytes 1.8 10^3/uL (1.0-4.8); ABS Monocytes 0.8 10^3/uL (0.0-0.9); Eosinophil % 0.1 %; Hematocrit 25.6 % (35-45); Hemoglobin 8.8 g/dL (11.5-14.3); Lymphocyte % 13.1 %; Mean Corpuscular Hemoglobin 33.8 pg (27-33); Mean Corpuscular Hgb Conc 34.2 g/dL (31-36); Mean Corpuscular Volume 98.8 fL (80-97); Mean Platelet Volume 7.1 fL (7.5-11.2); Platelet Count 315 10^3/uL (150-450); Red Blood Count 2.59 10^6/uL (3.63-4.92); Red Cell Distribution Width 13.5 % (12-17); White Blood Count 13.6 10^3/uL (3.8-11.8)
[2022-12-07 13:46] LABS: Albumin 4.3 g/dL (3.2-5.2); Albumin/Globulin Ratio 1.4 (1-3); Calcium 9.1 mg/dL (8.6-10.3); Creatinine, Serum 3.26 mg/dL (0.51-0.95); Globulin 3.1 g/dL (2-4); Magnesium 1.9 mg/dL (1.9-2.7); Potassium 4.3 mmol/L (3.5-5.0); Total Bilirubin 0.5 mg/dL (0.2-1.0); Total Protein 7.4 g/dL (6.4-8.9); eGFR CKD-EPI 14.9 (>60)
[2022-12-07 14:21] LABS: TSH Ultra Thyroid Stim Horm 5.93 mcIU/mL (0.34-5.60)
[2022-12-07] MEDS ORDERED: NS 0.9% 1000 ml BAG 1,000 ML IV.FLUID IV ONE (14:24)
[2022-12-07] MEDS ORDERED: Pantoprazole 80 mg in NS BAG 80 MG/250 ML BAG IV ONE (14:51)
[2022-12-07] MEDS ORDERED: Pantoprazole VIAL 40 MG VIAL IV ONE (14:53)
[2022-12-07] MEDS ORDERED: Dextrose 50% Syringe 50 ml 25 GM/50 ML SYRINGE IV PUSH PRN (16:42)
[2022-12-07] MEDS ORDERED: Lactated Ringers 1000 ml BAG 1,000 ML IV ONE (16:42)
[2022-12-07] MEDS ORDERED: Ondansetron 4 mg VIAL 2 MG/ML 2 ml VIAL IV PRN (16:43)
[2022-12-07 21:16] LABS: Urine Appearance Clear; Urine Bilirubin Negative (Negative); Urine Blood 1+ (Negative); Urine Color Straw; Urine Glucose 2+(150 mg/dL) (Negative); Urine Ketones Negative (Negative); Urine Nitrite Negative (Negative); Urine Protein Negative (Negative); Urine Specific Gravity 1.009 (1.002-1.030); Urine Urobilinogen Negative (Negative)
[2022-12-07 21:25] LABS: Urine Bacteria 1+ (Absent); Urine Red Blood Cell Trace(0-2/hpf) (Absent); Urine Squamous Epithelial Cell Present (Absent); Urine White Blood Cell 1+(6-10/hpf) (Absent)
[2022-12-07] MEDS: CMCS: Pravastatin 20 mg TAB (NF) PO SCH (22:13)
[2022-12-08] MEDS: Pantoprazole 80 mg in NS BAG 80 MG/250 ML BAG IV SCH ×2 (01:39→11:48)
[2022-12-08 05:59] LABS: Red Blood Count 2.04 10^6/uL (3.63-4.92); White Blood Count 8.8 10^3/uL (3.8-11.8)
[2022-12-08 06:00] LABS: ABS Eosinophils 0.2 10^3/uL (0.0-0.5); ABS Lymphocytes 2.8 10^3/uL (1.0-4.8); ABS Monocytes 0.6 10^3/uL (0.0-0.9); ABS Neutrophils 5.2 10^3/uL (1.5-7.6); ABS Nucleated RBC 0.01 10^3/ul; Eosinophil % 2.6 %; Hematocrit 20.3 % (35-45); Lymphocyte % 31.6 %; Mean Corpuscular Hemoglobin 34.2 pg (27-33); Mean Corpuscular Hgb Conc 34.3 g/dL (31-36); Mean Corpuscular Volume 99.6 fL (80-97); Nucleated Red Blood Cells % 0.1 /100 WBC (0.0-0.4); Platelet Count 254 10^3/uL (150-450); Red Cell Distribution Width 13.7 % (12-17)
[2022-12-08 06:25] LABS: Calcium 8.1 mg/dL (8.6-10.3); Creatinine, Serum 2.99 mg/dL (0.51-0.95); Magnesium 1.9 mg/dL (1.9-2.7); Potassium 4.1 mmol/L (3.5-5.0); eGFR CKD-EPI 16.5 (>60)
[2022-12-08] MEDS: Venlafaxine XR 75 mg PO SCH (08:10)
[2022-12-08 09:05] LABS: Ferritin 66.5 ng/mL (11-307)
[2022-12-08] MEDS: NS 0.9% 1000 ml BAG 1,000 ML IV SCH ×3 (10:27→20:48)
[2022-12-08 14:59] LABS: Hematocrit 25.3 % (35-45); Hemoglobin 8.7 g/dL (11.5-14.3)
[2022-12-08] MEDS ORDERED: fentaNYL 100 mcg/2 ml 50 MCG/ML VIAL ONE (15:00)
[2022-12-08] MEDS ORDERED: Midazolam 10 mg/10 ml VIAL 1 mg/ml 10 ml VIAL (10 mg) ONE (15:00)
[2022-12-08 15:21] LABS: Calcium 8.5 mg/dL (8.6-10.3); Creatinine, Serum 2.37 mg/dL (0.51-0.95); Potassium 3.8 mmol/L (3.5-5.0); eGFR CKD-EPI 21.8 (>60)
[2022-12-08] MEDS ORDERED: fentaNYL 100 mcg/2 ml 50 MCG/ML VIAL IV SLOW PU ONE (16:30)
[2022-12-08] MEDS ORDERED: Midazolam 10 mg/10 ml VIAL 1 mg/ml 10 ml VIAL (10 mg) IV SLOW PU ONE (16:30)
[2022-12-08] MEDS: Mupirocin 2% OINT TUBE TOPICAL SCH ×2 (17:49→20:45)
[2022-12-08] MEDS: CMCS: Pravastatin 20 mg TAB (NF) PO SCH (20:45)
[2022-12-09] MEDS: Pantoprazole 80 mg in NS BAG 80 MG/250 ML BAG IV SCH ×3 (00:28→20:47)
[2022-12-09 05:52] LABS: ABS Eosinophils 0.3 10^3/uL (0.0-0.5); ABS Lymphocytes 1.6 10^3/uL (1.0-4.8); ABS Monocytes 0.3 10^3/uL (0.0-0.9); ABS Nucleated RBC 0.01 10^3/ul; Eosinophil % 4.6 %; Hematocrit 25.1 % (35-45); Hemoglobin 8.7 g/dL (11.5-14.3); Lymphocyte % 24.9 %; Mean Corpuscular Hemoglobin 33.9 pg (27-33); Mean Corpuscular Hgb Conc 34.9 g/dL (31-36); Mean Corpuscular Volume 97.2 fL (80-97); Mean Platelet Volume 6.9 fL (7.5-11.2); Nucleated Red Blood Cells % 0.1 /100 WBC (0.0-0.4); Platelet Count 251 10^3/uL (150-450); Red Blood Count 2.58 10^6/uL (3.63-4.92); White Blood Count 6.2 10^3/uL (3.8-11.8)
[2022-12-09 06:18] LABS: Calcium 8.8 mg/dL (8.6-10.3); Creatinine, Serum 1.87 mg/dL (0.51-0.95); Potassium 3.8 mmol/L (3.5-5.0)
[2022-12-09] MEDS: NS 0.9% 1000 ml BAG 1,000 ML IV SCH (06:59)
[2022-12-09] MEDS: Venlafaxine XR 75 mg PO SCH (07:40)
[2022-12-09] MEDS: Mupirocin 2% OINT TUBE TOPICAL SCH ×2 (07:40→21:42)
[2022-12-09] MEDS: CMCS: Pravastatin 20 mg TAB (NF) PO SCH (21:42)
[2022-12-10] MEDS: Pantoprazole 80 mg in NS BAG 80 MG/250 ML BAG IV SCH ×2 (06:30→16:40)
[2022-12-10] MEDS: Venlafaxine XR 75 mg PO SCH (08:08)
[2022-12-10] MEDS: Mupirocin 2% OINT TUBE TOPICAL SCH ×2 (08:09→20:53)
[2022-12-10 08:52] LABS: ABS Basophils 0.1 10^3/uL (0.0-0.1); ABS Eosinophils 0.3 10^3/uL (0.0-0.5); ABS Lymphocytes 1.5 10^3/uL (1.0-4.8); ABS Monocytes 0.5 10^3/uL (0.0-0.9); ABS Neutrophils 7.5 10^3/uL (1.5-7.6); ABS Nucleated RBC 0.01 10^3/ul; Eosinophil % 2.9 %; Hematocrit 26.8 % (35-45); Hemoglobin 9.3 g/dL (11.5-14.3); Lymphocyte % 15.2 %; Mean Corpuscular Hemoglobin 33.7 pg (27-33); Mean Corpuscular Hgb Conc 34.6 g/dL (31-36); Mean Corpuscular Volume 97.2 fL (80-97); Mean Platelet Volume 6.9 fL (7.5-11.2); Nucleated Red Blood Cells % 0.1 /100 WBC (0.0-0.4); Platelet Count 273 10^3/uL (150-450); Red Blood Count 2.75 10^6/uL (3.63-4.92); Red Cell Distribution Width 15.1 % (12-17); White Blood Count 9.9 10^3/uL (3.8-11.8)
[2022-12-10 09:16] LABS: Calcium 8.8 mg/dL (8.6-10.3); Creatinine, Serum 1.5 mg/dL (0.51-0.95); Potassium 3.4 mmol/L (3.5-5.0); eGFR CKD-EPI 37.7 (>60)
[2022-12-10] MEDS ORDERED: Potassium Chlor 20 meq TAB.ER PO ONE (13:16)
[2022-12-10] MEDS ORDERED: hydrALAZINE 20 mg/ml 1 ML Vial IV IV SLOW PU PRN ×2 (15:44→16:35)
[2022-12-10] MEDS: CMCS: Pravastatin 20 mg TAB (NF) PO SCH (20:52)
[2022-12-11 06:08] LABS: Calcium 9.1 mg/dL (8.6-10.3); Creatinine, Serum 1.63 mg/dL (0.51-0.95); Magnesium 1.2 mg/dL (1.9-2.7); Potassium 3.3 mmol/L (3.5-5.0); eGFR CKD-EPI 34.1 (>60)
[2022-12-11] MEDS: Venlafaxine XR 75 mg PO SCH (08:38)
[2022-12-11] MEDS: Magnesium Sulfate 2 gm BAG 2 GM/50 ML BAG IVPB SCH ×2 (08:38→10:00)
[2022-12-11] MEDS: Potassium Chlor 20 meq TAB.ER PO SCH ×2 (08:39→10:13)
[2022-12-11] MEDS: Mupirocin 2% OINT TUBE TOPICAL SCH (08:49)
[2022-12-11 11:59] LABS: Calcium 9.7 mg/dL (8.6-10.3); Creatinine, Serum 1.61 mg/dL (0.51-0.95); Magnesium 3.3 mg/dL (1.9-2.7); Potassium 3.6 mmol/L (3.5-5.0); eGFR CKD-EPI 34.7 (>60)
[2022-12-11 14:11] VITALS: BP 165/78
== END 2022-12-11 15:40 | disposition home or self-care (01) | DRG 378 ==
LOC: ED 12:34 → EDHOLD 16:43 → SUATTDRO 16:43 → EDHOLD 19:12 → MED 20:00
PROVIDERS: ADMIT Internal Medicine; ATTEND Internal Medicine